=== PATIENT | female | born 1995 | race Caucasian/White ===

== ENCOUNTER → 2022-10-12 | Outpatient (CLI) | payer BC, SELFPAY ==
[2022-10-19 20:02] LABS: HPV Reflexed? NOT INDICATED
== END | disposition home or self-care (01) ==
LOC: LABSPEC 16:58
PROVIDERS: Referring Provider Registered Nurse; Visit Provider Registered Nurse
DX: Z12.4 Encounter for screening for malignant neoplasm of cervix (principal)
CPT/HCPCS: 88175; G0145

== ENCOUNTER → 2022-10-27 | Outpatient (CLI) | payer BC, SELFPAY ==
--- NOTE | 2022-10-27 12:19 | US_ITS ---
STUDY: ULTRASOUND BREAST - RIGHT REASON FOR EXAM: Female, 27 years old. Several year history of right breast. TECHNIQUE: Axial and longitudinal images of the RIGHT breast were performed with a high resolution ultrasound transducer. # OF IMAGES: 32 COMPARISON: None. FINDINGS: RIGHT Breast: The upper outer quadrant of the right breast was examined with ultrasound. There is dense fibroglandular tissue. The palpable lump corresponds to a 6.6 mm x 4.2 mm well-circumscribed hypoechoic nodule at the 12:00 position of the breast at 5 cm from the nipple. This most likely represents a fibroadenoma although a biopsy is recommended for tissue diagnosis. US/Breast Limited Unilateral IMPRESSION: The palpable lump corresponds to a 6.6 mm x 4.2 mm well circumscribed hypoechoic nodule at the 12:00 position of the breast at 5 seconds from nipple. This most likely represents a fibroadenoma although a biopsy is recommended for further evaluation. ASSESSMENT CATEGORY: BIRADS Category 4: Suspicious - Biopsy Should Be Considered. A letter regarding these results will be sent to the patient by the facility within 30 days. Electronically Signed: Ric Mclaughlin MD at 13:01 EDT ,
== END | disposition home or self-care (01) ==
PROVIDERS: Referring Provider Registered Nurse; Visit Provider Registered Nurse
DX: N63.11 Unspecified lump in the right breast, upper outer quadrant (principal)
CPT/HCPCS: 76642

== ENCOUNTER → 2025-02-15 | Outpatient (CLI) | payer BC, SELFPAY ==
--- OUTSIDE RECORDS SUMMARY | 2025-02-15 09:56 | XMS RPT_ITS | CCD ---
Author Organization [facility] CliniSywa Care Team Providers Care Extracting Machine Operator Name Role Phone OREN RUDD DO Primary Care Physician VIRGINIA Rodriguez Attending Provider ERIN ANDREWS MD Attending Unavaila ble HALKO DO, OREN Primary Care Unavailable HALKO DO, OREN Primary Care Unavailable ERIN ANDREWS MD Attending Unavaila ble HALKO DO, OREN Primary Care Unavailable ERIN ANDREWS MD Attending Unavaila ble Halko IV, DO, Lety Primary Care Provider [phone] Care Physician, No Primary Primary Care Provider Unavailable Care Physician, No Primary Referring Provider Un available Yasmeen Rodriguez CNM Attending Provider MD LASHONDA THOMAS Attending Unava ilable HALKO DO, OREN Primary Care Unavailable MD LASHONDA THOMAS Attending Unava ilable HALKO DO, OREN Primary Care Unavailable MD LASHONDA THOMAS Attending Unava ilable HALKO DO, OREN Primary Care Unavailable REFERRING, PHY WO ID Attending Unavailable HALKO , OREN Primary Care Unavailable MD LASHONDA THOMAS Attending Unava ilable HALKO DO, OREN Primary Care Unavailable MD LASHONDA THOMAS Attending Unava ilable HALKO DO, OREN Primary Care Unavailable MD LASHONDA THOMAS Attending Unava ilable HALKO DO, OREN Primary Care Unavailable MD LASHONDA THOMAS Attending Unava ilable HALKO DO, OREN Primary Care Unavailable HALKO IV, LETY Primary Care Unavailable HALKO IV, LETY Primary Care Unavailable LASHONDA THOMAS Attending Unavaila ble HALKO IV, LETY Primary Care Unavailable LASHONDA THOMAS Attending Unavaila ble HALKO IV, LETY Primary Care Unavailable HALKO IV, LETY Referring Unavailable BENDARAM, LASHONDA SHIPMAN Attending Unavaila ble HALKO IV, LETY Primary Care Unavailable BENDARAM, LASHONDA SHIPMAN Referring Unavaila ble HALKO IV, LETY Primary Care Unavailable HALKO IV, LETY Primary Care Unavailable BENDARAM, LASHONDA SHIPMAN Attending Unavaila ble HALKO IV, LETY Primary Care Unavailable BENDARAM, LASHONDA SHIPMAN Attending Unavaila ble HALKO IV, LETY Primary Care Unavailable BENDARAM, LASHONDA SHIPMAN Attending Unavaila ble Brianda DIRECTOR WORKFORCE MANAGEMENT-C, Ying Attending Provider [phone] Care Physician, No Primary Primary Care Unava ilable Yasmeen Rodriguez Attending Unavailable Care Physician, No Primary Referring Unava ilable Ying Lamar NP Attending Unavailable Care Physician, No Primary Referring Unava ilable Care Physician, No Primary Referring Unava ilable Robina Peters Attending Unavailable Fran COLEMAN, Robina Attending Provider [phone] Robina Peters CNM Referring Provider [phone] Allergies Allergy Classification Reported Allergen(s) Allergy Type Date of Onset Reaction(s) Facility (20 sources) Amoxicillin / Clavulanate; Translations: [amoxicillin-cl avulanate] Drug Allergy 4 Diarrhea, GI Upset, Vomiting [facility] (4 sources) Amoxicillin Drug Allergy 3 Abd cramps/diarrhea [facility] (4 sources) Clavulanate Drug Allergy 3 Abd cramps/diarrhea [facility] (1 source) AMOXICILLIN-POT CLAVULANATE; Translations: [AMOXICILLIN-PO T CLAVULANATE] Propensity to adverse reactions to drug (disorder) [address] [facility] Repository (1 source) Amoxicillin Drug Allergy 5 [facility] Repository (1 source) Clavulanate Drug Allergy 5 [facility] Repository Medications Current Medications Medication Drug Class(es) Dates Sig (Normalized) Sig (Original) levothyroxine sodium 0.05 mg oral tablet (20 sources) l-Thyroxine Start: 01-30-2025 Levothyroxine (Synthroid) 50 mcg tablet Active 75 ug PO DAILY January 30, 2025 8:15am Start: 07-06-2024 End: 01-08-2025 take 1 tablet by mouth once daily levothyroxine (LEVOXYL) 75 mcg tablet Indications: Acquired hypothyroidism Take 1 tablet by mouth once daily. 90 tablet 1 01/08/2025 Active Start: 11-26-2022 Synthroid 50 m cg (0.05 mg) oral tablet Dose : 50 mcg = 1 tab(s), Oral, qDay, # 90 tab(s), 3 Refill(s), Pharmacy: [facility], 170.5, cm, 10/01/22 10:01:00 EDT, Height, kg, 10/01/22 10:01:00 EDT, Dosing Weight Start Date: 11/26/22 Status: Ordered Quantity: 90.0 Unit: tab(s) Repeat number: 4 Start: 10-12-2022 End: 01-30-2025 take 1 tablet by mouth once daily Levothyroxine (Synthroid) 50 mcg tablet Discontinued 50 ug PO DAILY October 12, 2022 12:00am January 30, 2025 8:17am Start: 06-15-2022 Synthroid 50 m cg (0.05 mg) oral tablet Dose : 50 mcg = 1 tab(s), Oral, qDay, # 90 tab(s), 3 Refill(s), Pharmacy: [facility], 170.5, cm, 02/02/22 13:56:00 EDT, Height, kg, 02/02/22 13:56:00 EDT, Dosing Weight Start Date: 06/15/22 Status: Ordered Start: 06-12-2021 Synthroid 50 m cg (0.05 mg) oral tablet Dose : 50 mcg = 1 tab(s), Oral, qDay, # 90 tab(s), 3 Refill(s), Pharmacy: [facility], 167.6, cm, 06/12/21 15:18:00 EST, Height, kg, 06/12/21 15:18:00 EST, Dosing Weight Start Date: 06/12/21 Status: Ordered Start: 04-09-2021 Synthroid 50 m cg (0.05 mg) oral tablet Dose : 50 mcg = 1 tab(s), Oral, qDay, # 30 tab(s), 3 Refill(s), Pharmacy: [facility]/pharmacy #[id number], 167.6, cm, 01/28/21 15:20:00 EDT, Height, kg, 01/28/21 15:20:00 EDT, Dosing Weight Start Date: 04/09/21 Status: Ordered MEDICATION, NON-DATABASE (20 sources) take 1 capsule by mo uth twice daily MEDICATION, NON-DATABASE Take 1 capsule by mouth two times a day. Thyro-care *under the supervision of a construction project coordinator -- compound formula* Active take 1 capsule by mouth once juan ly MEDICATION, NON-DATABASE Take 1 capsule by mouth once daily. Adrenal Assist *under the supervision of a construction project coordinator -- compound formula* Active take 1 capsule by mouth twice da александр MEDICATION, NON-DATABASE Take 1 capsule by mouth two times a day. Thyro-care *under the supervision of a construction project coordinator -- compound formula* 0 Active take 1 capsule by mouth once juan ly MEDICATION, NON-DATABASE Take 1 capsule by mouth once daily. Adrenal Assist *under the supervision of a construction project coordinator -- compound formula* 0 Active OMEGA 5-XHK-BIA-FISH OIL ORA L (15 sources) take 1 capsule by mouth once daily OMEGA 9-MYA-ZRG-FISH OIL ORAL Take 1 capsule by mouth once daily. Active OMEGA 3-DHA-EPA- FISH OIL ORAL Take by mouth. Active OTC NUTRITIONAL SUPPLEMENT (15 sources) take 1 tablet by heather th once daily OTC NUTRITIONAL SUPPLEMENT Take 1 tablet by mouth once daily. Vitex Supplement Active OTC NUTRITIONAL SUPPLEMENT Vitex Supplement Active Pnv Cmb 97-Swuj-Hy-Accident-3-Dha 29 mg iron- 1 mg-200 mg combo pack (2 sources) Start: 01-30-2025 Pnv Cmb 66-Ubdm-Em-Accident-3-Dha 29 mg iron- 1 mg-200 mg combo pack Active NMA PO January 30, 2025 12:00am vit 93/iron fum/folic ( FORMULA ORAL) (15 sources) take 1 tablet by mouth once daily vit 93/iron fum/folic ( FORMULA ORAL) Take 1 tablet by mouth once daily. Active vit 93/ iron fum/folic ( FORMULA ORAL) Take by mouth. Active propranolol hydrochloride 10 mg oral tablet (15 sources) beta-Adrenergic Jessica Start: 05-05-2024 take 1 tablet by mouth three times daily propranolol (INDERAL) 10 mg tablet Indications: Abnormal results of thyroid function studies Take 1 tablet by mouth three times a day. 90 tablet 05/05/2024 Active spironolactone 100 mg oral tablet (3 sources) Aldosterone Antagonist Start: 07-31-2021 spironolactone 100 mg oral tablet Dose : 100 mg = 1 tab(s), Oral, qDay, # 30 tab(s), 0 Refill(s) Start Date: 07/31/21 Status: Ordered Completed/Discontinued Medications Medication Drug Class(es) Dates Sig (Normalized) Sig (Original) cosyntropin 0.25 mg injection (CORTROSYN) (3 sources) Start: 12-07-2024 End: 12-15-2024 cosyntropin 0.25 mg injection (CORTROSYN) Start: 12-07-2024 End: 12-15-2024 inject 2-5 mL by intramuscular injection once 0.25 mg, INTRAMUSCULAR, ONCE (UP TO 30 DAYS AMB), 1 dose, On Marisela 12/07/24 at 1230, Please draw 17 hydroxy progesterone levels before and 60 mins after giving cosyntropin Intramuscular administration: Reconstitute 0.25 mg with 1 mL of NS Intravenous administration: Reconstitute 0.25 mg with 1 mL of NS and further dilute in NS to a total volume of 2 to 5 mL Start: 12-07-2024 End: 01-06-2025 cosyntropin 0.25 mg injectio n (CORTROSYN) Problems Problem Classification Problem Date Documented Da te Episodic/Chronic Cardiac dysrhythmias (13 sources) Tachycardia 06-27-2019 Episodic Coronary atherosclerosis and other heart disease (13 sources) Exercise-induced angina 06-27-2019 Chronic Heart valve disorders (13 sources) Pulmonic valve regurgitation 07-07-2019 Chronic Heart valve disorders (13 sources) Systolic murmur 06-27-2019 Episodic Joint disorders and dislocations; trauma-related (13 sources) Patellofemoral stress syndrome 12-22-2019 Chronic Menstrual disorders (16 sources) Secondary amenorrhea; Translations: [Irregular periods] Onset: 12-15-2024 06-12-2021 Chronic Nonmalignant breast conditions (12 sources) Lesion of breast; Translations: [Unspecified lump in unspecified breast] 10-12-2022 Episodic Comment on above: breast ultrasound or dered 0.5cm mobile nodule 5cm from nipple, 11 oclock 0.5cm mobile nodule 5cm from nipple, 11 oclocksurgical consult placed for biospy. Other complications of (1 source) Supervision of high risk , unspecified, unspecified trimester; Translations: [Supervision of high risk , unspecified, unspecified trimester] Onset: 02-07-2025 Episodic Other complications of (3 sources) High risk ; Translations: [Supervision of high risk , unspecified, unspecified trimester] 01-30-2025 Episodic Comment on above: , KATE 09/19/25, Joey Carballo Other complications of (2 sources) Inherited disorder of folate metabolism; Translations: [Endocrine, nutritional and metabolic diseases complicating , unspecified trimester] 01-30-2025 Episodic Other gastrointestinal disorders (13 sources) Irritable bowel syndrome 07-16-2020 Chronic Other and delivery including normal (2 sources) ; Translations: [Encounter for supervision of normal , unspecified, unspecified trimester] 02-15-2025 Episodic Comment on above: discussed genetic & carrier testing-undecided Other screening for suspected conditions (not mental disorders or infectious disease) (2 sources) Thyroid function tests abnormal; Translations: [Abnormal results of thyroid function studies] 05-05-2024 Episodic Other skin disorders (2 sources) Acne; Translations: [Other acne] 10-06-2024 Episodic Other skin disorders (1 source) Other acne; Translations: [Other acne] Onset: 12-15-2024 Episodic Residual codes; unclassified (2 sources) Family history of breast cancer; Translations: [Family history of malignant neoplasm of breast] 01-30-2025 Episodic Comment on above: Paternal Grandmother age of onset unknown Thyroid disorders (20 sources) Hyperthyroidism; Translations: [Hypothyroidism] Onset: 12-15-2024 08-27-2020 Chronic Comment on above: managed by [facility] Results Test Name Value Interpretation Reference Range Facility Office Visit Reporton 2024 Office Visit [facility] [address] [place] [address] OFFICE VISIT Date of Service: 01/30/25 MR#: [id number] Acct: [id number] Patient: ERWIN COLES Rep #: [id number] : 1995 Provider: KIRSTIN cameron Age/Sex: 29/F Location: [facility] Status: Signed Intake Vital Signs 11/14/24 09:41 01/30/25 10:15 Height 5 ft 6 in 5 ft 6 in Weight: 143 lb 6 oz 144 lb BMI 23.1 23.2 BP 107/73 118/68 Blood Pressure Location Lt brachial Position Sitting Intake Visit Reasons: PNOB Vitals Education Chief Complaint: Annual Java Developer Consultant Required: No Is patient in pain?: No Allergies amoxicillin (From Augmentin) Allergy (Mild, Verified 01/30/25 10:16) Abd cramps/diarrhea clavulanic acid (From Augmentin) Allergy (Mild, Verified 01/30/25 10:16) Abd cramps/diarrhea Medications ???Medication ???Instructions ???Recorded ???Confirmed ???Type PNV-iron 29 mg-folic acid 1 pkg PO 01/30/25 01/30/25 History iq-gmzuh-2-dha 200 mg oral combo pack levothyroxine 50 mcg tablet 75 mcg PO DAILY 01/30/25 01/30/25 History (Synthroid) Is last menstrual period known: Yes Last menstrual period: 12/13/24 Post menopausal: No Patient : Yes Nursing Note Pt here for secondary amenorrhea. Vitals WNL. PNOB questions completed. Problem list, allergies, and medications updated. First trimester ACOG education completed. Assessment and Plan Assessment and Plan (1) Supervision of high-risk : Status: Acute Qualifiers: Trimester: first trimester Qualified Code(s): O09.91 - Supervision of high risk , unspecified, first trimester Comment: , KATE 09/19/25, Haris Moisés RTO NOB appt 01/30/25 1036 Date Ying [place] DIRECTOR WORKFORCE MANAGEMENT DIRECTOR WORKFORCE MANAGEMENT-C Cosigner Signature: Date (if applicable) CC: Normal [facility] CNOVon 01-08-2025 CNOV Office Visit (ENWSTR ) -- ERWIN COLES ([id number]) 1995 F Date Time Provider Department 01/08/25 4:20 PM LASHONDA THOMAS ENWSTR During your visit today, we recorded the following information about you: Pulse Respiration Blood pressure Weight 89/minute 18/minute 116/76 64.4 kg Height Last Period 1.676 m 12/12/24 Lashonda Thomas MD 01/28/2025 10:52 PM Signed [facility] Follow up visit note Subjective: Erwin Coles is a 29 year old female here follow up evaluation of thyroid problem. She was initially seen in November 2023 after referral by her Ict Developer, Dr. Erin Andrews for subclinical hypothyroidism. 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 Erin Andrews By late 2020, she was started on synthroid, was on 50 mcg daily at the latest which did not improve her fatigue, and hence she was off of synthroid. She has seen naturopathy specialist, and started using supplements in Apr 2023, she felt better with energy, hair texture etc after starting the supplement. But her labs were indicative of hyperthyroidism and when she was advised to share the name of the supplements, it is realized she was on thyrocare- BID and adrenal supplement once daily. This was advised to be discontinued as likely etiology of abnormal thyroid labs indicating hyperthyroid status due to exogenous thyroid hormone, and she is currently on levothyroxine 75 mcg daily Family history: Grand father had Chatham's disease Interval history: 12/07/24 Hypothyroidism: - Taking levothyroxine 75 mcg daily since July 2024 - no hypo or hyperthyroid symptoms. Feels better overall - re[ports compliance with medications, and tolerating well Reported acne during visit on 10/2024 which she reported were after starting levothyroxine. She believes her acne is due to this medication. On further questioning, also reports irregular cycles, no c/o hirsutism Acne: - Onset of facial acne approximately 2 months ago. Irregular Menstrual Cycles: - Menstrual cycles have lengthened to approximately 40 days, previously around 30 days. - Observes attempts at ovulation followed by successful ovulation later in the cycle, as indicated by basal body temperature tracking. - Taking Vitex for progesterone support since fall of last year. - labs were done for acne and irregular cycles, and are as below under labs Reports its long a cycle but also feels that her body might be getting back to normal after thyroid has been normalized She was seen by OBGYN, and was recommended to monitor for now Acne is slightly better Interval history: 01/08/25: Based on labs, I recommended doing ACTH stimulation test for 17OHP, along with other labs at appropriate time She reports no significant changes since last visit REVIEW OF SYSTEMS: 10 point ROS was reviewed and negative unless indicated in the HPI ALLERGIES: ALLERGIES Allergen Reactions Amoxicillin-Pot Cla* Diarrhea, GI Upset, Vomiting MEDICATIONS: Current Outpatient Medications on File Prior to Visit Medication Sig MEDICATION, NON-DATABASE Take 1 capsule by mouth two times a day. Thyro-care *under the supervision of a construction project coordinator -- compound formula* MEDICATION, NON-DATABASE Take 1 capsule by mouth once daily. Adrenal Assist *under the supervision of a construction project coordinator -- compound formula* No current facility-administered medications on file prior to visit. PAST MEDICAL HISTORY: No past medical history on file. PAST SURGICAL HISTORY: PAST SURGICAL HISTORY Procedure Laterality Date MYRINGOTOMY W TUBE,BILATERAL(2) TONSILLECTOMY AND ADENOIDECTOMY WRIST SURGERY HX Right cartilage repair -- in high school FAMILY HISTORY: FAMILY HISTORY Problem Relation Age of Onset other (aortic valve replacement) Father No Known Problems Brother Breast Cancer Paternal Grandmother Diabetes Paternal Grandmother other (addisons disease) Paternal Grandfather Thyroid No Family History SOCIAL HISTORY: Social History Tobacco Use Smoking status: Never Passive exposure: Never Smokeless tobacco: Never Vaping Use Vaping status: Never Used Substance Use Topics Alcohol use: Yes Comment: occasional Drug use: Never PHYSICAL EXAM: BP 116/76 (BP Site: Right Arm, BP Position: Standing, BP Cuff Size: Regular Adult) Pulse 89 Resp 18 Ht 167.6 cm (5' 6) Wt 64.4 kg (142 lb) LMP 12/12/2024 (Exact Date) SpO2 100% BMI 22.92 kg/m? Unchanged from prior visit General: Alert and oriented x3, no acute distress Eyes: Anicteric sclera. EOMI. No lid lag or exophthalmos Neck supple, no cervical lymphadenopathy Thyroid: normal to slightly enlarged in size, normal texture, no palpable (more content not included)... Normal [facility] CORTISOL, 60 MIN POST COSYNT ROPIN INJECTIONon 12-15-2024 CORTISOL, POST 26.0 ug/dL Normal [facility] Comment on above: Order Comment: Speci men Type: BLOOD SPECIMENOrdering Facility: [facility] Address: [address] [place] [address] Performed By: #### C ORTPST ####[facility] LABCLIA [id number] [place] [address] [place] INTERPRETATION (ACTHST) Normal [facility] Comment on above: Order Comment: Speci men Type: BLOOD SPECIMENOrdering Facility: [facility] Address: [address] [place] [address] Result Comment: Afte r cortrosyn stimulation, a peak cortisol response greater than 12.6 ug/dL may indicate appropriate cortisol secretion. This result should be interpreted within the clinical context and other test results. Stacy et al. Clinical Implications for Biochemical Diagnostic Thresholds of Adrenal Sufficiency Using a Highly Specific Cortisol Immunoassay. 2017 Clin. Biochem. 50:475-480. Performed By: #### C ORTPST ####[facility] LABCLIA [id number] [place] [id number] [place] CORTISOL, BASALon 12-15-2024 Cortisol baseline [Mass/Vol] 12.2 ug/dL Normal 4.8-19.5 [facility] Comment on above: Order Comment: Speci men Type: BLOOD SPECIMENOrdering Facility: [facility] Address: [address] [place] [address] Result Comment: Prov ided reference range is from 6-10 AM sample collection time. Cortisol Reference Range: 6-10 AM = 4.8-19.5 ug/dL, 4-8 PM = 2.5-11.9 ug/dL Performed By: #### C ORTBAS ####[facility] LABCLIA [id number] [place] [address] [place] DHEA-S BLDon 12-15-2024 DHEA-S [Mass/Vol] 129.0 ug/dL Normal 98.8-340.0 [facility] Comment on above: Order Comment: Speci men Type: BLOOD SPECIMENOrdering Facility: [facility] Address: [address] [place] [address] Result Comment: Refe rence ranges are age and gender specific. For additional information, reference range tables can be found in the laboratory test directory. The normal values are based on the following source: Dehydroepiandrosterone sulfate (DHEA S) [package insert V 17.0 Polish]. [facility], [place], [place]: February 2013. Performed By: #### 3 016-3, DHEAS, 2842-3, 3024-7 ####[facility] LABIA [id number] [place] [id number] [place] HYDROXYPROGESTERONE-17on 17-HYDROXYPROGESTERO NE QUANTITATIVE BY HPLC-MS/MS, SERUM OR PLASMA 149.85 ng/dL Normal <=206.00 [facility] Comment on above: Order Comment: Speci men Type: BLOOD SPECIMENOrdering Facility: [facility] Address: [address] [place] [address] Result Comment: INTE RPRETIVE INFORMATION for 17-Hydroxyprogesterone in females: Follicular 15 to 70 ng/dL Luteal 35 to 290 ng/dL REFERENCE INTERVAL: 17-Hydroxyprogesterone Qnt, HPLC-MS/MS Access complete set of age- and/or gender-specific reference intervals for this test in the [email or web address] Laboratory Test Directory (Smart Cube). This test was developed and its performance characteristics determined by [employer]. It has not been cleared or approved by the [place] Food and Drug Administration. This test was performed in a CLIA certified laboratory and is intended for clinical purposes. Performed By: [facility] [address] [place] [address] [place] Saw Operator: Martín Blanco MD, PhD CLIA Number: [id number] Performed By: #### H PROG ####[facility] [id number] [place] [id number] 17-HYDROXYPROGESTERO NE QUANTITATIVE BY HPLC-MS/MS, SERUM OR PLASMA 32.81 ng/dL Normal <=206.00 [facility] Comment on above: Order Comment: Speci men Type: BLOOD SPECIMENOrdering Facility: [facility] Address: [address] [place] [address] Result Comment: INTE RPRETIVE INFORMATION for 17-Hydroxyprogesterone in females: Follicular 15 to 70 ng/dL Luteal 35 to 290 ng/dL REFERENCE INTERVAL: 17-Hydroxyprogesterone Qnt, HPLC-MS/MS Access complete set of age- and/or gender-specific reference intervals for this test in the [email or web address] Laboratory Test Directory (Smart Cube). This test was developed and its performance characteristics determined by [employer]. It has not been cleared or approved by the [place] Food and Drug Administration. This test was performed in a CLIA certified laboratory and is intended for clinical purposes. Performed By: [facility] [address] [place] [address] [place] Saw Operator: Martín Blanco MD, PhD CLIA Number: [id number] Performed By: #### H PROG ####[facility] [id number] [place] [address] Prolactin SerPl-mCncon 12-15 Prolactin [Mass/Vol] 22.6 ng/mL Normal 4.4-33.8 [facility] Comment on above: Order Comment: Speci men Type: BLOOD SPECIMENOrdering Facility: [facility] Address: [address] [place] [address] Result Comment: Prol actin test is performed using the [facility] Electrochemiluminescence Immunoassay method. Results obtained with different methods or kits cannot be used interchangeably. Performed By: #### 3 016-3, DHEAS, 2842-3, 302-7 ####[facility] LABCLIA [id number] [place] [address] [place] T4 Free SerPl-mCncon 025 Free T4 [Mass/Vol] 1.7 ng/dL Normal 0.9-1.7 [facility] Comment on above: Order Comment: Speci men Type: BLOOD SPECIMENOrdering Facility: [facility] Address: [address] [place] [address] Performed By: #### 3 016-3, DHEAS, 2842-3, 3023-7 ####[facility] LABCLIA [id number] [address] [place] [facility] TSH SerPl-aCncon 12-15-2024 TSH Qn 2.380 m[IU]/L Normal 0.270-4.200 [facility] Comment on above: Order Comment: Speci men Type: BLOOD SPECIMENOrdering Facility: [facility] Address: [address] [place] [address] Result Comment: If t he patient is , TSH reference range varies by gestational period: First Trimester (weeks 9-12): 0.180-2.990 mIU/L Second Trimester: 0.110-3.980 mIU/L Third Trimester: 0.480-4.710 mIU/L Abdi Turner et al. A Practical Approach for the Verifications and Determination of Site- and Trimester-Specific Reference Intervals for Thyroid Function tests in . Thyroid, 2019:29:3:412-420. Edouard Nassar, et al. 2017 Guidelines of the [place] [employer] for the Diagnosis and Management of Thyroid Disease during and the . Thyroid, 2017:27:3:315-389. Performed By: #### 3 016-3, DHEAS, 2842-3, 302-7 ####[facility] [id number] [address] [place] [facility] CNOVon 12-07-2024 CNOV Office Visit (ENWSTR ) -- ERWIN COLES ([id number]) 1995 F Date Time Provider Department 12/07/24 11:40 AM LASHONDA THOMAS ENWSTR During your visit today, we recorded the following information about you: Temperature Pulse Blood pressure Weight 98.9 degrees 75/minute 130/70 64.5 kg Last Period 10/19/24 Lashonda Thomas MD 12/07/2024 5:49 PM Signed [facility] Follow up visit note Subjective: Erwin Coles is a 29 year old female here follow up evaluation of thyroid problem. She was initially seen in November 2023 after referral by her Ict Developer, Dr. Erin Andrews for subclinical hypothyroidism. 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 Erin Andrews By late 2020, she was started on synthroid, was on 50 mcg daily at the latest which did not improve her fatigue, and hence she was off of synthroid. She has seen naturopathy specialist, and started using supplements in Apr 2023, she felt better with energy, hair texture etc after starting the supplement. But her labs were indicative of hyperthyroidism and when she was advised to share the name of the supplements, it is realized she was on thyrocare- BID and adrenal supplement once daily. This was advised to be discontinued as likely etiology of abnormal thyroid labs indicating hyperthyroid status due to exogenous thyroid hormone, and she is currently on levothyroxine 75 mcg daily Family history: Grand father had Chatham's disease Interval history: 12/07/24 Hypothyroidism: - Taking levothyroxine 75 mcg daily since July 2024 - no hypo or hyperthyroid symptoms. Feels better overall - re[ports compliance with medications, and tolerating well Reported acne during visit on 10/2024 which she reported were after starting levothyroxine. She believes her acne is due to this medication. On further questioning, also reports irregular cycles, no c/o hirsutism Acne: - Onset of facial acne approximately 2 months ago. Irregular Menstrual Cycles: - Menstrual cycles have lengthened to approximately 40 days, previously around 30 days. - Observes attempts at ovulation followed by successful ovulation later in the cycle, as indicated by basal body temperature tracking. - Taking Vitex for progesterone support since fall of last year. - labs were done for acne and irregular cycles, and are as below under labs Reports its long a cycle but also feels that her body might be getting back to normal after thyroid has been normalized She was sen by OBMARISELAN, and was recommended to monitor for now Acne is slightly better REVIEW OF SYSTEMS: 10 point ROS was reviewed and negative unless indicated in the HPI ALLERGIES: ALLERGIES Allergen Reactions Amoxicillin-Pot Cla* Diarrhea, GI Upset, Vomiting MEDICATIONS: Current Outpatient Medications on File Prior to Visit Medication Sig MEDICATION, NON-DATABASE Take 1 capsule by mouth two times a day. Thyro-care *under the supervision of a construction project coordinator -- compound formula* MEDICATION, NON-DATABASE Take 1 capsule by mouth once daily. Adrenal Assist *under the supervision of a construction project coordinator -- compound formula* No current facility-administered medications on file prior to visit. PAST MEDICAL HISTORY: No past medical history on file. PAST SURGICAL HISTORY: PAST SURGICAL HISTORY Procedure Laterality Date MYRINGOTOMY W TUBE,BILATERAL(2) TONSILLECTOMY AND ADENOIDECTOMY WRIST SURGERY HX Right cartilage repair -- in high school FAMILY HISTORY: FAMILY HISTORY Problem Relation Age of Onset other (aortic valve replacement) Father No Known Problems Brother Breast Cancer Paternal Grandmother Diabetes Paternal Grandmother other (addisons disease) Paternal Grandfather Thyroid No Family History SOCIAL HISTORY: Social History Tobacco Use Smoking status: Never Passive exposure: Never Smokeless tobacco: Never Vaping Use Vaping status: Never Used Substance Use Topics Alcohol use: Yes Comment: occasional Drug use: Never PHYSICAL EXAM: BP 130/70 (BP Site: Right Arm, BP Position: Sitting, BP Cuff Size: Regular Adult) Pulse 75 Temp 37.2 ?C (98.9 ?F) (Temporal Artery) Wt 64.5 kg (142 lb 3.2 oz) LMP 10/19/2024 (Exact Date) SpO2 100% BMI 22.95 kg/m? Unchanged from prior visit General: Alert and oriented x3, no acute distress Eyes: Anicteric sclera. EOMI. No lid lag or exophthalmos Neck supple, no cervical lymphadenopathy Thyroid: normal to slightly enlarged in size, normal texture, no palpable nodules Lungs: Breathing unlabored, clear to auscultation. Heart regular rate and rhythm, S1 and S2 normal Musculoskeletal: Muscular strength intact, No joint swelling, deformity, or (more content not included)... Normal [facility] FT4on 12-05-2024 Free T4 [Mass/Vol] 1.18 ng/dL Normal 0.76-1.46 [facility] Comment on above: Performed By: #### F T4 #### [address] [address] LABORATORYOrdered By: SYSTEM SYSTEM on 12-05-2024 Free T4 [Mass/Vol] 1.18 ng/dL Normal 0.76 - 1. 46 ng/dL AO ADM SS TSH Qn 2.69 m[IU]/L Normal 0.36 - 3.74 mcIU/mL AO ADM SS TSHon 12-05-2024 TSH Qn 2.69 m[IU]/L Normal 0.36-3.74 [facility] Comment on above: Performed By: #### F T4, TSH #### [address] [address] [facility] 12-04-2024 [facility] Telephone (PULMWS) -- ERWIN COLES ([id number]) 1995 F Date Time Provider Department 12/04/24 LASHONDA THOMAS During your visit today, we recorded the following information about you: Mehnaz Coates RN 12/04/2024 9:50 AM Signed Lab orders faxed to [facility] Lab for upcoming appt per Pt request. Fax confirmation received. Mehnaz Coates RN December 04, 2024 9:50 AM Allergies As of Date: 12/04/2024 Noted Allergy Reaction AMOXICILLIN-POT CLAVULANATE 11/30/2023 6 - Diarrhea 8 - GI Upset 11 - Vomiting Date Reviewed: 10/06/2024 Reviewed by: Kierra Cobb MA - Fully Assessed Reason for Visit: Orders [681] Prescriptions as of 12/04/2024 - levothyroxine (LEVOXYL) 75 mcg tablet Take 1 tablet by mouth once daily. - vit 93/iron fum/folic ( FORMULA ORAL) Take 1 tablet by mouth once daily. - OMEGA 9-CZP-GSU-FISH OIL ORAL Take 1 capsule by mouth once daily. - OTC NUTRITIONAL SUPPLEMENT Take 1 tablet by mouth once daily. Vitex Supplement - propranolol (INDERAL) 10 mg tablet Take 1 tablet by mouth three times a day. - MEDICATION, NON-DATABASE Take 1 capsule by mouth two times a day. Thyro-care *under the supervision of a construction project coordinator -- compound formula* - MEDICATION, NON-DATABASE Take 1 capsule by mouth once daily. Adrenal Assist *under the supervision of a construction project coordinator -- compound formula* Problem List As Of Date: 12/04/2024 (None) Encounter Status:Closed by MEHNAZ COATES on 12/04/24 Normal [facility] Wheel And Axle Inspector Office Visit Reporton 11-14-2024 Wheel And Axle Inspector Office Visit Report [facility] [address], [address] [place] [address] OFFICE VISIT Date of Service: 11/14/24 MR#: [id number] Acct: [id number] Name: ERWIN COLES Rep #: [id number] : 1995 Provider: VIR[place] willis Age/Sex: 29/F Location: [facility] Status: Signed Intake Vital Signs 11/14/24 09:41 Height 5 ft 6 in Weight: 143 lb 6 oz BMI 23.1 BP 107/73 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 Complaint: Annual Java Developer Consultant Required: No Is patient in pain?: No Allergies amoxicillin (From Augmentin) Allergy (Mild, Verified 11/14/24 09:41) Abd cramps/diarrhea clavulanic acid (From Augmentin) Allergy (Mild, Verified 11/14/24 09:41) Abd cramps/diarrhea Medications ???Medication ???Instructions ???Recorded ???Confirmed ???Type levothyroxine 50 mcg tablet 50 mcg PO DAILY 10/12/22 11/14/24 History (Synthroid) Is last menstrual period known: Yes Last Menstrual Period: 09/19/22 Post menopausal: No Patient : No : No Control Method: none PFSH Medical History Hypothyroidism Surgical History Status post myringotomy with tube placement of both ears S/P wisdom tooth extraction S/P wrist surgery S/P tonsillectomy and adenoidectomy Family History Grandmother Breast cancer Cancer Skin cancer Hypertension Mother Hypertension Father Heart disease Artificial valve CVA (cerebral vascular accident) Social History adopted: No household members: spouse housing: apartment number of children: 0 current occupational status: employed current occupation: [employer] Smoking Status: Never smoker alcohol intake: current alcohol intake frequency: holidays/special occasions only substance use type: does not use seatbelt use: always do you feel safe at home: Yes additional social history: - [employer] Support Staff Member 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 having irregular menses, thryoid now normal this month. being followed by endocrine through [facility]. verbalizes last tsh 2.5. using bbt and ovulation sticks as ttc. has not been getting lh surges. was going to obtain breast biospy but cancelled due to vacation the following week, has not obtained for birads 4. Last PAP: 2022; normal. History of abnormal PAP: no. Last mammogram: 2022; birads 4. History of abnormal mammogram: yes 2022 birads 4 Colon cancer screening: age 47 Other preventative health care screenings: PCP. Female Reproductive History Last Menstrual Period: 09/19/22 Cycle Length: 21-35 Bleeding Duration: 5 Questions: metorrhagia: No, sexually active: Yes, dyspareunia: No and PCB: No Menopausal Symptoms: No hot flashes, No night sweats, No difficulty concentrating and No change in libido ROS Const Constitutional: Reports as per HPI; Denies fatigue, increased appetite, poor appetite, night sweats, weight gain or weight loss Cardio Card: Denies chest pain Resp Resp: Denies cough or dyspnea GI GI: Reports as per HPI; Denies abdominal pain, bloating, constipation, nausea or vomiting : Reports as per HPI and other; Denies difficulty voiding, hematuria, hot flashes, nipple discharge, pelvic pain, urinary frequency, urinary incontinence, urinary hesitancy, urinary urgency, vaginal discharge, vaginal dryness, vaginal odor or vaginal pruritus Skin Skin/Breast: Denies changing lesions, breast mass, breast pain, breast skin changes or nipple discharge Psych Psych: Denies anxiety, change in libido, depression or difficulty concentrating Exam Const General: cooperative, healthy appearing, comfortable and no acute distress Neck Neck: normal visual inspection, full ROM, no lymphadenopathy and supple Thyroid: thyroid normal Chest Chest palpation inspection: normal inspection of the chest Breast inspection: normal inspection of the breasts Breast palpation: abnormal palpation of the breast Resp Effort Inspection: normal respiratory effort, able to speak in complete sentences and symmetric chest movement Cardio Rhythm: regular rhythm GI Inspection: normal to inspection Palpation: soft and no hepatosplenomegaly External Female Exam: normal external appearance and normal appearance of the urethra Urethra: normal appearance of the urethra Speculum Exam - Vagina: normal appearance of the v (more content not included)... Normal [facility] 17OHPon 2024 17-OH Progesterone LCMS 466 ng/dL Normal [facility] Comment on above: Result Comment: Adul t Female Follicular 15 - 70 Luteal 35 - 290 This test was developed and its performance characteristics determined by [facility] It has not been cleared or approved by the Food and Drug Administration. Performed At: [facility] [id number] Zi Bryant MD Ph:[phone] Performed By: #### F T4, TSH #### [address] 10-16-2024 Order Number [id number] Normal [facility] Comment on above: Order Comment: testo sterone free and weakly bound [id number] to [facility] SST room temp Performed By: #### F T4, TSH #### [address] Test Name testosterone free weakly Normal [facility] Comment on above: Order Comment: testo sterone free and weakly bound [id number] to [facility] SST room temp Performed By: #### F T4, TSH #### [address] 10-14-2024 [facility] Test Result COMMENT Normal [facility] Comment on above: Order Comment: testo sterone free and weakly bound [id number] to [facility] SST room temp Result Comment: Test Ordered: [id number] Testosterone,F/WklyBd+T LC/MS Testosterone, Total, LC/MS 28.0 ng/dL Reference Range: 10.0-55.0 This test was developed and its performance characteristics determined by [facility]. It has not been cleared or approved by the Food and Drug Administration. Testost., % Free+Weakly Bound 11.5 % BN Reference Range: 3.0-18.0 This test was developed and its performance characteristics determined by [facility]. It has not been cleared or approved by the Food and Drug Administration. Testost., F+W Bound 3.2 ng/dL BN Reference Range: 0.0-9.5 Performed At: [facility] [id number] Sunil Barreto PhD Ph:[phone] Performed At: [facility] [id number] Zi Bryant MD Ph:[phone] Performed By: #### F T4, TSH #### [place] [address] [address] [facility] Telephone (ENWSTR) -- ERWIN COLES ([id number]) 1995 F Date Time Provider Department 10/12/24 LASHONDA THOMAS ENWSTR During your visit today, we recorded the following information about you: Lashonda Thomas MD 10/12/2024 1:13 PM Signed Among the labs ordered recently, only two were drawn/resulted. Please make sure all labs were drawn Thank you! Kierra Cobb MA 10/12/2024 1:44 PM Signed Results report pending labs at this time. Kierra Cobb MA Allergies As of Date: 10/12/2024 Noted Allergy Reaction AMOXICILLIN-POT CLAVULANATE 11/30/2023 6 - Diarrhea 8 - GI Upset 11 - Vomiting Date Reviewed: 10/06/2024 Reviewed by: Kierra Cobb MA - Fully Assessed Prescriptions as of 11/13/2024 - levothyroxine (LEVOXYL) 75 mcg tablet Take 1 tablet by mouth once daily. - vit 93/iron fum/folic ( FORMULA ORAL) Take 1 tablet by mouth once daily. - OMEGA 2-KPG-ZLZ-FISH OIL ORAL Take 1 capsule by mouth once daily. - OTC NUTRITIONAL SUPPLEMENT Take 1 tablet by mouth once daily. Vitex Supplement - propranolol (INDERAL) 10 mg tablet Take 1 tablet by mouth three times a day. - MEDICATION, NON-DATABASE Take 1 capsule by mouth two times a day. Thyro-care *under the supervision of a construction project coordinator -- compound formula* - MEDICATION, NON-DATABASE Take 1 capsule by mouth once daily. Adrenal Assist *under the supervision of a construction project coordinator -- compound formula* Problem List As Of Date: 10/12/2024 (None) Encounter Status:Closed by LASHONDA THOMAS on 11/13/24 Normal [facility] DHEASon 10-10-2024 DHEA-SO4 101.38 mcg/dL Normal 25.90-460.2 0 [facility] Comment on above: Result Comment: No te - New Reference Range in effect 20 Performed By: #### F T4, TSH #### [id number] [place], [place] [address] PROLon 10-10-2024 Prolactin 23.6 ng/mL Normal 2.0-30.0 [facility] Comment on above: Performed By: #### F T4, TSH #### [address] [place], [place] [address] CNOVon 10-06-2024 CNOV Office Visit (ENWSTR ) -- ERWIN COLES ([id number]) 1995 F Date Time Provider Department 10/06/24 2:00 PM LASHONDA THOMAS ENWSTR During your visit today, we recorded the following information about you: Temperature Pulse Blood pressure Weight 98.9 degrees 82/minute 116/62 64.7 kg Last Period 09/12/24 Lashonda Thomas MD 10/08/2024 11:43 PM Addendum [facility] Follow up visit note Subjective: Erwin Coles is a 28 year old female here for evaluation of thyroid problem. She was initially seen in November 2023 after referral by her Ict Developer, Dr. Erin Andrews for subclinical hypothyroidism. 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 Erin Andrews By late 2020, she was started on synthroid, was on 50 mcg daily at the latest which did not improve her fatigue, and hence she was off of synthroid. She has seen naturopathy specialist, and started using supplements in Apr 2023, she felt better with energy, hair texture etc after starting the supplement. But her labs were indicative of hyperthyroidism and when she was advised to share the name of the supplements, it is realized she was on thyrocare- BID and adrenal supplement once daily. This was advised to be discontinued as likely etiology of abnormal thyroid labs indicating hyperthyroid status due to exogenous thyroid hormone Family history: Grand father had Chatham's disease Interval history:10/06/24 Reports acne which started after starting levothyroxine. She believes her acne is due to this medication. On further questioning, also reports irregular cycles, no c/o hirsutism Acne: - Onset of facial acne approximately 2 months ago. Irregular Menstrual Cycles: - Menstrual cycles have lengthened to approximately 40 days, previously around 30 days. - Observes attempts at ovulation followed by successful ovulation later in the cycle, as indicated by basal body temperature tracking. - Taking Vitex for progesterone support since fall of last year. Hypothyroidism: - Taking levothyroxine 75 mcg daily since July. REVIEW OF SYSTEMS: 10 point ROS was reviewed and negative unless indicated in the HPI ALLERGIES: ALLERGIES Allergen Reactions Amoxicillin-Pot Cla* Diarrhea, GI Upset, Vomiting MEDICATIONS: Current Outpatient Medications on File Prior to Visit Medication Sig MEDICATION, NON-DATABASE Take 1 capsule by mouth two times a day. Thyro-care *under the supervision of a construction project coordinator -- compound formula* MEDICATION, NON-DATABASE Take 1 capsule by mouth once daily. Adrenal Assist *under the supervision of a construction project coordinator -- compound formula* No current facility-administered medications on file prior to visit. PAST MEDICAL HISTORY: No past medical history on file. PAST SURGICAL HISTORY: PAST SURGICAL HISTORY Procedure Laterality Date MYRINGOTOMY W TUBE,BILATERAL(2) TONSILLECTOMY AND ADENOIDECTOMY WRIST SURGERY HX Right cartilage repair -- in high school FAMILY HISTORY: FAMILY HISTORY Problem Relation Age of Onset other (aortic valve replacement) Father No Known Problems Brother Breast Cancer Paternal Grandmother Diabetes Paternal Grandmother other (addisons disease) Paternal Grandfather Thyroid No Family History SOCIAL HISTORY: Social History Tobacco Use Smoking status: Never Passive exposure: Never Smokeless tobacco: Never Vaping Use Vaping status: Never Used Substance Use Topics Alcohol use: Yes Comment: occasional Drug use: Never PHYSICAL EXAM: BP 116/62 (BP Site: Right Arm, BP Position: Sitting, BP Cuff Size: Regular Adult) Pulse 82 Temp 37.2 ?C (98.9 ?F) (Temporal Artery) Wt 64.7 kg (142 lb 9.6 oz) LMP 09/12/2024 (Exact Date) SpO2 99% BMI 23.02 kg/m? Unchanged from prior visit General: Alert and oriented x3, no acute distress Eyes: Anicteric sclera. EOMI. No lid lag or exophthalmos Neck supple, no cervical lymphadenopathy Thyroid: normal to slightly enlarged in size, normal texture, no palpable nodules Lungs: Breathing unlabored, clear to auscultation. No wheezing, rhonchi, rales Heart regular rate and rhythm, S1 and S2 normal Musculoskeletal: Muscular strength intact, No joint swelling, deformity, or tenderness Neuro: Gait normal. Sensation grossly intact. No focal findings Extremities: without edema, no deformities, no visible tremors of outstretched arms Skin: no rashes/ erythema LABS: No reference ranges available for any of the labs 2022 TSH 8.79 mcIU/mL (H) Free T3: 2.85 pg/ml Free T4: 1.0 ng/dl 06/08/2023 TSH 2.62 Free T4 1.20 ng/dL Free T3 2.94 pg/mL TPO antibody <28 04/24/2023 TSH 2.71 Free T41.13 Free T32.63 09/29/2022 TS (more content not included)... Normal [facility] FT4on 09-29-2024 Free T4 [Mass/Vol] 1.03 ng/dL Normal 0.76-1.46 [facility] Comment on above: Performed By: #### F T4, [id number], [id number], TSH #### [facility] [address] [place], [place] [address] #### T3 #### [address] [address] TSHon 09-29-2024 TSH Qn 3.16 m[IU]/L Normal 0.36-3.74 [facility] Comment on above: Performed By: #### F T4, TSH #### [facility] [address] [place], [place] [address] CNOVon 08-07-2024 CNOV Office Visit (ENWSTR ) -- ERWIN COLES ([id number]) 1995 F Date Time Provider Department 08/07/24 9:40 AM LASHONDA THOMAS ENWSTR During your visit today, we recorded the following information about you: Pulse Respiration Blood pressure Weight 86/minute 15/minute 116/78 65.2 kg Height Last Period 1.676 m 08/05/24 Lashonda Thomas MD 08/08/2024 9:07 AM Addendum [facility] Follow up visit note Subjective: Erwin Coles is a 28 year old female here for evaluation of thyroid problem. She was initially seen in November 2023 after referral by her Ict Developer, Dr. Erin Andrews for subclinical hypothyroidism. 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 Erin Andrews By late 2020, she was started on synthroid, was on 50 mcg daily at the latest which did not improve her fatigue, and hence she was off of synthroid. She has seen naturopathy specialist, and started using supplements in Apr 2023, she felt better with energy, hair texture etc after starting the supplement. But her labs were indicative of hyperthyroidism and when she was advised to share the name of the supplements, it is realized she was on thyrocare- BID and adrenal supplement once daily. This was advised to be discontinued as likely etiology of abnormal thyroid labs indicating hyperthyroid status due to exogenous thyroid hormone Family history: Grand father had Chatham's disease Interval history:08/07/2024 She has stopped all the supplements At the beginning of Jul 2024, she reached out with symptoms and labs indicated abnormal thyroid function She was started on Levothyroxine 75 mcg daily in the first week of Jul 2024. Labs were recommended after 08/27/24, but she had them done on 08/01/2024. She reports having palpitations since mid-Jul REVIEW OF SYSTEMS: 10 point ROS was reviewed and negative unless indicated in the HPI ALLERGIES: ALLERGIES Allergen Reactions Amoxicillin-Pot Cla* Diarrhea, GI Upset, Vomiting MEDICATIONS: Current Outpatient Medications on File Prior to Visit Medication Sig MEDICATION, NON-DATABASE Take 1 capsule by mouth two times a day. Thyro-care *under the supervision of a construction project coordinator -- compound formula* MEDICATION, NON-DATABASE Take 1 capsule by mouth once daily. Adrenal Assist *under the supervision of a construction project coordinator -- compound formula* No current facility-administered medications on file prior to visit. PAST MEDICAL HISTORY: No past medical history on file. PAST SURGICAL HISTORY: PAST SURGICAL HISTORY Procedure Laterality Date MYRINGOTOMY W TUBE,BILATERAL(2) TONSILLECTOMY AND ADENOIDECTOMY WRIST SURGERY HX Right cartilage repair -- in high school FAMILY HISTORY: FAMILY HISTORY Problem Relation Age of Onset other (aortic valve replacement) Father No Known Problems Brother Breast Cancer Paternal Grandmother Diabetes Paternal Grandmother other (addisons disease) Paternal Grandfather Thyroid No Family History SOCIAL HISTORY: Social History Tobacco Use Smoking status: Never Passive exposure: Never Smokeless tobacco: Never Vaping Use Vaping status: Never Used Substance Use Topics Alcohol use: Yes Comment: occasional Drug use: Never PHYSICAL EXAM: BP 116/78 (BP Site: Right Arm, BP Position: Sitting, BP Cuff Size: Regular Adult) Pulse 86 Resp 15 Ht 167.6 cm (5' 6) Wt 65.2 kg (143 lb 12.8 oz) LMP 08/05/2024 (Exact Date) SpO2 99% BMI 23.21 kg/m? Unchanged from prior visit General: Alert and oriented x3, no acute distress Eyes: Anicteric sclera. Extraocular movements are intact. No lid lag or exophthalmos Neck supple, no cervical lymphadenopathy Thyroid: normal to slightly enlarged in size, normal texture, no palpable nodules Lungs: Breathing unlabored, clear to auscultation. No wheezing, rhonchi, rales Heart regular rate and rhythm, no murmer Musculoskeletal: Muscular strength intact, No joint swelling, deformity, or tenderness Neuro: Gait normal. Sensation grossly intact. No focal findings Extremities: without edema, no deformities, no visible tremors of outstretched arms Skin: no rashes/ erythema LABS: No reference ranges available for any of the labs 2022 TSH 8.79 mcIU/mL (H) Free T3: 2.85 pg/ml Free T4: 1.0 ng/dl 06/08/2023 TSH 2.62 Free T4 1.20 ng/dL Free T3 2.94 pg/mL TPO antibody <28 04/24/2023 TSH 2.71 Free T41.13 Free T32.63 09/29/2022 TSH 2.36 Free T41.18 Free T32.41 07/03/2022 TSH 0.71 Free T41.1 Free T3 2.47 Intact PTH 36.2 pg/mL Latest Ref Rng 01/26/2024 TSH 0.270 - 4.200 mIU/L 6.940 (H) Thyroglobulin Ab, Serum <4.0 IU/mL <0.9 Free T4 0.9 - 1.7 ng/dL 1.3 F (more content not included)... Normal [facility] FT4on 08-01-2024 Free T4 [Mass/Vol] 0.87 ng/dL Normal 0.76-1.46 [facility] Comment on above: Performed By: #### F T4, TSH #### [address] [place], [place] [address] LABORATORYOrdered By: SYSTEM SYSTEM on 08-01-2024 Free T4 [Mass/Vol] 0.87 ng/dL Normal 0.76 - 1. 46 ng/dL AO ADM SS TSH Qn 25.26 m[IU]/L High 0.36 - 3.74 mcIU/mL AO ADM SS TSHon 08-01-2024 TSH Qn 25.26 m[IU]/L High 0.36-3.74 [facility] Comment on above: Performed By: #### F T4, TSH #### [address] [place], [place] [address] [place] 07-28-2024 CNPN Telephone (ENWSTR) -- ERWIN COLES ([id number]) 1995 F Date Time Provider Department 07/28/24 MELLYTIA LASHONDAMAGGIE SHIPMAN ENWSTR During your visit today, we recorded the following information about you: Sridevi Martínez 07/28/2024 8:29 AM Signed Patient is asking if her labs can be sent over to [facility]. Please review. Sridevi Martínez July 28, 2024 8:28 AM Mehnaz Coates RN 07/28/2024 8:43 AM Signed Lab orders faxed electronically through [email or web address] to [facility] at fax #: . Mehnaz Coates RN July 28, 2024 8:43 AM Allergies As of Date: 07/28/2024 Noted Allergy Reaction AMOXICILLIN-POT CLAVULANATE 11/30/2023 6 - Diarrhea 8 - GI Upset 11 - Vomiting Date Reviewed: 05/05/2024 Reviewed by: Natasha Luu RN - Fully Assessed Reason for Visit: Orders [681] Prescriptions as of 07/28/2024 - levothyroxine (SYNTHROID) 75 mcg tablet Take 1 tablet by mouth once daily. - vit 93/iron fum/folic ( FORMULA ORAL) Take by mouth. - OMEGA 4-OEH-EVL-FISH OIL ORAL Take by mouth. - OTC NUTRITIONAL SUPPLEMENT Vitex Supplement - propranolol (INDERAL) 10 mg tablet Take 1 tablet by mouth three times a day. - MEDICATION, NON-DATABASE Take 1 capsule by mouth two times a day. Thyro-care *under the supervision of a construction project coordinator -- compound formula* - MEDICATION, NON-DATABASE Take 1 capsule by mouth once daily. Adrenal Assist *under the supervision of a construction project coordinator -- compound formula* Problem List As Of Date: 07/28/2024 (None) Encounter Status:Closed by MEHNAZ COATES on 07/28/24 Normal [facility] FT3on 06-23-2024 Free T3 [Mass/Vol] 1.57 pg/mL Low 2.30-4.00 [facility] Comment on above: Performed By: #### F T4, TSH #### [address] [address] FT4on 06-23-2024 Free T4 [Mass/Vol] 0.46 ng/dL Low 0.76-1.46 [facility] Comment on above: Performed By: #### F T3, TSH, FT4 #### [address] [address] LABORATORYOrdered By: SYSTEM SYSTEM on 06-23-2024 Free T3 [Mass/Vol] 1.57 pg/mL Low 2.30 - 4. 00 pg/mL AO ADM SS Free T4 [Mass/Vol] 0.46 ng/dL Low 0.76 - 1. 46 ng/dL AO ADM SS TSH Qn 79.27 m[IU]/L High 0.36 - 3.74 mcIU/mL AO ADM SS TSHon 06-23-2024 TSH Qn 79.27 m[IU]/L High 0.36-3.74 [facility] Comment on above: Performed By: #### F T3, TSH, FT4 #### [address] [address] [facility]24 [facility] Telephone (LIAMWSTR) -- ERWIN COLES ([id number]) 1995 F Date Time Provider Department 06/15/24 LASHONDA THOMASTR During your visit today, we recorded the following information about you: Jayne Frank MA 06/15/2024 11:16 AM Signed Pt calling to get results of Thyroid US. She viewed on [employer] but wasn't sure if there was any concern or if there was anything to do prior to her next appt in August. Heart rate back to normal. No more weight loss. Gained back the 10lbs that she had lost. [employer] message is fine. Please review and advise. SHIVA Spann Snigdha Reddy, MD 06/20/2024 11:15 AM Signed Reviewd thyroid US, no action needed at this time Kierra Cobb MA 06/20/2024 11:27 AM Signed My chart message sent with below message. Kierra Cobb MA Allergies As of Date: 06/15/2024 Noted Allergy Reaction AMOXICILLIN-POT CLAVULANATE 11/30/2023 6 - Diarrhea 8 - GI Upset 11 - Vomiting Date Reviewed: 05/05/2024 Reviewed by: Natasha Luu, RN - Fully Assessed Reason for Visit: Results [95] Patient Update [1234] Prescriptions as of 06/20/2024 - vit 93/iron fum/folic ( FORMULA ORAL) Take by mouth. - OMEGA 0-WIC-VGU-FISH OIL ORAL Take by mouth. - OTC NUTRITIONAL SUPPLEMENT Vitex Supplement - propranolol (INDERAL) 10 mg tablet Take 1 tablet by mouth three times a day. - MEDICATION, NON-DATABASE Take 1 capsule by mouth two times a day. Thyro-care *under the supervision of a construction project coordinator -- compound formula* - MEDICATION, NON-DATABASE Take 1 capsule by mouth once daily. Adrenal Assist *under the supervision of a construction project coordinator -- compound formula* Problem List As Of Date: 06/15/2024 (None) Encounter Status:Closed by KIERRA COBB on 06/20/24 Normal [facility] US THYROID/PARATHYROIDon US THYROID/PARATHYROID * * *Final Report* * * DATE OF EXAM: May 19 2024 8:31AM WRU [id number] - US THYROID/PARATHYROID / PROCEDURE REASON: Hyperthyroidism * * * * Physician Interpretation * * * * EXAMINATION: THYROID ULTRASOUND CLINICAL HISTORY: 28 years old Female with Hyperthyroidism TECHNIQUE: Sonography and Doppler imaging of the thyroid was performed. Images were obtained and stored in a permanent archive. MQ: UST_1 COMPARISON: None. RESULT: Right Lobe: 4.5 x 1.4 x 1.7 cm; mildly heterogeneous echogenicity, increased vascular flow on color Doppler imaging. Left Lobe: 4.2 x 1.5 x 1.4 cm; mildly heterogeneous echogenicity, increased vascular flow on color Doppler imaging. Isthmus: 0.3 cm The most suspicious thyroid nodule(s) (up to four) as below: Nodules: None IMPRESSION: Mildly heterogeneous thyroid parenchyma with increased vascularity. No suspicious thyroid nodule. Audio Visual Project Manager: PSCCurtis Transcribe Date/Time: May 21 2024 7:51A Dictated by : SHANTEL GALLEGOS DO This examination was interpreted and the report reviewed and electronically signed by: SHANTEL GALLEGOS DO on May 21 2024 7:54AM EST [id number] Normal [facility] 05-15-2024 [facility] Telephone (ENWSTR) -- ERWIN COLES ([id number]) 1995 F Date Time Provider Department 05/15/24 [facility] During your visit today, we recorded the following information about you: Mehnaz Coates RN 05/15/2024 10:54 AM Signed Call received from Pt - name AND verified. Pt had labs drawn at [facility] on 05/05/2024 and 05/09/2024 (see scanned documents). Requesting results - please review and advise for further instruction. Mehnaz Coates RN May 15, 2024 10:54 AM Lashonda Thomas MD 05/15/2024 2:38 PM Addendum Labs show hyperthyroidism but most likely this is thyroiditis. She can do ultrasound thyroid +/- thyroid uptake and scan to confirm. Alternatively, we can wait for about 2 to 3 months to repeat labs She can continue to take propranolol as discussed at the time of visit Thyroid ultrasound orders placed Lashonda Thomas MD 05/15/2024 2:38 PM Signed Addended by: LASHONDA THOMAS on: 05/15/2024 02:38 PM Modules accepted: Orders Mehnaz Coates RN 05/15/2024 4:10 PM Signed Call placed to Pt - verified name AND . Notified Pt of below notation per Dr. Thomas; she voices understanding. Prefers to have the thyroid US at [facility]. Will mail the US order to Pt's home address. Mehnaz Coates RN May 15, 2024 4:10 PM Allergies As of Date: 05/15/2024 Noted Allergy Reaction AMOXICILLIN-POT CLAVULANATE 11/30/2023 6 - Diarrhea 8 - GI Upset 11 - Vomiting Date Reviewed: 05/05/2024 Reviewed by: Natasha Luu RN - Fully Assessed Reason for Visit: Results [95] Primary Visit Diagnosis:Hyperthyroidism [E05.90] Order(s): THYROID/PARATHYROID [[id number]] Order #: [id number] FUTURE Prescriptions as of 05/15/2024 - vit 93/iron fum/folic ( FORMULA ORAL) Take by mouth. - OMEGA 0-TTT-RON-FISH OIL ORAL Take by mouth. - OTC NUTRITIONAL SUPPLEMENT Vitex Supplement - propranolol (INDERAL) 10 mg tablet Take 1 tablet by mouth three times a day. - MEDICATION, NON-DATABASE Take 1 capsule by mouth two times a day. Thyro-care *under the supervision of a construction project coordinator -- compound formula* - MEDICATION, NON-DATABASE Take 1 capsule by mouth once daily. Adrenal Assist *under the supervision of a construction project coordinator -- compound formula* Problem List As Of Date: 05/15/2024 (None) Encounter Status:Closed by MEHNAZ COATES on 05/15/24 [facility] 05-12-2024 TSI <0.10 Normal 0.00-0.55 [facility] Comment on above: Result Comment: Perf ormed At: [facility] [address] [place], [place] [id number] Zi Bryant MD Ph:[phone] Performed By: #### F T4, TSH #### [address] [address] .Thyroglobulin by ASAF [id number] on 05-09-2024 Thyroglob ASAF 9.9 ng/mL Normal 1.5-38.5 [facility] Comment on above: Result Comment: According to the National Academy of Clinical Biochemistry, the reference interval for Thyroglobulin (TG) should be related to euthyroid patients and not for patients who underwent thyroidectomy. TG reference intervals for these patients depend on the residual mass of the thyroid tissue left after surgery. Establishing a post-operative baseline is recommended. The assay limit of quantitation is 0.1 ng/mL Thyroglobulin measured by [employer] [facility] Immunometric Assay Performed At: [facility] [address] [place], [place] [id number] Sunil Barreto PhD Ph:[phone] Performed By: #### F T4, [id number], [id number], TSH #### [address] [address] #### T3 #### [place] [address] THYRORFon 05-09-2024 Thyroglob Ab <1.0 Normal 0.0-0.9 [facility] Comment on above: Result Comment: Thyr oglobulin Antibody measured by [facility] Methodology It should be noted that the presence of thyroglobulin antibodies may not be pathogenic nor diagnostic, especially at very low levels. The assay machine icer has found that four percent of individuals without evidence of thyroid disease or autoimmunity will have positive TgAb levels up to 4 IU/mL. Performed At: [facility] [address] [place], [place] [id number] Sunil Barreto PhD Ph:[phone] Performed By: #### F T4, [id number], [id number], TSH #### [place] [address] #### T3 #### [facility] [address] [place] [address] OMARIOVon 05-05-2024 CNOV Office Visit (ENWSTR ) -- ERWIN COLES ([id number]) 1995 F Date Time Provider Department 05/05/24 11:20 AM LASHONDA THOMAS ENWSTR During your visit today, we recorded the following information about you: Temperature Pulse Respiration Blood pressure 99.1 degrees 91/minute 16/minute 102/72 Weight 57 kg Lashonda Thomas MD 05/07/2024 9:49 PM [facility] Follow up visit note Subjective: Erwin Coles is a 28 year old female here for evaluation of thyroid problem. She was initially seen in November 2023 after referral by her Ict Developer, Dr. Erin Andrews for subclinical hypothyroidism. 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 Erin Andrews By late 2020, she was started on synthroid, was on 50 mcg daily as the latest She has seen naturopathy specialist, and started using supplements in Apr 2023, she feels she felt better with energy, hair texture etc She is on thyrocare- BID and adrenal supplement once daily Family history: Grand father had Chatham's disease Interval history: 05/05/2024 She was taking Thyrocare BID despite advising to stop on previous appts. She stopped taking it in Mar 2024. She is taking an adrenal supplement, Vitex, a and omega 3 supplement Symptoms of easy exertion, heart racing, weight loss of 10-12 lbs in the last month REVIEW OF SYSTEMS: 10 point ROS was reviewed and negative unless indicated in the HPI ALLERGIES: ALLERGIES Allergen Reactions Amoxicillin-Pot Cla* Diarrhea, GI Upset, Vomiting MEDICATIONS: Current Outpatient Medications on File Prior to Visit Medication Sig MEDICATION, NON-DATABASE Take 1 capsule by mouth two times a day. Thyro-care *under the supervision of a construction project coordinator -- compound formula* MEDICATION, NON-DATABASE Take 1 capsule by mouth once daily. Adrenal Assist *under the supervision of a construction project coordinator -- compound formula* No current facility-administered medications on file prior to visit. PAST MEDICAL HISTORY: No past medical history on file. PAST SURGICAL HISTORY: PAST SURGICAL HISTORY Procedure Laterality Date MYRINGOTOMY W TUBE,BILATERAL(2) TONSILLECTOMY AND ADENOIDECTOMY WRIST SURGERY HX Right cartilage repair -- in high school FAMILY HISTORY: FAMILY HISTORY Problem Relation Age of Onset other (aortic valve replacement) Father No Known Problems Brother Breast Cancer Paternal Grandmother Diabetes Paternal Grandmother other (addisons disease) Paternal Grandfather Thyroid No Family History SOCIAL HISTORY: Social History Tobacco Use Smoking status: Never Smokeless tobacco: Never Vaping Use Vaping status: Never Used Substance Use Topics Alcohol use: Yes Comment: occasional Drug use: Never PHYSICAL EXAM: BP 102/72 (BP Site: Right Arm, BP Position: Sitting) Pulse 91 Temp 37.3 ?C (99.1 ?F) (Temporal) Resp 16 Wt 57 kg (125 lb 9.6 oz) LMP 02/23/2024 (Exact Date) SpO2 96% BMI 20.27 kg/m? Last 3 Encounter Wt Readings: Date: Wt: 11/30/2023 63.4 kg (139 lb 12.8 oz) General: Alert and oriented x3, no acute distress Eyes: Anicteric sclera. Extraocular movements are intact. No lid lag or exophthalmos Neck supple, no cervical lymphadenopathy Thyroid: normal to slightly enlarged in size, normal texture, no palpable nodules Lungs: Breathing unlabored, clear to auscultation. No wheezing, rhonchi, rales Heart regular rate and rhythm, no murmer Musculoskeletal: Muscular strength intact, No joint swelling, deformity, or tenderness Neuro: Gait normal. Sensation grossly intact. No focal findings Extremities: without edema, no deformities, no visible tremors of outstretched arms Skin: no rashes/ erythema LABS: No reference ranges available for any of the labs 2022 TSH 8.79 mcIU/mL (H) Free T3: 2.85 pg/ml Free T4: 1.0 ng/dl 06/08/2023 TSH 2.62 Free T4 1.20 ng/dL Free T3 2.94 pg/mL TPO antibody <28 04/24/2023 TSH 2.71 Free T41.13 Free T32.63 09/29/2022 TSH 2.36 Free T41.18 Free T32.41 07/03/2022 TSH 0.71 Free T41.1 Free T3 2.47 Intact PTH 36.2 pg/mL Latest Ref Rng 01/26/2024 TSH 0.270 - 4.200 mIU/L 6.940 (H) Thyroglobulin Ab, Serum <4.0 IU/mL <0.9 Free T4 0.9 - 1.7 ng/dL 1.3 Free T3 2.3 - 4.1 pg/mL 3.0 Legend: (H) High 04/24/24 TSH <0.01 mcIU/ml (0.36-3.74) Free T4 : 3.78 ng/dl (0.76-1.46) ASSESSMENT/PLAN: Hypothyroidism: Erwin Coles is a 28 year old female with no known significant medical history apart thyroid problem She was seen by Endocrinology for hyperthyroidism and was started on methimazole and propranolol for controlling thyroid abnormality in 2020, followed by hypothyro (more content not included)... Normal [facility] FT4on 05-05-2024 Free T4 [Mass/Vol] 3.92 ng/dL High 0.76-1.46 [facility] Comment on above: Performed By: #### F T4, [id number], [id number], TSH #### [facility] [address] [place], [place] [address] #### T3 #### [facility] [address] [place] [address] LABORATORYOrdered By: SYSTEM SYSTEM on 05-05-2024 Free T4 [Mass/Vol] 3.92 ng/dL High 0.76 - 1. 46 ng/dL AO ADM SS T3 [Mass/Vol] 352 ng/dL High 60 - 181 ng/dL AH ADM SS TSH mcIU/mL Low 0.36 - 3.74 mcIU/mL AO ADM SS T3on 05-05-2024 Total T3 352 ng/dL High 60-181 [facility] Comment on above: Performed By: #### F T4, [id number], 926607, TSH #### [address] [address] #### T3 #### [address] [address] TSHon 05-05-2024 TSH Qn m[IU]/L Low 0.36-3.74 [facility] Comment on above: Performed By: #### F T4, 460784, [id number], TSH #### [address] [address] #### T3 #### [address] [address] FT4on 04-24-2024 Free T4 [Mass/Vol] 3.78 ng/dL High 0.76-1.46 [facility] Comment on above: Performed By: #### F T4, TSH #### [address] [address] LABORATORYOrdered By: SYSTEM SYSTEM on 04-24-2024 Free T4 [Mass/Vol] 3.78 ng/dL High 0.76 - 1. 46 ng/dL AO ADM SS TSH mcIU/mL Low 0.36 - 3.74 mcIU/mL AO ADM SS TSHon 04-24-2024 TSH Qn m[IU]/L Low 0.36-3.74 [facility] Comment on above: Performed By: #### F T4, TSH #### [address] [address] [facility]24 CNPN Telephone (ENDWST) -- ERWIN COLES ([id number]) 1995 F Date Time Provider Department 04/12/24 LASHONDA THOMAS ENDEDIE During your visit today, we recorded the following information about you: Lucy Andrews MA 04/12/2024 3:28 PM Signed Patient called and requesting lab work,. She is asking if she can have a full thyroid panel done? States she would like to get and was told to call in when she wanted to have lab work done. Lashonda Thomas MD 04/16/2024 2:13 PM Signed Required labs ordered. She must hold any supplements for atleast 3 days before doing labs Advise making an appointment if labs are abnormal Kierra Cobb MA 04/17/2024 8:05 AM Signed My chart message sent Kierra Cobb MA Allergies As of Date: 04/12/2024 Noted Allergy Reaction AMOXICILLIN-POT CLAVULANATE 11/30/2023 6 - Diarrhea 8 - GI Upset 11 - Vomiting Date Reviewed: 03/07/2024 Reviewed by: Kierra Cobb MA - Fully Assessed Reason for Visit: Orders [681] Primary Visit Diagnosis:Subclinical hypothyroidism [E03.8] Order(s):THYROID STIMULATING HORMONE [SQTSH] Order #: [id number] FUTURE T4 FREE/FREE THYROXINE [SQFT4] Order #: [id number] FUTURE Prescriptions as of 04/17/2024 - MEDICATION, NON-DATABASE Take 1 capsule by mouth two times a day. Thyro-care *under the supervision of a construction project coordinator -- compound formula* - MEDICATION, NON-DATABASE Take 1 capsule by mouth once daily. Adrenal Assist *under the supervision of a construction project coordinator -- compound formula* Problem List As Of Date: 04/12/2024 (None) Encounter Status:Closed by KIERRA COBB on 04/17/24 [facility] CNOVon 03-07-2024 CNOV Office Visit (ENWSTR ) -- ERWIN COLES ([id number]) 1995 F Date Time Provider Department 03/07/24 11:40 AM LASHONDA THOMAS During your visit today, we recorded the following information about you: Temperature Pulse Weight Height 98.8 degrees 61/minute 63.1 kg 1.676 m Last Period 02/23/24 Lashonda Thomas MD 03/07/2024 6:25 PM Signed [facility] Initial Clinic Visit Note CONSULTING PHYSICIAN: Erin Andrews MD (Endocrinology) My final recommendations will be communicated back to the requesting physician by way of shared Medical record or a letter via [employer] mail Subjective: Erwin Coles is a 28 year old female here for evaluation of subclinical hypothyroidism. 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 Erin Andrews By late 2020, she was started on synthroid, was on 50 mcg daily as the latest She has seen naturopathy specialist, and started using supplements in Apr 2023, she feels she felt better with energy, hair texture etc She is on thyrocare- BID and adrenal supplement once daily Family history: Grand father had Chatham's disease Interval history: 03/07/24: Subclinical hypothyroidism: Currently not on synthroid or any active hormonal supplements Most recent labs are continuing to show subclinical hypothyroidism, however patient reports not much fatigue, as compared to in the past. She does not have any other hypothyroid symptoms REVIEW OF SYSTEMS: GENERAL:No weight loss, malaise or fevers HEENT:Negative for frequent or significant headaches, No changes in hearing or vision, no nose bleeds or other nasal problems NECK:Negative for lumps, goiter, pain and significant neck swelling RESPIRATORY: Negative for cough, hemoptysis, wheezing or shortness of breath CARDIOVASCULAR: Negative for chest pain, leg swelling or palpitations GASTROINTESTINAL: No nausea, vomiting, or persistent diarrhea GENITOURINARY: no dysuria, Polyuria, no changes in urinary frequency MUSCULOSKELETAL:no muscle aches, arthralgia NEUROLOGIC: no numbness, tingling, no Paresthesias, no headaches SKIN:Negative for lesions, rash, and itching PSYCHIATRIC: Negative for sleep disturbance, mood disorder and recent psychosocial stressors. HEMATOLOGIC/LYMPHATIC/IMMU NOLOGIC:Negative for prolonged bleeding, bruising easily ENDOCRINE: Negative for cold or heat intolerance or goiter ALLERGIES: ALLERGIES Allergen Reactions Amoxicillin-Pot Cla* Diarrhea, GI Upset, Vomiting MEDICATIONS: Current Outpatient Medications on File Prior to Visit Medication Sig MEDICATION, NON-DATABASE Take 1 capsule by mouth two times a day. Thyro-care *under the supervision of a construction project coordinator -- compound formula* MEDICATION, NON-DATABASE Take 1 capsule by mouth once daily. Adrenal Assist *under the supervision of a construction project coordinator -- compound formula* No current facility-administered medications on file prior to visit. PAST MEDICAL HISTORY: No past medical history on file. PAST SURGICAL HISTORY: PAST SURGICAL HISTORY No date: MYRINGOTOMY W TUBE,BILATERAL(2) No date: TONSILLECTOMY AND ADENOIDECTOMY No date: WRIST SURGERY HX; Right Comment: cartilage repair -- in high school FAMILY HISTORY: FAMILY HISTORY Problem Relation Age of Onset other (aortic valve replacement) Father No Known Problems Brother Breast Cancer Paternal Grandmother Diabetes Paternal Grandmother other (addisons disease) Paternal Grandfather Thyroid No Family History SOCIAL HISTORY: Social History Tobacco Use Smoking status: Never Smokeless tobacco: Never Vaping Use Vaping status: Never Used Substance Use Topics Alcohol use: Yes Comment: occasional Drug use: Never PHYSICAL EXAM: Pulse 61 Temp 37.1 ?C (98.8 ?F) (Temporal Artery) Ht 167.6 cm (5' 6) Wt 63.1 kg (139 lb 3.2 oz) LMP 02/23/2024 (Exact Date) SpO2 99% BMI 22.47 kg/m? Last 3 Encounter Wt Readings: Date: Wt: 11/30/2023 63.4 kg (139 lb 12.8 oz) General: Alert and oriented x3, no acute distress Eyes: Anicteric sclera. Pupils are equally round. Extraocular movements are intact. Neck supple, no cervical lymphadenopathy Thyroid: normal to slightly enlarged in size, normal texture, no palpable nodules Lungs: Breathing unlabored, clear to auscultation. No wheezing, rhonchi, rales Heart regular rate and rhythm, no murmer Musculoskeletal: Muscular strength intact, No joint swelling, deformity, or tenderness Neuro: Gait normal. Sensation grossly intact. No focal findings Abdomen:Normal abdominal sounds, non tender to palpation Extremities: without edema, no deformities Skin: no rashes/ erythema LABS: No reference ranges available for any of the labs 2022 TSH 8.79 mcIU/mL (H (more content not included)... Normal [facility] .Auto Diffon 10-19-2023 Basophil, Absolute 0.0 10 3/mcL Normal 0.0-0.2 [facility] Comment on above: Performed By: #### G FR, CMP, TSH, FT4, CBC, ANEU, ADIFF, FT3 #### [address] [address] Basophils/100 WBC (Bld) 0.7 % Normal 0.0-2.5 [facility] ([place] Comment on above: Performed By: #### G FR, CMP, TSH, FT4, CBC, ANEU, ADIFF, FT3 #### [address] [address] Eosinophil, Absolute 0.1 10 3/mcL Normal 0.0-0.4 [facility] Comment on above: Performed By: #### G FR, CMP, TSH, FT4, CBC, ANEU, ADIFF, FT3 #### [address] [address] Eosinophils/100 WBC (Bld) 1.1 % Normal 0.0-7.0 [facility] Comment on above: Performed By: #### G FR, CMP, TSH, FT4, CBC, ANEU, ADIFF, FT3 #### [address] [address] Lymphocyte, Absolute 1.6 10 3/mcL Normal 0.8-3.9 [facility] Comment on above: Performed By: #### G FR, CMP, TSH, FT4, CBC, ANEU, ADIFF, FT3 #### [address] [address] Lymphocytes/100 WBC (Bld) 34.9 % Normal 10.0-50.0 [facility] Comment on above: Performed By: #### G FR, CMP, TSH, FT4, CBC, ANEU, ADIFF, FT3 #### [address] [address] Monocyte, Absolute 0.5 10 3/mcL Normal 0.2-1.0 [facility] Comment on above: Performed By: #### G FR, CMP, TSH, FT4, CBC, ANEU, ADIFF, FT3 #### [address] [address] Monocytes/100 WBC (Bld) 11.6 % Normal 1.7-13.0 [facility] Comment on above: Performed By: #### G FR, CMP, TSH, FT4, CBC, ANEU, ADIFF, FT3 #### [address] [address] Neutrophils/100 WBC (Bld) 51.7 % Normal 37.0-80.0 [facility] Comment on above: Performed By: #### G FR, CMP, TSH, FT4, CBC, ANEU, ADIFF, FT3 #### [address] [address] .GFRon 10-19-2023 GFR Non- 77 ml/min/1.73sqm Normal [facility] Comment on above: Result Comment: GFR Population mean for , Non- Americans Ages 20-29 = 116 mL/min/1.73 sq.m. Ages 30-39 = 107 mL/min/1.73 sq.m. Ages 40-49 = 99 mL/min/1.73 sq.m. Ages 50-59 = 93 mL/min/1.73 sq.m. Ages 60-69 = 85 mL/min/1.73 sq.m. Ages 70+ = 75 mL/min/1.73 sq.m. Chronic Kidney Disease: Less than 60 mL/min/1.73 square meters End Stage Renal Disease: Less than 15 mL/min/1.73 square meters Performed By: #### G FR, CMP, TSH, FT4, CBC, ANEU, ADIFF, FT3 #### [address] [address] GFR 93 ml/min/1.73sqm Normal [facility] Comment on above: Result Comment: GFR Population mean for , Non- Americans Ages 20-29 = 116 mL/min/1.73 sq.m. Ages 30-39 = 107 mL/min/1.73 sq.m. Ages 40-49 = 99 mL/min/1.73 sq.m. Ages 50-59 = 93 mL/min/1.73 sq.m. Ages 60-69 = 85 mL/min/1.73 sq.m. Ages 70+ = 75 mL/min/1.73 sq.m. Chronic Kidney Disease: Less than 60 mL/min/1.73 square meters End Stage Renal Disease: Less than 15 mL/min/1.73 square meters Performed By: #### G FR, CMP, TSH, FT4, CBC, ANEU, ADIFF, FT3 #### [address] [address] .NEUABSon 10-19-2023 Neutrophil, Absolute 2.4 10 3/mcL Low 2.9-6.2 [facility] Comment on above: Performed By: #### G FR, CMP, TSH, FT4, CBC, ANEU, ADIFF, FT3 #### [address] [address] CBCon 10-19-2023 Erythrocyte distribution width (RBC) [Ratio] 12.0 % Normal 11.5-14.5 [facility] Comment on above: Performed By: #### G FR, CMP, TSH, FT4, CBC, ANEU, ADIFF, FT3 #### [address] [address] Hematocrit (Bld) [Volume fraction] 38.1 % Normal 37.0-47.0 [facility] Comment on above: Performed By: #### G FR, CMP, TSH, FT4, CBC, ANEU, ADIFF, FT3 #### [address] [address] Hgb 13.7 G/dL Normal 12.0-16.0 [facility] Comment on above: Performed By: #### G FR, CMP, TSH, FT4, CBC, ANEU, ADIFF, FT3 #### [address] [address] MCH (RBC) [Entitic mass] 34.0 pg High 27.0-31.2 [facility] Comment on above: Performed By: #### G FR, CMP, TSH, FT4, CBC, ANEU, ADIFF, FT3 #### [address] [address] MCHC 36.0 G/dL Normal 33.0-37.0 [facility] Comment on above: Performed By: #### G FR, CMP, TSH, FT4, CBC, ANEU, ADIFF, FT3 #### [address] [address] MCV (RBC) [Entitic vol] 94.6 fL High 80.0-94.0 [facility] Comment on above: Performed By: #### G FR, CMP, TSH, FT4, CBC, ANEU, ADIFF, FT3 #### [address] [address] Platelet 222 10 3/mcL Normal 130-400 [facility] Comment on above: Performed By: #### G FR, CMP, TSH, FT4, CBC, ANEU, ADIFF, FT3 #### [address] [address] Platelet mean volume (Bld) [Entitic vol] 9.2 fL Normal 7.4-10.4 [facility] Comment on above: Performed By: #### G FR, CMP, TSH, FT4, CBC, ANEU, ADIFF, FT3 #### [address] [address] RBC 4.03 10 6/mcL Low 4.20-5.40 [facility] Comment on above: Performed By: #### G FR, CMP, TSH, FT4, CBC, ANEU, ADIFF, FT3 #### [address] [address] WBC 4.6 10 3/mcL Normal 4.6-10.8 [facility] Comment on above: Performed By: #### G FR, CMP, TSH, FT4, CBC, ANEU, ADIFF, FT3 #### [address] [address] CMPon 10-19-2023 Albumin Level 4.5 G/dL Normal 3.5-5.0 [facility] Comment on above: Performed By: #### G FR, CMP, TSH, FT4, CBC, ANEU, ADIFF, FT3 #### [address] [address] Albumin/Globulin [Mass ratio] 1.6 {ratio} Normal 1.1-2.5 [facility] Comment on above: Performed By: #### G FR, CMP, TSH, FT4, CBC, ANEU, ADIFF, FT3 #### [address] [address] ALP [Catalytic activity/Vol] 69 U/L Normal 40-135 [facility] Comment on above: Performed By: #### G FR, CMP, TSH, FT4, CBC, ANEU, ADIFF, FT3 #### [address] [address] ALT [Catalytic activity/Vol] 31 U/L Normal 14-59 [facility] Comment on above: Performed By: #### G FR, CMP, TSH, FT4, CBC, ANEU, ADIFF, FT3 #### [address] [address] AST [Catalytic activity/Vol] 25 U/L Normal 10-40 [facility] Comment on above: Performed By: #### G FR, CMP, TSH, FT4, CBC, ANEU, ADIFF, FT3 #### [address] [address] Bili Total 0.5 mg/dL Normal 0.2-1.0 [facility] Comment on above: Result Comment: Use of this assay is not recommended for patients undergoing treatment with eltrombopag due to the potential for falsely elevated results. Performed By: #### G FR, CMP, TSH, FT4, CBC, ANEU, ADIFF, FT3 #### [address] [address] BUN/Creatinine Ratio 18 ratio Normal 7-27 [facility] Comment on above: Performed By: #### G FR, CMP, TSH, FT4, CBC, ANEU, ADIFF, FT3 #### [address] [address] Calcium [Mass/Vol] 9.4 mg/dL Normal 8.4-10.2 [facility] ([place]) Comment on above: Performed By: #### G FR, CMP, TSH, FT4, CBC, ANEU, ADIFF, FT3 #### [address] [address] Chloride [Moles/Vol] 103 mmol/L Normal 98-107 [facility] Comment on above: Performed By: #### G FR, CMP, TSH, FT4, CBC, ANEU, ADIFF, FT3 #### [address] [address] CO2 [Moles/Vol] 27 mmol/L Normal 22-29 [facility] ([place] Comment on above: Performed By: #### G FR, CMP, TSH, FT4, CBC, ANEU, ADIFF, FT3 #### [address] [address] Creatinine [Mass/Vol] 0.89 mg/dL Normal 0.55-1.02 [facility] ([place] Comment on above: Performed By: #### G FR, CMP, TSH, FT4, CBC, ANEU, ADIFF, FT3 #### [address] [address] Electrolyte Balance 8.0 mEq/L Normal 4.0-15.0 [facility] ([place]) Comment on above: Performed By: #### G FR, CMP, TSH, FT4, CBC, ANEU, ADIFF, FT3 #### [address] [address] Globulin 2.8 G/dL Normal [facility] ([place] Comment on above: Performed By: #### G FR, CMP, TSH, FT4, CBC, ANEU, ADIFF, FT3 #### [address] [address] Glucose [Mass/Vol] 92 mg/dL Normal 70-105 [facility] ([place]) Comment on above: Performed By: #### G FR, CMP, TSH, FT4, CBC, ANEU, ADIFF, FT3 #### [address] [address] Potassium [Moles/Vol] 4.8 mmol/L Normal 3.5-5.1 [facility]) Comment on above: Performed By: #### G FR, CMP, TSH, FT4, CBC, ANEU, ADIFF, FT3 #### [address] [address] Sodium [Moles/Vol] 138 mmol/L Normal 136-145 [facility] ([place]) Comment on above: Performed By: #### G FR, CMP, TSH, FT4, CBC, ANEU, ADIFF, FT3 #### [address] [address] Total Protein 7.3 G/dL Normal 6.4-8.2 [facility] Comment on above: Performed By: #### G FR, CMP, TSH, FT4, CBC, ANEU, ADIFF, FT3 #### [address] [address] Urea nitrogen [Mass/Vol] 16 mg/dL Normal 7-18 [facility] Comment on above: Performed By: #### G FR, CMP, TSH, FT4, CBC, ANEU, ADIFF, FT3 #### [address] [address] FT3on 10-19-2023 Free T3 [Mass/Vol] 2.85 pg/mL Normal 2.30-4.00 [facility] ([place]) Comment on above: Performed By: #### G FR, CMP, TSH, FT4, CBC, ANEU, ADIFF, FT3 #### [address] [place], [place] [address] FT4on 10-19-2023 Free T4 [Mass/Vol] 1.00 ng/dL Normal 0.76-1.46 [facility] ([place]) Comment on above: Performed By: #### G FR, CMP, TSH, FT4, CBC, ANEU, ADIFF, FT3 #### [address] [address] LABORATORYOrdered By: SYSTEM SYSTEM on 10-19-2023 Albumin BCP dye [Mass/Vol] 4.5 G/dL Normal 3.5 - 5.0 G/dL AO ADM SS Albumin/Globulin [Mass ratio] 1.6 {ratio} Normal 1.1 - 2.5 ratio AO ADM SS ALP [Catalytic activity/Vol] 69 U/L Normal 40 - 135 U/L AO ADM SS ALT With P-5'-P [Catalytic activity/Vol] 31 U/L Normal 14 - 59 U/L AO ADM SS AST With P-5'-P [Catalytic activity/Vol] 25 U/L Normal 10 - 40 U/L AO ADM SS Basophil, Absolute 0.0 103/mcL Normal 0.0 - 0.2 10^3/mcL AO Workflow SS Basophils/100 WBC (Bld) 0.7 % Normal 0.0 - 2.5 % AO Workflow SS Bilirubin [Mass/Vol] 0.5 mg/dL Normal 0.2 - 1 .0 mg/dL AO ADM SS Comment on above: Interpretive Data: U se of this assay is not recommended for patients undergoing treatment with eltrombopag due to the potential for falsely elevated results. Calcium [Mass/Vol] 9.4 mg/dL Normal 8.4 - 10. 2 mg/dL AO ADM SS Chloride [Moles/Vol] 103 mmol/L Normal 98 - 10 7 mmol/L AO ADM SS CO2 [Moles/Vol] 27 mmol/L Normal 22 - 29 mmol/L AO ADM SS Creatinine [Mass/Vol] 0.89 mg/dL Normal 0.55 - 1.02 mg/dL AO ADM SS Electrolyte Balance 8.0 mEq/L Normal 4.0 - 15 .0 mEq/L AO ADM SS Eosinophil, Absolute 0.1 103/mcL Normal 0.0 - 0 .4 10^3/mcL AO Workflow SS Eosinophils/100 WBC (Bld) 1.1 % Normal 0.0 - 7.0 % AO Workflow SS Erythrocyte distribution width (RBC) [Ratio] 12.0 % Normal 11.5 - 14.5 % AO Workflow SS Free T3 [Mass/Vol] 2.85 pg/mL Normal 2.30 - 4. 00 pg/mL AO ADM SS Free T4 [Mass/Vol] 1.00 ng/dL Normal 0.76 - 1. 46 ng/dL AO ADM SS GFR/1.73 sq M.predicted among blacks MDRD (S/P/Bld) [Vol rate/Area] 93 ml/min/1.73sqm Invalid Interpretation Code AO Chemistry S Comment on above: Interpretive Data: GFR Population mean for , Non- Americans Ages 20-29 = 116 mL/min/1.73 sq.m. Ages 30-39 = 107 mL/min/1.73 sq.m. Ages 40-49 = 99 mL/min/1.73 sq.m. Ages 50-59 = 93 mL/min/1.73 sq.m. Ages 60-69 = 85 mL/min/1.73 sq.m. Ages 70+ = 75 mL/min/1.73 sq.m. Chronic Kidney Disease: Less than 60 mL/min/1.73 square meters End Stage Renal Disease: Less than 15 mL/min/1.73 square meters GFR/1.73 sq M.predicted among non-blacks MDRD (S/P/Bld) [Vol rate/Area] 77 ml/min/1.73sqm Invalid Interpretation Code AO Chemistry S Comment on above: Interpretive Data: GFR Population mean for , Non- Americans Ages 20-29 = 116 mL/min/1.73 sq.m. Ages 30-39 = 107 mL/min/1.73 sq.m. Ages 40-49 = 99 mL/min/1.73 sq.m. Ages 50-59 = 93 mL/min/1.73 sq.m. Ages 60-69 = 85 mL/min/1.73 sq.m. Ages 70+ = 75 mL/min/1.73 sq.m. Chronic Kidney Disease: Less than 60 mL/min/1.73 square meters End Stage Renal Disease: Less than 15 mL/min/1.73 square meters Globulin 2.8 G/dL Invalid Interpretation Code AO ADM SS Glucose [Mass/Vol] 92 mg/dL Normal 70 - 105 mg/dL AO ADM SS Hematocrit (Bld) [Volume fraction] 38.1 % Normal 37.0 - 47.0 % AO Workflow SS Hemoglobin (Bld) [Mass/Vol] 13.7 G/dL Normal 12.0 - 16.0 G/dL AO Workflow SS Lymphocyte, Absolute 1.6 103/mcL Normal 0.8 - 3 .9 10^3/mcL AO Workflow SS Lymphocytes/100 WBC (Bld) 34.9 % Normal 10.0 - 50.0 % AO Workflow SS MCH (RBC) [Entitic mass] 34.0 pg High 27.0 - 31.2 pg AO Workflow SS MCHC 36.0 G/dL Normal 33.0 - 37.0 G/dL AO Workflow SS MCV (RBC) [Entitic vol] 94.6 fL High 80.0 - 94.0 fL AO Workflow SS Monocyte, Absolute 0.5 103/mcL Normal 0.2 - 1.0 10^3/mcL AO Workflow SS Monocytes/100 WBC (Bld) 11.6 % Normal 1.7 - 13.0 % AO Workflow SS Neutrophil, Absolute 2.4 103/mcL Low 2.9 - 6 .2 10^3/mcL AO Workflow SS Neutrophils/100 WBC (Bld) 51.7 % Normal 37.0 - 80.0 % AO Workflow SS Platelet mean volume (Bld) [Entitic vol] 9.2 fL Normal 7.4 - 10.4 fL AO Workflow SS Platelets (Bld) [#/Vol] 222 103/mcL Normal 130 - 400 10^3/mcL AO Workflow SS Potassium [Moles/Vol] 4.8 mmol/L Normal 3.5 - 5.1 mmol/L AO ADM SS Protein [Mass/Vol] 7.3 G/dL Normal 6.4 - 8.2 G/dL AO ADM SS RBC (Bld) [#/Vol] 4.03 106/mcL Low 4.20 - 5.4 0 10^6/mcL AO Workflow SS Sodium [Moles/Vol] 138 mmol/L Normal 136 - 145 mmol/L AO ADM SS TSH Qn 8.79 m[IU]/L High 0.36 - 3.74 mcIU/mL AO ADM SS Urea nitrogen [Mass/Vol] 16 mg/dL Normal 7 - 18 mg/dL AO ADM SS Urea nitrogen/Creatinine [Mass ratio] 18 ratio Normal 7 - 27 ratio AO ADM SS WBC (Bld) [#/Vol] 4.6 103/mcL Normal 4.6 - 10.8 10^3/mcL AO Workflow SS TSHon 10-19-2023 TSH Qn 8.79 m[IU]/L High 0.36-3.74 [facility] Comment on above: Performed By: #### G FR, CMP, TSH, FT4, CBC, ANEU, ADIFF, FT3 #### [place] [address] FT3on 06-08-2023 Free T3 [Mass/Vol] 2.94 pg/mL Normal 2.30-4.00 [facility] ([place]) Comment on above: Performed By: #### G FR, CMP, TSH, FT4, CBC, ANEU, ADIFF, FT3 #### [address] [address] FT4on 06-08-2023 Free T4 [Mass/Vol] 1.20 ng/dL Normal 0.76-1.46 [facility] ([place]) Comment on above: Performed By: #### G FR, CMP, TSH, FT4, CBC, ANEU, ADIFF, FT3 #### [address] [address] LABORATORYOrdered By: SYSTEM SYSTEM on 06-08-2023 Free T3 [Mass/Vol] 2.94 pg/mL Normal 2.30 - 4. 00 pg/mL AO ADM SS Free T4 [Mass/Vol] 1.20 ng/dL Normal 0.76 - 1. 46 ng/dL AO ADM SS TPO Ab IA Qn unit/mL Normal 0 - 60 unit/mL AH ADM SS Comment on above: Interpretive Data: * *Note - New Reference Range in effect 20 TSH Qn 2.62 m[IU]/L Normal 0.36 - 3.74 mcIU/mL AO ADM SS TSHon 06-08-2023 TSH Qn 2.62 m[IU]/L Normal 0.36-3.74 [facility] Comment on above: Performed By: #### G FR, CMP, TSH, FT4, CBC, ANEU, ADIFF, FT3 #### [address] [address] aTPOon 06-08-2023 anti-Thyroid Peroxidase <28 Normal 0-60 [facility] Comment on above: Result Comment: No te - New Reference Range in effect 20 Performed By: #### G FR, CMP, TSH, FT4, CBC, ANEU, ADIFF, FT3 #### [address] [address] FT3on 04-24-2023 Free T3 [Mass/Vol] 2.63 pg/mL Normal 2.30-4.00 [facility] ([place]) Comment on above: Performed By: #### G FR, CMP, TSH, FT4, CBC, ANEU, ADIFF, FT3 #### [address] [address] FT4on 04-24-2023 Free T4 [Mass/Vol] 1.13 ng/dL Normal 0.76-1.46 [facility] ([place]) Comment on above: Performed By: #### F T4, TSH, FT3 #### [address] [address] TSHon 04-24-2023 TSH Qn 2.71 m[IU]/L Normal 0.36-3.74 [facility] Comment on above: Performed By: #### F T4, TSH, FT3 #### [address] [address] Cervical or vagninal specime n microscopic examination by cytology stain (reported asOrdered By: Yasmeen Rodriguez on 10-12-2022 Cytology report Cyto stain Doc (Cvx/Vag) Comment . [facility] Comment on above: The Pap smear is a s creening test designed to aid in thedetection of premalignant and malignant conditions of theuterine cervix. It is not a diagnostic procedure andshould not be used as the sole means of detecting cervicalcancer. Both false-positive and false-negative reports dooccur. Laboratory - CytologyOrdered By: Yasmeen Rodriguez on 10-12-2022 [employer] Cyto stain Nom (Cvx/Vag) [ID] Comment . [facility] Comment on above: Yannick Moeller totechnologist Laboratory - Miscellaneous t estsOrdered By: Yasmeen Rodriguez on 10-12-2022 Service comment (Unsp spec) [Interp] Comment . [facility] Comment on above: This liquid based Th inPrep(R) pap test was screened withthe use of an image guided system. Service comment (Unsp spec) [Interp] . . [facility] No Panel InformationOrdered By: Yasmeen Rodriguez on 10-12-2022 Human Papillomavirus Screen Comment . [facility] Comment on above: The HPV DNA reflex c riteria were not met with this specimenresult therefore, no HPV testing was performed.Performed at: [address] [id number] Director: Ann Marie Carrasco MD, Phone: [phone] Pathology report final diagnosis Narrative Comment . [facility] Comment on above: NEGATIVE FOR INTRAEP ITHELIAL LESION OR MALIGNANCY. LABORATORYOrdered By: SYSTEM SYSTEM on 09-29-2022 Albumin BCP dye [Mass/Vol] 4.2 G/dL Invalid Interpretation Code 3.5 - 5.0 G/dL AO ADM SS Albumin/Globulin [Mass ratio] 1.6 {ratio} Invalid Interpretation Code 1.1 - 2.5 ratio AO ADM SS ALP [Catalytic activity/Vol] 93 U/L Invalid Interpretation Code 40 - 135 U/L AO ADM SS ALT With P-5'-P [Catalytic activity/Vol] 36 U/L Invalid Interpretation Code 14 - 59 U/L AO ADM SS AST With P-5'-P [Catalytic activity/Vol] 29 U/L Invalid Interpretation Code 10 - 40 U/L AO ADM SS Bilirubin [Mass/Vol] 0.6 mg/dL Invalid Interpretation Code 0.2 - 1.0 mg/dL AO ADM SS Calcium [Mass/Vol] 9.3 mg/dL Invalid Interpretation Code 8.4 - 10.2 mg/dL AO ADM SS Chloride [Moles/Vol] 103 mmol/L Invalid Interpretation Code 98 - 107 mmol/L AO ADM SS CO2 [Moles/Vol] 31 mmol/L Invalid Interpretation Code 22 - 29 mmol/L AO ADM SS Creatinine [Mass/Vol] 0.86 mg/dL Invalid Interpretation Code 0.55 - 1.02 mg/dL AO ADM SS Electrolyte Balance 4.0 mEq/L Invalid Interpretation Code 4.0 - 15.0 mEq/L AO ADM SS Free T3 [Mass/Vol] 2.41 pg/mL Invalid Interpretation Code 2.30 - 4.00 pg/mL AO ADM SS Free T4 [Mass/Vol] 1.18 ng/dL Invalid Interpretation Code 0.76 - 1.46 ng/dL AO ADM SS GFR 98 ml/min/1.73sqm Invalid Interpretation Code AO Chemistry S GFR Non- 81 ml/min/1.73sqm Invalid Interpretation Code AO Chemistry S Globulin 2.7 G/dL Invalid Interpretation Code AO ADM SS Glucose [Mass/Vol] 90 mg/dL Invalid Interpretation Code 70 - 105 mg/dL AO ADM SS Potassium [Moles/Vol] 4.8 mmol/L Invalid Interpretation Code 3.5 - 5.1 mmol/L AO ADM SS Protein [Mass/Vol] 6.9 G/dL Invalid Interpretation Code 6.4 - 8.2 G/dL AO ADM SS Sodium [Moles/Vol] 138 mmol/L Invalid Interpretation Code 136 - 145 mmol/L AO ADM SS TSH Qn 2.36 m[IU]/L Invalid Interpretation Code 0.36 - 3.74 mcIU/mL AO ADM SS Urea nitrogen [Mass/Vol] 14 mg/dL Invalid Interpretation Code 7 - 18 mg/dL AO ADM SS Urea nitrogen/Creatinine [Mass ratio] 16 ratio Invalid Interpretation Code 7 - 27 ratio AO ADM SS LABORATORYOrdered By: SYSTEM SYSTEM on 07-03-2022 Albumin BCP dye [Mass/Vol] 4.3 G/dL Invalid Interpretation Code 3.5 - 5.0 G/dL AO ADM SS Albumin/Globulin [Mass ratio] 1.5 {ratio} Invalid Interpretation Code 1.1 - 2.5 ratio AO ADM SS ALP [Catalytic activity/Vol] 87 U/L Invalid Interpretation Code 40 - 135 U/L AO ADM SS ALT With P-5'-P [Catalytic activity/Vol] 33 U/L Invalid Interpretation Code 14 - 59 U/L AO ADM SS AST With P-5'-P [Catalytic activity/Vol] 44 U/L Invalid Interpretation Code 10 - 40 U/L AO ADM SS Bilirubin [Mass/Vol] 0.3 mg/dL Invalid Interpretation Code 0.2 - 1.0 mg/dL AO ADM SS Calcium [Mass/Vol] 9.8 mg/dL Invalid Interpretation Code 8.4 - 10.2 mg/dL AO ADM SS Chloride [Moles/Vol] 105 mmol/L Invalid Interpretation Code 98 - 107 mmol/L AO ADM SS CO2 [Moles/Vol] 29 mmol/L Invalid Interpretation Code 22 - 29 mmol/L AO ADM SS Creatinine [Mass/Vol] 0.77 mg/dL Invalid Interpretation Code 0.55 - 1.02 mg/dL AO ADM SS Electrolyte Balance 7.0 mEq/L Invalid Interpretation Code 4.0 - 15.0 mEq/L AO ADM SS Free T3 [Mass/Vol] 2.47 pg/mL Invalid Interpretation Code 2.30 - 4.00 pg/mL AO ADM SS Free T4 [Mass/Vol] 1.10 ng/dL Invalid Interpretation Code 0.76 - 1.46 ng/dL AO ADM SS GFR 112 ml/min/1.73sqm Invalid Interpretation Code AO Chemistry S GFR Non- 92 ml/min/1.73sqm Invalid Interpretation Code AO Chemistry S Globulin 2.9 G/dL Invalid Interpretation Code AO ADM SS Glucose [Mass/Vol] 101 mg/dL Invalid Interpretation Code 70 - 105 mg/dL AO ADM SS Parathyrin.intact [Mass/Vol] 36.2 pg/mL Invalid Interpretation Code 18.5 - 88.0 pg/mL AH ADM SS Potassium [Moles/Vol] 5.1 mmol/L Invalid Interpretation Code 3.5 - 5.1 mmol/L AO ADM SS Protein [Mass/Vol] 7.2 G/dL Invalid Interpretation Code 6.4 - 8.2 G/dL AO ADM SS Sodium [Moles/Vol] 141 mmol/L Invalid Interpretation Code 136 - 145 mmol/L AO ADM SS TSH Qn 0.71 m[IU]/L Invalid Interpretation Code 0.36 - 3.74 mcIU/mL AO ADM SS Urea nitrogen [Mass/Vol] 11 mg/dL Invalid Interpretation Code 7 - 18 mg/dL AO ADM SS Urea nitrogen/Creatinine [Mass ratio] 14 ratio Invalid Interpretation Code 7 - 27 ratio AO ADM SS LABORATORYOrdered By: Rama Parikh on 07-03-2022 Calcium.ionized (Bld) [Moles/Vol] 1.31 mmol/L Invalid Interpretation Code 1.12 - 1.32 mmol/L AO Blood Gas SS LABORATORYOrdered By: Rama Parikh on 11-28-2021 Albumin BCP dye [Mass/Vol] 4.8 G/dL Invalid Interpretation Code 3.5 - 5.0 G/dL AO ADM SS Albumin/Globulin [Mass ratio] 1.4 {ratio} Invalid Interpretation Code 1.1 - 2.5 ratio AO ADM SS ALP [Catalytic activity/Vol] 101 U/L Invalid Interpretation Code 40 - 135 U/L AO ADM SS ALT With P-5'-P [Catalytic activity/Vol] 26 U/L Invalid Interpretation Code 14 - 59 U/L AO ADM SS AST With P-5'-P [Catalytic activity/Vol] 26 U/L Invalid Interpretation Code 10 - 40 U/L AO ADM SS Bilirubin [Mass/Vol] 0.6 mg/dL Invalid Interpretation Code 0.2 - 1.0 mg/dL AO ADM SS Calcium [Mass/Vol] 10.3 mg/dL Invalid Interpretation Code 8.4 - 10.2 mg/dL AO ADM SS Chloride [Moles/Vol] 101 mmol/L Invalid Interpretation Code 98 - 107 mmol/L AO ADM SS CO2 [Moles/Vol] 30 mmol/L Invalid Interpretation Code 22 - 29 mmol/L AO ADM SS Creatinine [Mass/Vol] 0.91 mg/dL Invalid Interpretation Code 0.55 - 1.02 mg/dL AO ADM SS Electrolyte Balance 10.0 mEq/L Invalid Interpretation Code 4.0 - 15.0 mEq/L AO ADM SS Free T3 [Mass/Vol] 2.32 pg/mL Invalid Interpretation Code 2.30 - 4.00 pg/mL AO ADM SS Free T4 [Mass/Vol] 1.10 ng/dL Invalid Interpretation Code 0.76 - 1.46 ng/dL AO ADM SS Globulin 3.4 G/dL Invalid Interpretation Code AO ADM SS Glucose [Mass/Vol] 89 mg/dL Invalid Interpretation Code 70 - 105 mg/dL AO ADM SS Potassium [Moles/Vol] 4.8 mmol/L Invalid Interpretation Code 3.5 - 5.1 mmol/L AO ADM SS Protein [Mass/Vol] 8.2 G/dL Invalid Interpretation Code 6.4 - 8.2 G/dL AO ADM SS Sodium [Moles/Vol] 141 mmol/L Invalid Interpretation Code 136 - 145 mmol/L AO ADM SS TSH Qn 2.25 m[IU]/L Invalid Interpretation Code 0.36 - 3.74 mcIU/mL AO ADM SS Urea nitrogen [Mass/Vol] 14 mg/dL Invalid Interpretation Code 7 - 18 mg/dL AO ADM SS Urea nitrogen/Creatinine [Mass ratio] 15 ratio Invalid Interpretation Code 7 - 27 ratio AO ADM SS LABORATORYOrdered By: SYSTEM SYSTEM on 11-28-2021 GFR 92 ml/min/1.73sqm Invalid Interpretation Code AO Chemistry S GFR Non- 76 ml/min/1.73sqm Invalid Interpretation Code AO Chemistry S LABORATORYOrdered By: Manuela Nick on 07-23-2021 Albumin BCP dye [Mass/Vol] 4.2 G/dL Invalid Interpretation Code 3.5 - 5.0 G/dL AO ADM SS Albumin/Globulin [Mass ratio] 1.4 {ratio} Invalid Interpretation Code 1.1 - 2.5 ratio AO ADM SS ALP [Catalytic activity/Vol] 116 U/L Invalid Interpretation Code 40 - 135 U/L AO ADM SS ALT With P-5'-P [Catalytic activity/Vol] 27 U/L Invalid Interpretation Code 14 - 59 U/L AO ADM SS AST With P-5'-P [Catalytic activity/Vol] 17 U/L Invalid Interpretation Code 10 - 40 U/L AO ADM SS Bilirubin [Mass/Vol] 0.4 mg/dL Invalid Interpretation Code 0.2 - 1.0 mg/dL AO ADM SS Calcium [Mass/Vol] 9.4 mg/dL Invalid Interpretation Code 8.4 - 10.2 mg/dL AO ADM SS Chloride [Moles/Vol] 100 mmol/L Invalid Interpretation Code 98 - 107 mmol/L AO ADM SS CO2 [Moles/Vol] 28 mmol/L Invalid Interpretation Code 22 - 29 mmol/L AO ADM SS Creatinine [Mass/Vol] 0.92 mg/dL Invalid Interpretation Code 0.55 - 1.02 mg/dL AO ADM SS Electrolyte Balance 10.0 mEq/L Invalid Interpretation Code 4.0 - 15.0 mEq/L AO ADM SS Free T3 [Mass/Vol] 2.41 pg/mL Invalid Interpretation Code 2.30 - 4.00 pg/mL AO ADM SS Free T4 [Mass/Vol] 1.26 ng/dL Invalid Interpretation Code 0.76 - 1.46 ng/dL AO ADM SS Globulin 2.9 G/dL Invalid Interpretation Code AO ADM SS Glucose [Mass/Vol] 94 mg/dL Invalid Interpretation Code 70 - 105 mg/dL AO ADM SS Potassium [Moles/Vol] 3.6 mmol/L Invalid Interpretation Code 3.5 - 5.1 mmol/L AO ADM SS Protein [Mass/Vol] 7.1 G/dL Invalid Interpretation Code 6.4 - 8.2 G/dL AO ADM SS Sodium [Moles/Vol] 138 mmol/L Invalid Interpretation Code 136 - 145 mmol/L AO ADM SS TSH Qn 2.39 m[IU]/L Invalid Interpretation Code 0.36 - 3.74 mcIU/mL AO ADM SS Urea nitrogen [Mass/Vol] 12 mg/dL Invalid Interpretation Code 7 - 18 mg/dL AO ADM SS Urea nitrogen/Creatinine [Mass ratio] 13 ratio Invalid Interpretation Code 7 - 27 ratio AO ADM SS LABORATORYOrdered By: SYSTEM SYSTEM on 07-23-2021 GFR 92 ml/min/1.73sqm Invalid Interpretation Code AO Chemistry S GFR Non- 76 ml/min/1.73sqm Invalid Interpretation Code AO Chemistry S LABORATORYOrdered By: Rama Parikh on 06-05-2021 Free T3 [Mass/Vol] 2.86 pg/mL Invalid Interpretation Code 2.30 - 4.00 pg/mL AO ADM SS Free T4 [Mass/Vol] 1.11 ng/dL Invalid Interpretation Code 0.76 - 1.46 ng/dL AO ADM SS TSH Qn 2.37 m[IU]/L Invalid Interpretation Code 0.36 - 3.74 mcIU/mL AO ADM SS Vital Signs Date Time Vital Sign Value Performing Clinician Facility 02-15-2025 08:29-0400 Body height 167.64 cm No Primary Care Physician [facility] 02-15-2025 08:29-0400 Body mass index (BMI) [Ratio] 23.4 kg/m2 No Primary Care Physician [facility] 02-15-2025 08:29-0400 Body weight 65.96 kg No Primary Care Physician [facility] 02-15-2025 08:29-0400 Diastolic blood pressure 72 mm[Hg] No Primary Care Physician [facility] 02-15-2025 08:29-0400 Systolic blood pressure 111 mm[Hg] No Primary Care Physician [facility] 01-30-2025 10:15-0400 Body mass index (BMI) [Ratio] 23.2 kg/m2 No Primary Care Physician [facility] 01-30-2025 10:15-0400 Body weight 65.31 kg No Primary Care Physician [facility] 01-30-2025 10:15-0400 Diastolic blood pressure 68 mm[Hg] No Primary Care Physician [facility] 01-30-2025 10:15-0400 Systolic blood pressure 118 mm[Hg] No Primary Care Physician [facility] 01-08-2025 16:11-0400 Body height 167.6 cm Lashonda Thomas MD Work Phone: [facility] 01-08-2025 16:11-0400 Body mass index (BMI) [Ratio] 22.92 kg/m2 Lashonda Thomas MD Work Phone: [facility] 01-08-2025 16:11-0400 Body weight 64.41 kg Lashonda Thomas MD Work Phone: [facility] 01-08-2025 16:11-0400 Diastolic blood pressure 76 mm[Hg] Lashonda Thomas MD Work Phone: [facility] 01-08-2025 16:11-0400 Heart rate 89 /min Lashonda Thomas MD Work Phone: [facility] 01-08-2025 16:11-0400 Respiratory rate 18 /min Lashonda Thomas MD Work Phone: [facility] 01-08-2025 16:11-0400 SaO2% (BldA) [Mass fraction] 100 % Lashonda Thomas MD Work Phone: [facility] 01-08-2025 16:11-0400 Systolic blood pressure 116 mm[Hg] Lashonda Thomas MD Work Phone: [facility] 12-07-2024 11:46-0400 Body mass index (BMI) [Ratio] 22.95 kg/m2 Lashonda Thomas MD Work Phone: [facility] 12-07-2024 11:46-0400 Body temperature 98.91 [degF] Lashonda Thomas MD Work Phone: [facility] 12-07-2024 11:46-0400 Body weight 64.5 kg Lashonda Thomas MD Work Phone: [facility] 12-07-2024 11:46-0400 Diastolic blood pressure 70 mm[Hg] Lashonda Thomas MD Work Phone: [facility] 12-07-2024 11:46-0400 Heart rate 75 /min Lashonda Thomas MD Work Phone: [facility] 12-07-2024 11:46-0400 SaO2% (BldA) [Mass fraction] 100 % Lashonda Thomas MD Work Phone: [facility] 12-07-2024 11:46-0400 Systolic blood pressure 130 mm[Hg] Lashonda Thomas MD Work Phone: [facility] 11-14-2024 09:41-0400 Body height 167.64 cm No Primary Care Physician [facility] 11-14-2024 09:41-0400 Body mass index (BMI) [Ratio] 23.1 kg/m2 No Primary Care Physician [facility] 11-14-2024 09:41-0400 Body weight 65.03 kg No Primary Care Physician [facility] 11-14-2024 09:41-0400 Diastolic blood pressure 73 mm[Hg] No Primary Care Physician [facility] 11-14-2024 09:41-0400 Systolic blood pressure 107 mm[Hg] No Primary Care Physician [facility] 10-06-2024 13:56-0400 Body mass index (BMI) [Ratio] 23.02 kg/m2 Lashonda Thomas MD Work Phone: [facility] 10-06-2024 13:56-0400 Body temperature 98.91 [degF] Lashonda Thomas MD Work Phone: [facility] 10-06-2024 13:56-0400 Body weight 64.68 kg Lashonda Thomas MD Work Phone: [facility] 10-06-2024 13:56-0400 Diastolic blood pressure 62 mm[Hg] Lashonda Thomas MD Work Phone: [facility] 10-06-2024 13:56-0400 Heart rate 82 /min Lashonda Thomas MD Work Phone: [facility] 10-06-2024 13:56-0400 SaO2% (BldA) [Mass fraction] 99 % Lashonda Thomas MD Work Phone: [facility] 10-06-2024 13:56-0400 Systolic blood pressure 116 mm[Hg] Lashonda Thomas MD Work Phone: [facility] 08-07-2024 09:56-0500 Body height 167.6 cm Lashonda Thomas MD Work Phone: [facility] 08-07-2024 09:56-0500 Body mass index (BMI) [Ratio] 23.21 kg/m2 Lashonda Thomas MD Work Phone: [facility] 08-07-2024 09:56-0500 Body weight 65.23 kg Lashonda Thomas MD Work Phone: [facility] 08-07-2024 09:56-0500 Diastolic blood pressure 78 mm[Hg] Lashonda Thomas MD Work Phone: [facility] 08-07-2024 09:56-0500 Heart rate 86 /min Lashonda Thomas MD Work Phone: [facility] 08-07-2024 09:56-0500 Respiratory rate 15 /min Lashonda Thomas MD Work Phone: [facility] 08-07-2024 09:56-0500 SaO2% (BldA) [Mass fraction] 99 % Lashonda Thomas MD Work Phone: [facility] 08-07-2024 09:56-0500 Systolic blood pressure 116 mm[Hg] Lashonda Thomas MD Work Phone: [facility] 05-05-2024 11:18-0400 Body mass index (BMI) [Ratio] 20.27 kg/m2 Lashonda Thomas MD Work Phone: [facility] 05-05-2024 11:18-0400 Body temperature 99.1 [degF] Lashonda Thomas MD Work Phone: [facility] 05-05-2024 11:18-0400 Body weight 56.97 kg Lashonda Thomas MD Work Phone: [facility] 05-05-2024 11:18-0400 Diastolic blood pressure 72 mm[Hg] Lashonda Thomas MD Work Phone: [facility] 05-05-2024 11:18-0400 Heart rate 91 /min Lashonda Thomas MD Work Phone: [facility] 05-05-2024 11:18-0400 Respiratory rate 16 /min Lashonda Thomas MD Work Phone: [facility] 05-05-2024 11:18-0400 SaO2% (BldA) [Mass fraction] 96 % Lashonda Thomas MD Work Phone: [facility] 05-05-2024 11:18-0400 Systolic blood pressure 102 mm[Hg] Lashonda Thomas MD Work Phone: [facility] 03-07-2024 11:32-0400 Body height 167.6 cm Lashonda Thomas MD Work Phone: [facility] 03-07-2024 11:32-0400 Body mass index (BMI) [Ratio] 22.47 kg/m2 Lashonda Thomas MD Work Phone: [facility] 03-07-2024 11:32-0400 Body temperature 98.8 [degF] Lashonda Thomas MD Work Phone: [facility] 03-07-2024 11:32-0400 Body weight 63.14 kg Lashonda Thomas MD Work Phone: [facility] 03-07-2024 11:32-0400 Heart rate 61 /min Lashonda Thomas MD Work Phone: [facility] 03-07-2024 11:32-0400 SaO2% (BldA) [Mass fraction] 99 % Lashonda Thomas MD Work Phone: [facility] 11-30-2023 08:37-0400 Body height 167.6 cm Lashonda Thomas MD Work Phone: [facility] 11-30-2023 08:37-0400 Body mass index (BMI) [Ratio] 22.56 kg/m2 Lashonda Thomas MD Work Phone: [facility] 11-30-2023 08:37-0400 Body weight 63.41 kg Lashonda Thomas MD Work Phone: [facility] 11-30-2023 08:37-0400 Diastolic blood pressure 80 mm[Hg] Lashonda Thomas MD Work Phone: [facility] 11-30-2023 08:37-0400 Heart rate 90 /min Lashonda Thomas MD Work Phone: [facility] 11-30-2023 08:37-0400 Respiratory rate 16 /min Lashonda Thomas MD Work Phone: [facility] 11-30-2023 08:37-0400 SaO2% (BldA) [Mass fraction] 99 % Lashonda Thomas MD Work Phone: [facility] 11-30-2023 08:37-0400 Systolic blood pressure 118 mm[Hg] Lashonda Thomas MD Work Phone: [facility] Encounters Encounter Date Encounter Type Care Provider Facility Start: 02-15-2025 End: 02-15-2025 ambulatory No Primary Care Physician [place] [place]: 02-15-2025 End: 02-15-2025 Patient encounter procedure Robina Peters CNM -[facility] Work Phone: Start: 01-30-2025 End: 01-30-2025 Patient encounter procedure Ying FULTON -[facility] Work Phone: Start: 01-30-2025 End: 01-30-2025 ambulatory No Primary Care Physician -[facility] Start: 01-12-2025 End: 01-19-2025 ambulatory Lashonda Thomas MD Work Phone: Endocrinology Comment on above: Positive T est Start: 01-08-2025 End: 01-08-2025 Patient encounter procedure Lashonda Thomas MD Work Phone: Endocrinology Comment on above: Acquired hypothyroid ism; Other acne Start: 01-08-2025 End: 01-08-2025 ambulatory LASHONDA THOMAS Facility:[facility] Start: 12-15-2024 End: 12-15-2024 ambulatory Treatment Rm 16 Atul [facility] Work Phone: Hematology/Oncology Comment on above: Irregular periods/me nstrual cycles (Primary Dx) Start: 12-07-2024 End: 12-07-2024 ambulatory OREN RUDD IV Facility:[facility] Start: 12-07-2024 End: 12-07-2024 Patient encounter procedure Lashonda Thomas MD Work Phone: Endocrinology Comment on above: Irregular periods/me nstrual cycles (Primary Dx) Start: 12-05-2024 End: 12-05-2024 ambulatory MD LASHONDA THOMAS Facility:[facility] Start: 12-05-2024 End: 12-05-2024 Patient encounter procedure LASHONDA THOMAS [facility] Start: 12-04-2024 End: 12-04-2024 Telephone encounter Lashonda Thomas MD Work Phone: Endocrinology Comment on above: Orders Start: 12-01-2024 End: 12-02-2024 ambulatory Lashonda Thomas MD Work Phone: Endocrinology Start: 12-01-2024 End: 12-02-2024 Patient encounter procedure Lashonda Thomas MD Work Phone: Endocrinology Comment on above: Bloodwork for upcomi ng appointment? Start: 11-14-2024 End: 11-14-2024 Patient encounter procedure Yasmeen Rodriguez CNM -[facility] Work Phone: Start: 11-14-2024 End: 11-14-2024 Patient encounter status Yasmeen Rodriguez [facility] Start: 11-14-2024 End: 11-14-2024 ambulatory No Primary Care Physician [facility] Work Phone: Start: 10-12-2024 End: 11-13-2024 Telephone encounter Lashonda Thomas MD Work Phone: Endocrinology Start: 10-10-2024 End: 10-10-2024 ambulatory MD LASHONDA THOMAS Facility:[facility] Start: 10-06-2024 End: 10-06-2024 ambulatory OREN RUDD IV Facility:[facility] Start: 10-06-2024 End: 10-06-2024 Patient encounter procedure Lashonda Thomas MD Work Phone: Endocrinology Comment on above: Other acne (Primary Dx); Acquired hypothyroidism; Irregular periods/menstrual cycles Start: 09-29-2024 End: 09-29-2024 ambulatory MD LASHONDA THOMAS Facility:[facility] Start: 08-07-2024 End: 08-07-2024 ambulatory OREN RUDD IV Facility:[facility] Start: 08-07-2024 End: 08-07-2024 Patient encounter procedure Lashonda Thomas MD Work Phone: Endocrinology Comment on above: Acquired hypothyroid ism (Primary Dx) Start: 08-01-2024 End: 08-01-2024 ambulatory PHY WO ID REFERRING Facility:[facility] Start: 08-01-2024 End: 08-01-2024 Patient encounter procedure PHY WO ID REFERRING [facility] Start: 07-28-2024 End: 07-28-2024 Telephone encounter Lashonda Thomas MD Work Phone: Endocrinology Comment on above: Orders Start: 06-23-2024 End: 06-23-2024 ambulatory MD LASHONDA THOMAS Facility:[facility] Start: 06-23-2024 End: 06-23-2024 Patient encounter procedure LASHONDA THOMAS [facility] Start: 06-20-2024 End: 06-20-2024 ambulatory Lashonda Thomas MD Work Phone: Endocrinology Comment on above: Thyroid results Start: 06-20-2024 End: 06-20-2024 E-mail encounter from caregiver Lashonda Thomas MD Work Phone: Endocrinology Start: 06-15-2024 End: 06-20-2024 Telephone encounter Lashonda Thomas MD Work Phone: Endocrinology Comment on above: Results; Patient Upd ate Start: 05-19-2024 End: 05-19-2024 ambulatory LASHONDA THOMAS Facility:[facility] Start: 05-19-2024 End: 05-19-2024 Subsequent hospital visit by physician [facility] Work Phone: Radiology Comment on above: Hyperthyroidism [E05 .90] Start: 05-15-2024 End: 05-15-2024 Telephone encounter Lashonda Thomas MD Work Phone: Endocrinology Comment on above: Results Start: 05-09-2024 End: 05-09-2024 ambulatory MD LASHONDA THOMAS Facility:[facility] Start: 05-09-2024 End: 05-09-2024 Patient encounter procedure LASHONDA THOMAS [facility] Start: 05-05-2024 End: 05-05-2024 ambulatory MD LASHONDA THOMAS Facility:[facility] Start: 05-05-2024 End: 05-05-2024 Patient encounter procedure LASHONDA THOMAS [facility] Start: 05-05-2024 End: 05-05-2024 ambulatory LASHONDA THOMAS Facility:[facility] Start: 05-05-2024 End: 05-05-2024 Patient encounter procedure Lashonda Thomas MD Work Phone: Endocrinology Comment on above: Abnormal results of thyroid function studies (Primary Dx) Start: 04-24-2024 End: 04-24-2024 ambulatory MD LASHONDA THOMAS Facility:[facility] Start: 04-24-2024 End: 04-24-2024 Patient encounter procedure LASHONDA THOMAS [facility] Start: 04-17-2024 End: 04-17-2024 Patient Msg Lashonda Thomas MD Work Phone: Endocrinology Comment on above: Lab orders placed Start: 04-12-2024 End: 04-17-2024 Telephone encounter Lashonda Thomas MD Work Phone: Endocrinology Comment on above: Orders Start: 03-07-2024 End: 03-07-2024 ambulatory LASHONDA THOMAS Facility:[facility] Start: 03-07-2024 End: 03-07-2024 Patient encounter procedure Lashonda Thomas MD Work Phone: Endocrinology Comment on above: Subclinical hypothyr oidism (Primary Dx) Start: 11-30-2023 End: 11-30-2023 Patient encounter procedure Lashonda Thomas MD Work Phone: Endocrinology Comment on above: Subclinical hypothyr oidism (Primary Dx) Start: 10-19-2023 End: 10-20-2023 ambulatory ERIN ANDREWS MD Facility:[facility] Start: 10-19-2023 End: 10-19-2023 Patient encounter procedure ERIN ANDREWS MD [facility] Start: 06-08-2023 End: 06-09-2023 ambulatory OREN RUDD DO Facility:[facility] Start: 06-08-2023 End: 06-08-2023 Patient encounter procedure ERIN ANDREWS MD [facility] Start: 04-24-2023 End: 04-25-2023 ambulatory OREN RUDD DO Facility:[facility] Start: 10-27-2022 End: 10-27-2022 ambulatory CNM Yasmeen Rodriguez Work Phone: [facility] Work Phone: Start: 10-27-2022 End: 10-27-2022 Patient encounter procedure CNAmador Rodriguez Work Phone: [facility] Ultrasound Start: 10-12-2022 End: 10-12-2022 Patient encounter procedure CNAmador Rodriguez Work Phone: [facility]-Laboratory, Specimen Start: 10-12-2022 End: 10-12-2022 Patient encounter procedure VIRGINIA Rodriguez Work Phone: [facility] Start: 09-29-2022 End: 09-29-2022 Patient encounter procedure ERIN ANDREWS MD [facility] Start: 07-03-2022 End: 07-03-2022 Patient encounter procedure ERIN ANDREWS MD [facility] Start: 11-28-2021 End: 11-28-2021 Patient encounter procedure ERIN ANDREWS MD [facility] Start: 07-23-2021 End: 07-23-2021 Patient encounter procedure ERIN ANDREWS MD [facility] Start: 06-05-2021 End: 06-05-2021 Patient encounter procedure ERIN ANDREWS MD [facility] Procedures Date Procedure Procedure Detail Performing Clinician Start: 10-27-2022 Ultrasonography of breast VIRGINIA Rodriguez Work Phone: Complex reconstructi on of wrist and hand ERIN ANDREWS MD Tonsillectomy and adenoidectomy ERIN ANDREWS MD Plan of Treatment Date Care Activity Detail Author Start: 07-12-2025 End: 10-11-2025 Thyrotropin [Units/volume] in Serum or Plasma THYROID STIMULATING HORMONE Lab Routine Acquired hypothyroidism Expected: 07/12/2025, Expires: 10/11/2025 [facility] Work Phone: Comment on above: Expected: 07/12/2025, Expires: Start: 07-12-2025 End: 10-11-2025 Thyroxine (T4) free [Mass/volume] in Serum or Plasma T4 FREE/FREE THYROXINE Lab Routine Acquired hypothyroidism Expected: 07/12/2025, Expires: 10/11/2025 [facility] Comment on above: Expected: 07/12/2025, Expires: Start: 07-12-2025 End: 07-12-2025 Patient encounter procedure 07/12/2025 8:40 AM EST Office Visit Endocrinology [address] [place] [address] Lashonda Thomas MD [address] [place] [address] 6 MO OV Endocrinology Comment on above: 6 MO OV Start: 03-05-2025 Influenza vaccination [facility] Start: 02-15-2025 CBC W Auto Differential panel - Blood [facility] Start: 02-15-2025 Hepatitis C antibody measurement [facility] Start: 02-15-2025 Procedure [facility] Start: 02-15-2025 Rubella IgG measurement [facility] Start: 02-15-2025 Serologic test for syphilis [facility] Start: 02-15-2025 T4 free measurement [facility] Start: 02-15-2025 Thyroid stimulating hormone measurement [facility] Start: 02-15-2025 [facility] Start: 01-08-2025 End: 01-08-2025 Patient encounter procedure 01/08/2025 4:20 PM EDT Office Visit Endocrinology [address] [place] [address] Lashonda Thomas MD [address] [place] [address] One month follow up - THYROID Endocrinology Comment on above: One month follow up - THYROID Start: 12-15-2024 End: 12-15-2024 ambulatory Ariel Anguiano [facility] Laboratory Comment on above: ACTH 2ND Start: 12-07-2024 End: 03-08-2025 ACTH STIMULATION,2 TIME POINTS ACTH STIMULATION,2 TIME POINTS Lab Routine Irregular periods/menstrual cycles Expected: 12/07/2024, Expires: 03/08/2025 [facility] Work Phone: Comment on above: Expected: 12/07/2024, Expires: Start: 12-07-2024 End: 12-07-2024 Patient encounter procedure 12/07/2024 11:40 AM EDT Office Visit Endocrinology [address] [place] [id number] Lashonda Thomas MD [address] [place] [place] [id number] 2 MTH F/U THYROID Endocrinology Comment on above: 2 MTH F/U THYROID Start: 12-02-2024 End: 03-03-2025 Thyrotropin [Units/volume] in Serum or Plasma THYROID STIMULATING HORMONE Lab Routine Acquired hypothyroidism Subclinical hypothyroidism Hyperthyroidism Expected: 12/02/2024, Expires: 03/03/2025 [facility] Comment on above: Expected: 12/02/2024, Expires: Start: 12-02-2024 End: 03-03-2025 Thyroxine (T4) free [Mass/volume] in Serum or Plasma T4 FREE/FREE THYROXINE Lab Routine Acquired hypothyroidism Subclinical hypothyroidism Hyperthyroidism Expected: 12/02/2024, Expires: 03/03/2025 [facility] Work Phone: Comment on above: Expected: 12/02/2024, Expires: Start: 10-06-2024 End: 01-05-2025 17-Hydroxyprogesterone [Mass/volume] in Serum or Plasma HYDROXYPROGESTERONE-17 Lab Routine Other acne Expected: 10/06/2024, Expires: 01/05/2025 [facility] Comment on above: Expected: 10/06/2024, Expires: Start: 10-06-2024 End: 01-05-2025 DHEA-S BLD DHEA-S BLD Lab Routine Other acne Expected: 10/06/2024, Expires: 01/05/2025 [facility] Work Phone: Comment on above: Expected: 10/06/2024, Expires: Start: 10-06-2024 End: 10-06-2024 Patient encounter procedure 10/06/2024 2:00 PM EDT Office Visit Endocrinology [address] [place] [address] Lashonda Thomas MD [address] [place] [address] 2 MTH F/U Endocrinology Comment on above: 2 MTH F/U Start: 10-06-2024 End: 01-05-2025 Prolactin [Mass/volume] in Serum or Plasma PROLACTIN Lab Routine Other acne Expected: 10/06/2024, Expires: 01/05/2025 [facility] Comment on above: Expected: 10/06/2024, Expires: Start: 10-06-2024 End: 01-05-2025 TESTOSTERONE, BIOAVAILABLE AND TOTAL BY MS (ADULT FEMALES, CHILDREN, OR INDIVIDUALS ON TESTOSTERONE-SUPPRESSING THERAPY) TESTOSTERONE, BIOAVAILABLE AND TOTAL BY MS (ADULT FEMALES, CHILDREN, OR INDIVIDUALS ON TESTOSTERONE-SUPPRESSIN G THERAPY) Lab Routine Other acne Expected: 10/06/2024, Expires: 01/05/2025 [facility] Comment on above: Expected: 10/06/2024, Expires: Start: 08-07-2024 End: 11-06-2024 Thyrotropin [Units/volume] in Serum or Plasma THYROID STIMULATING HORMONE Lab Routine Acquired hypothyroidism Expected: 08/07/2024, Expires: 11/06/2024 [facility] Work Phone: Comment on above: Expected: 08/07/2024, Expires: Start: 08-07-2024 End: 11-06-2024 Thyroxine (T4) free [Mass/volume] in Serum or Plasma T4 FREE/FREE THYROXINE Lab Routine Acquired hypothyroidism Expected: 08/07/2024, Expires: 11/06/2024 [facility] Comment on above: Expected: 08/07/2024, Expires: Start: 08-07-2024 End: 08-07-2024 Patient encounter procedure 08/07/2024 9:40 AM EST Office Visit Endocrinology [address] [place] [address] Lashonda Thomas MD [address] [place] [address] 3 month f/u Endocrinology Comment on above: 3 month f/u Start: 05-05-2024 End: 08-04-2024 THYROID STIMULATING IMMUNOGLOBULIN BLOOD THYROID STIMULATING IMMUNOGLOBULIN BLOOD Lab Routine Abnormal results of thyroid function studies Expected: 05/05/2024, Expires: 08/04/2024 [facility] Comment on above: Expected: 05/05/2024, Expires: Start: 05-05-2024 End: 08-04-2024 Thyrotropin [Units/volume] in Serum or Plasma THYROID STIMULATING HORMONE Lab Routine Abnormal results of thyroid function studies Expected: 05/05/2024, Expires: 08/04/2024 [facility] Work Phone: Comment on above: Expected: 05/05/2024, Expires: Start: 05-05-2024 End: 08-04-2024 Thyroxine (T4) free [Mass/volume] in Serum or Plasma T4 FREE/FREE THYROXINE Lab Routine Abnormal results of thyroid function studies Expected: 05/05/2024, Expires: 08/04/2024 [facility] Comment on above: Expected: 05/05/2024, Expires: Start: 05-05-2024 End: 08-04-2024 Triiodothyronine (T3) [Mass/volume] in Serum or Plasma T3 Lab Routine Abnormal results of thyroid function studies Expected: 05/05/2024, Expires: 08/04/2024 [facility] Comment on above: Expected: 05/05/2024, Expires: Start: 04-16-2024 End: 07-16-2024 Thyrotropin [Units/volume] in Serum or Plasma THYROID STIMULATING HORMONE Lab Routine Subclinical hypothyroidism Expected: 04/16/2024, Expires: 07/16/2024 [facility] Work Phone: Comment on above: Expected: 04/16/2024, Expires: Start: 04-16-2024 End: 07-16-2024 Thyroxine (T4) free [Mass/volume] in Serum or Plasma T4 FREE/FREE THYROXINE Lab Routine Subclinical hypothyroidism Expected: 04/16/2024, Expires: 07/16/2024 [facility] Comment on above: Expected: 04/16/2024, Expires: Start: 03-07-2024 End: 03-07-2024 Patient encounter procedure 03/07/2024 11:40 AM EDT Office Visit Endocrinology [address] [place] [id number] Lashonda Thomas MD [address] [place] [id number] 14 WK F/U Endocrinology Comment on above: 14 WK F/U Start: 03-05-2024 Covid-19 Vaccine ( season) Covid-19 Vaccine ( season) [facility] Start: 03-05-2024 Covid-19 Vaccine ( season) Covid-19 Vaccine () [facility] Start: 03-05-2024 Influenza vaccination [facility] Start: 02-23-2024 End: 05-24-2024 THYROGLOBULIN ANTIBODY THYROGLOBULIN ANTIBODY Lab Routine Subclinical hypothyroidism Expected: 02/23/2024, Expires: 05/24/2024 [facility] Comment on above: Expected: 02/23/2024, Expires: Start: 02-23-2024 End: 05-24-2024 Thyrotropin [Units/volume] in Serum or Plasma THYROID STIMULATING HORMONE Lab Routine Subclinical hypothyroidism Expected: 02/23/2024, Expires: 05/24/2024 [facility] Work Phone: Comment on above: Expected: 02/23/2024, Expires: Start: 02-23-2024 End: 05-24-2024 Thyroxine (T4) free [Mass/volume] in Serum or Plasma T4 FREE/FREE THYROXINE Lab Routine Subclinical hypothyroidism Expected: 02/23/2024, Expires: 05/24/2024 [facility] Comment on above: Expected: 02/23/2024, Expires: 4 Start: 02-23-2024 End: 05-24-2024 Triiodothyronine (T3) Free [Mass/volume] in Serum or Plasma T3, FREE Lab Routine Subclinical hypothyroidism Expected: 02/23/2024, Expires: 05/24/2024 [facility] Comment on above: Expected: 02/23/2024, Expires: 4 Start: 07-05-2023 Behavioral Health Screening Behavioral Health Screening [facility] Start: 03-05-2023 Covid-19 Vaccine () Covid-19 Vaccine () [facility] Start: 02-18-2020 Urine microalbumin profile DTaP,Tdap,Td Vaccine (7 - Tdap) [facility] Start: 2018 Screening for malignant neoplasm of cervix [facility] Start: 10-19-2015 Annual PCP Team Chronic Disease Visit Annual PCP Team Chronic Disease Visit [facility] Start: 10-19-2015 Anxiety Screening Anxiety Screening [facility] Start: 10-19-2015 Depression Screening Depression Screening [facility] Start: 10-19-2015 Hepatitis C screening Hepatitis C Screening [facility] Start: 10-19-2015 HIV screening HIV Screening [facility] Start: 2012 HPV Vaccine (1 - 3-dose series) HPV Vaccine (1 - 3-dose series) [facility] Start: 10-19-2011 Peds To Adult Transition Annual Assessment Peds To Adult Transition Annual Assessment [facility] Start: 2009 Peds To Adult Transition Initial Discussion Peds To Adult Transition Initial Discussion [facility] End: 12-07-2025 17-Hydroxyprogesterone [Mass/volume] in Serum or Plasma HYDROXYPROGESTERONE-17 Lab Routine Irregular periods/menstrual cycles 2 Occurrences starting 12/07/2024 until 12/07/2025 [facility] Comment on above: 2 Occurrences starting 12/07/2024 until 12/07/2025 Chlamydia deoxyribonucleic acid detection [facility] Erythrocyte mean corpuscular volume determination [facility] Hematocrit [Volume Fraction] of Blood [facility] Hemoglobin [Mass/vol ume] in Blood [facility] Hepatitis B virus lindsey rface Ag [Presence] in Serum [facility] Leukocytes [#/volume ] in Blood [facility] Mean corpuscular hemoglobin concentration determination [facility] Mean corpuscular hemoglobin determination [facility] Neutrophil count [facility] Neutrophil percent differential count [facility] Platelets [#/volume] in Blood [facility] Red blood cell count [facility] Red cell distributio n width determination [facility] US Breast limited [facility] End: 06-14-2025 US Thyroid gland US THYROID/PARATHYROID Radiology Routine Hyperthyroidism 1 Occurrences starting 05/15/2024 until 06/14/2025 [facility] Work Phone: Comment on above: 1 Occurrences starting 05/15/2024 until 06/14/2025 US Thyroid gland US THYROID/PARA THYROID Radiology Routine Hyperthyroidism 05/19/2024 8:31 AM EST [facility] Work Phone: Immunizations Immunization Date Immunization Notes Care Provider [facility] 04-30-2020 influenza virus vaccine, unspecified formulation Lashonda Thomas MD Work Phone: [facility] 11-27-2015 meningococcal polysaccharide (groups A, C, Y and W-135) diphtheria toxoid conjugate vaccine (MCV4P) ERIN ANDREWS MD [facility] 10-10-2014 hepatitis A vaccine, pediatric dosage, unspecified formulation ERIN ANDREWS MD [facility] 10-10-2014 typhoid vaccine, reena e, oral ERIN ANDREWS MD [facility] 10-10-2014 varicella virus vaccine TAL ANDREWS MD [facility] 02-17-2010 tetanus and diphther ia toxoids, adsorbed, preservative free, for adult use (5 Lf of tetanus toxoid and 2 Lf of diphtheria toxoid) ERIN ANDREWS MD [facility] 11-16-2002 diphtheria, tetanus toxoids and acellular pertussis vaccine ERIN ANDREWS MD [facility] 11-16-2002 measles/mumps/rubell a virus vaccine ERIN ANDREWS MD [facility] 04-11-1999 haemophilus influenz ae type b vaccine, PRP-T conjugate ERIN ANDREWS MD [facility] 04-07-1999 diphtheria, tetanus toxoids and acellular pertussis vaccine ERIN ANDREWS MD [facility] 01-09-1999 measles/mumps/rubell a virus vaccine ERIN ADNREWS MD [facility] 01-09-1999 varicella virus vaccine TAL ANDREWS MD [facility] 10-10-1998 hepatitis B vaccine, unspecified formulation ERIN ANDREWS MD [facility] 10-10-1998 poliovirus vaccine, inactivated ERIN ANDREWS MD [facility] 05-02-1998 haemophilus influenz ae type b vaccine, PRP-T conjugate ERIN ANDREWS MD [facility] 05-02-1998 hepatitis B vaccine, unspecified formulation ERIN ANDREWS MD [facility] 05-02-1998 poliovirus vaccine, inactivated ERIN ANDREWS MD [facility] 05-01-1998 diphtheria, tetanus toxoids and acellular pertussis vaccine ERIN ANDREWS MD [facility] 03-01-1998 diphtheria, tetanus toxoids and acellular pertussis vaccine ERIN ANDREWS MD [facility] 03-01-1998 haemophilus influenz ae type b vaccine, PRP-T conjugate ERIN ANDREWS MD [facility] 03-01-1998 poliovirus vaccine, inactivated ERIN ANDREWS MD [facility] 1997 diphtheria, tetanus toxoids and acellular pertussis vaccine ERIN ANDREWS MD [facility] 1997 haemophilus influenz ae type b vaccine, PRP-T conjugate ERIN ANDREWS MD [facility] 1997 poliovirus vaccine, inactivated ERIN ANDREWS MD [facility] 1997 hepatitis B vaccine, unspecified formulation ERIN ANDREWS MD [facility] Payers Date Payer Category Payer Private Health Insurance 20f [id number] 2024 Self-pay 2023 [employer] Blue [facility] [id number] 2023 Unknown [id number] 2023 Unknown [id number] 1997 Unknown [id number] [id number]. 2. 1997 Unknown [id number] [id number]. 2 1997 Unknown [id number] 2.16.840.1.096706.3.579. 2. 1997 Unknown [id number] 2.16.840.1.794416.3.579. 2 1997 Unknown [id number] 2.16.840.1.588313.3.579. 2 1997 Unknown [id number] [id number]. 2.627 1997 Unknown [id number] 2.16.840.1.102402.3.579. 2. 1997 Unknown [id number] 2.16840.1.260986.3.579. 2.627 1997 Unknown [id number] [id number]. 2.627 1997 Unknown [id number] [id number]. 2627 1997 Unknown [id number] [id number]. 2.627 Unknown [id number] Unknown [id number] Unknown [facility] [id number] Unknown [id number] [id number]. 2.462 Unknown [id number] [id number]. 2.462 Unknown [id number] [id number]. 2.462 Social History Date Type Detail Facility Start: 01-06-2019 End: 01-30-2025 Never smoked tobacco (finding) [facility] Start: 1995 Sex Assigned At Female A [facility] Start: 10-12-2022 [facility] ever smoked [facility] Start: 11-30-2023 End: 08-07-2024 Tobacco use and exposure Smokeless tobacco non-user [facility] Start: 11-30-2023 End: 01-08-2025 Alcohol intake Current drinker of alcohol (finding) [facility] Start: 11-30-2023 End: 05-05-2024 History of Social function [facility] Start: 11-30-2023 End: 05-05-2024 Tobacco use panel [facility] National Score (1-100), lower number is lower risk 35 [facility] Start: 11-30-2023 [facility] Start: 1995 Sex Assigned At Not on file C [facility] Sexual Orientation [facility] Start: 07-06-2019 Sex Female (finding) [facility] NEGATED: Highlighted rowStart: LIZETTE History of tobacco use Passive smoker [facility] Clinical Notes 10-12-2022 to 02-15-2025 Telephone Encounter - Kierra Cobb MA - 01/19/2025 3:17 PM EDTTelephone Encounter - Kierra Cobb MA - 01/19/2025 3:17 PM EDTPatient InstructionsPatient Instructions Note Date & Type Note Facility 02-15-2025 Progress note [facility] 01-19-2025 Telephone encounter Note Phoned patient LVM. Patient was asked to confirm at OBGYN office. As per provider, the decision to change the medication dosage is based on this information. Kierra Cobb MA [facility] 01-19-2025 Miscellaneous Notes Phoned patient LVM. Patient was asked to confirm at OBGYN office. As per provider, the decision to change the medication dosage is based on this information. Kierra Cobb MA documented in this encounter [facility] 01-08-2025 Lashonda Salguero MD - 01/08/2025 4:32 PM EDT Please continue same dose of levothyroxine Repeat labs in 6 months documented in this encounter [facility] 01-08-2025 Note HNO ID: [id number] Author: LASHONDA THOMAS MD Service: ? Author Type: Physician Type: Progress Notes Filed: 01/28/2025 22:52 Note Text: [facility] Follow up visit note Subjective: Erwin Coles is a 29 year old female here follow up evaluation of thyroid problem. She was initially seen in November 2023 after referral by her Ict Developer, Dr. Erin Andrews for subclinical hypothyroidism. 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 Erin Andrews By late 2020, she was started on synthroid, was on 50 mcg daily at the latest which did not improve her fatigue, and hence she was off of synthroid. She has seen naturopathy specialist, and started using supplements in Apr 2023, she felt better with energy, hair texture etc after starting the supplement. But her labs were indicative of hyperthyroidism and when she was advised to share the name of the supplements, it is realized she was on thyrocare- BID and adrenal supplement once daily. This was advised to be discontinued as likely etiology of abnormal thyroid labs indicating hyperthyroid status due to exogenous thyroid hormone, and she is currently on levothyroxine 75 mcg daily Family history: Grand father had Chatham's disease Interval history: 12/07/24 Hypothyroidism: - Taking levothyroxine 75 mcg daily since July 2024 - no hypo or hyperthyroid symptoms. Feels better overall - re[ports compliance with medications, and tolerating well Reported acne during visit on 10/2024 which she reported were after starting levothyroxine. She believes her acne is due to this medication. On further questioning, also reports irregular cycles, no c/o hirsutism Acne: - Onset of facial acne approximately 2 months ago. Irregular Menstrual Cycles: - Menstrual cycles have lengthened to approximately 40 days, previously around 30 days. - Observes attempts at ovulation followed by successful ovulation later in the cycle, as indicated by basal body temperature tracking. - Taking Vitex for progesterone support since fall of last year. - labs were done for acne and irregular cycles, and are as below under labs Reports its long a cycle but also feels that her body might be getting back to normal after thyroid has been normalized She was seen by OBGYN, and was recommended to monitor for now Acne is slightly better Interval history: 01/08/25: Based on labs, I recommended doing ACTH stimulation test for 17OHP, along with other labs at appropriate time She reports no significant changes since last visit REVIEW OF SYSTEMS: 10 point ROS was reviewed and negative unless indicated in the HPI ALLERGIES: ALLERGIES Allergen Reactions Amoxicillin-Pot Cla* Diarrhea, GI Upset, Vomiting MEDICATIONS: Current Outpatient Medications on File Prior to Visit Medication Sig MEDICATION, NON-DATABASE Take 1 capsule by mouth two times a day. Thyro-care *under the supervision of a construction project coordinator -- compound formula* MEDICATION, NON-DATABASE Take 1 capsule by mouth once daily. Adrenal Assist *under the supervision of a construction project coordinator -- compound formula* No current facility-administered medications on file prior to visit. PAST MEDICAL HISTORY: No past medical history on file. PAST SURGICAL HISTORY: PAST SURGICAL HISTORY Procedure Laterality Date MYRINGOTOMY W TUBE,BILATERAL(2) TONSILLECTOMY AND ADENOIDECTOMY WRIST SURGERY HX Right cartilage repair -- in high school FAMILY HISTORY: FAMILY HISTORY Problem Relation Age of Onset other (aortic valve replacement) Father No Known Problems Brother Breast Cancer Paternal Grandmother Diabetes Paternal Grandmother other (addisons disease) Paternal Grandfather Thyroid No Family History SOCIAL HISTORY: Social History Tobacco Use Smoking status: Never Passive exposure: Never Smokeless tobacco: Never Vaping Use Vaping status: Never Used Substance Use Topics Alcohol use: Yes Comment: occasional Drug use: Never PHYSICAL EXAM: BP 116/76 (BP Site: Right Arm, BP Position: Standing, BP Cuff Size: Regular Adult) Pulse 89 Resp 18 Ht 167.6 cm (5' 6) Wt 64.4 kg (142 lb) LMP 12/12/2024 (Exact Date) SpO2 100% BMI 22.92 kg/m? Unchanged from prior visit General: Alert and oriented x3, no acute distress Eyes: Anicteric sclera. EOMI. No lid lag or exophthalmos Neck supple, no cervical lymphadenopathy Thyroid: normal to slightly enlarged in size, normal texture, no palpable nodules Lungs: Breathing unlabored, clear to auscultation. Heart regular rate and rhythm, S1 and S2 normal Musculoskeletal: Muscular strength intact, No joint swelling, deformity, or tenderness Neuro: Gait normal. Extremities: without edema, no deformities, no visible tremors of outstretched arms Skin: no (more content not included)... [facility] 01-08-2025 History of Present illness Narrative [facility] Follow up visit note Subjective: Erwin Coles is a 29 year old female here follow up evaluation of thyroid problem. She was initially seen in November 2023 after referral by her Ict Developer, Dr. Erin Andrews for subclinical hypothyroidism. 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 Erin Andrews By late 2020, she was started on synthroid, was on 50 mcg daily at the latest which did not improve her fatigue, and hence she was off of synthroid. She has seen naturopathy specialist, and started using supplements in Apr 2023, she felt better with energy, hair texture etc after starting the supplement. But her labs were indicative of hyperthyroidism and when she was advised to share the name of the supplements, it is realized she was on thyrocare- BID and adrenal supplement once daily. This was advised to be discontinued as likely etiology of abnormal thyroid labs indicating hyperthyroid status due to exogenous thyroid hormone, and she is currently on levothyroxine 75 mcg daily Family history: Grand father had Marcello's disease Interval history: 12/07/24 Hypothyroidism: - Taking levothyroxine 75 mcg daily since July 2024 - no hypo or hyperthyroid symptoms. Feels better overall - re[ports compliance with medications, and tolerating well Reported acne during visit on 10/2024 which she reported were after starting levothyroxine. She believes her acne is due to this medication. On further questioning, also reports irregular cycles, no c/o hirsutism Acne: - Onset of facial acne approximately 2 months ago. Irregular Menstrual Cycles: - Menstrual cycles have lengthened to approximately 40 days, previously around 30 days. - Observes attempts at ovulation followed by successful ovulation later in the cycle, as indicated by basal body temperature tracking. - Taking Vitex for progesterone support since fall of last year. - labs were done for acne and irregular cycles, and are as below under labs Reports its long a cycle but also feels that her body might be getting back to normal after thyroid has been normalized She was seen by OBGYN, and was recommended to monitor for now Acne is slightly better Interval history: 01/08/25: Based on labs, I recommended doing ACTH stimulation test for 17OHP, along with other labs at appropriate time She reports no significant changes since last visit REVIEW OF SYSTEMS: 10 point ROS was reviewed and negative unless indicated in the HPI ALLERGIES: ALLERGIES Allergen Reactions Amoxicillin-Pot Cla* Diarrhea, GI Upset, Vomiting MEDICATIONS: Current Outpatient Medications on File Prior to Visit Medication Sig MEDICATION, NON-DATABASE Take 1 capsule by mouth two times a day. Thyro-care *under the supervision of a construction project coordinator -- compound formula* MEDICATION, NON-DATABASE Take 1 capsule by mouth once daily. Adrenal Assist *under the supervision of a construction project coordinator -- compound formula* No current facility-administered medications on file prior to visit. PAST MEDICAL HISTORY: No past medical history on file. PAST SURGICAL HISTORY: PAST SURGICAL HISTORY Procedure Laterality Date MYRINGOTOMY W TUBE,BILATERAL(2) TONSILLECTOMY & ADENOIDECTOMY <AGE 14 WRIST SURGERY HX Right cartilage repair -- in high school FAMILY HISTORY: FAMILY HISTORY Problem Relation Age of Onset other (aortic valve replacement) Father No Known Problems Brother Breast Cancer Paternal Grandmother Diabetes Paternal Grandmother other (addisons disease) Paternal Grandfather Thyroid No Family History SOCIAL HISTORY: Social History Tobacco Use Smoking status: Never Passive exposure: Never Smokeless tobacco: Never Vaping Use Vaping status: Never Used Substance Use Topics Alcohol use: Yes Comment: occasional Drug use: Never PHYSICAL EXAM: BP 116/76 (BP Site: Right Arm, BP Position: Standing, BP Cuff Size: Regular Adult) Pulse 89 Resp 18 Ht 167.6 cm (5' 6) Wt 64.4 kg (142 lb) LMP 12/12/2024 (Exact Date) SpO2 100% BMI 22.92 kg/m Unchanged from prior visit General: Alert and oriented x3, no acute distress Eyes: Anicteric sclera. EOMI. No lid lag or exophthalmos Neck supple, no cervical lymphadenopathy Thyroid: normal to slightly enlarged in size, normal texture, no palpable nodules Lungs: Breathing unlabored, clear to auscultation. Heart regular rate and rhythm, S1 and S2 normal Musculoskeletal: Muscular strength intact, No joint swelling, deformity, or tenderness Neuro: Gait normal. Extremities: without edema, no deformities, no visible tremors of outstretched arms Skin: no rashes/ erythema LABS: No reference ranges available for the labs till 202110/18/2022 TSH 8.79 mcIU/mL (H) Free T3: 2.85 pg/ml Free T4: 1.0 ng/dl 06/08/2023 TSH 2.62 Free T4 1.20 ng/dL Free T3 2.94 pg/mL TPO antibody <28 04/24/2023 TSH 2.71 Free T41.13 Free T32.63 09/29/2022 TSH 2.36 Free T41.18 Free T32.41 07/03/2022 TSH 0.71 Free T41.1 Free T3 2.47 Intact PTH 36.2 pg/mL Latest Ref Rng 01/26/2024 TSH 0.270 - 4.200 mIU/L 6.940 (H) Thyroglobulin Ab, Serum <4.0 IU/mL <0.9 Free T4 0.9 - 1.7 ng/dL 1.3 Free T3 2.3 - 4.1 pg/mL 3.0 Legend: (H) High 04/24/24 TSH <0.01 mcIU/ml (0.36-3.74) Free T4 : 3.78 ng/dl (0.76-1.46) 08/01/2024: TSH 25. 26 (0.36-3.74 mcIU/ml) Free T4 - 0.87 (0.76-1.46 ng/dl) 09/29/2024 TSH 3.16 (0.36-3.74 mcIU/ml) Free T4- 1.03 (0.76-1.46 ng/dl) 10/10/2024 7:45 AM Prolactin 23.6 ng/mL (2.0-30.0) DHEA-sulphate 101.38 mcg/dL (25.9-416.2) 17 hydroxyprogesterone LC MS 466 ng/dL (adult female-follicular 15-70, gluteal 35-290) Total testosterone, LC MS 28.0 ng/dL (10.0-55.0) % free + weakly bound testosterone 11.5% (0.3 0.0-18.0) Free testosterone + weakly bound testosterone 3.2 ng/dL (0.0-9.5) 12/05/2024 7:56 AM TSH 2.69 IU/mL (0.36-3.24) Free T4 1.18 ng/dL (0.76-1.46) Latest Ref Rng 12/15/2024 Cortisol Post ug/dL 26.0 Interpretation (ACTHST) -- DHEA-S 98.8 - 340.0 ug/dL 129.0 Prolactin 4.4 - 33.8 ng/mL 22.6 Hydroxyprogesterone <=206.00 ng/dL 149.85 Hydroxyprogesterone 32.81 Free T4 0.9 - 1.7 ng/dL 1.7 TSH 0.270 - 4.200 mIU/L 2.380 Cortisol Basal 4.8 - 19.5 ug/dL 12.2 Imaging: Thyroid ultrasound 05/19/2024: RESULT: Right Lobe: 4.5 x 1.4 x 1.7 cm; mildly heterogeneous echogenicity, increased vascular flow on color Doppler imaging. Left Lobe: 4.2 x 1.5 x 1.4 cm; mildly heterogeneous echogenicity, increased vascular flow on color Doppler imaging. Isthmus: 0.3 cm The most suspicious thyroid nodule(s) (up to four) as below: Nodules: None ASSESSMENT/PLAN: Hypothyroidism: Erwin Coles is a 29 year old female with no known significant medical history apart from thyroid abnormality She was seen by Endocrinology for hyperthyroidism and was started on methimazole and propranolol for controlling thyroid abnormality in 2020, followed by hypothyroidism in few months time following. She was started on synthroid 50 mcg daily with no changes in fatigue. Due to her symptoms of weight loss, limited TFTs are done and show hyperthyroidism and was noticed to be taking thyroid supplement till Mar 2024. She was also on adrenal supplement, and Vitex Off of thyroid supplement, her TSH was as high as 75, so I started her on 75 mcg of LT4 again in 07/2024, labs improving with in 3 weeks of checking after starting medication. TG abs negative She complained of palpitations, within 1 week of starting LT4. Hence changed levothyroxine formulation to levoxyl. Repeat thyroid labs in 12/2024 were normal, advised to continue same dose of medication Appropriate method of taking medication discussed again. Can repeat thyroid labs in 6 months for monitoring on the current dose Advised doing labs after holding biotin supplements for 3 to 5 days Acne, irregular cycles Initial labs indicated elevated 17OHP. Further evaluation with ACTH stim test ruled out CAH Hence it is most likely PCOS, although she does not appear to have insulin resistance per BMI Treatment discussed in detail She does not want to use control or metformin at this time Would like to continue lifestyle modifications She understands and agrees with the plan Follow up: 6 months Medical Decision Making: Problems: Low: Stable chronic illness Moderate: New problem with uncertain prognosis Data: Unique test result(s) reviewed: 3+ Unique test(s) ordered: 2 Medical Decision Making Level: 4 - Moderate Lashonda Thomas MD Endocrinology Associate Staff [facility] Endocrinology and Metabolism [place] [phone] documented in this encounter [facility] 12-07-2024 Instructions Lashonda Thomas MD - 12/07/2024 12:05 PM EDT Please continue same dose of levothyroxine We shall do a stimulation test for irregular cycles as discussed- please fast before the test and best done with the initial lab drawn before 8.30 am Hold biotin supplements for about 3 days documented in this encounter [facility] 12-07-2024 Note HNO ID: [id number] Author: LASHONDA THOMAS MD Service: ? Author Type: Physician Type: Progress Notes Filed: 12/07/2024 17:49 Note Text: [facility] Follow up visit note Subjective: Erwin Coles is a 29 year old female here follow up evaluation of thyroid problem. She was initially seen in November 2023 after referral by her Ict Developer, Dr. Erin Andrews for subclinical hypothyroidism. 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 Erin Andrews By late 2020, she was started on synthroid, was on 50 mcg daily at the latest which did not improve her fatigue, and hence she was off of synthroid. She has seen naturopathy specialist, and started using supplements in Apr 2023, she felt better with energy, hair texture etc after starting the supplement. But her labs were indicative of hyperthyroidism and when she was advised to share the name of the supplements, it is realized she was on thyrocare- BID and adrenal supplement once daily. This was advised to be discontinued as likely etiology of abnormal thyroid labs indicating hyperthyroid status due to exogenous thyroid hormone, and she is currently on levothyroxine 75 mcg daily Family history: Grand father had Chatham's disease Interval history: 12/07/24 Hypothyroidism: - Taking levothyroxine 75 mcg daily since July 2024 - no hypo or hyperthyroid symptoms. Feels better overall - re[ports compliance with medications, and tolerating well Reported acne during visit on 10/2024 which she reported were after starting levothyroxine. She believes her acne is due to this medication. On further questioning, also reports irregular cycles, no c/o hirsutism Acne: - Onset of facial acne approximately 2 months ago. Irregular Menstrual Cycles: - Menstrual cycles have lengthened to approximately 40 days, previously around 30 days. - Observes attempts at ovulation followed by successful ovulation later in the cycle, as indicated by basal body temperature tracking. - Taking Vitex for progesterone support since fall of last year. - labs were done for acne and irregular cycles, and are as below under labs Reports its long a cycle but also feels that her body might be getting back to normal after thyroid has been normalized She was sen by OBGYN, and was recommended to monitor for now Acne is slightly better REVIEW OF SYSTEMS: 10 point ROS was reviewed and negative unless indicated in the HPI ALLERGIES: ALLERGIES Allergen Reactions Amoxicillin-Pot Cla* Diarrhea, GI Upset, Vomiting MEDICATIONS: Current Outpatient Medications on File Prior to Visit Medication Sig MEDICATION, NON-DATABASE Take 1 capsule by mouth two times a day. Thyro-care *under the supervision of a construction project coordinator -- compound formula* MEDICATION, NON-DATABASE Take 1 capsule by mouth once daily. Adrenal Assist *under the supervision of a construction project coordinator -- compound formula* No current facility-administered medications on file prior to visit. PAST MEDICAL HISTORY: No past medical history on file. PAST SURGICAL HISTORY: PAST SURGICAL HISTORY Procedure Laterality Date MYRINGOTOMY W TUBE,BILATERAL(2) TONSILLECTOMY AND ADENOIDECTOMY WRIST SURGERY HX Right cartilage repair -- in high school FAMILY HISTORY: FAMILY HISTORY Problem Relation Age of Onset other (aortic valve replacement) Father No Known Problems Brother Breast Cancer Paternal Grandmother Diabetes Paternal Grandmother other (addisons disease) Paternal Grandfather Thyroid No Family History SOCIAL HISTORY: Social History Tobacco Use Smoking status: Never Passive exposure: Never Smokeless tobacco: Never Vaping Use Vaping status: Never Used Substance Use Topics Alcohol use: Yes Comment: occasional Drug use: Never PHYSICAL EXAM: BP 130/70 (BP Site: Right Arm, BP Position: Sitting, BP Cuff Size: Regular Adult) Pulse 75 Temp 37.2 ?C (98.9 ?F) (Temporal Artery) Wt 64.5 kg (142 lb 3.2 oz) LMP 10/19/2024 (Exact Date) SpO2 100% BMI 22.95 kg/m? Unchanged from prior visit General: Alert and oriented x3, no acute distress Eyes: Anicteric sclera. EOMI. No lid lag or exophthalmos Neck supple, no cervical lymphadenopathy Thyroid: normal to slightly enlarged in size, normal texture, no palpable nodules Lungs: Breathing unlabored, clear to auscultation. Heart regular rate and rhythm, S1 and S2 normal Musculoskeletal: Muscular strength intact, No joint swelling, deformity, or tenderness Neuro: Gait normal. Extremities: without edema, no deformities, no visible tremors of outstretched arms Skin: no rashes/ erythema LABS: No reference ranges available for the labs till 202110/18/2022 TSH 8.79 mcIU/mL (H) Free T3: 2.85 pg/ml Free T4: 1.0 ng/dl 06/08/2023 TSH 2.62 (more content not included)... [facility] 12-07-2024 History of Present illness Narrative [facility] Follow up visit note Subjective: Erwin Coles is a 29 year old female here follow up evaluation of thyroid problem. She was initially seen in November 2023 after referral by her Ict Developer, Dr. Erin Andrews for subclinical hypothyroidism. 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 Erin Andrews By late 2020, she was started on synthroid, was on 50 mcg daily at the latest which did not improve her fatigue, and hence she was off of synthroid. She has seen naturopathy specialist, and started using supplements in Apr 2023, she felt better with energy, hair texture etc after starting the supplement. But her labs were indicative of hyperthyroidism and when she was advised to share the name of the supplements, it is realized she was on thyrocare- BID and adrenal supplement once daily. This was advised to be discontinued as likely etiology of abnormal thyroid labs indicating hyperthyroid status due to exogenous thyroid hormone, and she is currently on levothyroxine 75 mcg daily Family history: Grand father had Chatham's disease Interval history: 12/07/24 Hypothyroidism: - Taking levothyroxine 75 mcg daily since July 2024 - no hypo or hyperthyroid symptoms. Feels better overall - re[ports compliance with medications, and tolerating well Reported acne during visit on 10/2024 which she reported were after starting levothyroxine. She believes her acne is due to this medication. On further questioning, also reports irregular cycles, no c/o hirsutism Acne: - Onset of facial acne approximately 2 months ago. Irregular Menstrual Cycles: - Menstrual cycles have lengthened to approximately 40 days, previously around 30 days. - Observes attempts at ovulation followed by successful ovulation later in the cycle, as indicated by basal body temperature tracking. - Taking Vitex for progesterone support since fall of last year. - labs were done for acne and irregular cycles, and are as below under labs Reports its long a cycle but also feels that her body might be getting back to normal after thyroid has been normalized She was sen by OBGYN, and was recommended to monitor for now Acne is slightly better REVIEW OF SYSTEMS: 10 point ROS was reviewed and negative unless indicated in the HPI ALLERGIES: ALLERGIES Allergen Reactions Amoxicillin-Pot Cla* Diarrhea, GI Upset, Vomiting MEDICATIONS: Current Outpatient Medications on File Prior to Visit Medication Sig MEDICATION, NON-DATABASE Take 1 capsule by mouth two times a day. Thyro-care *under the supervision of a construction project coordinator -- compound formula* MEDICATION, NON-DATABASE Take 1 capsule by mouth once daily. Adrenal Assist *under the supervision of a construction project coordinator -- compound formula* No current facility-administered medications on file prior to visit. PAST MEDICAL HISTORY: No past medical history on file. PAST SURGICAL HISTORY: PAST SURGICAL HISTORY Procedure Laterality Date MYRINGOTOMY W TUBE,BILATERAL(2) TONSILLECTOMY & ADENOIDECTOMY <AGE 14 WRIST SURGERY HX Right cartilage repair -- in high school FAMILY HISTORY: FAMILY HISTORY Problem Relation Age of Onset other (aortic valve replacement) Father No Known Problems Brother Breast Cancer Paternal Grandmother Diabetes Paternal Grandmother other (addisons disease) Paternal Grandfather Thyroid No Family History SOCIAL HISTORY: Social History Tobacco Use Smoking status: Never Passive exposure: Never Smokeless tobacco: Never Vaping Use Vaping status: Never Used Substance Use Topics Alcohol use: Yes Comment: occasional Drug use: Never PHYSICAL EXAM: BP 130/70 (BP Site: Right Arm, BP Position: Sitting, BP Cuff Size: Regular Adult) Pulse 75 Temp 37.2 C (98.9 F) (Temporal Artery) Wt 64.5 kg (142 lb 3.2 oz) LMP 10/19/2024 (Exact Date) SpO2 100% BMI 22.95 kg/m Unchanged from prior visit General: Alert and oriented x3, no acute distress Eyes: Anicteric sclera. EOMI. No lid lag or exophthalmos Neck supple, no cervical lymphadenopathy Thyroid: normal to slightly enlarged in size, normal texture, no palpable nodules Lungs: Breathing unlabored, clear to auscultation. Heart regular rate and rhythm, S1 and S2 normal Musculoskeletal: Muscular strength intact, No joint swelling, deformity, or tenderness Neuro: Gait normal. Extremities: without edema, no deformities, no visible tremors of outstretched arms Skin: no rashes/ erythema LABS: No reference ranges available for the labs till 202110/18/2022 TSH 8.79 mcIU/mL (H) Free T3: 2.85 pg/ml Free T4: 1.0 ng/dl 06/08/2023 TSH 2.62 Free T4 1.20 ng/dL Free T3 2.94 pg/mL TPO antibody <28 04/24/2023 TSH 2.71 Free T41.13 Free T32.63 09/29/2022 TSH 2.36 Free T41.18 Free T32.41 07/03/2022 TSH 0.71 Free T41.1 Free T3 2.47 Intact PTH 36.2 pg/mL Latest Ref Rng 01/26/2024 TSH 0.270 - 4.200 mIU/L 6.940 (H) Thyroglobulin Ab, Serum <4.0 IU/mL <0.9 Free T4 0.9 - 1.7 ng/dL 1.3 Free T3 2.3 - 4.1 pg/mL 3.0 Legend: (H) High 04/24/24 TSH <0.01 mcIU/ml (0.36-3.74) Free T4 : 3.78 ng/dl (0.76-1.46) 08/01/2024: TSH 25. 26 (0.36-3.74 mcIU/ml) Free T4 - 0.87 (0.76-1.46 ng/dl) 09/29/2024 TSH 3.16 (0.36-3.74 mcIU/ml) Free T4- 1.03 (0.76-1.46 ng/dl) 10/10/2024 7:45 AM Prolactin 23.6 ng/mL (2.0-30.0) DHEA-sulphate 101.38 mcg/dL (25.9-416.2) 17 hydroxyprogesterone LC MS 466 ng/dL (adult female-follicular 15-70, gluteal 35-290) Total testosterone, LC MS 28.0 ng/dL (10.0-55.0) % free + weakly bound testosterone 11.5% (0.3 0.0-18.0) Free testosterone + weakly bound testosterone 3.2 ng/dL (0.0-9.5) 12/05/2024 7:56 AM TSH 2.69 IU/mL (0.36-3.24) Free T4 1.18 ng/dL (0.76-1.46) Imaging: Thyroid ultrasound 05/19/2024: RESULT: Right Lobe: 4.5 x 1.4 x 1.7 cm; mildly heterogeneous echogenicity, increased vascular flow on color Doppler imaging. Left Lobe: 4.2 x 1.5 x 1.4 cm; mildly heterogeneous echogenicity, increased vascular flow on color Doppler imaging. Isthmus: 0.3 cm The most suspicious thyroid nodule(s) (up to four) as below: Nodules: None ASSESSMENT/PLAN: Hypothyroidism: Erwin Coles is a 29 year old female with no known significant medical history apart from thyroid abnormality She was seen by Endocrinology for hyperthyroidism and was started on methimazole and propranolol for controlling thyroid abnormality in 2020, followed by hypothyroidism in few months time following. She was started on synthroid 50 mcg daily with no changes in fatigue. Due to her symptoms of weight loss, limited TFTs are done and show hyperthyroidism and was noticed to be taking thyroid supplement till Mar 2024. She was also on adrenal supplement, and Vitex Off of thyroid supplement, her TSH was as high as 75, so I started her on 75 mcg of LT4 again in 07/2024, labs improving with in 3 weeks of checking after starting medication. TG abs negative She complained of palpitations, within 1 week of starting LT4. Hence changed levothyroxine formulation to levoxyl. Repeat thyroid labs in 12/2024 were normal, advised to continue same dose of medication Appropriate method of taking medication discussed again. Can repeat thyroid labs in 6 months for monitoring on the current dose Advised doing labs after holding biotin supplements for 3 to 5 days Acne, irregular cycles Labs indicate elevated 17OHP. Ddx include PCOS, and CAH. - reviewed pathophysiology, management plan for both briefly, especially if planning - reviewed confirmatory test for 17OHP leevls with ACTH stim test - reviewed the instructions for the test, written instructions given- orders placed wih clear instructions in the comments - advised scheduling the test at [facility] She understands and agrees with the plan Follow up: 1 month Medical Decision Making: Problems: Low: Stable chronic illness Moderate: 1+ chronic illnesses with change Data: Unique test result(s) reviewed: 3+ Unique test(s) ordered: 2 Independent interpretation of test from other physician/QHCP Risk: Moderate: Moderate risk from testing/treatment Medical Decision Making Level: 4 - Moderate Lashonda Thomas MD Endocrinology Associate Staff [facility] Endocrinology and Metabolism [place] [phone] documented in this encounter [facility] 12-04-2024 Telephone encounter Note Lab orders faxed to [facility] Lab for upcoming appt per Pt request. Fax confirmation received. Mehnaz Coates RN December 04, 2024 9:50 AM [facility] 12-04-2024 Miscellaneous Notes Lab orders faxed to [facility] Lab for upcoming appt per Pt request. Fax confirmation received. Mehnaz Coates RN December 04, 2024 9:50 AM documented in this encounter [facility] 12-01-2024 Telephone encounter Note TSH and T4 pended for visit 12/07/2024. Patient requests orders be faxed to [facility] (fax # on Endo sticky note) From [facility] 10/06: started her on 75 mcg of LT4, labs improving with in 3 weeks advised to continue same dose for 4 weeks before repeating labs complained of palpitations within 1 week of starting LT4. changed levothyroxine formulation to levoxyl. Thank you! Vee Contreras RN [facility] 12-01-2024 Miscellaneous Notes TSH and T4 pended for visit 12/07/2024. Patient requests orders be faxed to [facility] lab (fax # on Endo sticky note) From [facility] 10/06: started her on 75 mcg of LT4, labs improving with in 3 weeks advised to continue same dose for 4 weeks before repeating labs complained of palpitations within 1 week of starting LT4. changed levothyroxine formulation to levoxyl. Thank you! Vee Contreras, RN documented in this encounter [facility] 11-14-2024 Evaluation note Diagnosis Onset Date Resolution Subcutaneous nodule of breast acute November 14, 2024 9:36am Encounter for routine gynecological examination noneactive November 14, 2024 9:36am [facility] Work Phone: 1(229) 616-420205-13-2025 Evaluation note* Diagnosis Onset Date Resolution Status Admit Date Subcutaneous nodule of breast acute November 14, 2024 9:36am Encounter for routine gynecological examination noneactive November 142024 9:36am Supervision of high-risk acute January 30, 2025 8:05am Breast mass, right acute February 15, 2025 8:23am FH: breast cancer acute February 15, 2025 8:23am 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 Kierra Cobb MA [facility]04-10-2025 Miscellaneous Notes* Telephone Encounter - Kierra Cobb MA - 10/12/2024 1:43 PM EDT Results report pending labs at this time. Kierra Cobb MA * Telephone Encounter - Lashonda Thomas MD - 10/12/2024 1:11 PM EDT Images from the original note were not included. Among the labs ordered recently, only two were drawn/resulted. Please make sure all labs were drawn Thank you! [facility] Tele[facility] encounter Note * Telephone Encounter - Lashonda Thomas MD - 10/12/2024 1:11 PM EDT Images from the original note were not included. Among the labs ordered recently, only two were drawn/resulted. Please make sure all labs were drawn Thank you! [facility]04-04-2025 Instructions* Patient Instructions* Lashonda Thomas MD - 10/06/2024 2:14 PM EDT Labs on fasting at 8 am, hold any supplements for 3 days before labs are drawn Continue same dose of levothyroxine - refills given [facility] NoteHNO ID: [id number] Author: LASHONDA THOMAS MD Service: ? Author Type: Physician Type: Progress Notes Filed: 10/08/2024 23:43 Note Text: [facility] Follow up visit note Subjective: Erwin Coles is a 28 year old female here for evaluation of thyroid problem. She was initially seen in November 2023 after referral by her Ict Developer, Dr. Erin Andrews for subclinical hypothyroidism. 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 Erin Andrews By late 2020, she was started on synthroid, was on 50 mcg daily at the latest which did not improve her fatigue, and hence she was off of synthroid. She has seen naturopathy specialist, and started using supplements in Apr 2023, she felt better with energy, hair texture etc after starting the supplement. But her labs were indicative of hyperthyroidism and when she was advised to share the name of the supplements, it is realized she was on thyrocare- BID and adrenal supplement once daily. This was advised to be discontinued as likely etiology of abnormal thyroid labs indicating hyperthyroid status due to exogenous thyroid hormone Family history: Grand father had Chatham's disease Interval history:10/06/24 Reports acne which started after starting levothyroxine. She believes her acne is due to this medication. On further questioning, also reports irregular cycles, no c/o hirsutism Acne: - Onset of facial acne approximately 2 months ago. Irregular Menstrual Cycles: - Menstrual cycles have lengthened to approximately 40 days, previously around 30 days. - Observes attempts at ovulation followed by successful ovulation later in the cycle, as indicated by basal body temperature tracking. - Taking Vitex for progesterone support since fall of last year. Hypothyroidism: - Taking levothyroxine 75 mcg daily since July. REVIEW OF SYSTEMS: 10 point ROS was reviewed and negative unless indicated in the HPI ALLERGIES: ALLERGIES Allergen Reactions Amoxicillin-Pot Cla* Diarrhea, GI Upset, Vomiting MEDICATIONS: Current Outpatient Medications on File Prior to Visit Medication Sig MEDICATION, NON-DATABASE Take 1 capsule by mouth two times a day. Thyro-care *under the supervision of a construction project coordinator -- compound formula* MEDICATION, NON-DATABASE Take 1 capsule by mouth once daily. Adrenal Assist *under the supervision of a construction project coordinator -- compound formula* No current facility-administered medications on file prior to visit. PAST MEDICAL HISTORY: No past medical history on file. PAST SURGICAL HISTORY: PAST SURGICAL HISTORY Procedure Laterality Date MYRINGOTOMY W TUBE,BILATERAL(2) TONSILLECTOMY AND ADENOIDECTOMY WRIST SURGERY HX Right cartilage repair -- in high school FAMILY HISTORY: FAMILY HISTORY Problem Relation Age of Onset other (aortic valve replacement) Father No Known Problems Brother Breast Cancer Paternal Grandmother Diabetes Paternal Grandmother other (addisons disease) Paternal Grandfather Thyroid No Family History SOCIAL HISTORY: Social History Tobacco Use Smoking status: Never Passive exposure: Never Smokeless tobacco: Never Vaping Use Vaping status: Never Used Substance Use Topics Alcohol use: Yes Comment: occasional Drug use: Never PHYSICAL EXAM: BP 116/62 (BP Site: Right Arm, BP Position: Sitting, BP Cuff Size: Regular Adult) Pulse 82 Temp 37.2 ?C (98.9 ?F) (Temporal Artery) Wt 64.7 kg (142 lb 9.6 oz) LMP 09/12/2024 (Exact Date) SpO2 99% BMI 23.02 kg/m? Unchanged from prior visit General: Alert and oriented x3, no acute distress Eyes: Anicteric sclera. EOMI. No lid lag or exophthalmos Neck supple, no cervical lymphadenopathy Thyroid: normal to slightly enlarged in size, normal texture, no palpable nodules Lungs: Breathing unlabored, clear to auscultation. No wheezing, rhonchi, rales Heart regular rate and rhythm, S1 and S2 normal Musculoskeletal: Muscular strength intact, No joint swelling, deformity, or tenderness Neuro: Gait normal. Sensation grossly intact. No focal findings Extremities: without edema, no deformities, no visible tremors of outstretched arms Skin: no rashes/ erythema LABS: No reference ranges available for any of the labs 2022 TSH 8.79 mcIU/mL (H) Free T3: 2.85 pg/ml Free T4: 1.0 ng/dl 06/08/2023 TSH 2.62 Free T4 1.20 ng/dL Free T3 2.94 pg/mL TPO antibody <28 04/24/2023 TSH 2.71 Free T41.13 Free T32.63 09/29/2022 TSH 2.36 Free T41.18 Free T32.41 07/03/2022 TSH 0.71 Free T41.1 Free T3 2.47 Intact PTH 36.2 pg/mL Latest Ref Rng 01/26/2024 TSH 0.270 - 4.200 mIU/L 6.940 (H) Thyroglobulin Ab, Serum <4.0 IU/mL <0.9 Free T4 0.9 - 1.7 ng/dL 1.3 Free T3 2.3 - 4.1 pg/mL 3.0 Legend: (H) High 04/24/24 TSH < (more content not included)...[facility]04-04-2025 History of Present illness Narrative* Lashonda Thomas MD - 10/06/2024 2:09 PM EDT [facility] Follow up visit note Subjective: Erwin Coles is a 28 year old female here for evaluation of thyroid problem. She was initially seen in November 2023 after referral by her Ict Developer, Dr. Erin Andrews for subclinical hypothyroidism. 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 Erin Andrews By late 2020, she was started on synthroid, was on 50 mcg daily at the latest which did not improveher fatigue, and hence she was off of synthroid. She has seen naturopathy specialist, and started using supplements in Apr 2023, she felt better with energy, hair texture etc after starting the supplement. But her labs were indicative of hyperthyroidism and when she was advised to share the name of the supplements, it is realized she was on thyrocare- BID and adrenal supplement once daily. This was advised to be discontinued as likely etiology of abnormal thyroid labs indicating hyperthyroid status due to exogenous thyroid hormone Family history: Grand father had Chatham's disease Interval history:10/06/24 Reports acne which started after starting levothyroxine. She believes her acne is due to this medication. On further questioning, also reports irregular cycles, no c/o hirsutism Acne: - Onset of facial acne approximately 2 months ago. Irregular Menstrual Cycles: - Menstrual cycles have lengthened to approximately 40 days, previously around 30 days. - Observes attempts at ovulation followed by successful ovulation later in the cycle, as indicated by basal body temperature tracking. - Taking Vitex for progesterone support since fall of last year. Hypothyroidism: - Taking levothyroxine 75 mcg daily since July. REVIEW OF SYSTEMS: 10 point ROS was reviewed and negative unless indicated in the HPI ALLERGIES: ALLERGIES Allergen Reactions Amoxicillin-Pot Cla* Diarrhea, GI Upset, Vomiting MEDICATIONS: Current Outpatient Medications on File Prior to Visit Medication Sig MEDICATION, NON-DATABASE Take 1 capsule by mouth two times a day. Thyro-care *under the supervision of a construction project coordinator -- compound formula* MEDICATION, NON-DATABASE Take 1 capsule by mouth once daily. Adrenal Assist *under the supervision of a construction project coordinator -- compound formula* No current facility-administered medications on file prior to visit. PAST MEDICAL HISTORY: No past medical history on file. PAST SURGICAL HISTORY: PAST SURGICAL HISTORY Procedure Laterality Date MYRINGOTOMY W TUBE,BILATERAL(2) TONSILLECTOMY & ADENOIDECTOMY <AGE 14 WRIST SURGERY HX Right cartilage repair -- in high school FAMILY HISTORY: FAMILY HISTORY Problem Relation Age of Onset other (aortic valve replacement) Father No Known Problems Brother Breast Cancer Paternal Grandmother Diabetes Paternal Grandmother other (addisons disease) Paternal Grandfather Thyroid No Family History SOCIAL HISTORY: Social History Tobacco Use Smoking status: Never Passive exposure: Never Smokeless tobacco: Never Vaping Use Vaping status: Never Used Substance Use Topics Alcohol use: Yes Comment: occasional Drug use: Never PHYSICAL EXAM: BP 116/62 (BP Site: Right Arm, BP Position: Sitting, BP Cuff Size: Regular Adult) Pulse 82 Temp37.2 C (98.9 F) (Temporal Artery) Wt 64.7 kg (142 lb 9.6 oz) LMP 09/12/2024 (Exact Date) [id number]% BMI 23.02 kg/m Unchanged from prior visit General: Alert and oriented x3, no acute distress Eyes: Anicteric sclera. EOMI. No lid lag or exophthalmos Neck supple, no cervical lymphadenopathy Thyroid: normal to slightly enlarged in size, normal texture, no palpable nodules Lungs: Breathing unlabored, clear to auscultation. No wheezing, rhonchi, rales Heart regular rate and rhythm, S1 and S2 normal Musculoskeletal: Muscular strength intact, No joint swelling, deformity, or tenderness Neuro: Gait normal. Sensation grossly intact. No focal findings Extremities: without edema, no deformities, no visible tremors of outstretched arms Skin: no rashes/ erythema LABS: No reference ranges available for any of the labs 2022 TSH 8.79 mcIU/mL (H) Free T3: 2.85 pg/ml Free T4: 1.0 ng/dl 06/08/2023 TSH 2.62 Free T4 1.20 ng/dL Free T3 2.94 pg/mL TPO antibody <28 04/24/2023 TSH 2.71 Free T41.13 Free T32.63 09/29/2022 TSH 2.36 Free T41.18 Free T32.41 07/03/2022 TSH 0.71 Free T41.1 Free T3 2.47 Intact PTH 36.2 pg/mL Latest Ref Rng 01/26/2024 TSH 0.270 - 4.200 mIU/L 6.940 (H) Thyroglobulin Ab, Serum <4.0 IU/mL <0.9 Free T4 0.9 - 1.7 ng/dL 1.3 Free T3 2.3 - 4.1 pg/mL 3.0 Legend: (H) High 04/24/24 TSH <0.01 mcIU/ml (0.36-3.74) Free T4 : 3.78 ng/dl (0.76-1.46) 08/01/2024: TSH 25. 26 (0.36-3.74 mcIU/ml) Free T4 - 0.87 (0.76-1.46 ng/dl) 09/29/2024 TSH 3.16 (0.36-3.74 mcIU/ml) Free T4- 1.03 (0.76-1.46 ng/dl) Imaging: Thyroid ultrasound 05/19/2024: RESULT: Right Lobe: 4.5 x 1.4 x 1.7 cm; mildly heterogeneous echogenicity, increased vascular flow on color Doppler imaging. Left Lobe: 4.2 x 1.5 x 1.4 cm; mildly heterogeneous echogenicity, increased vascular flow on color Doppler imaging. Isthmus: 0.3 cm The most suspicious thyroid nodule(s) (up to four) as below: Nodules: None ASSESSMENT/PLAN: Hypothyroidism: Erwin Coles is a 28 year old female with no known significant medical history apart from thyroid abnormality She was seen by Endocrinology for hyperthyroidism and was started on methimazole and propranolol for controlling thyroid abnormality in 2020, followed by hypothyroidism in few months time following. She was started on synthroid 50 mcg daily with no changes in fatigue. Due to her symptoms of weight loss, limited TFTs are done and show hyperthyroidism and was noticed to be taking thyroid supplement till Mar 2024. She was also on adrenal supplement, and Vitex Currently off of thyroid supplement. TSH was as high as 75, so I started her on 75 mcg of LT4, labsimproving with in 3 weeks of checking after starting medication. She is advised to continue the same dose for another 4 weeks before repeating labs again Appropriate method of taking medication discussed TG abs negative Advised doing labs after holding biotin supplements for 3 to 5 days She complained of palpitations, within 1 week of starting LT4. Hence changed levothyroxine formulation to levoxyl. Now she is complaining of acne, thinks this is related to the medication Acne, irregular cycles On further questioning, irregular cycles reported Advised continuing same dose of levoxyl for now. Refills given as requested. Acne is less likely a side effect of the medication, even considering allergies to the reagent Will check androgens for acne and irregular cycles. PCOS reviewed Advised labs on fasting at 8 am, off of any supplements for 3 to 5 days She understands and agrees with the plan Follow up: 2 months Medical Decision Making: Problems: Low: Stable chronic illness Moderate: New problem with uncertain prognosis Data: Unique test result(s) reviewed: 2 Unique test(s) ordered: 3+ Risk: Moderate: Moderate risk from testing/treatment and Drug management Medical Decision Making Level: 4 - Moderate Lashonda Thomsa MD Endocrinology Associate Staff [facility] Endocrinology and Metabolism [place] [phone] documented in this encounterGrant Hospital02-03-2025 Instructions* Patient Instructions* Lashonda Thomas MD - 08/07/2024 10:19 AM EST Please continue same dose of levothyroxine- formulation chanhged to levoxyl Labs in 1 month documented in this encounterGrant Hospital02-03-2025 NoteHNO ID: [id number] Author: LASHONDA THOMAS MD Service: ? Author Type: Physician Type: Progress Notes Filed: 08/08/2024 09:07 Note Text: [facility] Follow up visit note Subjective: Erwin Coles is a 28 year old female here for evaluation of thyroid problem. She was initially seen in November 2023 after referral by her Ict Developer, Dr. Erin Andrews for subclinical hypothyroidism. 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 Erin Andrews By late 2020, she was started on synthroid, was on 50 mcg daily at the latest which did not improve her fatigue, and hence she was off of synthroid. She has seen naturopathy specialist, and started using supplements in Apr 2023, she felt better with energy, hair texture etc after starting the supplement. But her labs were indicative of hyperthyroidism and when she was advised to share the name of the supplements, it is realized she was on thyrocare- BID and adrenal supplement once daily. This was advised to be discontinued as likely etiology of abnormal thyroid labs indicating hyperthyroid status due to exogenous thyroid hormone Family history: Grand father had Chatham's disease Interval history:08/07/2024 She has stopped all the supplements At the beginning of Jul 2024, she reached out with symptoms and labs indicated abnormal thyroid function She was started on Levothyroxine 75 mcg daily in the first week of Jul 2024. Labs were recommended after 08/27/24, but she had them done on 08/01/2024. She reports having palpitations since mid-Jul REVIEW OF SYSTEMS: 10 point ROS was reviewed and negative unless indicated in the HPI ALLERGIES: ALLERGIES Allergen Reactions Amoxicillin-Pot Cla* Diarrhea, GI Upset, Vomiting MEDICATIONS: Current Outpatient Medications on File Prior to Visit Medication Sig MEDICATION, NON-DATABASE Take 1 capsule by mouth two times a day. Thyro-care *under the supervision of a construction project coordinator -- compound formula* MEDICATION, NON-DATABASE Take 1 capsule by mouth once daily. Adrenal Assist *under the supervision of a construction project coordinator -- compound formula* No current facility-administered medications on file prior to visit. PAST MEDICAL HISTORY: No past medical history on file. PAST SURGICAL HISTORY: PAST SURGICAL HISTORY Procedure Laterality Date MYRINGOTOMY W TUBE,BILATERAL(2) TONSILLECTOMY AND ADENOIDECTOMY WRIST SURGERY HX Right cartilage repair -- in high school FAMILY HISTORY: FAMILY HISTORY Problem Relation Age of Onset other (aortic valve replacement) Father No Known Problems Brother Breast Cancer Paternal Grandmother Diabetes Paternal Grandmother other (addisons disease) Paternal Grandfather Thyroid No Family History SOCIAL HISTORY: Social History Tobacco Use Smoking status: Never Passive exposure: Never Smokeless tobacco: Never Vaping Use Vaping status: Never Used Substance Use Topics Alcohol use: Yes Comment: occasional Drug use: Never PHYSICAL EXAM: BP 116/78 (BP Site: Right Arm, BP Position: Sitting, BP Cuff Size: Regular Adult) Pulse 86 Resp 15 Ht 167.6 cm (5' 6) Wt 65.2 kg (143 lb 12.8 oz) LMP 08/05/2024 (Exact Date) SpO2 99% BMI 23.21 kg/m? Unchanged from prior visit General: Alert and oriented x3, no acute distress Eyes: Anicteric sclera. Extraocular movements are intact. No lid lag or exophthalmos Neck supple, no cervical lymphadenopathy Thyroid: normal to slightly enlarged in size, normal texture, no palpable nodules Lungs: Breathing unlabored, clear to auscultation. No wheezing, rhonchi, rales Heart regular rate and rhythm, no murmer Musculoskeletal: Muscular strength intact, No joint swelling, deformity, or tenderness Neuro: Gait normal. Sensation grossly intact. No focal findings Extremities: without edema, no deformities, no visible tremors of outstretched arms Skin: no rashes/ erythema LABS: No reference ranges available for any of the labs 2022 TSH 8.79 mcIU/mL (H) Free T3: 2.85 pg/ml Free T4: 1.0 ng/dl 06/08/2023 TSH 2.62 Free T4 1.20 ng/dL Free T3 2.94 pg/mL TPO antibody <28 04/24/2023 TSH 2.71 Free T41.13 Free T32.63 09/29/2022 TSH 2.36 Free T41.18 Free T32.41 07/03/2022 TSH 0.71 Free T41.1 Free T3 2.47 Intact PTH 36.2 pg/mL Latest Ref Rng 01/26/2024 TSH 0.270 - 4.200 mIU/L 6.940 (H) Thyroglobulin Ab, Serum <4.0 IU/mL <0.9 Free T4 0.9 - 1.7 ng/dL 1.3 Free T3 2.3 - 4.1 pg/mL 3.0 Legend: (H) High 04/24/24 TSH <0.01 mcIU/ml (0.36-3.74) Free T4 : 3.78 ng/dl (0.76-1.46) 08/01/2024: TSH 25. 26 (0.36-3.74 mcIU/ml) Free T4 - 0.87 (0.76-1.46 ng/dl) Imaging: Thyroid ultrasound 05/19/2024: RESULT: Right Lobe: 4.5 x 1.4 x 1.7 cm; mildly heterogeneous echogenici (more content not included)...[facility]02-03-2025 History of Present illness Narrative* Lashonda Thomas MD - 08/07/2024 10:14 AM EST [facility] Follow up visit note Subjective: Erwin Coles is a 28 year old female here for evaluation of thyroid problem. She was initially seen in November 2023 after referral by her Ict Developer, Dr. Erin Andrews for subclinical hypothyroidism. 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 Erin Andrews By late 2020, she was started on synthroid, was on 50 mcg daily at the latest which did not improveher fatigue, and hence she was off of synthroid. She has seen naturopathy specialist, and started using supplements in Apr 2023, she felt better with energy, hair texture etc after starting the supplement. But her labs were indicative of hyperthyroidism and when she was advised to share the name of the supplements, it is realized she was on thyrocare- BID and adrenal supplement once daily. This was advised to be discontinued as likely etiology of abnormal thyroid labs indicating hyperthyroid status due to exogenous thyroid hormone Family history: Grand father had Chatham's disease Interval history:08/07/2024 She has stopped all the supplements At the beginning of Jul 2024, she reached out with symptoms and labs indicated abnormal thyroid function She was started on Levothyroxine 75 mcg daily in the first week of Jul 2024. Labs were recommended after 08/27/24, but she had them done on 08/01/2024. She reports having palpitations since mid-Jul REVIEW OF SYSTEMS: 10 point ROS was reviewed and negative unless indicated in the HPI ALLERGIES: ALLERGIES Allergen Reactions Amoxicillin-Pot Cla* Diarrhea, GI Upset, Vomiting MEDICATIONS: Current Outpatient Medications on File Prior to Visit Medication Sig MEDICATION, NON-DATABASE Take 1 capsule by mouth two times a day. Thyro-care *under the supervision of a construction project coordinator -- compound formula* MEDICATION, NON-DATABASE Take 1 capsule by mouth once daily. Adrenal Assist *under the supervision of a construction project coordinator -- compound formula* No current facility-administered medications on file prior to visit. PAST MEDICAL HISTORY: No past medical history on file. PAST SURGICAL HISTORY: PAST SURGICAL HISTORY Procedure Laterality Date MYRINGOTOMY W TUBE,BILATERAL(2) TONSILLECTOMY & ADENOIDECTOMY <AGE 14 WRIST SURGERY HX Right cartilage repair -- in high school FAMILY HISTORY: FAMILY HISTORY Problem Relation Age of Onset other (aortic valve replacement) Father No Known Problems Brother Breast Cancer Paternal Grandmother Diabetes Paternal Grandmother other (addisons disease) Paternal Grandfather Thyroid No Family History SOCIAL HISTORY: Social History Tobacco Use Smoking status: Never Passive exposure: Never Smokeless tobacco: Never Vaping Use Vaping status: Never Used Substance Use Topics Alcohol use: Yes Comment: occasional Drug use: Never PHYSICAL EXAM: BP 116/78 (BP Site: Right Arm, BP Position: Sitting, BP Cuff Size: Regular Adult) Pulse 86 Resp15 Ht 167.6 cm (5' 6) Wt 65.2 kg (143 lb 12.8 oz) LMP 08/05/2024 (Exact Date) SpO2 99% BMI 23.21 kg/m Unchanged from prior visit General: Alert and oriented x3, no acute distress Eyes: Anicteric sclera. Extraocular movements are intact. No lid lag or exophthalmos Neck supple, no cervical lymphadenopathy Thyroid: normal to slightly enlarged in size, normal texture, no palpable nodules Lungs: Breathing unlabored, clear to auscultation. No wheezing, rhonchi, rales Heart regular rate and rhythm, no murmer Musculoskeletal: Muscular strength intact, No joint swelling, deformity, or tenderness Neuro: Gait normal. Sensation grossly intact. No focal findings Extremities: without edema, no deformities, no visible tremors of outstretched arms Skin: no rashes/ erythema LABS: No reference ranges available for any of the labs 2022 TSH 8.79 mcIU/mL (H) Free T3: 2.85 pg/ml Free T4: 1.0 ng/dl 06/08/2023 TSH 2.62 Free T4 1.20 ng/dL Free T3 2.94 pg/mL TPO antibody <28 04/24/2023 TSH 2.71 Free T41.13 Free T32.63 09/29/2022 TSH 2.36 Free T41.18 Free T32.41 07/03/2022 TSH 0.71 Free T41.1 Free T3 2.47 Intact PTH 36.2 pg/mL Latest Ref Rng 01/26/2024 TSH 0.270 - 4.200 mIU/L 6.940 (H) Thyroglobulin Ab, Serum <4.0 IU/mL <0.9 Free T4 0.9 - 1.7 ng/dL 1.3 Free T3 2.3 - 4.1 pg/mL 3.0 Legend: (H) High 04/24/24 TSH <0.01 mcIU/ml (0.36-3.74) Free T4 : 3.78 ng/dl (0.76-1.46) 08/01/2024: TSH 25. 26 (0.36-3.74 mcIU/ml) Free T4 - 0.87 (0.76-1.46 ng/dl) ASSESSMENT/PLAN: Hypothyroidism: Erwin Coles is a 28 year old female with no known significant medical history apart from thyroid problem She was seen by Endocrinology for hyperthyroidism and was started on methimazole and propranolol for controlling thyroid abnormality in 2020, followed by hypothyroidism in few months time following. She was started on synthroid 50 mcg daily with no changes in fatigue. Due to her symptoms of weight loss, limited TFTs are done and show hyperthyroidism and was noticed to be taking thyroid supplement till Mar 2024. She was also on adrenal supplement, and Vitex Currently off of thyroid supplement. TSH was as high as 75, so I started her on 75 mcg of LTY4, labs improving with in 3 weeks of checking after starting medication. She is advised to continue the same dose for another 4 weeks before repeating labs again Appropriate method of taking medication discussed TG abs negative Advised doing labs after holding biotin supplements for 3 to 5 days She complains of palpitations, within 1 week of starting LT4. Hence changed levothyroxine formulation to levoxyl. If this continues, I discussed trying synthroid brand name or can be deemed unrelatedto thyroid if no improvement even on synthroid Script for levoxyl given Labs in 1 month - TSH, free T4, printed orders given as she prefers to be done locally at OSH She understands and agrees with the plan Follow up: 2 months Medical Decision Making: Problems: High: Chronic illness with severe change Data: Unique test result(s) reviewed: 3+ Unique test(s) ordered: 2 Risk: Moderate: Drug management Medical Decision Making Level: 4 - Moderate Lashonda Thomas MD Endocrinology Associate Staff [facility] Endocrinology and Metabolism [place] [phone] documented in this encounterGrant Hospital01-24-2025 Telephone encounter Note * Telephone Encounter - Mehnaz Coates RN - 07/28/2024 8:43 AM EST Lab orders faxed electronically through [email or web address] to [facility] at fax #: . Mehnaz Coates RN July 28, 2024 8:43 AM [facility] Miscellaneous Notes* Telephone Encounter - Mehnaz Coates RN - 07/28/2024 8:43 AM EST Lab orders faxed electronically through [email or web address] to [facility] at fax #: . Mehnaz Coates RN July 28, 2024 8:43 AM * Telephone Encounter - TanyaCarolina peoplesyenne Christopher - 07/28/2024 8:28 AM EST Patient is asking if her labs can be sent over to [facility]. Please review. Sridevi Martínez July 28, 2024 8:28 AM documented in this encounterGrant Hospital01-24-2025 Telephone encounter Note * Telephone Encounter - Tanya, Sridevi White - 07/28/2024 8:28 AM EST Patient is asking if her labs can be sent over to [facility]. Please review. Sridevi Martínez July 28, 2024 8:28 AM [facility]12-[facility] Telephone encounter Note* Telephone Encounter - Kierra Cobb MA - 06/20/2024 11:27 AM EST My chart message sent with below message. Kierra Cobb MA [facility]12-17-2024 Miscellaneous Notes* Telephone Encounter - Kierra Cobb MA - 06/20/2024 11:27 AM EST My chart message sent with below message. Kierra Cobb MA * Telephone Encounter - Lashonda Thomas MD - 06/20/2024 11:15 AM EST Reviewd thyroid US, no action needed at this time * Telephone Encounter - Jayne Frank MA - 06/15/2024 11:12 AM EST Pt calling to get results of Thyroid US. She viewed on mychart but wasn't sure if there was any concern or if there was anything to do prior to her next appt in August. Heart rate back to normal. No more weight loss. Gained back the 10lbs that she had lost. Mychart message is fine. Please review and advise. Jayne Frank MA documented in this encounterGrant Hospital12-17-2024 Telephone encounter Note * Telephone Encounter - Lashonda Thomas MD - 06/20/2024 11:15 AM EST Reviewd thyroid US, no action needed at this time [facility]12[facility] Telephone encounter Note* Telephone Encounter - Jayne Frank MA - 06/15/2024 11:12 AM EST Pt calling to get results of Thyroid US. She viewed on mychart but wasn't sure if there was any concern or if there was anything to do prior to her next appt in August. Heart rate back to normal. No more weight loss. Gained back the 10lbs that she had lost. Mychart message is fine. Please review and advise. Jayne Frank MA [facility]11-[facility] History of Present illness Narrative* Damaris Sanchez RDMS - 05/19/2024 8:30 AM EST Radiology Service Progress Note PATIENT NAME: Erwin Coles DATE OF SERVICE: May 19, 2024 TIME: 10:54 AM PATIENT IDENTITY VERIFICATION COMPLETED USING TWO (2) IDENTIFIERS: Name and Date of confirmedby patient verbally. FALL SCREENING: Has the patient had 2 falls in the last year or 1 fall with injury or currently using an Ambulatory Assistive Device (Walker, Cane, Wheelchair, Crutches, etc.)? No PATIENT GENDER DATA: Female. status: : No status: NO. PATIENT RELEVANT IMPLANT DATA REVIEWED: Not Applicable PATIENT PRESENTS WITH AN IMPLANTABLE OR ATTACHED GAS TURBINE MECHANIC: No RADIOLOGY DEPARTMENT: Ultrasound PERIPHERAL IV DATA: Not applicable SIGNED BY: Damaris Sanchez RDMS RVT May 19, 2024 10:54 AM documented in this encounterGrant Hospital11-15-2024 NoteHNO ID: [id number] Author: DAMARIS SANCHEZ RDMS Service: ? Author Type: Home Health Care Social Worker Type: Progress Notes Filed: 05/19/2024 10:54 Note Text: Radiology Service Progress Note PATIENT NAME: Erwin Coles DATE OF SERVICE: May 19, 2024 TIME: 10:54 AM PATIENT IDENTITY VERIFICATION COMPLETED USING TWO (2) IDENTIFIERS: Name and Date of confirmed by patient verbally. FALL SCREENING: Has the patient had 2 falls in the last year or 1 fall with injury or currently using an Ambulatory Assistive Device (Walker, Cane, Wheelchair, Crutches, etc.)? No PATIENT GENDER DATA: Female. status: : No status: NO. PATIENT RELEVANT IMPLANT DATA REVIEWED: Not Applicable PATIENT PRESENTS WITH AN IMPLANTABLE OR ATTACHED GAS TURBINE MECHANIC: No RADIOLOGY DEPARTMENT: Ultrasound PERIPHERAL IV DATA: Not applicable SIGNED BY: Damaris Sanchez RDMS RVT May 19, 2024 10:54 [facility]11-11-2024 Telephone encounter Note* Telephone Encounter - Mehnaz Coates RN - 05/15/2024 4:08 PM EST Call placed to Pt - verified name & . Notified Pt of below notation per Dr. Thomas; she voices understanding. Prefers to have the thyroid US at [facility]. Will mail the US order to Pt's home address. Mehnaz Coates RN May 15, 2024 4:10 PM [facility]11-11-[facility] Miscellaneous Notes* Telephone Encounter - Mehnaz Coates RN - 05/15/2024 4:08 PM EST Call placed to Pt - verified name & . Notified Pt of below notation per Dr. Thomas; she voices understanding. Prefers to have the thyroid US at [facility]. Will mail the US order to Pt's home address. Mehnaz Coates RN May 15, 2024 4:10 PM * Addendum Note - Lashonda Thomas MD - 05/15/2024 2:38 PM ESTAddended by: LASHONDA THOMAS on: 05/15/2024 02:38 PM Modules accepted: Orders * Telephone Encounter - Lashonda Thomas MD - 05/15/2024 2:34 PM EST Labs show hyperthyroidism but most likely this is thyroiditis. She can do ultrasound thyroid +/- thyroid uptake and scan to confirm. Alternatively, we can wait for about 2 to 3 months to repeat labs She can continue to take propranolol as discussed at the time of visit Thyroid ultrasound orders placed * Telephone Encounter - Mehnaz Coates RN - 05/15/2024 10:53 AM EST Call received from Pt - name & verified. Pt had labs drawn at [facility] on 05/05/2024 and 05/09/2024 (see scanned documents). Requesting results - please review and advise for further instruction. Mehnaz Coates RN May 15, 2024 10:54 AM documented in this encounterGrant Hospital11-11-2024 Note* Addendum Note - Lashonda Thomas MD - 05/15/2024 2:38 PM ESTAddended by: LASHONDA THOMAS on: 05/15/2024 02:38 PM Modules accepted: Orders [facility]11-11-[facility] Telephone encounter Note* Telephone Encounter - Lashonda Thomas MD - 05/15/2024 2:34 PM EST Labs show hyperthyroidism but most likely this is thyroiditis. She can do ultrasound thyroid +/- thyroid uptake and scan to confirm. Alternatively, we can wait for about 2 to 3 months to repeat labs She can continue to take propranolol as discussed at the time of visit Thyroid ultrasound orders placed [facility] Telephone encounter Note* Telephone Encounter - Mehnaz Coates RN - 05/15/2024 10:53 AM EST Call received from Pt - name & verified. Pt had labs drawn at [facility] on 05/05/2024 and 05/09/2024 (see scanned documents). Requesting results - please review and advise for further instruction. Mehnaz Coates RN May 15, 2024 10:54 AM [facility]11-[facility] Evaluation + Plan note Diagnostic Tests Pending * Thyroid Stim Immunoglobulin 05/09/24 [facility] 11-01-2024 Evaluation + Plan note Diagnostic Tests Pending * TgAb+Thyroglobulin,ASAF or LCMS 05/05/24 [facility] 11-01-2024 Instructions* Patient Instructions* Lashonda Thomas MD - 05/05/2024 11:40 AM EDT Please do labs today if possible might consider imaging studies based on lab results Propranolol 10 mg three times daily sent to pharmacy for symptom control documented in this encounterGrant Hospital11-01-2024 NoteHNO ID: [id number] Author: LASHONDA THOMAS MD Service: ? Author Type: Physician Type: Progress Notes Filed: 05/07/2024 21:49 Note Text: [facility] Follow up visit note Subjective: Erwin Coles is a 28 year old female here for evaluation of thyroid problem. She was initially seen in November 2023 after referral by her Ict Developer, Dr. Erin Andrews for subclinical hypothyroidism. 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 Erin Andrews By late 2020, she was started on synthroid, was on 50 mcg daily as the latest She has seen naturopathy specialist, and started using supplements in Apr 2023, she feels she felt better with energy, hair texture etc She is on thyrocare- BID and adrenal supplement once daily Family history: Grand father had Marcello's disease Interval history: 05/05/2024 She was taking Thyrocare BID despite advising to stop on previous appts. She stopped taking it in Mar 2024. She is taking an adrenal supplement, Vitex, a and omega 3 supplement Symptoms of easy exertion, heart racing, weight loss of 10-12 lbs in the last month REVIEW OF SYSTEMS: 10 point ROS was reviewed and negative unless indicated in the HPI ALLERGIES: ALLERGIES Allergen Reactions Amoxicillin-Pot Cla* Diarrhea, GI Upset, Vomiting MEDICATIONS: Current Outpatient Medications on File Prior to Visit Medication Sig MEDICATION, NON-DATABASE Take 1 capsule by mouth two times a day. Thyro-care *under the supervision of a construction project coordinator -- compound formula* MEDICATION, NON-DATABASE Take 1 capsule by mouth once daily. Adrenal Assist *under the supervision of a construction project coordinator -- compound formula* No current facility-administered medications on file prior to visit. PAST MEDICAL HISTORY: No past medical history on file. PAST SURGICAL HISTORY: PAST SURGICAL HISTORY Procedure Laterality Date MYRINGOTOMY W TUBE,BILATERAL(2) TONSILLECTOMY AND ADENOIDECTOMY WRIST SURGERY HX Right cartilage repair -- in high school FAMILY HISTORY: FAMILY HISTORY Problem Relation Age of Onset other (aortic valve replacement) Father No Known Problems Brother Breast Cancer Paternal Grandmother Diabetes Paternal Grandmother other (addisons disease) Paternal Grandfather Thyroid No Family History SOCIAL HISTORY: Social History Tobacco Use Smoking status: Never Smokeless tobacco: Never Vaping Use Vaping status: Never Used Substance Use Topics Alcohol use: Yes Comment: occasional Drug use: Never PHYSICAL EXAM: BP 102/72 (BP Site: Right Arm, BP Position: Sitting) Pulse 91 Temp 37.3 ?C (99.1 ?F) (Temporal) Resp 16 Wt 57 kg (125 lb 9.6 oz) LMP 02/23/2024 (Exact Date) SpO2 96% BMI 20.27 kg/m? Last 3 Encounter Wt Readings: Date: Wt: 11/30/2023 63.4 kg (139 lb 12.8 oz) General: Alert and oriented x3, no acute distress Eyes: Anicteric sclera. Extraocular movements are intact. No lid lag or exophthalmos Neck supple, no cervical lymphadenopathy Thyroid: normal to slightly enlarged in size, normal texture, no palpable nodules Lungs: Breathing unlabored, clear to auscultation. No wheezing, rhonchi, rales Heart regular rate and rhythm, no murmer Musculoskeletal: Muscular strength intact, No joint swelling, deformity, or tenderness Neuro: Gait normal. Sensation grossly intact. No focal findings Extremities: without edema, no deformities, no visible tremors of outstretched arms Skin: no rashes/ erythema LABS: No reference ranges available for any of the labs 2022 TSH 8.79 mcIU/mL (H) Free T3: 2.85 pg/ml Free T4: 1.0 ng/dl 06/08/2023 TSH 2.62 Free T4 1.20 ng/dL Free T3 2.94 pg/mL TPO antibody <28 04/24/2023 TSH 2.71 Free T41.13 Free T32.63 09/29/2022 TSH 2.36 Free T41.18 Free T32.41 07/03/2022 TSH 0.71 Free T41.1 Free T3 2.47 Intact PTH 36.2 pg/mL Latest Ref Rng 01/26/2024 TSH 0.270 - 4.200 mIU/L 6.940 (H) Thyroglobulin Ab, Serum <4.0 IU/mL <0.9 Free T4 0.9 - 1.7 ng/dL 1.3 Free T3 2.3 - 4.1 pg/mL 3.0 Legend: (H) High 04/24/24 TSH <0.01 mcIU/ml (0.36-3.74) Free T4 : 3.78 ng/dl (0.76-1.46) ASSESSMENT/PLAN: Hypothyroidism: Erwin Coles is a 28 year old female with no known significant medical history apart thyroid problem She was seen by Endocrinology for hyperthyroidism and was started on methimazole and propranolol for controlling thyroid abnormality in 2020, followed by hypothyroidism in few months time. She was started on synthroid 50 mcg daily with no changes in fatigue. Currently she has been off of synthroid since Jul 2023, labs in 01/2024 showing subclinical hypothyroidism, and no treatment was started due to lack of hypothyroid symptoms. Due to her symptoms of weight loss, l (more content not included)...[facility]11-01-2024 History of Present illness Narrative* Lashonda Thomas MD - 05/05/2024 11:23 AM EDT [facility] Follow up visit note Subjective: Erwin Coles is a 28 year old female here for evaluation of thyroid problem. She was initially seen in November 2023 after referral by her Ict Developer, Dr. Erin Andrews for subclinical hypothyroidism. 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 Erin Andrews By late 2020, she was started on synthroid, was on 50 mcg daily as the latest She has seen naturopathy specialist, and started using supplements in Apr 2023, she feels she felt better with energy, hair texture etc She is on thyrocare- BID and adrenal supplement once daily Family history: Grand father had Chatham's disease Interval history: 05/05/2024 She was taking Thyrocare BID despite advising to stop on previous appts. She stopped taking it in Mar 2024. She is taking an adrenal supplement, Vitex, a and omega 3 supplement Symptoms of easy exertion, heart racing, weight loss of 10-12 lbs in the last month REVIEW OF SYSTEMS: 10 point ROS was reviewed and negative unless indicated in the HPI ALLERGIES: ALLERGIES Allergen Reactions Amoxicillin-Pot Cla* Diarrhea, GI Upset, Vomiting MEDICATIONS: Current Outpatient Medications on File Prior to Visit Medication Sig MEDICATION, NON-DATABASE Take 1 capsule by mouth two times a day. Thyro-care *under the supervision of a construction project coordinator -- compound formula* MEDICATION, NON-DATABASE Take 1 capsule by mouth once daily. Adrenal Assist *under the supervision of a construction project coordinator -- compound formula* No current facility-administered medications on file prior to visit. PAST MEDICAL HISTORY: No past medical history on file. PAST SURGICAL HISTORY: PAST SURGICAL HISTORY Procedure Laterality Date MYRINGOTOMY W TUBE,BILATERAL(2) TONSILLECTOMY & ADENOIDECTOMY <AGE 14 WRIST SURGERY HX Right cartilage repair -- in high school FAMILY HISTORY: FAMILY HISTORY Problem Relation Age of Onset other (aortic valve replacement) Father No Known Problems Brother Breast Cancer Paternal Grandmother Diabetes Paternal Grandmother other (addisons disease) Paternal Grandfather Thyroid No Family History SOCIAL HISTORY: Social History Tobacco Use Smoking status: Never Smokeless tobacco: Never Vaping Use Vaping status: Never Used Substance Use Topics Alcohol use: Yes Comment: occasional Drug use: Never PHYSICAL EXAM: BP 102/72 (BP Site: Right Arm, BP Position: Sitting) Pulse 91 Temp 37.3 C (99.1 F) (Temporal) Resp 16 Wt 57 kg (125 lb 9.6 oz) LMP 02/23/2024 (Exact Date) SpO2 96% BMI 20.27 kg/m Last 3 Encounter Wt Readings: Date: Wt: 11/30/2023 63.4 kg (139 lb 12.8 oz) General: Alert and oriented x3, no acute distress Eyes: Anicteric sclera. Extraocular movements are intact. No lid lag or exophthalmos Neck supple, no cervical lymphadenopathy Thyroid: normal to slightly enlarged in size, normal texture, no palpable nodules Lungs: Breathing unlabored, clear to auscultation. No wheezing, rhonchi, rales Heart regular rate and rhythm, no murmer Musculoskeletal: Muscular strength intact, No joint swelling, deformity, or tenderness Neuro: Gait normal. Sensation grossly intact. No focal findings Extremities: without edema, no deformities, no visible tremors of outstretched arms Skin: no rashes/ erythema LABS: No reference ranges available for any of the labs 2022 TSH 8.79 mcIU/mL (H) Free T3: 2.85 pg/ml Free T4: 1.0 ng/dl 06/08/2023 TSH 2.62 Free T4 1.20 ng/dL Free T3 2.94 pg/mL TPO antibody <28 04/24/2023 TSH 2.71 Free T41.13 Free T32.63 09/29/2022 TSH 2.36 Free T41.18 Free T32.41 07/03/2022 TSH 0.71 Free T41.1 Free T3 2.47 Intact PTH 36.2 pg/mL Latest Ref Rng 01/26/2024 TSH 0.270 - 4.200 mIU/L 6.940 (H) Thyroglobulin Ab, Serum <4.0 IU/mL <0.9 Free T4 0.9 - 1.7 ng/dL 1.3 Free T3 2.3 - 4.1 pg/mL 3.0 Legend: (H) High 04/24/24 TSH <0.01 mcIU/ml (0.36-3.74) Free T4 : 3.78 ng/dl (0.76-1.46) ASSESSMENT/PLAN: Hypothyroidism: Erwin Coles is a 28 year old female with no known significant medical history apart thyroid problem She was seen by Endocrinology for hyperthyroidism and was started on methimazole and propranolol for controlling thyroid abnormality in 2020, followed by hypothyroidism in few months time. She was started on synthroid 50 mcg daily with no changes in fatigue. Currently she has been off of synthroid since Jul 2023, labs in 01/2024 showing subclinical hypothyroidism, and no treatment was started due to lack of hypothyroid symptoms. Due to her symptoms of weight loss, limited TFTs are done and show hyperthyroidism. She was taking thyroid supplement till Mar 2024. Currently still on adrenal supplement, and Vitex I reviewed doing TFTs along with antibody testing- this could be thyroiditis vs Graves disease Reviewed might consider imaging studies based on labs before treatment can be decided on Advised doing labs after holding supplements for 3 to 5 days Propranolol 10 mg TID recommended for symptomatic control Follow up: 3 months Medical Decision Making: Problems: Moderate: New problem with uncertain prognosis and 1+ chronic illnesses with change Data: Unique test result(s) reviewed: 3+ Unique test(s) ordered: 3+ Risk: Moderate: Moderate risk from testing/treatment Medical Decision Making Level: 4 - Moderate Lashonda Thomas MD Endocrinology Associate Staff [facility] Endocrinology and Metabolism [place] [phone] documented [facility] encounter[facility]10-[facility] Telephone encounter Note * Telephone Encounter - Lynn Dominguez - 04/17/2024 10:44 AM EDT Patient calling to request full thyroid panel and antibody lab orders. She is wanting a baseline asshe is attempt to conceive. Once additional orders placed, patient is requesting to have all lab orders faxed to: [facility] Please notify patient once orders have been sent so she can follow up with the facility. [facility]10-14-[facility] Miscellaneous Notes* Telephone Encounter - Lynn Dominguez - 04/17/2024 10:44 AM EDT Patient calling to request full thyroid panel and antibody lab orders. She is wanting a baseline asshe is attempt to conceive. Once additional orders placed, patient is requesting to have all lab orders faxed to: [facility] Please notify patient once orders have been sent so she can follow up with the facility. documented in this encounter[facility]10-14-2024 Telephone encounter Note * Telephone Encounter - Kierra Cobb MA - 04/17/2024 8:04 AM EDT My chart message sent Kierra Cobb MA [facility]10-14-2024 Miscellaneous Notes* Telephone Encounter - Kierra Cobb MA - 04/17/2024 8:04 AM EDT My chart message sent Kierra Cobb MA * Telephone Encounter - Lashonda Thomas MD - 04/16/2024 2:12 PM EDT Required labs ordered. She must hold any supplements for atleast 3 days before doing labs Advise making an appointment if labs are abnormal * Telephone Encounter - Lucy Andrews MA - 04/12/2024 3:22 PM EDT Patient called and requesting lab work,. She is asking if she can have a full thyroid panel done? States she would like to get and was told to call in when she wanted to have lab work done. documented in this encounter[facility]10-13-2024 Telephone encounter Note * Telephone Encounter - Lashonda Thomas MD - 04/16/2024 2:12 PM EDT Required labs ordered. She must hold any supplements for atleast 3 days before doing labs Advise making an appointment if labs are abnormal [facility]10-09-2024 Telephone encounter Note* Telephone Encounter - Lucy Andrews MA - 04/12/2024 3:22 PM EDT Patient called and requesting lab work,. She is asking if she can have a full thyroid panel done? States she would like to get and was told to call in when she wanted to have lab work done. [facility]09-03-20[facility] Instructions* Patient Instructions* Lashonda Thomas MD - 03/07/2024 11:50 AM EDT You can repeat labs once a year or sooner if any new symptoms occur Also labs to be checked if planning or if conceived Follow up: As needed documented in this encounterGrant Hospital09-03-2024 NoteHNO ID: [id number] Author: LASHONDA THOMAS MD Service: ? Author Type: Physician Type: Progress Notes Filed: 03/07/2024 18:25 Note Text: [facility] Initial Clinic Visit Note CONSULTING PHYSICIAN: Erin Andrews MD (Endocrinology) My final recommendations will be communicated back to the requesting physician by way of shared Medical record or a letter via [place] mail Subjective: Erwin Coles is a 28 year old female here for evaluation of subclinical hypothyroidism. 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 Erin Andrews By late 2020, she was started on synthroid, was on 50 mcg daily as the latest She has seen naturopathy specialist, and started using supplements in Apr 2023, she feels she felt better with energy, hair texture etc She is on thyrocare- BID and adrenal supplement once daily Family history: Grand father had Chatham's disease Interval history: 03/07/24: Subclinical hypothyroidism: Currently not on synthroid or any active hormonal supplements Most recent labs are continuing to show subclinical hypothyroidism, however patient reports not much fatigue, as compared to in the past. She does not have any other hypothyroid symptoms REVIEW OF SYSTEMS: GENERAL:No weight loss, malaise or fevers HEENT:Negative for frequent or significant headaches, No changes in hearing or vision, no nose bleeds or other nasal problems NECK:Negative for lumps, goiter, pain and significant neck swelling RESPIRATORY: Negative for cough, hemoptysis, wheezing or shortness of breath CARDIOVASCULAR: Negative for chest pain, leg swelling or palpitations GASTROINTESTINAL: No nausea, vomiting, or persistent diarrhea GENITOURINARY: no dysuria, Polyuria, no changes in urinary frequency MUSCULOSKELETAL:no muscle aches, arthralgia NEUROLOGIC: no numbness, tingling, no Paresthesias, no headaches SKIN:Negative for lesions, rash, and itching PSYCHIATRIC: Negative for sleep disturbance, mood disorder and recent psychosocial stressors. HEMATOLOGIC/LYMPHATIC/IMMUNOLOGIC:Negative for prolonged bleeding, bruising easily ENDOCRINE: Negative for cold or heat intolerance or goiter ALLERGIES: ALLERGIES Allergen Reactions Amoxicillin-Pot Cla* Diarrhea, GI Upset, Vomiting MEDICATIONS: Current Outpatient Medications on File Prior to Visit Medication Sig MEDICATION, NON-DATABASE Take 1 capsule by mouth two times a day. Thyro-care *under the supervision of a construction project coordinator -- compound formula* MEDICATION, NON-DATABASE Take 1 capsule by mouth once daily. Adrenal Assist *under the supervision of a construction project coordinator -- compound formula* No current facility-administered medications on file prior to visit. PAST MEDICAL HISTORY: No past medical history on file. PAST SURGICAL HISTORY: PAST SURGICAL HISTORY No date: MYRINGOTOMY W TUBE,BILATERAL(2) No date: TONSILLECTOMY AND ADENOIDECTOMY No date: WRIST SURGERY HX; Right Comment: cartilage repair -- in high school FAMILY HISTORY: FAMILY HISTORY Problem Relation Age of Onset other (aortic valve replacement) Father No Known Problems Brother Breast Cancer Paternal Grandmother Diabetes Paternal Grandmother other (addisons disease) Paternal Grandfather Thyroid No Family History SOCIAL HISTORY: Social History Tobacco Use Smoking status: Never Smokeless tobacco: Never Vaping Use Vaping status: Never Used Substance Use Topics Alcohol use: Yes Comment: occasional Drug use: Never PHYSICAL EXAM: Pulse 61 Temp 37.1 ?C (98.8 ?F) (Temporal Artery) Ht 167.6 cm (5' 6) Wt 63.1 kg (139 lb 3.2 oz) LMP 02/23/2024 (Exact Date) SpO2 99% BMI 22.47 kg/m? Last 3 Encounter Wt Readings: Date: Wt: 11/30/2023 63.4 kg (139 lb 12.8 oz) General: Alert and oriented x3, no acute distress Eyes: Anicteric sclera. Pupils are equally round. Extraocular movements are intact. Neck supple, no cervical lymphadenopathy Thyroid: normal to slightly enlarged in size, normal texture, no palpable nodules Lungs: Breathing unlabored, clear to auscultation. No wheezing, rhonchi, rales Heart regular rate and rhythm, no murmer Musculoskeletal: Muscular strength intact, No joint swelling, deformity, or tenderness Neuro: Gait normal. Sensation grossly intact. No focal findings Abdomen:Normal abdominal sounds, non tender to palpation Extremities: without edema, no deformities Skin: no rashes/ erythema LABS: No reference ranges available for any of the labs 2022 TSH 8.79 mcIU/mL (H) Free T3: 2.85 pg/ml Free T4: 1.0 ng/dl 06/08/2023 TSH 2.62 Free T4 1.20 ng/dL Free T3 2.94 pg/mL TPO antibody <28 04/24/2023 TSH 2.71 Free T41.13 Free T32.63 09/29/2022 TSH 2.36 Free T41.18 Free T32.41 07/03/2022 TSH 0.71 Free T41.1 Free T3 2.47 Intact PTH 36.2 pg/m (more content not included)...[facility] 03-07-2024 History of Present illness Narrative* Lashonda Thomas MD - 03/07/2024 11:42 AM EDT [facility] Initial Clinic Visit Note CONSULTING PHYSICIAN: Erin Andrews MD (Endocrinology) My final recommendations will be communicated back to the requesting physician by way of shared Medical record or a letter via [place] mail Subjective: Erwin Coles is a 28 year old female here for evaluation of subclinical hypothyroidism. 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 Erin Andrews By late 2020, she was started on synthroid, was on 50 mcg daily as the latest She has seen naturopathy specialist, and started using supplements in Apr 2023, she feels she felt better with energy, hair texture etc She is on thyrocare- BID and adrenal supplement once daily Family history: Grand father had Chatham's disease Interval history: 03/07/24: Subclinical hypothyroidism: Currently not on synthroid or any active hormonal supplements Most recent labs are continuing to show subclinical hypothyroidism, however patient reports not much fatigue, as compared to in the past. She does not have any other hypothyroid symptoms REVIEW OF SYSTEMS: GENERAL:No weight loss, malaise or fevers HEENT:Negative for frequent or significant headaches, No changes in hearing or vision, no nose bleeds or other nasal problems NECK:Negative for lumps, goiter, pain and significant neck swelling RESPIRATORY: Negative for cough, hemoptysis, wheezing or shortness of breath CARDIOVASCULAR: Negative for chest pain, leg swelling or palpitations GASTROINTESTINAL: No nausea, vomiting, or persistent diarrhea GENITOURINARY: no dysuria, Polyuria, no changes in urinary frequency MUSCULOSKELETAL:no muscle aches, arthralgia NEUROLOGIC: no numbness, tingling, no Paresthesias, no headaches SKIN:Negative for lesions, rash, and itching PSYCHIATRIC: Negative for sleep disturbance, mood disorder and recent psychosocial stressors. HEMATOLOGIC/LYMPHATIC/IMMUNOLOGIC:Negative for prolonged bleeding, bruising easily ENDOCRINE: Negative for cold or heat intolerance or goiter ALLERGIES: ALLERGIES Allergen Reactions Amoxicillin-Pot Cla* Diarrhea, GI Upset, Vomiting MEDICATIONS: Current Outpatient Medications on File Prior to Visit Medication Sig MEDICATION, NON-DATABASE Take 1 capsule by mouth two times a day. Thyro-care *under the supervision of a construction project coordinator -- compound formula* MEDICATION, NON-DATABASE Take 1 capsule by mouth once daily. Adrenal Assist *under the supervision of a construction project coordinator -- compound formula* No current facility-administered medications on file prior to visit. PAST MEDICAL HISTORY: No past medical history on file. PAST SURGICAL HISTORY: PAST SURGICAL HISTORY No date: MYRINGOTOMY W TUBE,BILATERAL(2) No date: TONSILLECTOMY & ADENOIDECTOMY <AGE 14 No date: WRIST SURGERY HX; Right Comment: cartilage repair -- in high school FAMILY HISTORY: FAMILY HISTORY Problem Relation Age of Onset other (aortic valve replacement) Father No Known Problems Brother Breast Cancer Paternal Grandmother Diabetes Paternal Grandmother other (addisons disease) Paternal Grandfather Thyroid No Family History SOCIAL HISTORY: Social History Tobacco Use Smoking status: Never Smokeless tobacco: Never Vaping Use Vaping status: Never Used Substance Use Topics Alcohol use: Yes Comment: occasional Drug use: Never PHYSICAL EXAM: Pulse 61 Temp 37.1 C (98.8 F) (Temporal Artery) Ht 167.6 cm (5' 6) Wt 63.1 kg (139 lb 3.2 oz) LMP 02/23/2024 (Exact Date) SpO2 99% BMI 22.47 kg/m Last 3 Encounter Wt Readings: Date: Wt: 11/30/2023 63.4 kg (139 lb 12.8 oz) General: Alert and oriented x3, no acute distress Eyes: Anicteric sclera. Pupils are equally round. Extraocular movements are intact. Neck supple, no cervical lymphadenopathy Thyroid: normal to slightly enlarged in size, normal texture, no palpable nodules Lungs: Breathing unlabored, clear to auscultation. No wheezing, rhonchi, rales Heart regular rate and rhythm, no murmer Musculoskeletal: Muscular strength intact, No joint swelling, deformity, or tenderness Neuro: Gait normal. Sensation grossly intact. No focal findings Abdomen:Normal abdominal sounds, non tender to palpation Extremities: without edema, no deformities Skin: no rashes/ erythema LABS: No reference ranges available for any of the labs 2022 TSH 8.79 mcIU/mL (H) Free T3: 2.85 pg/ml Free T4: 1.0 ng/dl 06/08/2023 TSH 2.62 Free T4 1.20 ng/dL Free T3 2.94 pg/mL TPO antibody <28 04/24/2023 TSH 2.71 Free T41.13 Free T32.63 09/29/2022 TSH 2.36 Free T41.18 Free T32.41 07/03/2022 TSH 0.71 Free T41.1 Free T3 2.47 Intact PTH 36.2 pg/mL Latest Ref Rng 01/26/2024 TSH 0.270 - 4.200 mIU/L 6.940 (H) Thyroglobulin Ab, Serum <4.0 IU/mL <0.9 Free T4 0.9 - 1.7 ng/dL 1.3 Free T3 2.3 - 4.1 pg/mL 3.0 Legend: (H) High ASSESSMENT/PLAN: Hypothyroidism: Erwin Coles is a 28 year old female with no known significant medical history apart from subclinical hypothyroidism She was seen by Endocrinology for hyperthyroidism and was started on methimazole and propranolol for controlling thyroid abnormality in 2020, followed by hypothyroidism in few months time. She was started on synthroid 50 mcg daily with no changes in fatigue. Currently she has been off of synthroid since Jul 2023, with most recent labs showing subclinical hypothyroidism. At the same time she is on supplements from [employer], which on review do not seem to have any active hormonal ingredient I discussed that the labs do not indicate absolute need for thyroid hormone supplementation now, when the only symptom she reports is mild fatigue which is improved now from before. Repeat labs 3 months later are also better, and she agrees she does not want to start treatment. We discussed she can do annual thyroid labs or sooner if any new symptoms concerning for a thyroid issue. She also reports she might plan for next year and would like to know if any directions for thyroid care to follow. Reviewed she can check thyroid labs before planning for conception if possible to correct any abnormalities for better chances of conception Once conception happens thyroid labs are usually altered and based on the TSH results we can consider supplementation as required, for better outcomes She understands and agrees with the plan Follow up: PRN Medical Decision Making: Problems: Moderate: 1+ chronic illnesses with change Data: Unique test result(s) reviewed: 3+ Medical Decision Making Level: 4 - Moderate Lashonda Thomas MD Endocrinology Associate Staff [facility] End[facility]inology [facility] Met[facility] [place] [phone] documented in this encounterGrant Hospital05-28-2024 Instructions* Patient Instructions* Lashonda Thomas MD - 11/30/2023 9:04 AM EDT We shall monitor off of levothyroxine at this time Please do labs in 3 months from now documented in this encounterGrant Hospital05-28-2024 History of Present illness Narrative* Lashonda Thomas MD - 11/30/2023 8:48 AM EDT [facility] Initial Clinic Visit Note CONSULTING PHYSICIAN: Erin Andrews MD (Endocrinology) My final recommendations will be communicated back to the requesting physician by way of shared Medical record or a letter via [place] mail Subjective: Erwin Coles is a 28 year old female here for evaluation of hypothyroidism. 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 Erin Andrews By late 2020, she was started on synthroid, was on 50 mcg daily as the latest She has seen naturopathy specialist, and started using supplements in Apr 2023, she feels she felt better with energy, hair texture etc She is on thyrocare- BID and adrenal supplement once daily General symptoms: Fatigue: slightly tired, still feels better than only synthroid Weight change: no Appetite change: no Menstrual irregularities: regular Change in bowel habits: no Temperature intolerance: no Family history: Grand father had Chatham's disease REVIEW OF SYSTEMS: GENERAL:No weight loss, malaise or fevers HEENT:Negative for frequent or significant headaches, No changes in hearing or vision, no nose bleeds or other nasal problems NECK:Negative for lumps, goiter, pain and significant neck swelling RESPIRATORY: Negative for cough, hemoptysis, wheezing or shortness of breath CARDIOVASCULAR: Negative for chest pain, leg swelling or palpitations GASTROINTESTINAL: No nausea, vomiting, or persistent diarrhea GENITOURINARY: no dysuria, Polyuria, no changes in urinary frequency MUSCULOSKELETAL:no muscle aches, arthralgia NEUROLOGIC: no numbness, tingling, no Paresthesias, no headaches SKIN:Negative for lesions, rash, and itching PSYCHIATRIC: Negative for sleep disturbance, mood disorder and recent psychosocial stressors. HEMATOLOGIC/LYMPHATIC/IMMUNOLOGIC:Negative for prolonged bleeding, bruising easily ENDOCRINE: Negative for cold or heat intolerance or goiter ALLERGIES: ALLERGIES Allergen Reactions Amoxicillin-Pot Cla* Diarrhea, GI Upset, Vomiting MEDICATIONS: Current Outpatient Medications on File Prior to Visit Medication Sig MEDICATION, NON-DATABASE Take 1 capsule by mouth two times a day. Thyro-care *under the supervision of a construction project coordinator -- compound formula* MEDICATION, NON-DATABASE Take 1 capsule by mouth once daily. Adrenal Assist *under the supervision of a construction project coordinator -- compound formula* No current facility-administered medications on file prior to visit. PAST MEDICAL HISTORY: No past medical history on file. PAST SURGICAL HISTORY: PAST SURGICAL HISTORY Procedure Laterality Date MYRINGOTOMY W TUBE,BILATERAL(2) TONSILLECTOMY & ADENOIDECTOMY <AGE 14 WRIST SURGERY HX Right cartilage repair -- in high school FAMILY HISTORY: FAMILY HISTORY Problem Relation Age of Onset other (aortic valve replacement) Father No Known Problems Brother Breast Cancer Paternal Grandmother Diabetes Paternal Grandmother other (addisons disease) Paternal Grandfather Thyroid No Family History SOCIAL HISTORY: Social History Tobacco Use Smoking status: Never Smokeless tobacco: Never Vaping Use Vaping Use: Never used Substance Use Topics Alcohol use: Yes Comment: occasional Drug use: Never PHYSICAL EXAM: BP 118/80 (BP Site: Right Arm, BP Position: Sitting, BP Cuff Size: Regular Adult) Pulse 90 Resp16 Ht 167.6 cm (5' 6) Wt 63.4 kg (139 lb 12.8 oz) LMP 10/27/2023 (Exact Date) SpO2 99% BMI 22.56 kg/m Last 3 Encounter Wt Readings: Date: Wt: 11/30/2023 63.4 kg (139 lb 12.8 oz) General: Alert and oriented x3, no acute distress Eyes: Anicteric sclera. Pupils are equally round. Extraocular movements are intact. Neck supple, no cervical lymphadenopathy Thyroid: normal to slightly enlarged in size, normal texture, no palpable nodules Lungs: Breathing unlabored, clear to auscultation. No wheezing, rhonchi, rales Heart regular rate and rhythm, no murmer Musculoskeletal: Muscular strength intact, No joint swelling, deformity, or tenderness Neuro: Gait normal. Sensation grossly intact. No focal findings Abdomen:Normal abdominal sounds, non tender to palpation Extremities: without edema, no deformities Skin: no rashes/ erythema LABS: No reference ranges available for any of the labs 2022 TSH 8.79 mcIU/mL (H) Free T3: 2.85 pg/ml Free T4: 1.0 ng/dl 06/08/2023 TSH 2.62 Free T4 1.20 ng/dL Free T3 2.94 pg/mL TPO antibody <28 04/24/2023 TSH 2.71 Free T41.13 Free T32.63 09/29/2022 TSH 2.36 Free T41.18 Free T32.41 07/03/2022 TSH 0.71 Free T41.1 Free T32.47 Intact PTH 36.2 pg/mL ASSESSMENT/PLAN: Hypothyroidism: Erwin Coles is a 28 year old female with no known significant medical history apart from hypothyroidism who is presenting for evaluation of the same. She was seen by Endocrinology for hyperthyroidism and was started on methimazole and propranolol for controlling thyroid abnormality in 2020, followed by hypothyroidism in few months time. She was started on synthroid 50 mcg daily with no changes in fatigue. Currently she has been off of synthroid since Jul 2023, with most recent labs showing subclinical hypothyroidism. At the same time she is on supplements from [employer], which on review do not seem do not seem to have any active hormonal ingredient I discussed that the labs do no indicate need for thyroid hormone supplementation now, when the only symptom she reports is mild fatigue. We discussed about monitoring with labs in 3 months from now.If overt hypothyroidism or if subclinical but with worse labs or symptoms, reviewed we shall discuss about medication at that time She understands and agrees with the plan Follow up in 3 months with labs Medical Decision Making: Problems: Moderate: New problem with uncertain prognosis and 1+ chronic illnesses with change Data: Unique source(s) for external note(s) reviewed: 1 Unique test result(s) reviewed: 3+ Unique test(s) ordered: 3+ Independent interpretation of test from other physician/QHCP Risk: Moderate: Moderate risk from testing/treatment Medical Decision Making Level: 4 - Moderate Lashonda Thomas MD Endocrinology Associate Staff [facility] Endocrinology and Metabolism Adrian [phone] [facility] + Plan note Future Scheduled Tests Laboratory* Thyroid Stimulating Hormone 10/02/23 * Free T4 10/02/23 * Free T3 10/02/23 * Complete Metabolic Panel 10/02/23 [facility] 04-10-2023 NotePap Smear Specimen AdequacyApril 2022 5:11pmComment.Satisfactory for evaluation. Endocervical and/or squamous metaplasticcells (endocervical component)are present.[facility] INTERFACED A#[id number] Valley Health SystemComment on above:Satisfactory for evaluation. Endocervical and/or squamous metaplasticcells (endocervical component)are present.Evaluation + Plan note Future Appointments Appointment Date:06/12/2021 03:30:00 PM Scheduled Provider:ERIN ANDREWS MD Location:[facility] [facility] Appointment Type:[facility] Evaluation + Plan note Future Appointments Appointment Date:12/11/2021 03:30:00 PM Scheduled Provider:ERIN ANDREWS MD Location:[place] Appointment Type:[facility] Evaluation + Plan note Future Appointments Appointment Date:12/02/2021 11:45:00 AM Scheduled Provider:ERIN ANDREWS MD Location:[place] Appointment Type:[facility] Evaluation + Plan note Future Appointments Appointment Date:09/24/2022 11:30:00 AM Scheduled Provider:ERIN ANDREWS MD Location:[place] [facility] Appointment Type:[facility] Evaluation + Plan note Future Appointments Appointment Date:10/01/2022 10:00:00 AM Scheduled Provider:ERIN ANDREWS MD Location:[place] Appointment Type:[facility] Evaluation + Plan note Future Appointments Appointment Date:11/02/2023 08:30:00 AM Scheduled Provider:ERIN ANDREWS MD Location[facility] Appointment Type:[facility] Future Scheduled Tests Laboratory* Thyroid Stimulating Hormone 10/29/23 * Thyroid Stimulating Hormone 10/02/23 * Free T4 10/29/23 * Free T4 10/02/23 * Complete Blood Count 10/29/23 * Free T3 10/29/23 * Free T3 10/02/23 * Complete Metabolic Panel 10/29/23 * Complete Metabolic Panel 10/02/23 [facility] Evaluation + Plan note Future Appointments Appointment Date:11/02/2023 08:30:00 AM Scheduled Provider:ERIN ANDREWS MD Location[facility] Appointment Type:[facility] Future Scheduled Tests Laboratory* Thyroid Stimulating Hormone 10/02/23 * Free T4 10/02/23 * Free T3 10/02/23 * Complete Metabolic Panel 10/02/23 [facility] [employer] note* Diagnosis Onset Date Resolution Status Subcutaneous nodule of breast acute Encounter for routine gynecological examination noneactive [facility] Work Phone: Evalusdtsc note* Diagnosis Subclinical hypothyroidism- Primary Other specified acquired hypothyroidism [facility]* Diagnosis Subclinical hypothyroidism- Primary Other specified acquired hypothyroidism [facility] Diagnosis Subclinical hypothyroidism- Primary Other specified acquired hypothyroidism [facility]* Diagnosis Abnormal results of thyroid function studies- Primary Nonspecific abnormal results of thyroid function study documented in this [facility] note* Diagnosis Hyperthyroidism- Primary Thyrotoxicosis without mention of goiter or other cause, without mention of thyrotoxic crisis or storm [facility]* Diagnosis Hyperthyroidism Thyrotoxicosis without mention of goiter or other cause, without mention of thyrotoxic crisis or storm [facility]* Diagnosis Acquired hypothyroidism- Primary Unspecified hypothyroidism [facility]* Diagnosis Other acne- Primary Acquired hypothyroidism Unspecified hypothyroidism Irregular periods/menstrual cycles Irregular menstrual cycle [facility]* Diagnosis Onset Date Resolution Status Admit Date Encounter for routine gynecological examination noneactive November 142024 9:36am [facility] Work Phone: Evaluation note* Diagnosis Acquired hypothyroidism- Primary Unspecified hypothyroidism Subclinical hypothyroidism Other specified acquired hypothyroidism Hyperthyroidism Thyrotoxicosis without mention of goiter or other cause, without mention of thyrotoxic crisis or storm documented in this [facility] note* Diagnosis Irregular periods/menstrual cycles- Primary Irregular menstrual cycle documented in [facility] note* Diagnosis Irregular periods/menstrual cycles- Primary Irregular menstrual cycle documented in [facility] note* Diagnosis Acquired hypothyroidism Unspecified hypothyroidism Other acne [facility] Narrative No data available for this section [facility] Hospital Discharge instructions No data available for this section [facility] Progress note No data available for this section [facility] Prolymim note Author Robina Peters [facility] Services Note Date/Time February 15, 2025 8: 59am [facility] [address], [address] [place] [address] OFFICE VISIT Date of Service: 02/15/25 MR#: [id number] Acct: [id number] Name: ERWIN COLES Rep #: [id number] : 1995 Provider: VIRGINIA Peters Age/Sex: 29/F Location: [facility] Status: Signed Intake Vital Signs 11/14/24 09:41 01/30/25 10:15 02/15/25 08:29 Height 5 ft 6 in 5 ft 6 in 5 ft 6 in Weight: 145 lb 7 oz BMI 23.4 BP 111/72 Intake Visit Reasons: *EST* NOB LMP 12/13, KATE 09/19 *ppu Chief Complaint: 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: No Is patient in pain?: No Allergies amoxicillin (From Augmentin) Allergy (Mild, Verified 02/15/25 08:27) Abd cramps/diarrhea clavulanic acid (From Augmentin) Allergy (Mild, Verified 02/15/25 08:27) Abd cramps/diarrhea Medications ?Medication ?Instructions ?Recorded ?Confirmed ?Type PNV-iron 29 mg-folic acid 1 pkg PO 01/30/25 02/15/25 H istory [id number] 200 mg oral combo pack levothyroxine 50 mcg tablet 75 mcg PO DAILY 01/30/25 0 02/15/25 History (Synthroid) Last Menstrual Period: 12/13/24 : Yes PFSH PFSH Medical History (Updated 02/15/25 @ 08:58 by Robina Peters CNM) Hypothyroidism Surgical History Status post myringotomy with tube placement of both ears S/P wisdom tooth extraction S/P wrist surgery S/P tonsillectomy and adenoidectomy Family History Grandmother Breast cancer Paternal Cancer Paternal Skin cancer Hypertension Mother Hypertension Father Heart disease Artificial valve CVA (cerebral vascular accident) Grandfather Chatham disease Paternal Social History adopted: No household members: spouse housing: apartment number of children: 0 current occupational status: employed current occupation: [employer] current occupational exposures/hazards: No pets and animals: Yes pets and animals: dog(s) history of recent travel: Yes (November) out of state: Yes out of country: No sexually active: Yes Smoking Status: Never smoker alcohol intake: current alcohol intake frequency: holidays/special occasions only details: Not while substance use type: does not use diet: gluten free well-balanced diet: daily or most days caffeine: No eating out: rarely or never during the past year weight has: remained stable what type of physical activity do you participate in: walking and weight training frequency: 3-4 times per week duration: 45-60 minutes/day channing/anabaptism: Sikh seatbelt use: always do you feel safe at home: Yes additional social history: - [employer]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 OB Visit KAET Calculator Estimated Delivery Date Method Current WG Current Estimate 09/19/25 LMP (Certain) 9w 1d Other Estimates 09/21/25 Ultrasound #1 8w 6d Comments: HIV: Urine Culture: Sequential Screen: NIPT Screen: Estimated Due Date: 09/19/25 Expected Delivery Route/Plan Labor Preferences- CB/BF classes: [] labor support person: [] labor intervention preferences: [] pain management options preferred: [] cut cord/dad catch: [] : [] PP control planned: [] discussed possible routes of delivery and associated risks: [] special requests: [] Specific Issue/Plans Covid status: [] Flu vaccine: [] Tdap vaccine: [] Rhogam: [] LARC form signed: [] Problem list reviewed and updated with the most current plan of care details and appropriate orders placed. Relevant counseling for the gestational age provided. Continue routine care and follow up unless otherwise noted in visit notes/problem list details Initial Weight: 145 lb Date -?-?-?-?-?-?-?-?-?-?-?-?- EGA Weight BP Urine Prot -?-?-?-?-?-?-?-?-?-?-?-?- Glucose FHR FuHt Pres Dilation -?-?-?-?-?-?-?-?-?-?-?-?- Effaced St Visit Note 02/15/25 -?-?-?-?-?-?-?-?-?-?-?-?- 9w 1d 145 lb 7 oz (+7 oz) 111/72 -?-?-?-?-?-?-?-?-?-?-?-?- 185 -?-?-?-?-?-?-?-?-?-?-?-?- KW- CRL 2.19 and cons with dates. Declines NIPT. [facility] managing thyroid meds. Menstrual History Last Menstrual Period: 12/13/24 Reported LMP: definite Normal amount/duration: Yes Frequency in days: was 35-50 last cycle 30 days On hormonal BC at conception: No hCG+: 01/12/25 Antepartum Record Genetic Screening: Congenital Heart Defect: Patient (Father valve replacement at 16yo), Neural Tube Defect: Other, Hemoglobinopathy Or Carrier: Patient (MTHFR), Cystic Fibrosis: Other, Chromosome Abnormality: Other, Denny-Sachs: Other, Hemophilia: Other, Intellectual Disability/Autism: Other, Recurrent Loss/Stillbirth: Other, Other Structural Defect: Other, Other Genetic Disease: Other and Maternal Metabolic Disorder: Other Infection History: Live with someone with TB or Exposed to TB: No, Patient or Partner has history of Genital Herpes: No, Rash or Viral illness since last mentrual period: No, Prior GBS-Infected child: No, History of STD: No, HIV Infection: No, History of Hepatitis: No, Recent travel outside of [place]: No, Concern for hepatitis exposure: No, Varicella immune: Yes (immune-vaccinated) and Covid Vaccinated: Yes (Pfizer, No Boosters) Medical History Medical History: Positive: Auto-immune disorder (Hashimotos), Thyroid dysfunction (hypothyroid), Drug/latex allergies/reactions (Augmentin), Breast (breast lump right- since high school), Operations/hospitalizations (See PFSH- Nothing new to add) and Relevant family history (FH Breast cancer Paternal Grandmother) and Negative: Diabetes, Hypertension, Heart disease, Kidney disease/UTI, Neurologic/epilepsy, Psychiatric, Depression/ depression, Hepatitis/liver disease, Varicosities/phlebitis, Trauma/domestic violence, History of blood transfusions, D (Rh) Sensitized (0+), Pulmonary (e.g.,TB,Asthma), Seasonal allergies, Script Artist surgery, Anesthetic complications, History of abnormal pap, Uterine anomaly/prashanth, Infertility, Anti-retroviral treatment and Other ACOG First Trimester First Trimester: Desire for , Alcohol, Tobacco Cessation, Illicit/Recreational Drug/Substance Use, Intimate Partner Violence, Barriers to care, Unstable Housing, Communication Barriers, Environmental/Work Hazards, Anticipated Course of Care, Nurtrition and weight gain, Toxoplasmosis Precations, Use of Any medications, Sexual activity, Dental Care, Sauna/Hot tub use, Seat Belt use, Childbirth classes/Hospital facilities, , Travel, Indications for Ultrasound and Screening for Aneuploidy; Discussed Exercise Second Trimester Second Trimester: Signs and Symptoms of Labor, Selecting a care provider, Reproductive Life Planning & Contreception, Care Planning, Depression/Anxiety and Intimate Partner Violence; Discussed Tobacco Cessation Third Trimester Third Trimester: Pain Management Plans, Labor support person(s), Immediate Larc, Signs and Symptoms of Preeclampsia, Infant Feeding Yes , Education and Family Medical Leave or Disability Forms ROS Const Reports system reviewed and no additional complaints, except as documented, Denies fatigue, Denies headache(s) and Denies lethargy ENT Denies headache(s) Card Reports system reviewed and no additional complaints, except as documented Resp Reports system reviewed and no additional complaints, except as documented GI Reports system reviewed and no additional complaints, except as documented, Denies abdominal pain, Denies constipation, Denies cramping, Denies diarrhea and Denies dyspepsia Reports system reviewed and no additional complaints, except as documented, Denies abnormal vaginal bleeding, Denies difficulty voiding, Denies dyspareunia and Denies dysuria Musc Reports system reviewed and no additional complaints, except as documented Skin/Breast Reports system reviewed and no additional complaints, except as documented Neuro Yes system reviewed and no additional complaints, except as documented and No headache(s) Psych Reports system reviewed and no additional complaints, except as documented, Denies anhedonia and Denies anxiety Endo Reports system reviewed and no additional complaints, except as documented and Denies fatigue Exam Const General: cooperative, healthy appearing and comfortable Neck Neck: normal visual inspection and full ROM Chest Chest palpation & inspection: normal inspection of the chest Breast inspection: normal inspection of the breasts and normal inspection of the axillae Breast palpation: normal palpation of the breasts and normal palpation of the axillae Resp Effort & Inspection: normal respiratory effort and able to speak in complete sentences GI Inspection: normal to inspection Palpation: soft External Female Exam: normal external appearance and normal appearance of the urethra Urethra: normal appearance of the urethra Skin General: no rashes or lesions noted Neuro General: patient alert, patient awake and patient oriented x3 Extrem General: normal to inspection and full ROM Psych Appearance: grossly normal and well kempt Mental Status: mental status grossly normal Mood: congruent mood Affect: normal affect Speech and Movement: speech and movement normal Thought Process: normal Thought Content: normal Coding Level of Care Code OB Routine Diagnoses Supervision of high risk in first trimester O09.91 Trimester: first trimester 9 weeks gestation of Z3A.09 Weeks of gestation: 9 weeks FH: breast cancer 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 deficiency complicating O99.280; E72.12 Breast mass, right N63.10 Subcutaneous nodule of breast N63.0 Hypothyroidism E03.9 Assessment and Plan Assessment and Plan (1) Supervision of high-risk : Status: Acute Qualifiers: Trimester: first trimester Qualified Code(s): O09.91 - Supervision of high risk , unspecified, first trimester Comment: , KATE 09/19/25, Haris (2) : Status: Acute Qualifiers: Weeks of gestation: 9 weeks Qualified Code(s): Z3A.09 - 9 weeks gestation of Comment: discussed genetic & carrier testing-undecided (3) FH: breast cancer: Status: Acute Comment: Paternal Grandmother age of onset unknown (4) David's disease: Status: Acute (5) MTHFR deficiency complicating : Status: Acute (6) Breast mass, right: Status: Acute (7) Subcutaneous nodule of breast: Status: Acute Comment: 0.5cm mobile nodule 5cm from nipple, 11 oclock surgical consult placed for biospy. (8) Hypothyroidism: Status: Acute Comment: managed by [facility] Orders: Orders CBC W/Diff, Automated 01/30/25 O09.90 - Supervision of high risk , unspecified, unspecified trimester Type & Screen 01/30/25 O09.90 - Supervision of high risk , unspecified, unspecified trimester Rubella IgG 01/30/25 O09.90 - Supervision of high risk , unspecified, unspecified trimester Hepatitis C Antibody 01/30/25 O09.90 - Supervision of high risk , unspecified, unspecified trimester Hepatitis B Surface Antigen 01/30/25 O09.90 - Supervision of high risk , unspecified, unspecified trimester Culture, Urine 01/30/25 O09.90 - Supervision of high risk , unspecified, unspecified trimester Syphilis Antibodies 01/30/25 O09.90 - Supervision of high risk , unspecified, unspecified trimester Chlamydia/GC ULISES aptima 01/30/25 O09.90 - Supervision of high risk , unspecified, unspecified trimester HIV 01/30/25 O09.90 - Supervision of high risk , unspecified, unspecified trimester Thyroid Stim Hormone (TSH) 01/30/25 O09.90 - Supervision of high risk , unspecified, unspecified trimester Free T4 01/30/25 O09.90 - Supervision of high risk , unspecified, unspecified trimester [facility]. 01/30/25 E03.9 - Hypothyroidism, unspecified, E06.3 - Autoimmune thyroiditis, O09.90 - Supervision of high risk , unspecified, unspecified trimester Comments Comments: Patient oriented to practice and discussed care expectations and screenings. ACOG book offered to patient. Discussed routine and specially indicated labs if needed- patient consents to testing. See problem list details for plan information. Optional screening including maternal carrier screenings, neural tube defect screening, genetic screening options including quad screen, nuchal translucency, sequential screening, and NIPT screening offered to patient and patient chose: declines 02/15/25 0859 <Electronically signed by Robina doshi CNM> Date _ Robina Peters CNM Cosigner Signature: Date (if applicable) CC: ~ [facility] Work Phone: Reason for referral (narrative)* Diagnostic Procedure Only (Routine) - New Request Specialty Diagnoses / Procedures Referred By Pam weaver Referred To Contact US IMAGING Diagnoses Hyperthyroidism Procedures US THYROID/PARATHYROID US SOFT TISSUE HEAD & NECK REAL TIME IMGE Lashonda Salas MD [address] [place] [address] [place] [id number] Referral ID Status Reason Start Date Expiration Date Visits Requested Visits Authorized [id number] New Request Auto-Generat ed Referral 4 06/14/2025 1 1 [facility] for referral (narrative)No reason for referral [facility]: Chief Complaint and Reason for Visit Chief Complaint 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) RT BREAST LUMP Reason for Visit Subcutaneous nodule of breast Encounter for routine gynecological examination Chief Complaint Admit Date 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) November 14, 2024 9:36a m Reason for Visit Admit Date Encounter for routine gynecological exam ination November 14, 2024 9:36am Chief Complaint Admit Date 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) November 14, 2024 9:36a m PNOB Vitals & Education January 30, 2025 8:05am Reason for Visit Admit Date Subcutaneous nodule of breast November 14, 2024 9:36am Encounter for routine gynecological exam ination November 14, 2024 9:36am Chief Complaint Admit Date 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) November 14, 2024 9:36a m PNOB Vitals & Education January 30, 2025 8:05am *EST* NOB LMP 12/13, KATE 09/19 *ppu February 15, 2025 8:23am Reason for Visit Admit Date Subcutaneous nodule of breast November 14, 2024 9:36am Encounter for routine gynecological exam ination November 14, 2024 9:36am Supervision of high-risk January 30, 2025 8:05am Breast mass, right February 15, 2025 8: 23am FH: breast cancer February 15, 2025 8: 23am David's disease February 15, 2025 8: 23am Hypothyroidism February 15, 2025 8: 23am 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, 2025 8:23am February 15, 2025 8: 23am Subcutaneous nodule of breast February 8:23am Supervision of high-risk Augus t 2024 8:23am Family History Relationship Condition Age at Onset Recorded Date/T caden grandmother Malignant neoplasm of breast Unknown Malignant neoplasm Unknown Hypertension Unknown mother Hypertension Unknown father Cardiac disease Unknown Cerebrovascular accident (CVA) Unknown Relationship Condition Age at Onset Recorded Date/T caden grandmother Malignant neoplasm of breast Unknown Malignant neoplasm Unknown Hypertension Unknown mother Hypertension Unknown father Cardiac disease Unknown Cerebrovascular accident (CVA) Unknown grandfather Chatham's disease Unknown Summary Purpose Advance Directives No Advanced Directives Records FoundNo Advanced Directives Records FoundNo Advanced Directives Records FoundNo Advanced Directives Records Found Additional Source Comments Care Team (unrecognized sect ion and content) Team Status: Active Member Role Status Dates No Primary Care Physician Primary Care Provider Active Team Status: Inactive Member Role Status Dates Yasmeen Rodriguez CNM Attending Provider Active Team Status: Inactive Member Role Status Dates Yasmeen Rodriguez CNM Attending Provider, Referring Pr ovider Active No Primary Care Physician Primary Care Provider Active Team Status: Inactive Member Role Status Dates Yasmeen Rodriguez CNM Attending Provider, Referring Pr ovider Active Extracting Machine Operator Relationship Specialty Start Date End Date Oren Rudd IV, DO [address] [place] [address] PCP - General Family Medicine 11/30/23 Extracting Machine Operator Relationship Specialty Start Date End Date Oren Rudd IV, DO [address] [place] [address] PCP - General Family Medicine 11/30/23 Extracting Machine Operator Relationship Specialty Start Date End Date Oren Rudd IV, DO [address] [place] [address] PCP - General Family Medicine 11/30/23 Extracting Machine Operator Relationship Specialty Start Date End Date Oren Rudd IV, DO [address] [place] [address] PCP - General Family Medicine 11/30/23 Extracting Machine Operator Relationship Specialty Start Date End Date Oren Rudd IV, DO [address] [place] [address] PCP - General Family Medicine 11/30/23 Extracting Machine Operator Relationship Specialty Start Date End Date Oren Rudd IV, DO [address] [place] [address] PCP - General Family Medicine 11/30/23 Extracting Machine Operator Relationship Specialty Start Date End Date Oren Rudd IV, DO [address] [place], [place] [address] PCP - General Family Medicine 11/30/23 Extracting Machine Operator Relationship Specialty Start Date End Date Oren Rudd IV, DO [address] [place] [address] PCP - General Family Medicine 11/30/23 Extracting Machine Operator Relationship Specialty Start Date End Date Oren Rudd IV, DO [address] [place] [address] PCP - General Family Medicine 11/30/23 Extracting Machine Operator Relationship Specialty Start Date End Date Oren Rudd IV, DO [address] [place] [address] PCP - General Family Medicine 11/30/23 Extracting Machine Operator Relationship Specialty Start Date End Date Oren Rudd IV, DO [address] [place] [address] PCP - General Family Medicine 11/30/23 Team Status: Inactive Member Role Status Dates No Primary Care Physician Primary Care Provider Active Start: November 14, 2024 End: November 14, 2024 No Primary Care Physician Referring Provider Active Start: November 14, 2024 End: November 14, 2024 Yasmeen Rodriguez CNM Attending Provider Active Start: November 14, 2024 End: November 14, 2024 Extracting Machine Operator Relationship Specialty Start Date End Date Oren Rudd IV, DO [address] [place] [address] PCP - General Family Medicine 11/30/23 Extracting Machine Operator Relationship Specialty Start Date End Date Oren Rudd IV, DO [address] [place] [address] PCP - General Family Medicine 11/30/23 Extracting Machine Operator Relationship Specialty Start Date End Date Oren Rudd IV, DO [address] [place] [id number] PCP - General Family Medicine 11/30/23 Team Status: Inactive Member Role/Relationship Status Dates No Primary Care Physician Primary Care Provider Active Start: November 14, 2024 End: November 14, 2024 No Primary Care Physician Referring Provider Active Start: November 14, 2024 End: November 14, 2024 Yasmeen Rodriguez CNM Attending Provider Active Start: November 14, 2024 End: November 14, 2024 Team Status: Inactive Member Role/Relationship Status Dates No Primary Care Physician Referring Provider Active Start: January 30, 2025 End: January 30, 2025 Ying Lamar NP, DIRECTOR WORKFORCE MANAGEMENT-C Attending Provider Active Start: January 30, 2025 End: January 30, 2025 Team Status: Inactive Member Role/Relationship Status Dates No Primary Care Physician Referring Provider Active Start: February 15, 2025 End: February 15, 2025 Robina Peters CNM Attending Provider Active S tart: February 15, 2025 End: February 15, 2025 Team Status: Active Member Role/Relationship Status Dates Robina Peters CNM Attending Provider Active S tart: February 15, 2025 Robina Peters CNM Referring Provider Active S tart: February 15, 2025 Care Team (unrecognized sect ion and content) Care Team Personnel Name: OREN RUDD DO Position: P4 Physician - Primary Care Member Role: Primary Care Physician Address: Address: [address] [place] [id number] Care Team Related Persons Name: NONE, Name: HARIS COLES Address: Home [address], [place] [id number] [place] Address: Temporary [address] [place], [place] [id number] Name: FRANCISCO WEIR Address: Home [address] [place] [id number] [place] Address: Temporary [address] [place], [place] [id number] Name: FRANCISCO WEIR Address: Home [address] [place], [place] [id number] [place] Name: MARGE WEIR Goals (unrecognized section and content) Goals may be documented in a n alternate section INFORMATION SOURCE (unrecogn ized section and content) DATE CREATED AUTHOR 10/20/2023 [facility] ([place]) DATE CREATED AUTHOR AUTHOR'S ORGANIZ ATION 12/07/2024 [facility] DATE CREATED AUTHOR AUTHOR'S ORGANIZ ATION 01/28/2025 [facility] DATE CREATED AUTHOR AUTHOR'S ORGANIZ ATION 02/09/2025 [facility] Source Comments (unrecognize d section and content) In the event this informatio n is protected by the Federal Confidentiality of Alcohol and Drug Abuse Patient Records regulations: The Federal rules restrict any use of the information to criminally investigate or prosecute any alcohol or drug abuse patient.[facility] Hospital[facility] the event this information is protected by the Federal Confidentiality of Alcohol and Drug Abuse Patient Records regulations: The Federal rules restrict any use of the information to criminally investigate or prosecute any alcohol or drug abuse patient.[facility] Hospital[facility] the event this information is protected by the Federal Confidentiality of Alcohol and Drug Abuse Patient Records regulations: The Federal rules restrict any use of the information to criminally investigate or prosecute any alcohol or drug abuse patient.[facility] Hospital[facility] the event this information is protected by the Federal Confidentiality of Alcohol and Drug Abuse Patient Records regulations: The Federal rules restrict any use of the information to criminally investigate or prosecute any alcohol or drug abuse patient.[facility] HospitalIn the event this information is protected by the Federal Confidentiality of Alcohol and Drug Abuse Patient Records regulations: The Federal rules restrict any use of the information to criminally investigate or prosecute any alcohol or drug abuse patient.[facility] Hospital[facility] the event this information is protected by the Federal Confidentiality of Alcohol and Drug Abuse Patient Records regulations: The Federal rules restrict any use of the information to criminally investigate or prosecute any alcohol or drug abuse patient.[facility] HospitalIn the event this information is protected by the Federal Confidentiality of Alcohol and Drug Abuse Patient Records regulations: The Federal rules restrict any use of the information to criminally investigate or prosecute any alcohol or drug abuse patient.[facility] HospitalIn the event this information is protected by the Federal Confidentiality of Alcohol and Drug Abuse Patient Records regulations: The Federal rules restrict any use of the information to criminally investigate or prosecute any alcohol or drug abuse patient.[facility] HospitalIn the event this information is protected by the Federal Confidentiality of Alcohol and Drug Abuse Patient Records regulations: The Federal rules restrict any use of the information to criminally investigate or prosecute any alcohol or drug abuse patient.[facility] HospitalIn the event this information is protected by the Federal Confidentiality of Alcohol and Drug Abuse Patient Records regulations: The Federal rules restrict any use of the information to criminally investigate or prosecute any alcohol or drug abuse patient.[facility] HospitalIn the event this information is protected by the Federal Confidentiality of Alcohol and Drug Abuse Patient Records regulations: The Federal rules restrict any use of the information to criminally investigate or prosecute any alcohol or drug abuse patient.[facility] HospitalIn the event this information is protected by the Federal Confidentiality of Alcohol and Drug Abuse Patient Records regulations: The Federal rules restrict any use of the information to criminally investigate or prosecute any alcohol or drug abuse patient.[facility] HospitalIn the event this information is protected by the Federal Confidentiality of Alcohol and Drug Abuse Patient Records regulations: The Federal rules restrict any use of the information to criminally investigate or prosecute any alcohol or drug abuse patient.[facility] HospitalIn the event this information is protected by the Federal Confidentiality of Alcohol and Drug Abuse Patient Records regulations: The Federal rules restrict any use of the information to criminally investigate or prosecute any alcohol or drug abuse patient.[facility] HospitalIn the event this information is protected by the Federal Confidentiality of Alcohol and Drug Abuse Patient Records regulations: The Federal rules restrict any use of the information to criminally investigate or prosecute any alcohol or drug abuse patient.[facility] HospitalIn the event this information is protected by the Federal Confidentiality of Alcohol and Drug Abuse Patient Records regulations: The Federal rules restrict any use of the information to criminally investigate or prosecute any alcohol or drug abuse patient.[facility] HospitalIn the event this information is protected by the Federal Confidentiality of Alcohol and Drug Abuse Patient Records regulations: The Federal rules restrict any use of the information to criminally investigate or prosecute any alcohol or drug abuse patient.[facility] HospitalIn the event this information is protected by the Federal Confidentiality of Alcohol and Drug Abuse Patient Records regulations: The Federal rules restrict any use of the information to criminally investigate or prosecute any alcohol or drug abuse patient.[facility] HospitalIn the event this information is protected by the Federal Confidentiality of Alcohol and Drug Abuse Patient Records regulations: The Federal rules restrict any use of the information to criminally investigate or prosecute any alcohol or drug abuse patient.[facility] Reason for Visit (unrecogniz ed section and content) Reason Comments Hypothyroidism Reason Comments Thyroid Problem Labs 01/26/24 Reason Comments Orders Reason Comments Follow Up Reason Comments Results Reason Comments Radiology US Specialty Diagnoses / Procedures Referred By Contac t Referred To Contact US IMAGING Diagnoses Hyperthyroidism Procedures US THYROID/PARATHYROID US SOFT TISSUE HEAD & NECK REAL TIME IMGE Lashonda Salas MD [address] [place] [address] [place] [address] Referral ID Status Reason Start Date Expiration Date V isits Requested Visits Authorized [id number] Closed Auto-Generate d Referral 05/15/2024 06/14/2025 1 1 Reason Comments Results Patient Update Reason Comments Thyroid Problem Reason Comments Thyroid Problem Labs increased acne since starting medication Reason Comments Thyroid Problem Labs Reason Comments Non-Chemotherapy Treatment Reason Comments Established Patient Follow-Up Follow-up irregular periods/acne/hormones; ACTH stim test results FOR RECORDS PERTAINING TO PATIENTS WHO ARE OR HAVE BEEN ENROLLED IN A CHEMICAL DEPENDENCY/SUBSTANCEABUSE PROGRAM, SOME INFORMATION MAY BE OMITTED. This clinical summary was aggregated from multiple sources. Caution should be exercised in using it in the provision of clinical care. This summary normalizes information from multiple sources, and as a consequence, information in this document may materially change the coding, format and clinical context of patient data. In addition, data may be omitted in some cases. CLINICAL DECISIONS SHOULD BE BASED ON THE PRIMARY CLINICAL RECORDS. [employer] provides no warranty or guarantee of the accuracy or completeness of information in this document.
[2025-02-15 12:20] LABS: Hematocrit 38.9 % (37-47); Hemoglobin 13.5 g/dL (12.0-15.0); Immature Granulocytes Count 0.020 X10^3/uL (0.0-0.0); Mean Corp Hgb Conc 34.7 g/dL (32-36); Mean Corpuscular Volume 94.9 fL (81-99); Mean Platelet Vol. 11.4 fl (6.2-12.0); NRBC Flagged by Analyzer 0 % (0-5); Platelet Count 247 K/mm3 (150-450); RBC Distribution Width CV 11.6 % (11.6-14.6); RBC Distribution Width SD 39.9 fl (35.1-43.9); Red Blood Count 4.10 M/mm3 (4.2-5.4); White Blood Count 5.7 K/mm3 (4.4-11.0)
[2025-02-15 13:28] LABS: HIV Nonreactive (Nonreactive); Hepatitis B Surface Antigen Nonreactive (Nonreactive); Hepatitis C Antibody Nonreactive (Nonreactive); Syphilis Antibodies Nonreactive (Nonreactive)
[2025-02-17 11:08] LABS: Chlamydia By Nucleic Acid AMP Negative (Negative); Gonococcus By Nucleic Acid AMP Negative (Negative)
== END | disposition home or self-care (01) ==
PROVIDERS: Referring Provider Advanced Practice Midwife; Visit Provider Advanced Practice Midwife
DX: O09.90 Supervision of high risk pregnancy, unspecified, unspecified trimester (principal); Z3A.00 Weeks of gestation of pregnancy not specified; O99.280 Endocrine, nutritional and metabolic diseases complicating pregnancy, unspecified trimester; E03.9 Hypothyroidism, unspecified; E06.3 Autoimmune thyroiditis
CPT/HCPCS: 36415; 84439; 84443; 85025; 86703; 86762; 86780; 86803; 86850; 86900; 86901; 87086; 87088; 87340; 87491; 87591

== ENCOUNTER → 2025-04-23 | Outpatient (CLI) | payer BC, SELFPAY | END | disposition home or self-care (01) | LOC: LAB 15:00 | PROVIDERS: Referring Provider Obstetrics & Gynecology; Visit Provider Obstetrics & Gynecology | DX: Z34.02 Encounter for supervision of normal first pregnancy, second trimester (principal) | CPT/HCPCS: 36415 ==

== ENCOUNTER → 2025-05-10 | Outpatient (CLI) | payer BC, SELFPAY ==
[2025-05-10 17:17] LABS: Free T3 2.3 pg/mL (2.18-3.98)
== END | disposition home or self-care (01) ==
PROVIDERS: Visit Provider Advanced Practice Midwife
DX: E06.3 Autoimmune thyroiditis (principal)
CPT/HCPCS: 36415; 84443; 84481

== ENCOUNTER → 2025-06-08 | Outpatient (CLI) | payer BC, SELFPAY ==
--- NOTE | 2025-06-08 15:02 | ECHOD_ITS ---
Reason For Study Reason For Study: Congenital Heart Disease Procedure This was a 2D Doppler, Color Flow transthoracic echocardiogram. The patient is in sinus rhythm. Myocardial strain analysis was performed in this exam to aid in the assessment of cardiac function. Exam performed in department. Left Ventricle Normal LV size. The global longitudinal strain = -23.8 % (normal). The left ventricular ejection fraction is 65 %. No regional wall motion abnormalities noted. Right Ventricle Normal RV size. Normal systolic function. Atria Normal left atrium. Normal right atrium. Mitral Valve Equivocal mitral valve prolapse. Mild (1+) mitral valve insufficiency. Tricuspid Valve Normal tricuspid valve. Mild (1+) tricuspid valve insufficiency. Pulmonary artery systolic pressure is 20 mmHg. Aortic Valve Trisinus/trileaflet aortic valve. Pulmonic Valve Normal pulmonic valve. Great Vessels Normal aortic root. The pulmonary artery is normal size. Inferior vena cava collapse with respiration. Pericardium/Pleural No pericardial effusion. MMode/2D Measurements & Calculations LVIDd: 4.6 cm IVSd: 0.82 cm Ao root diam: 2.5 cm LVIDs: 3.1 cm LVPWd: 0.64 cm RVDd: 3.8 cm FS: 33.3 % LAV(MOD-bp): 46.1 ml LVAd ap4: 33.0 cm2 SV(MOD-sp4): 72.7 ml LAV(MOD-bp) Indexed: 25.6 ml/m2 LVLd ap4: 8.2 cm SI(MOD-sp4): 40.3 ml/m2 LAV(MOD-sp2): 51.1 ml EDV(MOD-sp4): 108.9 ml LAV(MOD-sp4): 38.0 ml EDV(sp4-el): 113.5 ml LVAs ap4: 16.2 cm2 LVLs ap4: 6.1 cm ESV(MOD-sp4): 36.3 ml ESV(sp4-el): 36.2 ml EF(MOD-sp4): 66.7 % EF(sp4-el): 68.1 % SV(sp4-el): 77.2 ml LA A4 area: 15.1 cm2 LA dimension(2D): 3.7 cm RA A4 area: 13.9 cm2 Time Measurements MV dec time: 0.21 sec Doppler Measurements & Calculations MV E max misael: 106.6 cm/sec Lat Peak E' Misael: 27.2 cm/sec Med Peak E' Misael: 17.7 cm/sec MV A max misael: 71.5 cm/sec E/E' lat: 3.9 E/E' med: 6.0 MV E/A: 1.5 MV V2 max: 139.8 cm/sec MV P1/2t max misael: 140.7 cm/sec Ao V2 max: 147.4 cm/sec MV max P.8 mmHg MV P1/2t: 85.0 msec Ao max P.7 mmHg MV V2 mean: 70.5 cm/sec Ao V2 mean: 101.6 cm/sec MV mean P.4 mmHg MV dec slope: 484.9 cm/sec2 Ao mean P.7 mmHg MV V2 VTI: 39.8 cm MVA(P1/2t): 2.6 cm2 Ao V2 VTI: 31.0 cm AV (velocity ratio): 0.83 LV V1 max: 123.9 cm/sec MR max misael: 421.2 cm/sec PA V2 max: 121.9 cm/sec LV V1 max P.1 mmHg MR max P.0 mmHg LV V1 mean P.3 mmHg LV V1 mean: 84.0 cm/sec LV V1 VTI: 25.9 cm TR max misael: 202.0 cm/sec TR max P.3 mmHg ECHO/Echo Complete Interpretation Summary Normal LV size. The global longitudinal strain = -23.8 % (normal). The left ventricular ejection fraction is 65 %. Trisinus/trileaflet aortic valve. Equivocal mitral valve prolapse. Ordering Physician: Marva Anderson Referring Physician: Marva Anderson Performed By: Pascual Mullen RCS
== END | disposition home or self-care (01) ==
LOC: CVS 15:02
PROVIDERS: Referring Provider Obstetrics & Gynecology; Visit Provider Obstetrics & Gynecology
DX: O09.91 Supervision of high risk pregnancy, unspecified, first trimester (principal); Z3A.00 Weeks of gestation of pregnancy not specified; Z82.79 Family history of other congenital malformations, deformations and chromosomal abnormalities
CPT/HCPCS: 93306

== ENCOUNTER → 2025-06-29 | Outpatient (CLI) | payer BC, SELFPAY ==
--- OUTSIDE RECORDS SUMMARY | 2025-06-29 10:08 | XMS RPT_ITS | CCD ---
Author Organization [facility] Care Team Providers Care Social Services Coordinator Name Role Phone TOBIN NAIR OREN Primary Care Physician [phone] [place] Rodriguez Attending Provider [phone] ERIN ANDREWS MD Attending Unavaila ble HALKO DO, OREN Primary Care Unavailable HALKO DO, OREN Primary Care Unavailable ERIN ANDREWS MD Attending Unavaila ble HALKO DO, OREN Primary Care Unavailable ERIN ANDREWS MD Attending Unavaila ble Halko IV, DO, Lety Primary Care Provider [phone] Care Physician, No Primary Primary Care Provider Unavailable Care Physician, No Primary Referring Provider Un available Yasmeen Rodriguez CNM Attending Provider HALKO IV, LETY Primary Care Unavailable HALKO [...] BENDARAM, LASHONDA SHIPMAN Attending Unavaila ble Brianda Ying FULTON Attending Provider Robina Peters CNM Attending Provider [phone] Robina Peters CNM Referring Provider [phone] Care Physician, No Primary Referring Provider Un available Justin HOWELL, Dr. Durham Attending Provider Ying Berry Attending Physician [phone] Fran COLEMAN, Robina Attending Physician [phone] Justin HOWELL, Dr. Durham Attending Physician Dr. Kierra Dooley DO Attending Physician MARVA SHAH Referring Unavailabl e NO PRIMARY CAREMD Primary Care Unavailable VILLA DE SANTIAGO Attending Unavailable MARVA SHAH Referring Unavailabl e BRIANA MENA Attending Unavailable NO PRIMARY CARE, Primary Care Unavailable MARVA SHAH Referring Unavailabl e BRIANA MENA Attending Unavailable NO PRIMARY CARE, Primary Care Unavailable Marva Shah Attending Unavailable Kierra Dooley Attending Unavailabl e Robina Peters Attending Unavailable oRbina Peters Referring Unavailable Care Physician, No Primary Referring Unava ilable Robina Peters Attending Unavailable Care Physician, No Primary Primary Care Unava ilable Care Physician, No Primary Referring Unava ilable Care Physician, No Primary Primary Care Unava ilable Marva Shah Attending Unavailable Care Physician, No Primary Primary Care Unava ilable Kierra Dooley Attending Unavailabl Kierra Gonzalez Referring Unavailabl e Robina Peters Attending Unavailable Care Physician, No Primary Primary Care Unava ilable Care Physician, No Primary Primary Care Unava ilable Care Physician, No Primary Referring Unava ilable Yasmeen Rodriguez Attending Unavailable Care Physician, No Primary Referring Unava ilable Ying Lamar NP Attending Unavailable Robina Peters Attending Unavailable Care Physician, No Primary Referring Unava ilable MD LASHONDA THOMAS Attending Unava ilable OREN RUDD DO Primary Care Unavailable MD LASHONDA THOMAS Attending Unava ilable OREN RUDD DO Primary Care Unavailable OREN RUDD DO Primary Care Unavailable MD LASHONDA THOMAS Attending Unava ilable OREN RUDD DO Primary Care Unavailable REFERRING, PHY WO ID Attending Unavailable MD LASHONDA THOMAS Attending OREN Solorio DO Primary Care Unavailable MD LASHONDA THOMAS Attending OREN Solorio DO Primary Care Unavailable Care Physician, No Primary Referring Provider Un available Ying Berry Attending Physician [phone] Robina Peters CNM Attending Physician [phone] Robina Peters CNM Referring Provider [phone] Justin HOWELL, Dr. Durham Attending Physician Dr. Kierra Dooley DO Attending Physician Care Physician, No Primary Primary Care Physicia n Unavailable Dr. Kierra Dooley DO Referring Provider Allergies Allergy Classification Reported Allergen(s) Allergy Type Date of Onset Reaction(s) Facility (20 sources) Amoxicillin / Clavulanate; Translations: [amoxicillin-cl avulanate] Drug Allergy 4 Diarrhea, GI Upset, Vomiting [facility] (8 sources) Amoxicillin Drug Allergy 3 Abd cramps/diarrhea [facility] (8 sources) Clavulanate Drug Allergy 3 Abd cramps/diarrhea [facility] (2 sources) AMOXICILLIN-POT CLAVULANATE; Translations: [AMOXICILLIN-PO T CLAVULANATE] Propensity to adverse reactions to drug (disorder) 4 [facility] (1 source) Amoxicillin Drug Allergy 5 [facility] (1 source) Clavulanate Drug Allergy 5 [facility] Medications Current Medications Medication Drug Class(es) Dates Sig (Normalized) Sig (Original) levothyroxine sodium 0.05 mg oral tablet (20 sources) l-Thyroxine Start: 01-30-2025 Start: 07-06-2024 End: 01-08-2025 take 1 tablet by mouth once daily levothyroxine (LEVOXYL) 75 mcg tablet Indications: Acquired hypothyroidism Take 1 tablet by mouth once daily. 90 tablet 1 01/08/2025 Active Start: 11-26-2022 Synthroid 50 m cg (0.05 mg) oral tablet Dose : 50 mcg = 1 tab(s), Oral, qDay, # 90 tab(s), 3 Refill(s), Pharmacy: [facility], 170.5, cm, 10/01/22 10:01:00 EDT, Height, kg, 10/01/22 10:01:00 EDT, Dosing Weight Start Date: 11/26/22 Status: Ordered Medication Dispense Status: Completed Quantity: 90.0 Unit: tab(s) Total Allowed Fills: 4 Fills Dispensed: 0 Start: 10-12-2022 End: 01-30-2025 take 1 tablet by mouth once daily Levothyroxine (Synthroid) 50 mcg tablet Discontinued 50 ug PO DAILY October 11, 2022 11:00pm January 30, 2025 7:17am Start: 06-15-2022 Synthroid 50 m cg (0.05 mg) oral tablet Dose : 50 mcg = 1 tab(s), Oral, qDay, # 90 tab(s), 3 Refill(s), Pharmacy: [facility], 170.5, cm, 02/02/22 13:56:00 EDT, Height, kg, 02/02/22 13:56:00 EDT, Dosing Weight Start Date: 06/15/22 Status: Ordered Start: 06-12-2021 Synthroid 50 m cg (0.05 mg) oral tablet Dose : 50 mcg = 1 tab(s), Oral, qDay, # 90 tab(s), 3 Refill(s), Pharmacy: [facility], 167.6, cm, 06/12/21 15:18:00 EST, Height, kg, 06/12/21 15:18:00 EST, Dosing Weight Start Date: 06/12/21 Status: Ordered Start: 04-09-2021 Synthroid 50 m cg (0.05 mg) oral tablet Dose : 50 mcg = 1 tab(s), Oral, qDay, # 30 tab(s), 3 Refill(s), Pharmacy: [facility]/pharmacy #[id number], 167.6, cm, 01/28/21 15:20:00 EDT, Height, kg, 01/28/21 15:20:00 EDT, Dosing Weight Start Date: 04/09/21 Status: Ordered MEDICATION, NON-DATABASE (20 sources) take 1 capsule by mo uth twice daily MEDICATION, NON-DATABASE Take 1 capsule by mouth two times a day. Thyro-care *under the supervision of a general supervisor -- compound formula* Active take 1 capsule by mouth once juan ly MEDICATION, NON-DATABASE Take 1 capsule by mouth once daily. Adrenal Assist *under the supervision of a general supervisor -- compound formula* Active take 1 capsule by mouth twice da александр MEDICATION, NON-DATABASE Take 1 capsule by mouth two times a day. Thyro-care *under the supervision of a general supervisor -- compound formula* 0 Active take 1 capsule by mouth once juan ly MEDICATION, NON-DATABASE Take 1 capsule by mouth once daily. Adrenal Assist *under the supervision of a general supervisor -- compound formula* 0 Active OMEGA 9-RDK-NBT-FISH OIL ORA L (15 sources) take 1 capsule by mouth once daily OMEGA 7-YDZ-IXA-FISH OIL ORAL Take 1 capsule by mouth once daily. Active OMEGA 3-DHA-EPA- FISH OIL ORAL Take by mouth. Active OTC NUTRITIONAL SUPPLEMENT (15 sources) take 1 tablet by heather th once daily OTC NUTRITIONAL SUPPLEMENT Take 1 tablet by mouth once daily. Vitex Supplement Active OTC NUTRITIONAL SUPPLEMENT Vitex Supplement Active Pnv Cmb 09-Ximv-Fw-[place]-3-D vargas 29 mg iron- 1 mg-200 mg combo pack (3 sources) Start: 01-30-2025 Pnv Cmb 52-Iro q-Ap-Iynag-3-Dha 29 mg iron- 1 mg-200 mg combo pack Active NMA PO January 30, 2025 12:00am Pnv No.78-Yadu-Yg-[place]-3-Dh a 29 mg iron- 1 mg-200 mg combo pack (3 sources) Start: 01-30-2025 Start: 01-30-2025 Pnv No.52-Iron -Oh-Khhyf-5-Dha 29 mg iron- 1 mg-200 mg combo pack Active NMA PO January 30, 2025 12:00am Complies with drug therapy Start: 01-30-2025 Pnv No.52-Iron -Qn-Fkcmx-7-Dha 29 mg iron- 1 mg-200 mg combo pack Active NMA PO January 30, 2025 12:00am vit 93/iron fum/folic ( FORMULA ORAL) (15 sources) take 1 tablet by heather th once daily vit 93/iron fum/folic ( FORMULA [...] (CORTROSYN) Problems Problem Classification Problem Date Documented Date Episodic/Chronic Cardiac and circulatory congenital anomalies (4 sources) Congenital absence and hypoplasia of umbilical artery; 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] Onset: 025 05-14-2025 Chronic Comment on above: growth US q 4 weeks, delivery between 39-40 weeks Cardiac dysrhythmias (14 sources) Tachycardia 06-27-2019 Episodic Coronary atherosclerosis and other heart disease (14 sources) Exercise-induced angina 06-27-2019 Chronic Heart valve disorders (14 sources) Pulmonic valve regurgitation 07-07-2019 Chr onic Heart valve disorders (14 sources) Systolic murmur 06-27-2019 Episodic Joint disorders and dislocations; trauma-related (14 sources) Patellofemoral stress syndrome 12-22-2019 Chronic Menstrual disorders (17 sources) Secondary amenorrhea; Translations: [Irregular periods] Onset: 025 06-12-2021 Chronic Nonmalignant breast conditions (20 sources) Lesion of breast; Translations: [Unspecified lump in unspecified breast] Onset: 025 10-12-2022 Episodic Comment on above: breast ultrasound or dered 0.5cm mobile nodule 5cm from nipple, 11 oclock 0.5cm mobile nodule 5cm from nipple, 11 oclocksurgical consult placed for biospy. Other complications of (20 sources) High risk ; Translations: [Supervision of high risk , unspecified, unspecified trimester] 01-30-2025 Episodic Comment on above: , KATE 09/19/25, H usband Haris PRR, , KATE , Haris Other complications of (10 sources) Inherited disorder of folate metabolism; Translations: [Endocrine, nutritional and metabolic diseases complicating , unspecified trimester] 01-30-2025 Episodic Other complications of (1 source) Supervision of high risk , unspecified, first trimester; Translations: [Supervision of high risk , unspecified, first trimester] Onset: Episodic Other complications of (1 source) Supervision of high risk , unspecified, unspecified trimester; Translations: [Supervision of high risk , unspecified, unspecified trimester] Onset: Episodic Other complications of (1 source) Endocrine, nutritional and metabolic diseases complicating , unspecified trimester; Translations: [Endocrine, nutritional and metabolic diseases complicating , unspecified trimester] Onset: 025 Episodic Other gastrointestinal disorders (14 sources) Irritable bowel syndrome 07-16-2020 Chronic Other nutritional; endocrine; and metabolic disorders (1 source) Methylenetetrahydrofolate reductase deficiency; 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 NIPT low risk, male & declined carrier. Other screening for suspected conditions (not mental disorders or infectious disease) (2 sources) Thyroid function tests abnormal; Translations: [Abnormal results of thyroid function studies] 05-05-2024 Episodic Other skin disorders (2 sources) Acne; Translations: [Other acne] 10-06-2024 Episodic Other skin disorders (1 source) Other acne; Translations: [Other acne] Onset: Episodic Residual codes; unclassified (17 sources) Family history of breast cancer; Translations: [Family history of malignant neoplasm of breast] 01-30-2025 Episodic Comment on above: Paternal Grandmother age of onset unknown Residual codes; unclassified (1 source) Family history of malignant neoplasm of breast; Translations: [Family history of malignant neoplasm of breast] Onset: Episodic Residual codes; unclassified (1 source) 21 weeks gestation of ; Translations: [21 weeks gestation of ] Onset: Episodic Residual codes; unclassified (1 source) 17 weeks gestation of ; Translations: [17 weeks gestation of ] Onset: Episodic Residual codes; unclassified (1 source) 13 weeks gestation of ; Translations: [13 weeks gestation of ] Onset: Episodic Residual codes; unclassified (1 source) 9 weeks gestation of ; Translations: [9 weeks gestation of ] Onset: Episodic Residual codes; unclassified (1 source) FH: Congenital heart disease; Translations: [Family history of other congenital malformations, deformations and chromosomal abnormalities] 05-14-2025 Episodic Comment on above: maternal father has bicuspid valve- MFM recommends maternal echo Thyroid disorders (20 sources) Hyperthyroidism; Translations: [Hypothyroidism] Onset: 025 08-27-2020 Chronic Comment on above: [facility], we will [place] ck tsh and free t4 qtrimester. negative trab. Results Test Name Value Interpretation Reference Range Facility FT4on 05-14-2025 Free T4 [Mass/Vol] 1.20 ng/dL Normal 0.76-1.46 [facility] Comment on above: Performed By: #### T SH, FT4 #### [address] [address] LABORATORYOrdered By: SYSTEM SYSTEM on 05-14-2025 Free T4 [Mass/Vol] 1.20 ng/dL Normal 0.76 - 1. 46 ng/dL AO ADM SS TSH Qn 1.38 m[IU]/L Normal 0.36 - 3.74 mcIU/mL AO ADM SS TSHon 05-14-2025 TSH Qn 1.38 m[IU]/L Normal 0.36-3.74 [facility] Comment on above: Performed By: #### T SH, FT4 #### [address] [address] Free T3on 05-10-2025 Free T3 [Mass/Vol] 2.3 pg/mL Normal 2.18-3.98 [facility] Comment on above: Performed By: #### L [id number], [id number] ####[facility] [id number] [place], [place], [id number] Free [id number] By: Robina portillo on 05-10-2025 Free T3 [Mass/Vol] 2.3 pg/mL 2.18-3.98 [facility] Laboratory - Chemistry and C hemistry - challengeOrdered By: Robina Peters on 05-10-2025 Glucose Ql (U) Negative [facility] Laboratory - UrinalysisOrder ed By: Robina Peters on 05-10-2025 Protein Ql (U) Negative [facility] Progress Man Office Visit Reporton 05-10-2025 Progress Man Office Visit Report [facility] [place] [id number] OFFICE VISIT Date of Service: 05/10/25 MR#: [id number] Acct: [id number] Name: ERWIN COLES Rep #: [id number] 2 : 1995 Provider: [place] Montoya ams Age/Sex: 29/F [place] [facility]: Signed Intake Vital Signs 03/16/25 13:52 04/25/25 15:07 05/10/25 15:43 05/10/25 15:46 Height 5 ft 6 in 5 ft 6 in 5 ft 6 in 5 ft 6 in Weight: 154 lb 7 oz BMI 24.9 BP 126/78 H Intake Visit Reasons: 21 WK OB Sap Bw Consultant Required: No Is patient in pain?: No Allergies amoxicillin (From Augmentin) Allergy (Mild, Verified 05/10/25 15:43) Abd cramps/diarrhea clavulanic acid (From Augmentin) Allergy (Mild, Verified 05/10/25 15:43) Abd cramps/diarrhea Medications ???Medication ???Instructions ???Recorded ???Confirmed ???Type PNV-iron 29 mg-folic acid 1 pkg PO 01/30/25 05/10/25 History nb-ozjmv-5-dha 200 mg oral combo pack levothyroxine 50 mcg tablet 75 mcg PO DAILY 01/30/25 05/10/25 History (Synthroid) Last Menstrual Period: 12/13/24 Zika: Zika virus screening: Negative : No PFSH PFSH Medical History Hypothyroidism Surgical History Status post myringotomy with tube placement of both ears S/P wisdom tooth extraction S/P wrist surgery S/P tonsillectomy and adenoidectomy Family History Grandmother Breast cancer Paternal Cancer Paternal Skin cancer Hypertension Mother Hypertension Father Heart disease Artificial valve CVA (cerebral vascular accident) Grandfather Marcello disease Paternal Social History adopted: No household [...] 3-4 times per week duration: 45-60 minutes/day channing/restorationism: Orthodoxy seatbelt use: always do you feel safe at home: Yes additional social history: - Haris-Counselor Aide Wally History 1 Elective abortions Hx Para 0 Spontaneous abortions Hx # Term Pregnancies Ectopic pregnancies Hx # Pregnancies Multiple births # of living children HPI 21 WK OB Details: ERWIN COLES is a 29 year old who presents for routine OB visit. OB Visit KATE Calculator Estimated Delivery Date Method Current WG Current Estimate 09/19/25 LMP (Certain) 21w 1d Other Estimates 09/21/25 Ultrasound #1 20w 6d Expected Delivery Route/Plan Labor Preferences- CB/BF classes: [...] list details Initial Weight: 145 lb Date -???-???-???-???-???-???- ???-???-???-???-???-???- EGA Weight BP Urine Prot -???-???-???-???-???-???- ???-???-???-???-???-???- Glucose FHR FuHt Pres Dilation -???-???-???-???-???-???- ???-???-???-???-???-???- Effaced St Visit Note 02/15/25 -???-???-???-???-???-???- ???-???-???-???-???-???- 9w 1d 145 lb 7 oz (+7 oz) / -???-???-???-???-???-???- ???-???-???-???-???-???- 185 -???-???-???-???-???-???- ???-???-???-???-???-???- KW- CRL 2.19 and cons with dates. Declines NIPT. [facility] managing thyroid meds. 03/16/25 -???-???-???-???-???-???- ???-???-???-???-???-???- 13w 2d 146 lb 4 oz (+1 lb 4 oz) 121/72 -???-???-???-???-???-???- ???-???-???-???-???-???- 160 -???-???-???-???-???-???- ???-???-???-???-???-???- SM- no vb cr maping 10 (more content not included)... Normal [facility] TSH DL <= 0.005 mIU/L QnOrde red By: Robina Peters on 05-10-2025 TSH Qn 1.070 uIU/mL 0.300-4.200 [facility] Thyroid Stim Hormone (TSH)on 05-10-2025 TSH 1.070 uIU/mL Normal 0.300-4.200 [facility] Comment on above: Performed By: #### L [id number], [id number] ####[facility] [id number] [place], [address] Progress Noteon 05-09-2025 Baggage Inspector Authentication Interface Message Text [facility] MATERNAL- MEDICINE CONSULT Referring/Requesting Provider: Marva Shah MD PCP: [facility], MD Yin INDICATION FOR CONSULT: SUEdgardo HISTORY OF PRESENT ILLNESS: Patient is a 29 y.o. History of Present Illness Erwin Coles is a 29 year old female who presents with her partner for a maternal- medicine consultation regarding a single umbilical artery and cardiac evaluation. single umbilical artery and cardiac evaluation - Currently 21 weeks - We reviewed the risk for potential growth restriction due to single umbilical artery - cardiac evaluation requested - Recent non-invasive testing indicates low risk for chromosomal abnormalities including microdeletion for 22q - Fetus is male Maternal thyroid function - Thyroid function is well-managed - TSH level less than 2.5 Maternal cardiovascular history - History of mitral valve prolapse diagnosed in high school - No recent follow-up for mitral valve prolapse - Blood pressure is 131/69 mmHg Family cardiovascular history - Father has bicuspid aortic valve and had a stroke at age 38 - Both parents have hypertension OB History Para Term AB Living 1 0 SAB IAB Ectopic Multiple Live Births # Outcome Date GA Lbr Wallace/2nd Weight Sex Type Anes PTL Lv 1 Current Past Medical History: Diagnosis Date Autoimmune disease Hypothyroidism pt is taking 75 mcg synthroid daily Mitral valve prolapse Thyroid disease see hypothyroid Past Surgical History: Procedure Laterality Date MYRINGOTOMY Bilateral TONSILLECTOMY AND ADENOIDECTOMY WISDOM TOOTH EXTRACTION WRIST SURGERY PERTINENT FAMILY HISTORY: Family History Problem Relation Age of Onset Hearing Loss Mother progressive hearing loss in the one ear. wears hearing aid. got hearing aid in her early 50's High Blood Pressure Mother Heart Disease Father Heart valve needed replaced twice in his lifetime. it is a mechanical valve Stroke Father 38 bleed in his brain High Blood Pressure Father Cancer Paternal Grandmother Breast cancer Diabetes Mellitus II Paternal Grandmother Other brain, spinal cord or nerve problems Paternal Grandfather Cross's disease MEDS: Outpatient Medications Marked as Taking for the 05/09/25 encounter (Office Visit) with Briana Mena DO Medication Sig Dispense Refill levothyroxine (SYNTHROID) 75 MCG tablet Take 1 Tablet (75 mcg) by mouth daily Takes 75 mcg daily Wednesday through Wednesday and then 150 MCG on the Weekends Vit-Fe Fumarate-FA ( VITAMIN PO) Take 1 Tablet by mouth daily Ferrous Sulfate (IRON PO) Take 1 Tablet by mouth daily [place] 3 340 MG CPDR Take 1 Capsule (340 mg) by mouth daily ALLERGY: Allergies[1] REVIEW OF SYSTEMS: ROS PHYSICAL EXAM: VITAL SIGNS: BP 131/69 Pulse 81 Resp 20 Ht 167.6 cm Wt 70.7 kg (155 lb 14.4 oz) LMP 12/13/2024 SpO2 100% BMI 25.16 kg/m Physical Exam AAOX3, NAD Resp effort normal gravid IMAGIN. Single living intrauterine 21w 0d. 2. Small VSD suspected. 3. Single umbilical artery. 4. The remainder of the anatomy not adequately visualized on prior ultrasound appears normal. 3. Amniotic fluid appeared normal. 4. Placenta is posterior, right without evidence of previa. LABS: NIPT: Low risk for trisomy 21, 18, 13, monosomy X, triploidy, and 22q11.2 deletion syndrome IMPRESSION AND RECOMMENDATIONS: Erwin is a 29 y.o. at 21w0d with Assessment and Plan High risk due to single umbilical artery and maternal hypothyroidism - Scheduled growth surveillance every four weeks in [place] office until delivery. - If estimated weight or abdominal circumference is less than 10th percentile, increase surveillance to twice a week and perform umbilical artery Doppler assessments. - Recommended delivery between 39-40 weeks. Maternal hypothyroidism in Hypothyroidism well-managed. - Continue Synthroid. - Last TSH levels within target range for . Repeat labs scheduled for this week. - Continue regular thyroid function tests with OB every 4-6 weeks. - Maintain TSH levels less than 2.5 for . Family history of congenital heart disease (bicuspid aortic valve for Erwin's father, s/p valve replacement, possible MVP for Erwin). - ultrasound showed possible small septal defect. - Ordered echocardiogram with pediatric cardiology. - Recommend OB to order maternal echocardiogram to assess for bicuspid aortic valve and MVP with local environmental associate in [place] for Erwin. Chart review and preparation: 15 minutes. Face to face: 12 minutes. Documentation and care coordination: 16 minutes. Total time spent on patient care today: 43 minutes. [1] Allergies Allergen Reactions Augmentin [Amoxicillin-Pot Clavulanate] Diarrhea gastrointestinal Normal [facility] Laboratory - Chemistry and C hemistry - challengeOrdered By: Marva Shah on 04-25-2025 Glucose Ql (U) Negative [facility] Laboratory - UrinalysisOrder ed By: Marva Shah on 04-25-2025 Protein Ql (U) Negative [facility] Progress Man Office Visit Reporton 04-25-2025 Progress Man Office Visit Report [facility] [address], [address] [place] [address] OFFICE VISIT Date of Service: 04/25/25 MR#: [id number] Acct: [id number] Name: ERWIN COLES Rep #: [id number] 0 : 1995 Provider: Dr. Marva mcdonald MD Age/Sex: 29/F [place] [facility] [place]: Signed Intake Vital Signs 04/12/25 09:18 04/25/25 15:07 Height 5 ft 6 in 5 ft 6 in Weight: 150 lb 9 oz BMI 24.3 BP 135/76 H Intake Visit Reasons: OB, Heartbeat check Sap Bw Consultant Required: No Is patient in pain?: No Allergies amoxicillin (From Augmentin) Allergy (Mild, Verified 04/25/25 15:09) Abd cramps/diarrhea clavulanic acid (From Augmentin) Allergy (Mild, Verified 04/25/25 15:09) Abd cramps/diarrhea Medications ???Medication ???Instructions ???Recorded ???Confirmed ???Type PNV-iron 29 mg-folic acid 1 pkg PO 01/30/25 04/25/25 History fn-sgsvp-8-dha 200 mg oral combo pack levothyroxine 50 mcg tablet 75 mcg PO DAILY 01/30/25 04/25/25 History (Synthroid) Last Menstrual Period: 12/13/24 Zika: Zika virus screening: Negative : No Have you fallen in the past year?: No PFSH PFSH Medical History Hypothyroidism Surgical History Status post myringotomy with tube placement of both ears S/P wisdom tooth extraction S/P wrist surgery S/P tonsillectomy and adenoidectomy Family History Grandmother Breast cancer Paternal Cancer Paternal Skin cancer Hypertension Mother Hypertension Father Heart disease Artificial valve CVA (cerebral vascular accident) Grandfather Cross disease Paternal Social History adopted: No household [...] 3-4 times per week duration: 45-60 minutes/day channing/restorationism: Orthodoxy seatbelt use: always do you feel safe at home: Yes additional social history: - Haris-Counselor Aide Morerik History 1 Elective abortions Hx Para 0 Spontaneous abortions Hx # Term Pregnancies Ectopic pregnancies Hx # Pregnancies Multiple births # of living children HPI OB, Heartbeat check Details: ERWIN COLES is a 29 year old who presents for routine OB visit. OB Visit KATE Calculator Estimated Delivery Date Method Current WG Current Estimate 09/19/25 LMP (Certain) 19w 0d Other Estimates 09/21/25 Ultrasound #1 18w 5d Expected Delivery Route/Plan Labor Preferences- CB/BF classes: [...] list details Initial Weight: 145 lb Date -???-???-???-???-???-???- ???-???-???-???-???-???- EGA Weight BP Urine Prot -???-???-???-???-???-???- ???-???-???-???-???-???- Glucose FHR FuHt Pres Dilation -???-???-???-???-???-???- ???-???-???-???-???-???- Effaced St Visit Note 02/15/25 -???-???-???-???-???-???- ???-???-???-???-???-???- 9w 1d 145 lb 7 oz (+7 oz) 111/72 -???-???-???-???-???-???- ???-???-???-???-???-???- 185 -???-???-???-???-???-???- ???-???-???-???-???-???- KW- CRL 2.19 and cons with dates. Declines NIPT. [facility] managing thyroid meds. 03/16/25 -???-???-???-???-???-???- ???-???-???-???-???-???- 13w 2d 146 lb 4 oz (+1 lb 4 oz) 121/72 -???-???-???-???-???-???- ???-???-???-???-???-???- 160 -???-???-???-???-???-???- ???-???-???-???-???-???- SM- no vb cr maping 10 (more content not included)... Normal [facility] NATERAon 04-23-2025 NATARACELY SEE SCANNED REPORT Normal [facility] Comment on above: Performed By: #### L 900.0098 #### [facility] [address] [place], [address] Laboratory - Chemistry and C hemistry - challengeOrdered By: Kierra Javed on 04-12-2025 Glucose Ql (U) Negative [facility] Laboratory - UrinalysisOrder ed By: Kierra Javed on 04-12-2025 Protein Ql (U) Negative [facility] Progress Man Office Visit Reporton 04-12-2025 Progress Man Office Visit Report [facility] [address], [address] [place] [address] OFFICE VISIT Date of Service: 04/12/25 MR#: [id number] Acct: [id number] Name: ERWIN COLES Rep #: [id number] : 1995 Provider: Dr. Kierra Caputo DO Age/Sex: 29/F Location: [facility] Status: Signed Intake Vital Signs 02/15/25 08:29 03/16/25 13:52 04/12/25 09:17 04/12/25 09:18 Height 5 ft 6 in 5 ft 6 in 5 ft 6 in 5 ft 6 in Weight: 151 lb BMI 24.3 BP 116/71 Intake Visit Reasons: 17 wk ob Sap Bw Consultant Required: No Is patient in pain?: No Allergies amoxicillin (From Augmentin) Allergy (Mild, Verified 04/12/25 09:17) Abd cramps/diarrhea clavulanic acid (From Augmentin) Allergy (Mild, Verified 04/12/25 09:17) Abd cramps/diarrhea Medications ???Medication ???Instructions ???Recorded ???Confirmed ???Type PNV-iron 29 mg-folic acid 1 pkg PO 01/30/25 04/12/25 History ay-sujag-9-dha 200 mg oral combo pack levothyroxine 50 mcg tablet 75 mcg PO DAILY 01/30/25 04/12/25 History (Synthroid) Last Menstrual Period: 12/13/24 Zika: Zika virus screening: Negative : No PFSH PFSH Medical History Hypothyroidism Surgical History Status post myringotomy with tube placement of both ears S/P wisdom tooth extraction S/P wrist surgery S/P tonsillectomy and adenoidectomy Family History Grandmother Breast cancer Paternal Cancer Paternal Skin cancer Hypertension Mother Hypertension Father Heart disease Artificial valve CVA (cerebral vascular accident) Grandfather Cross disease Paternal Social History adopted: No household members: spouse housing: apartment number of children: 0 current occupational status: employed current occupation: [employer] current occupational exposures/hazards: No pets and animals: [...] 3-4 times per week duration: 45-60 minutes/day channing/restorationism: Orthodoxy seatbelt use: always do you feel safe at home: Yes additional social history: - Haris-Counselor Aide Wally History 1 Elective abortions Hx Para 0 Spontaneous abortions Hx # Term Pregnancies Ectopic pregnancies Hx # Pregnancies Multiple births # of living children HPI 17 wk ob Details: ERWIN COLES is a 29 year old who presents for routine OB visit. OB Visit KATE Calculator Estimated Delivery Date Method Current WG Current Estimate 09/19/25 LMP (Certain) 17w 1d Other Estimates 09/21/25 Ultrasound #1 16w 6d Expected Delivery Route/Plan Labor Preferences- CB/BF classes: [...] list details Initial Weight: 145 lb Date -???-???-???-???-???-???- ???-???-???-???-???-???- EGA Weight BP Urine Prot -???-???-???-???-???-???- ???-???-???-???-???-???- Glucose FHR FuHt Pres Dilation -???-???-???-???-???-???- ???-???-???-???-???-???- Effaced St Visit Note 02/15/25 -???-???-???-???-???-???- ???-???-???-???-???-???- 9w 1d 145 lb 7 oz (+7 oz) 111/72 -???-???-???-???-???-???- ???-???-???-???-???-???- 185 -???-???-???-???-???-???- ???-???-???-???-???-???- KW- CRL 2.19 and cons with dates. Declines NIPT. [facility] managing thyroid meds. 03/16/25 -???-???-???-???-???-???- ???-???-???-???-???-???- 13w 2d 146 lb 4 oz (+1 lb 4 oz) 121/72 -???-???-???-???-???-???- ???-???-???-???-???-???- 160 -???-???-???-???-???-???- ???-???-???-???-???-???- SM- no vb cr maping (more content not included)... Normal [facility] Progress Man Office Visit Reporton 03-16-2025 Progress Man Office Visit Report [facility] [address], [address] [place] [address] OFFICE VISIT Date of Service: 03/16/25 MR#: [id number] Acct: [id number] Name: ERWIN COLES Rep #: [id number] 7 : 1995 Provider: Dr. Marva mcdonald MD Age/Sex: 29/F [place] [facility]: Signed Intake Vital Signs 11/14/24 09:41 02/15/25 08:29 03/16/25 13:52 Height 5 ft 6 in 5 ft 6 in 5 ft 6 in Weight: 146 lb 4 oz BMI 23.6 BP 121/72 H Intake Visit Reasons: 13 wk ob Sap Bw Consultant Required: No Is patient in pain?: No Allergies amoxicillin (From Augmentin) Allergy (Mild, Verified 03/16/25 13:50) Abd cramps/diarrhea clavulanic acid (From Augmentin) Allergy (Mild, Verified 03/16/25 13:50) Abd cramps/diarrhea Last Menstrual Period: 12/13/24 Zika: Zika virus screening: Negative : No PFSH PFSH Medical History (Updated 03/16/25 @ 14:[address] Marva Shah MD) Hypothyroidism Surgical History Status post myringotomy with tube placement of both ears S/P wisdom tooth extraction S/P wrist surgery S/P tonsillectomy and adenoidectomy Family History Grandmother Breast cancer Paternal Cancer Paternal Skin cancer Hypertension Mother Hypertension Father Heart disease Artificial valve CVA (cerebral vascular accident) Grandfather Marcello disease Paternal Social History adopted: No household [...] 3-4 times per week duration: 45-60 minutes/day channing/restorationism: Orthodoxy seatbelt use: always do you feel safe at home: Yes additional social history: - Haris-Counselor Aide Wally History 1 Elective abortions Hx Para 0 Spontaneous abortions Hx # Term Pregnancies Ectopic pregnancies Hx # Pregnancies Multiple births # of living children HPI 13 wk ob Details: ERWIN COLES is a 29 year old who presents for routine OB visit. OB Visit KATE Calculator Estimated Delivery Date Method Current WG Current Estimate 09/19/25 LMP (Certain) 13w 2d Other Estimates 09/21/25 Ultrasound #1 13w 0d Expected Delivery Route/Plan Labor Preferences- CB/BF classes: [...] list details Initial Weight: 145 lb Date -???-???-???-???-???-???- ???-???-???-???-???-???- EGA Weight BP Urine Prot -???-???-???-???-???-???- ???-???-???-???-???-???- Glucose FHR FuHt Pres Dilation -???-???-???-???-???-???- ???-???-???-???-???-???- Effaced St Visit Note 02/15/25 -???-???-???-???-???-???- ???-???-???-???-???-???- 9w 1d 145 lb 7 oz (+7 oz) 111/72 -???-???-???-???-???-???- ???-???-???-???-???-???- 185 -???-???-???-???-???-???- ???-???-???-???-???-???- KW- CRL 2.19 and cons with dates. Declines NIPT. [facility] managing thyroid meds. 03/16/25 -???-???-???-???-???-???- ???-???-???-???-???-???- 13w 2d 146 lb 4 oz (+1 lb 4 oz) 121/72 -???-???-???-???-???-???- ???-???-???-???-???-???- 160 -???-???-???-???-???-???- ???-???-???-???-???-???- SM- no vb cr maping ACOG First Trimester First Trimester: Desire for , Alcohol, Tobacco Cessation, Illicit/Recreational Drug/Substance Use, Intimate Partner Violence, Barriers to care, Unstable Housing, Communication Barriers, Environmental/Work Hazards, Anticipated Course of Care, Toxoplasmosis (more content not included)... Normal [facility] L3410.9992on 02-24-2025 [facility] [place] COM[place] Normal . [facility] Comment on above: Order Comment: [id number] 8TSH R AB SERUM FZ Result Comment: Test Ordered: [id number] TSH Receptor Antibody (TBII) TSH Receptor Antibody (TBII) <0.3 U/L Reference Range: . Reference Range: Antibody Titer: <1.0 U/L = Negative 1.1 - 1.5 U/L = Equivocal >1.5 U/L = Positive Performed at: [facility] [address] [place] [id number] Loft Rigger: Manny Monae MD, Phone: [phone] Performed at: - [facility] [address] [id number] Loft Rigger: Estevan Barber PhD, Phone: [phone] Performed By: #### L 100.0100, L501.9520, L3890.6006, L3890.6102, BTS, L3890.6301, L509.4006, L506.0400, L3410.9992, L509.8002 ####[facility] [address] [place], [address] Chlamydia/GC ULISES aptimaon CHLAMY,NUC ACID Negative Normal Negative [facility] Comment on above: Performed By: #### M 100.2200, L7000.1800 #### [facility] [address] [place], [address] GC BY NUC ACID Negative Normal Negative [facility] Comment on above: Result Comment: Perf ormed at: =G - [facility] [address] [id number] Loft Rigger: Ann Marie Carrasco MD, Phone: [phone] Performed By: #### M 100.2200, L7000.1800 #### [facility] [address] [place], [address] Urine Cultureon 02-17-2025 [facility] Below infection leve l. Mixed Gram Positive Organisms Rockwell Count <1000 MIXC Mixed contaminants. Submit a new specimen if indicated. Normal [facility] Comment on above: Performed By: #### M 100.2200, L7000.1800 #### [facility] [address] [place], [address] Urine cultureOrdered By: Tomas Peters on 02-16-2025 Bacteria identified Cx Nom (U) Positive Abnormal [facility] Absolute lymphocyte countOrd ered By: Robina Peters on 02-15-2025 Lymphocytes Auto (Unsp spec) [#/Vol] 1.18 10*3/uL 0.83-4.51 [facility] Absolute neutrophil countOrd ered By: Robina Peters on 02-15-2025 Neutrophils (Bld) [#/Vol] 4.0 10*3/uL 2.0-7.7 [facility] Automated blood erythrocyte countOrdered By: Robina Peters on 02-15-2025 RBC (Bld) [#/Vol] 4.10 10*6/uL Low 4.2-5.4 [facility] Comment on above: Performed By: #### L 100.0100, L501.9520, L3890.6006, L3890.6102, BTS, L3890.6301, L509.4006, L506.0400, L3410.9992, L509.8002 #### [facility] [address] [place], [address] Automated blood hematocrit ( percentage)Ordered By: Robina Peters on 02-15-2025 Hematocrit (Bld) [Volume fraction] 38.9 % Normal 37-47 [facility] Comment on above: Performed By: #### L 100.0100, L501.9520, L3890.6006, L3890.6102, BTS, L3890.6301, L509.4006, L506.0400, L3410.9992, L509.8002 #### [facility] [address] [place], [place], [id number] Automated lymphocyte count a s percentage of total leukocytesOrdered By: Robina Peters on 02-15-2025 Lymphocytes/100 WBC Auto (Unsp spec) 20.7 % 19-41 [facility] Basophil percentageOrdered B y: Robina ePters on 02-15-2025 Basophils/100 WBC (Bld) 0.4 % Normal 0-1 [facility] Comment on above: Performed By: #### L 100.0100, L501.9520, L3890.6006, L3890.6102, BTS, L3890.6301, L509.4006, L506.0400, L3410.9992, L509.8002 #### [facility] [address] [place], [address] CBC W/Diff, Automatedon 08- Absolute Lymph 1.18 X10 3/uL Normal 0.83-4.51 [facility] Comment on above: Performed By: #### L 100.0100, L501.9520, L3890.6006, L3890.6102, BTS, L3890.6301, L509.4006, L506.0400, L3410.9992, L509.8002 #### [facility] [address] [place], [address] Absolute Neut 4.0 X10 3/uL Normal 2.0-7.7 [facility] Comment on above: Performed By: #### L 100.0100, L501.9520, L3890.6006, L3890.6102, BTS, L3890.6301, L509.4006, L506.0400, L3410.9992, L509.8002 #### [facility] [address] [place], [place], [phone] (675) IG% 0.400 Normal 0.0-0.9 [facility] Comment on above: Result Comment: IG% - Immature Granulocytes (promyelocytes, myelocytes and metamyelocytes) > 1% indicates that a LEFT SHIFT is Present. Performed By: #### L 100.0100, L501.9520, L3890.6006, L3890.6102, BTS, L3890.6301, L509.4006, L506.0400, L3410.9992, L509.8002 #### [facility] [address] [place], [address] Lymphocytes/100 WBC (Bld) 20.7 % Normal 19-41 [facility] Comment on above: Performed By: #### L 100.0100, L501.9520, L3890.6006, L3890.6102, BTS, L3890.6301, L509.4006, L506.0400, L3410.9992, L509.8002 #### [facility] [address] [place], [address] Nucleated RBC (Bld) [#/Vol] 0 10*3/uL Normal 0-5 [facility] Comment on above: Performed By: #### L 100.0100, L501.9520, L3890.6006, L3890.6102, BTS, L3890.6301, L509.4006, L506.0400, L3410.9992, L509.8002 #### [facility] [address] [place], [address] RDW SD 39.9 fl Normal 35.1-43.9 [facility] Comment on above: Performed By: #### L 100.0100, L501.9520, L3890.6006, L3890.6102, BTS, L3890.6301, L509.4006, L506.0400, L3410.9992, L509.8002 #### [facility] [address] [place], [address] Chlamydia trachomatis rRNA d etection by probe and target amplification methodOrdered By: Robina Peters on 02-15-2025 C. trachomatis rRNA ULISES+probe Ql (Unsp spec) Negative Negative [facility] Eosinophil percentageOrdered By: Robina Peters on 02-15-2025 Eosinophils/100 WBC (Bld) 0.4 % Normal 0-5 [facility] Comment on above: Performed By: #### L 100.0100, L501.9520, L3890.6006, L3890.6102, BTS, L3890.6301, L509.4006, L506.0400, L3410.9992, L509.8002 #### [facility] [address] [place], [address] Erythrocyte distribution wid th ratioOrdered By: Robina Peters on 02-15-2025 Erythrocyte distribution width (RBC) [Ratio] 11.6 % Normal 11.6-14.6 [facility] Comment on above: Performed By: #### L 100.0100, L501.9520, L3890.6006, L3890.6102, BTS, L3890.6301, L509.4006, L506.0400, L3410.9992, L509.8002 #### [facility] [address] [place], [address] Erythrocyte distribution wid th standard deviationOrdered By: Robina Peters on 02-15-2025 Erythrocyte distribution width (RBC) [Ratio] 39.9 fl 35.1-43.9 [facility] HIVon 02-15-2025 HIV Non-Reactive Normal Nonreactive [facility] Comment on above: Result Comment: Non- Reactive Reactive Repeatedly reactive samples must be confirmed according to CDC recommended confirmatory algorithms. The subresults for either HIVAG or AHIV can be used as an aid in the selection of the confirmation algorithm for reactive samples. Send out specimens with Reactive results to [facility] for confirmation. Order the HIV antibody detection and differentiation: #[id number] Performed By: #### L 100.0100, L501.9520, L3890.6006, L3890.6102, BTS, L3890.6301, L509.4006, L506.0400, L3410.9992, L509.8002 ####[facility] [address] [place], [address] Hemoglobin measurementOrdere d By: Robina Peters on 02-15-2025 Hemoglobin (Bld) [Mass/Vol] 13.5 g/dL Normal 12.0-15.0 [facility] Comment on above: Performed By: #### L 100.0100, L501.9520, L3890.6006, L3890.6102, BTS, L3890.6301, L509.4006, L506.0400, L3410.9992, L509.8002 #### [facility] [address] [place], [address] Hepatitis C Antibodyon 02-15 Hepatitis C Ab Non-Reactive Normal Nonreactive [facility] Comment on above: Result Comment: Reac tive: Presumptive evidence of antibodies to HCV. Follow CDC recommendations for supplemental testing. Non-Reactive: Antibodies to HCV were not detected; does not exclude the possibility of exposure to HCV Reactive Results are presumptive evidence of antibodies to HCV. Follow CDC recommendations for supplemental testing. Order confirmation testing: HCV Quant by PCR testing - HCVPCR #[id number] Non Reactive: < 0.8 Equivocal: >/= 0.8 to < 1.0 Reactive: >/= 1.0 The [facility] requires that a reactive/equivocal HCV antibody result be sent out for confirmation. HCV Quant by PCR testing. Performed By: #### L 100.0100, L501.9520, L3890.6006, L3890.6102, BTS, L3890.6301, L509.4006, L506.0400, L3410.9992, L509.8002 ####[facility] [address] [place], [place], [id number] Immature granulocytes/100 WB C Auto (Bld)Ordered By: Robina Peters on 02-15-2025 Immature granulocytes/100 WBC (Bld) 0.400 % 0.0-0.9 [facility] Comment on above: IG% - Immature Granu locytes (promyelocytes, myelocytes and metamyelocytes) > 1% indicates that a LEFT SHIFT is Present. L3890.6102on 02-15-2025 HEP B Surf Ag Non-Reactive Normal Nonreactive [facility] Comment on above: Result Comment: Reac tive: Presumptive evidence of HBV. Repeatedly reactive samples must be confirmed using a neutralization test ([employer] HBsAg Confirmatory Test) Non-Reactive: HBsAg not detected; does not exclude the possibility of exposure to HBV Performed By: #### L 100.0100, L501.9520, L3890.6006, L3890.6102, BTS, L3890.6301, L509.4006, L506.0400, L3410.9992, L509.8002 ####[facility] [address] [place], [address] L509.4006on 02-15-2025 Rubella IgG REAC Normal Nonreactive [facility] Comment on above: Result Comment: Anti body Result: Interpretation Non-Reactive: Non-Immune Reactive: Immune The following results were obtained with the [employer] Rubella IgG assay. Results from assays of other manufacturers cannot be used interchangeably. Performed By: #### L 100.0100, L501.9520, L3890.6006, L3890.6102, BTS, L3890.6301, L509.4006, L506.0400, L3410.9992, L509.8002 ####[facility] [address] [place], [place], [id number] Laboratory - Microbiology an d Antimicrobial susceptibilityOrdered By: Robina Peters on 02-15-2025 HBV surface Ag Ql (S) Non-Reactive Nonreactive [facility] Comment on above: Reactive: Presumptiv e evidence of HBV. Repeatedly reactive samples must be confirmed using a neutralization test ([employer] HBsAg Confirmatory Test)Non-Reactive: HBsAg not detected; does not exclude the possibility of exposure to HBV MCV (mean corpuscular volume ) determinationOrdered By: Robina Peters on 02-15-2025 MCV (RBC) [Entitic vol] 94.9 fL Normal 81-99 [facility] Comment on above: Performed By: #### L 100.0100, L501.9520, L3890.6006, L3890.6102, BTS, L3890.6301, L509.4006, L506.0400, L3410.9992, L509.8002 #### [facility] [address] [facility] [place], [place], [id number] Mean corpuscular hemoglobin (MCH) determinationOrdered By: Robina Peters on 02-15-2025 MCH (RBC) [Entitic mass] 32.9 pg High 27.0-32.0 [facility] Comment on above: Performed By: #### L 100.0100, L501.9520, L3890.6006, L3890.6102, BTS, L3890.6301, L509.4006, L506.0400, L3410.9992, L509.8002 #### [facility] [address] [place], [address] Mean corpuscular hemoglobin concentration (MCHC) determinationOrdered By: Robina Peters on 02-15-2025 MCHC (RBC) [Mass/Vol] 34.7 g/dL Normal 32-36 [facility] [place] [facility] Comment on above: Performed By: #### L 100.0100, L501.9520, L3890.6006, L3890.6102, BTS, L3890.6301, L509.4006, L506.0400, L3410.9992, L509.8002 #### [facility] [address] [place], [address] Mean platelet volume determi nationOrdered By: Robina Peters on 02-15-2025 Platelet mean volume (Bld) [Entitic vol] 11.4 fL Normal 6.2-12.0 [facility] Comment on above: Performed By: #### L 100.0100, L501.9520, L3890.6006, L3890.6102, BTS, L3890.6301, L509.4006, L506.0400, L3410.9992, L509.8002 #### [facility] [address] [place], [place], [id number] Monocyte percentageOrdered B y: Robina Peters on 02-15-2025 Monocytes/100 WBC (Bld) 8.4 % Normal 0-10 [facility] Comment on above: Performed By: #### L 100.0100, L501.9520, L3890.6006, L3890.6102, BTS, L3890.6301, L509.4006, L506.0400, L3410.9992, L509.8002 #### [facility] [address] [place], [address] Neisseria gonorrhoeae nuclei c acid detection by amplified probe techniqueOrdered By: Robina Peters on 02-15-2025 N. gonorrhoeae DNA ULISES+probe Ql (Unsp spec) Negative Negative [facility] Comment on above: Performed at: =G - [address] [id number] Director: Ann Marie Carrasco MD, Phone: [phone] Neutrophil percentageOrdered By: Robina Peters on 02-15-2025 Neutrophils/100 WBC (Bld) 69.7 % Normal 47-70 [facility] Comment on above: Performed By: #### L 100.0100, L501.9520, L3890.6006, L3890.6102, BTS, L3890.6301, L509.4006, L506.0400, L3410.9992, L509.8002 #### [facility] [address] [place], [place], [address] No Panel InformationOrdered By: Robina Peters on 02-15-2025 HIV (1&2) Antibody Non-Reactive Nonreactive [facility] [place] [facility] Comment on above: Non-ReactiveReactive Repeatedly reactive samples must be confirmed according to CDC recommended confirmatory algorithms. The subresults for either HIVAG or AHIV can be used as an aid in the selection of the confirmation algorithm for reactive samples.Send out specimens with Reactive results to [facility] for confirmation.Order the HIV antibody detection and differentiation: #[id number] Nucleated red blood cell per centageOrdered By: Robina Peters on 02-15-2025 Nucleated RBC/100 WBC (Bld) [Ratio] 0 % 0-5 [facility] Progress Man Office Visit Reporton 02-15-2025 Progress Man Office Visit Report [facility] [address], [address] [place] [address] OFFICE VISIT Date of Service: 02/15/25 MR#: [id number] Acct: [id number] Name: MAMEERWIN ASHFORDN Rep #: [id number] 1 : 1995 Provider: VIRGINIA Montoya ams Age/Sex: 29/F Location: [facility] Status: Signed Intake Vital Signs 11/14/24 09:41 01/30/25 10:15 02/15/25 08:29 Height 5 ft 6 in 5 ft 6 in 5 ft 6 in Weight: 145 lb 7 oz BMI 23.4 BP 111/72 Intake Visit Reasons: *EST* NOB LMP 12/13, KATE 09/19 *ppu Chief Complaint: New OB Sap Bw Consultant Required: No Is patient in pain?: No Allergies amoxicillin (From Augmentin) Allergy (Mild, Verified 02/15/25 08:27) Abd cramps/diarrhea clavulanic acid (From Augmentin) Allergy (Mild, Verified 02/15/25 08:27) Abd cramps/diarrhea Medications ???Medication ???Instructions ???Recorded ???Confirmed ???Type PNV-iron 29 mg-folic acid 1 pkg PO 01/30/25 02/15/25 History dm-srpag-2-dha 200 mg oral combo pack levothyroxine 50 mcg tablet 75 mcg PO DAILY 01/30/25 02/15/25 History (Synthroid) Last Menstrual Period: 12/13/24 [...] Artificial valve CVA (cerebral vascular accident) Grandfather Marcello disease Paternal Social History adopted: No household members: spouse housing: apartment number of children: 0 current occupational status: employed current occupation: [employer] current occupational exposures/hazards: No pets and animals: [...] 3-4 times per week duration: 45-60 minutes/day channing/restorationism: Orthodoxy seatbelt use: always do you feel safe at home: Yes additional social history: - Haris-Counselor Aide Wally History 1 Elective abortions Hx Para 0 Spontaneous abortions Hx # Term Pregnancies Ectopic pregnancies Hx # Pregnancies Multiple births # of living children HPI *EST* NOB LMP 12/13, KATE 09/19 *ppu Details: ERWIN COLES is a 29 year old who presents for New OB visit. OB Visit KATE Calculator Estimated Delivery Date Method Current WG [...] list details Initial Weight: 145 lb Date -???-???-???-???-???-???- ???-???-???-???-???-???- EGA Weight BP Urine Prot -???-???-???-???-???-???- ???-???-???-???-???-???- Glucose FHR FuHt Pres Dilation -???-???-???-???-???-???- ???-???-???-???-???-???- Effaced St Visit Note 02/15/25 -???-???-???-???-???-???- ???-???-???-???-???-???- 9w 1d 145 lb 7 oz (+7 oz) 111/72 -???-???-???-???-???-???- ???-???-???-???-???-???- 185 -???-???-???-???-???-???- ???-???-???-???-???-???- KW- CRL 2.19 and cons with dates. Declines NIPT. [facility] managing thyroid meds. Menstrual History Last Menstrual Period: 12/13/24 Reported LMP: definite Normal amount/duration: Yes Frequency in days: was 35-50 last cycle 30 d (more content not included)... Normal [facility] Platelet countOrdered By: Manny Peters on 02-15-2025 Platelets (Bld) [#/Vol] 247 10*3/uL Normal 150-450 [facility] Comment on above: Performed By: #### L 100.0100, L501.9520, L3890.6006, L3890.6102, BTS, L3890.6301, L509.4006, L506.0400, L3410.9992, L509.8002 #### [facility] [address] [place], [place], [id number] Syphilis Antibodieson 2024 Syphilis Abs Non-Reactive Normal Nonreactive [facility] Comment on above: Performed By: #### L 100.0100, L501.9520, L3890.6006, L3890.6102, BTS, L3890.6301, L509.4006, L506.0400, L3410.9992, L509.8002 ####[facility] [address] [place], [place], [id number] T4 Free Directon 02-15-2025 T4 FREE DIRECT 1.70 ng/dL High 0.76-1.46 [facility] Comment on above: Performed By: #### L 100.0100, L501.9520, L3890.6006, L3890.6102, BTS, L3890.6301, L509.4006, L506.0400, L3410.9992, L509.8002 #### [facility] [address] [place], [place], [id number] T4 freeOrdered By: Robina portillo on 02-15-2025 Free T4 [Mass/Vol] 1.70 ng/dL High 0.76-1.46 [facility] TSH DL <= 0.005 mIU/L QnOrde red By: Robina Peters on 02-15-2025 TSH Qn 0.478 uIU/mL 0.300-4.200 [facility] Thyroid Stim Hormone (TSH)on 02-15-2025 TSH 0.478 uIU/mL Normal 0.300-4.200 [facility] Comment on above: Performed By: #### L 100.0100, L501.9520, L3890.6006, L3890.6102, BTS, L3890.6301, L509.4006, L506.0400, L3410.9992, L509.8002 #### [facility] [address] [place], [place], [id number] Type AND Screenon 02-15-2025 Ab SCREEN GEL Negative Normal [facility] Comment on above: Order Comment: PN Performed By: #### L 100.0100, L501.9520, L3890.6006, L3890.6102, BTS, L3890.6301, L509.4006, L506.0400, L3410.9992, L509.8002 #### [facility] [address] [place], [address] Urine cultureOrdered By: Tomas Peters on 02-15-2025 Bacteria identified Cx Nom (U) Positive Abnormal [facility] White blood cell (WBC) count Ordered By: Robina Peters on 02-15-2025 WBC (Bld) [#/Vol] 5.7 10*3/uL Normal 4.4-11.0 [facility] Comment on above: Performed By: #### L 100.0100, L501.9520, L3890.6006, L3890.6102, BTS, L3890.6301, L509.4006, L506.0400, L3410.9992, L509.8002 #### [facility] [address] [place], [address] Office Visit Reporton 2024 Office Visit Report [facility] [address] [place] [address] OFFICE VISIT Date of Service: 01/30/25 MR#: [id number] Acct: [id number] Patient: ERWIN COLES Rep #: [id number] : 1995 Provider: KIRSTIN cameron Age/Sex: 29/F [place] [facility] [place]: Signed Intake Vital Signs 11/14/24 09:41 01/30/25 10:15 Height 5 ft 6 in 5 ft 6 in Weight: 143 lb 6 oz 144 lb BMI 23.1 23.2 BP 107/73 118/68 Blood Pressure Location Lt brachial Position Sitting Intake Visit Reasons: PNOB Vitals Education Chief Complaint: Annual Sap Bw Consultant Required: No Is patient in pain?: No Allergies amoxicillin (From Augmentin) Allergy (Mild, Verified 01/30/25 10:16) Abd cramps/diarrhea clavulanic acid (From Augmentin) Allergy (Mild, Verified 01/30/25 10:16) Abd cramps/diarrhea Medications ???Medication ???Instructions ???Recorded ???Confirmed ???Type PNV-iron 29 mg-folic acid 1 pkg PO 01/30/25 01/30/25 History zb-jfoyy-6-dha 200 mg oral combo pack levothyroxine 50 [...] first trimester Comment: , KATE 09/19/25, Haris Curiel RTO NOB appt 01/30/25 1036 Date Ying Lamar NP SMASH FIXER-C Cosigner Signature: Date (if applicable) CC: Normal [facility] CNOVon 01-08-2025 CNOV Office Visit (ENWSTR ) ----- ERWIN COLES ([id number]) 1995 F Date Time Provider Department 01/08/25 [...] in November 2023 after referral by her Cash Register Servicer, Dr. Erin Andrews for subclinical hypothyroidism. LV 10/06/24 History in brief, She was having symptoms of hyperthyroidism in early 2020 and was found to have abnormal labs showing the same was started on MMI, propranolol by her agent contract clerk, Dr. Erin Andrews By late 2020, she [...] mcg daily Family history: Grand father had Cross's disease Interval history: 12/07/24 Hypothyroidism: - Taking [...] day. Thyro-care *under the supervision of a general supervisor -- compound formula* MEDICATION, NON-DATABASE Take 1 capsule by mouth once daily. Adrenal Assist *under the supervision of a general supervisor -- compound formula* No current facility-administered medications [...] no palpable (more content not included)... Normal [facility] CORTISOL, 60 MIN POST COSYNT ROPIN INJECTIONon 12-15-2024 CORTISOL, POST 26.0 ug/dL Normal [facility] Comment on above: Order Comment: Speci men Type: BLOOD SPECIMENOrdering Facility: [facility] Address: [address] [place] [address] Performed By: #### C ORTPST ####[facility] LABCLIA [id number] [place] [address] [place] INTERPRETATION (ACTHST) Normal [facility] Comment on above: Order Comment: Speci men Type: BLOOD SPECIMENOrdering Facility: [facility] Address: [address] [place] [address] Result Comment: Afte r cortrosyn stimulation, a peak cortisol response greater than 12.6 ug/dL may indicate appropriate cortisol secretion. This result should be interpreted within the clinical context and other test results. Stacy et al. Clinical Implications for Biochemical Diagnostic Thresholds of Adrenal Sufficiency Using a Highly Specific Cortisol Immunoassay. 2017 Clin. Biochem. 50:475-480. Performed By: #### C ORTPST ####[facility] LABCLIA [id number] [place] [address] [place] CORTISOL, BASALon 12-15-2024 Cortisol baseline [Mass/Vol] 12.2 ug/dL Normal 4.8-19.5 [facility] Comment on above: Order Comment: Speci men Type: BLOOD SPECIMENOrdering Facility: [facility] Address: [address] [place] [address] Result Comment: Prov ided reference range is from 6-10 AM sample collection time. Cortisol Reference Range: 6-10 AM = 4.8-19.5 ug/dL, 4-8 PM = 2.5-11.9 ug/dL Performed By: #### C ORTBAS ####[facility] LABCLIA [id number] [address] [place] DHEA-S BLDon 12-15-2024 DHEA-S [Mass/Vol] 129.0 ug/dL Normal 98.8-340.0 [facility] Comment on above: Order Comment: Speci men Type: BLOOD SPECIMENOrdering Facility: [facility] Address: [address] [place] [address] Result Comment: Refe rence ranges are age and gender specific. For additional information, reference range tables can be found in the laboratory test directory. The normal values are based on the following source: Dehydroepiandrosterone sulfate (DHEA S) [package insert V 17.0 Japanese]. [facility], [place], [place]: February 2013. Performed By: #### 3 016-3, DHEAS, 2842-3, 3024-7 ####[facility] LABCLIA [id number] [place] [address] [place] HYDROXYPROGESTERONE-17on 17-HYDROXYPROGESTERONE QUANTITATIVE BY HPLC-MS/MS, SERUM OR PLASMA 149.85 ng/dL Normal <=206.00 [facility] Comment on above: Order Comment: Speci men Type: BLOOD SPECIMENOrdering Facility: [facility] Address: [address] [place] [address] Result Comment: INTE RPRETIVE INFORMATION for 17-Hydroxyprogesterone in females: Follicular 15 to 70 ng/dL Luteal 35 to 290 ng/dL REFERENCE INTERVAL: 17-Hydroxyprogesterone Qnt, HPLC-MS/MS Access complete set of age- and/or gender-specific reference intervals for this test in the [employer] Test Directory (Scientific Intake). This test was developed and its performance characteristics determined by [facility]. It has not been cleared or approved by the US Food and Drug Administration. This test was performed in a CLIA certified laboratory and is intended for clinical purposes. Performed By: [facility] [address] [place] [address] Electrical Technology Instructor: Martín Blanco MD, PhD CLIA Number: [id number] Performed By: #### H PROG ####[facility] [id number] [place] [id number] 17-HYDROXYPROGESTERONE QUANTITATIVE BY HPLC-MS/MS, SERUM OR PLASMA 32.81 ng/dL Normal <=206.00 [facility] Comment on above: Order Comment: Speci men Type: BLOOD SPECIMENOrdering Facility: [facility] Address: [address] [place] [address] Result Comment: INTE RPRETIVE INFORMATION for 17-Hydroxyprogesterone in females: Follicular 15 to 70 ng/dL Luteal 35 to 290 ng/dL REFERENCE INTERVAL: 17-Hydroxyprogesterone Qnt, HPLC-MS/MS Access complete set of age- and/or gender-specific reference intervals for this test in the [facility] Test Directory (Scientific Intake). This test was developed and its performance characteristics determined by [facility]. It has not been cleared or approved by the US Food and Drug Administration. This test was performed in a CLIA certified laboratory and is intended for clinical purposes. Performed By: [facility] [address] [place] [address] Electrical Technology Instructor: Martín Blanco MD, PhD CLIA Number: [id number] Performed By: #### H PROG ####[facility] [id number] [place] [address] Prolactin SerPl-mCncon 12-15 Prolactin [Mass/Vol] 22.6 ng/mL Normal 4.4-33.8 [facility] Comment on above: Order Comment: Speci men Type: BLOOD SPECIMENOrdering Facility: [facility] Address: [address] [place] [address] Result Comment: Prol actin test is performed using the [facility] Electrochemiluminescence Immunoassay method. Results obtained with different methods or kits cannot be used interchangeably. Performed By: #### 3 016-3, DHEAS, 2842-3, 3024-7 ####[facility] LABIA [id number] [place] [address] [place] T4 Free SerPl-mCncon 025 Free T4 [Mass/Vol] 1.7 ng/dL Normal 0.9-1.7 [facility] Comment on above: Order Comment: Speci men Type: BLOOD SPECIMENOrdering Facility: [facility] Address: [address] [place] [address] Performed By: #### 3 016-3, DHEAS, 2842-3, 3024-7 ####[facility] LABIA [id number] [place] [address] [place] TSH SerPl-aCncon 12-15-2024 TSH Qn 2.380 m[IU]/L Normal 0.270-4.200 [facility] Comment on above: Order Comment: Speci men Type: BLOOD SPECIMENOrdering Facility: [facility] Address: [address] [id number] Result Comment: If t he patient is , TSH reference range varies by gestational period: First Trimester (weeks 9-12): 0.180-2.990 mIU/L Second Trimester: 0.110-3.980 mIU/L Third Trimester: 0.480-4.710 mIU/L Abdi Turner et al. A Practical Approach for the Verifications and Determination of Site- and Trimester-Specific Reference Intervals for Thyroid Function tests in . Thyroid, 2019:29:3:412-420. Edouard Nassar, et al. 2017 Guidelines of the [place] Thyroid Association for the Diagnosis and Management of Thyroid Disease during and the . Thyroid, 2017:27:3:315-389. Performed By: #### 3 016-3, DHEAS, 2842-3, 3024-7 ####[facility] LABCLIA [id number] [facility] [address] [place] [facility] CNOVon 12-07-2024 CNOV Office Visit (ENWSTR ) ----- ERWIN COLES ([id number]) 1995 F Date Time Provider Department 12/07/24 11:40 AM LASHONDA THOMAS ENWSTR During your visit today, we recorded the following information about you: Temperature Pulse Blood pressure Weight 98.9 degrees 75/minute 130/70 64.5 kg Last Period 10/19/24 Lashodna Thomas MD 12/07/2024 5:49 PM Signed [facility] Follow up visit note Subjective: Erwin Coles is a 29 year old female here follow up evaluation of thyroid problem. 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 Erin Andrews for subclinical hypothyroidism. LV 10/06/24 History in brief, She was having symptoms of hyperthyroidism in early 2020 and was found to have abnormal labs showing the same was started on MMI, propranolol by her agent contract clerk, Dr. Erin Andrews By late 2020, she [...] day. Thyro-care *under the supervision of a general supervisor -- compound formula* MEDICATION, NON-DATABASE Take 1 capsule by mouth once daily. Adrenal Assist *under the supervision of a general supervisor -- compound formula* No current facility-administered medications [...] deformity, or (more content not included)... Normal [facility] FT4on 12-05-2024 Free T4 [Mass/Vol] 1.18 ng/dL Normal 0.76-1.46 [facility] Comment on above: Performed By: #### T , FT4 #### [facility] [address] [address] LABORATORYOrdered By: SYSTEM SYSTEM on 12-05-2024 Free T4 [Mass/Vol] 1.18 ng/dL Normal 0.76 - 1. 46 ng/dL AO ADM SS TSH Qn 2.69 m[IU]/L Normal 0.36 - 3.74 mcIU/mL AO ADM SS TSHon 12-05-2024 TSH Qn 2.69 m[IU]/L Normal 0.36-3.74 [facility] Comment on above: Performed By: #### T #### [place] [address] [place], [place] [address] CNPFabi 12-04-2024 CNPN Telephone (PULMWS) ----- ERWIN COLES ([id number]) 1995 F Date Time Provider Department 12/04/24 LASHONDA THOMAS PULMFREDRICK During your visit today, we recorded the following information about you: Mehnaz Mendez RN 12/04/2024 9:50 AM Signed Lab orders faxed to [facility] for upcoming appt per Pt request. Fax confirmation received. Mehnaz Mendez RN December 04, 2024 9:50 AM Allergies [...] tablet by mouth once daily. - OMEGA 9-KFH-RYT-FISH OIL ORAL Take 1 capsule by mouth once daily. - OTC NUTRITIONAL SUPPLEMENT Take 1 tablet by mouth once daily. Vitex Supplement - propranolol (INDERAL) 10 mg tablet Take 1 tablet by mouth three times a day. - MEDICATION, NON-DATABASE Take 1 capsule by mouth two times a day. Thyro-care *under the supervision of a general supervisor -- compound formula* - MEDICATION, NON-DATABASE Take 1 capsule by mouth once daily. Adrenal Assist *under the supervision of a general supervisor -- compound formula* Problem List As Of Date: 12/04/2024 (None) Encounter Status:Closed by MEHNAZ MENDEZ on 12/04/24 Normal [facility] Progress Man Office Visit Reporton 11-14-2024 Progress Man Office Visit Report [facility] [address], [address] [place] [address] OFFICE VISIT Date of Service: 11/14/24 MR#: [id number] Acct: [id number] Name: ERWIN COLES Rep #: [id number] : 1995 Provider: VIRGINIA willis Age/Sex: 29/F [place] [facility] [place]: Signed Intake Vital Signs 11/14/24 09:41 Height 5 ft 6 in Weight: 143 lb 6 oz BMI 23.1 BP 107/73 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) Chief Complaint: Annual Sap Bw Consultant Required: No Is patient in pain?: [...] current occupational status: employed current occupation: [employer] Smoking Status: Never smoker alcohol intake: current alcohol intake frequency: holidays/special occasions only substance use type: does not use seatbelt use: always do you feel safe at home: Yes 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 having irregular menses, thryoid now normal this month. being followed by endocrine through [facility]. verbalizes last tsh 2.5. using bbt and [...] the v (more content not included)... Normal [facility] 17OHPon 2024 17-OH Progesterone LCMS 466 ng/dL Normal [facility] Comment on above: Result Comment: Adul t Female Follicular 15 - 70 Luteal 35 - 290 This test was developed and its performance characteristics determined by [facility]. It has not been cleared or approved by the Food and Drug Administration. Performed At: [address] [id number] Zi Bryant MD Ph:[phone] Performed By: #### P ROL, DHEAS #### [place] [address] #### [id number] #### [address] 10-16-2024 Order Number [id number] Normal [facility] Comment on above: Order Comment: testo sterone free and weakly bound [id number] [facility] Performed By: #### 9 [address] #### [address] [address] Test Name testosterone free weakly Normal [facility] Comment on above: Order Comment: testo sterone free and weakly bound [id number] sent to [facility] room temp Performed By: #### 9 [address]39 #### [address] [address] [facility] 10-14-2024 [facility] Result COMMENT Normal [facility] Comment on above: Order Comment: testo sterone free and weakly bound [id number] sent to [facility] SST room temp Result Comment: Test Ordered: [id number] Testosterone,F/WklyBd+T LC/MS Testosterone, Total, LC/MS 28.0 ng/dL BN Reference Range: 10.0-55.0 This test was developed and its performance characteristics determined by [facility]. It has not been cleared or approved by the Food and Drug Administration. Testost., % Free+Weakly Bound 11.5 % BN Reference Range: 3.0-18.0 This test was developed and its performance characteristics determined by [facility]. It has not been cleared or approved by the Food and Drug Administration. Testost., F+W Bound 3.2 ng/dL BN Reference Range: 0.0-9.5 Performed At: Lab[address] [id number] Sunil Barreto PhD Ph:[phone] Performed At: [facility] [id number] Zi Bryant MD Ph:[phone] Performed By: #### 9 [address] #### [facility] [id number] [place] [address] [facility] ERWIN COL[facility] ([id number]) 1995 F Date Time Provider Department 10/12/24 LASHONDA THOMAS [facility] During your visit today, we recorded the [...] tablet by mouth once daily. - OMEGA 1-QYV-KLI-FISH OIL ORAL Take 1 capsule by mouth once daily. - OTC NUTRITIONAL SUPPLEMENT Take 1 tablet by mouth once daily. Vitex Supplement - propranolol (INDERAL) 10 mg tablet Take 1 tablet by mouth three times a day. - MEDICATION, NON-DATABASE Take 1 capsule by mouth two times a day. Thyro-care *under the supervision of a general supervisor -- compound formula* - MEDICATION, NON-DATABASE Take 1 capsule by mouth once daily. Adrenal Assist *under the supervision of a general supervisor -- compound formula* Problem List As Of Date: 10/12/2024 (None) Encounter Status:Closed by LASHONDA THOMAS on 11/13/24 Normal [facility] DHEASon 10-10-2024 DHEA-SO4 101.38 mcg/dL Normal 25.90-460.20 [facility] Comment on above: Result Comment: No te - New Reference Range in effect 20 Performed By: #### P ROL, DHEAS #### [address] [address] #### [id number] #### [address] [address] PROLon 10-10-2024 Prolactin 23.6 ng/mL Normal 2.0-30.0 [facility] Comment on above: Performed By: #### P ROL, DHEAS #### [address] [address] #### [id number] #### [address] [address] CNOVon 10-06-2024 CNOV Office Visit (ENWSTR ) ----- ERWIN COLES ([id number]) 1995 F Date Time Provider Department 10/06/24 2:00 PM LASHONDA THOMAS During your visit today, we recorded the following information about you: Temperature Pulse Blood pressure Weight 98.9 degrees 82/minute 116/62 64.7 kg Last Period 09/12/24 Lashonda Thomas MD 10/08/2024 11:43 PM Addend [facility] Follow up visit note Subjective: Erwin Coles is a 28 year old female here for evaluation of thyroid problem. 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 Erin Andrews for subclinical hypothyroidism. LV 08/07/24 History in brief, She was having symptoms of hyperthyroidism in early 2020 and was found to have abnormal labs showing the same was started on MMI, propranolol by her agent contract clerk, Dr. Erin Andrews By late 2020, she [...] thyroid hormone Family history: Grand father had Cross's disease Interval history:10/06/24 Reports acne which started [...] day. Thyro-care *under the supervision of a general supervisor -- compound formula* MEDICATION, NON-DATABASE Take 1 capsule by mouth once daily. Adrenal Assist *under the supervision of a general supervisor -- compound formula* No current facility-administered medications [...] 09/29/2022 TS (more content not included)... Normal [facility] FT4on 09-29-2024 Free T4 [Mass/Vol] 1.03 ng/dL Normal 0.76-1.46 [facility] Comment on above: Performed By: #### T SH, FT4 #### [address] [address] TSHon 09-29-2024 TSH Qn 3.16 m[IU]/L Normal 0.36-3.74 [facility] Comment on above: Performed By: #### T SH, FT4 #### [address] [address] CNOVon 08-07-2024 CNOV Office Visit (ENWSTR ) ----- ERWIN COLES ([id number]) 1995 F Date Time Provider Department 08/07/24 9:40 AM LASHONDA THOMAS ENWSTR During your visit today, we recorded the following information about you: Pulse Respiration Blood pressure Weight 86/minute 15/minute 116/78 65.2 kg Height Last Period 1.676 m 08/05/24 Lashonda Thomas MD 08/08/2024 9:07 AM Addend [facility] Follow up visit note Subjective: Erwin Coles is a 28 year old female here for evaluation of thyroid problem. 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 Erin Andrews for subclinical hypothyroidism. Follow up visit was in 03/2024 History in brief, She was having symptoms of hyperthyroidism in early 2020 and was found to have abnormal labs showing the same was started on MMI, propranolol by her agent contract clerk, Dr. Erin Andrews By late 2020, she [...] thyroid hormone Family history: Grand father had Cross's disease Interval history:08/07/2024 She has stopped all [...] day. Thyro-care *under the supervision of a general supervisor -- compound formula* MEDICATION, NON-DATABASE Take 1 capsule by mouth once daily. Adrenal Assist *under the supervision of a general supervisor -- compound formula* No current facility-administered medications [...] 1.3 F (more content not included)... [facility]24 Free T4 [Mass/Vol] 0.87 ng/dL Normal 0.76-1.46 [facility] Comment on above: Performed By: #### F T4, TSH #### [address] [place], [place] [address] LABORATORYOrdered By: SYSTEM SYSTEM on 08-01-2024 Free T4 [Mass/Vol] 0.87 ng/dL Normal 0.76 - 1. 46 ng/dL AO ADM SS TSH Qn 25.26 m[IU]/L High 0.36 - 3.74 mcIU/mL AO ADM SS TSHon 08-01-2024 TSH Qn 25.26 m[IU]/L High 0.36-3.74 [facility] Comment on above: Performed By: #### F T4, TSH #### [address] [place], [place] [address] [facility] ERWIN COLES ([id number]) 1995 F Date Time Provider Department 07/28/24 LASHONDA THOMAS ENWSTR During your visit today, we recorded the following information about you: Sridevi Martínez 07/28/2024 8:29 AM Signed Patient is asking if her labs can be sent over to [facility]. Please review. Sridevi Martínez July 28, 2024 8:28 AM Mehnaz Mendez RN 07/28/2024 8:43 AM Signed Lab orders faxed electronically through [employer] to [facility] at fax #: . Mehnaz Mendez RN July 28, 2024 8:43 AM Allergies [...] FORMULA ORAL) Take by mouth. - OMEGA 7-GOJ-FUP-FISH OIL ORAL Take by mouth. - OTC NUTRITIONAL SUPPLEMENT Vitex Supplement - propranolol (INDERAL) 10 mg tablet Take 1 tablet by mouth three times a day. - MEDICATION, NON-DATABASE Take 1 capsule by mouth two times a day. Thyro-care *under the supervision of a general supervisor -- compound formula* - MEDICATION, NON-DATABASE Take 1 capsule by mouth once daily. Adrenal Assist *under the supervision of a general supervisor -- compound formula* Problem List As Of Date: 07/28/2024 (None) Encounter Status:Closed by MEHNAZ MENDEZ on 07/28/24 [facility] FT3on 06-23-2024 Free T3 [Mass/Vol] 1.57 pg/mL Low 2.30-4.00 [facility] Comment on above: Performed By: #### T KIERA, FT4 #### [place] [address] [address] FT4on 06-23-2024 Free T4 [Mass/Vol] 0.46 ng/dL Low 0.76-1.46 [facility] Comment on above: Performed By: #### T KIERA, FT4 #### [place] [address] [address] LABORATORYOrdered By: SYSTEM SYSTEM on 06-23-2024 Free T3 [Mass/Vol] 1.57 pg/mL Low 2.30 - 4. 00 pg/mL AO ADM SS Free T4 [Mass/Vol] 0.46 ng/dL Low 0.76 - 1. 46 ng/dL AO ADM SS TSH Qn 79.27 m[IU]/L High 0.36 - 3.74 mcIU/mL AO ADM SS TSHon 06-23-2024 TSH Qn 79.27 m[IU]/L High 0.36-3.74 [facility] Comment on above: Performed By: #### T SH, FT4, FT3 #### [facility] [address] [place], [place] [address] CNPNon 06-15-2024 CNPN Telephone (ENWSTR) ----- ERWIN COLES ([id number]) 1995 F Date Time Provider Department 06/15/24 [facility] During your visit today, we recorded the following information about you: Jayne Frank MA 06/15/2024 11:16 AM Signed Pt calling to get results of Thyroid US. She viewed on [employer] but wasn't sure if there was any concern or if there was anything to do prior to her next appt in August. Heart rate back to normal. No more weight loss. Gained back the 10lbs that she had lost. Buscapé message is fine. Please review and advise. [...] FORMULA ORAL) Take by mouth. - OMEGA 7-ERB-EUR-FISH OIL ORAL Take by mouth. - OTC NUTRITIONAL SUPPLEMENT Vitex Supplement - propranolol (INDERAL) 10 mg tablet Take 1 tablet by mouth three times a day. - MEDICATION, NON-DATABASE Take 1 capsule by mouth two times a day. Thyro-care *under the supervision of a general supervisor -- compound formula* - MEDICATION, NON-DATABASE Take 1 capsule by mouth once daily. Adrenal Assist *under the supervision of a general supervisor -- compound formula* Problem List As Of Date: 06/15/2024 (None) Encounter Status:Closed by KIERRA COBB on 06/20/24 Normal [facility] US THYROID/PARATHYROIDon US THYROID/PARATHYROID * * *Final Report * * * DATE OF EXAM: May 19 2024 8:31AM [facility] 1048 - US THYROID/PARATHYROID / PROCEDURE REASON: [...] with increased vascularity. No suspicious thyroid nodule. Commercial Decorator: PSCB Transcribe Date/Time: May 21 2024 7:51A Dictated by : SHANTEL GALLEGOS DO This examination was interpreted and the report reviewed and electronically signed by: SHANTEL GALLEGOS DO on May 21 2024 7:54AM EST [id number] Normal [facility] Tele[facility] (ENWSTR) ----- ERWIN COLES ([id number]) 1995 F Date Time Provider Department 05/15/24 LASHONDA THOMAS During your visit today, we recorded the following information about you: Mehnaz Mendez RN 05/15/2024 10:54 AM Signed Call received from Pt - name AND verified. Pt had labs drawn at [facility] on 05/05/2024 and 05/09/2024 (see scanned documents). Requesting results - please review and advise for further instruction. Mehnaz Mendez RN May 15, 2024 10:54 AM Lashonda [...] THOMAS on: 05/15/2024 02:38 PM Modules accepted: Mehnaz Kumar RN 05/15/2024 4:10 PM Signed Call placed to Pt - verified name AND . Notified Pt of below notation per Dr. Thomas; she voices understanding. Prefers to have the thyroid US at [facility]. Will mail the US order to Pt's home address. Mhenaz Mendez RN May 15, 2024 4:10 PM Allergies As of Date: 05/15/2024 Noted Allergy Reaction AMOXICILLIN-POT CLAVULANATE 11/30/2023 6 - Diarrhea 8 - GI Upset 11 - Vomiting Date Reviewed: 05/05/2024 Reviewed by: Natasha Luu, DEVIN - Fully Assessed Reason for Visit: Results [95] Primary Visit Diagnosis:Hyperthyroidism [E05.90] Order(s):US THYROID/PARATHYROID [[id number]] Order #: [id number] FUTURE Prescriptions as of 05/15/2024 - vit 93/iron fum/folic ( FORMULA ORAL) Take by mouth. - OMEGA 8-STH-ENU-FISH OIL ORAL Take by mouth. - OTC NUTRITIONAL SUPPLEMENT Vitex Supplement - propranolol (INDERAL) 10 mg tablet Take 1 tablet by mouth three times a day. - MEDICATION, NON-DATABASE Take 1 capsule by mouth two times a day. Thyro-care *under the supervision of a general supervisor -- compound formula* - MEDICATION, NON-DATABASE Take 1 capsule by mouth once daily. Adrenal Assist *under the supervision of a general supervisor -- compound formula* Problem List As Of Date: 05/15/2024 (None) Encounter Status:Closed by MEHNAZ MENDEZ on 05/15/24 [facility] CNOVmadelin 05-05-2024 CNOV Office Visit (ENWSTR ) ----- ERWIN COLES ([id number]) 1995 F Date Time Provider Department 05/05/24 11:20 AM LASHONDA THOMAS ENWSTR During your visit today, we recorded the following information about you: Temperature Pulse Respiration Blood pressure 99.1 degrees 91/minute 16/minute 102/72 Weight 57 kg Lashonda Thomas MD 05/07/2024 9:49 PM Addendum [facility] Follow up visit note Subjective: Erwin Coles is a 28 year old female here for evaluation of thyroid problem. 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 Erin Andrews for subclinical hypothyroidism. Follow up visit was in 03/2024 History in brief, She was having symptoms of hyperthyroidism in early 2020 and was found to have abnormal labs showing the same was started on MMI, propranolol by her agent contract clerk, Dr. Erin Andrews By late 2020, she [...] day. Thyro-care *under the supervision of a general supervisor -- compound formula* MEDICATION, NON-DATABASE Take 1 capsule by mouth once daily. Adrenal Assist *under the supervision of a general supervisor -- compound formula* No current facility-administered medications [...] by hypothyro (more content not included)... Normal [facility] LABORATORYOrdered By: SYSTEM SYSTEM on 05-05-2024 Free T4 [Mass/Vol] 3.92 ng/dL High 0.76 - 1. 46 ng/dL AO ADM SS T3 [Mass/Vol] 352 ng/dL High 60 - 181 ng/dL AH ADM SS TSH mcIU/mL Low 0.36 - 3.74 mcIU/mL AO ADM SS LABORATORYOrdered By: SYSTEM SYSTEM on 04-24-2024 Free T4 [Mass/Vol] 3.78 ng/dL High 0.76 - 1. 46 ng/dL AO ADM SS TSH mcIU/mL Low 0.36 - 3.74 mcIU/mL AO ADM SS CNPNon 04-12-2024 CNPN Telephone (ENDWST) ----- ERWIN COLES ([id number]) 1995 F Date Time Provider Department 04/12/24 LASHONDA THOMAS During your visit today, we [...] [E03.8] Order(s):THYROID STIMULATING HORMONE [SQTSH] Order #: [id number] FUTURE T4 FREE/FREE THYROXINE [SQFT4] Order #: [id number] FUTURE Prescriptions as of 04/17/2024 - MEDICATION, NON-DATABASE Take 1 capsule by mouth two times a day. Thyro-care *under the supervision of a general supervisor -- compound formula* - MEDICATION, NON-DATABASE Take 1 capsule by mouth once daily. Adrenal Assist *under the supervision of a general supervisor -- compound formula* Problem List As Of Date: 04/12/2024 (None) Encounter Status:Closed by KIERRA COBB on 04/17/24 [facility] CNOVon 03-07-2024 CNOV Office Visit (ENWSTR ) ----- ERWIN COLES ([id number]) 1995 F Date Time Provider Department 03/07/24 11:40 AM LASHONDA THOMAS ENWSTR During your [...] was started on MMI, propranolol by her agent contract clerk, Dr. Erin Andrews By late 2020, she was started on synthroid, was on 50 mcg daily as the latest She has seen naturopathy specialist, and started using supplements in Apr 2023, she feels she felt better with energy, hair texture etc She is on thyrocare- BID and adrenal supplement once daily Family history: Grand father had Cross's disease Interval history: 03/07/24: Subclinical hypothyroidism: Currently [...] disturbance, mood disorder and recent psychosocial stressors. HEMATOLOGIC/LYMPHATIC/IMM UNOLOGIC:Negative for prolonged bleeding, bruising easily ENDOCRINE: Negative for cold or heat intolerance or goiter ALLERGIES: ALLERGIES Allergen Reactions Amoxicillin-Pot Cla* Diarrhea, GI Upset, Vomiting MEDICATIONS: Current Outpatient Medications on File Prior to Visit Medication Sig MEDICATION, NON-DATABASE Take 1 capsule by mouth two times a day. Thyro-care *under the supervision of a general supervisor -- compound formula* MEDICATION, NON-DATABASE Take 1 capsule by mouth once daily. Adrenal Assist *under the supervision of a general supervisor -- compound formula* No current facility-administered medications [...] mcIU/mL (H (more content not included)... Normal [facility] .Auto Diffon 10-19-2023 Basophil, Absolute 0.0 10 3/mcL Normal 0.0-0.2 [facility] ([place]) Comment on above: Performed By: #### G FR, CMP, TSH, FT4, CBC, ANEU, ADIFF, FT3 #### [address] [place], [place] [address] Basophils/100 WBC (Bld) 0.7 % Normal 0.0-2.5 [facility] ([place]) Comment on above: Performed By: #### G FR, CMP, TSH, FT4, CBC, ANEU, ADIFF, FT3 #### [place] [address] [address] Eosinophil, Absolute 0.1 10 3/mcL Normal 0.0-0.4 [facility] ([place]) Comment on above: Performed By: #### G FR, CMP, TSH, FT4, CBC, ANEU, ADIFF, FT3 #### [address] [address] Eosinophils/100 WBC (Bld) 1.1 % Normal 0.0-7.0 [facility] ([place]) Comment on above: Performed By: #### G FR, CMP, TSH, FT4, CBC, ANEU, ADIFF, FT3 #### [address] [address] Lymphocyte, Absolute 1.6 10 3/mcL Normal 0.8-3.9 [facility] ([place]) Comment on above: Performed By: #### G FR, CMP, TSH, FT4, CBC, ANEU, ADIFF, FT3 #### [address] [address] Lymphocytes/100 WBC (Bld) 34.9 % Normal 10.0-50.0 [facility] ([place]) Comment on above: Performed By: #### G FR, CMP, TSH, FT4, CBC, ANEU, ADIFF, FT3 #### [address] [address] Monocyte, Absolute 0.5 10 3/mcL Normal 0.2-1.0 [facility] ([place]) Comment on above: Performed By: #### G FR, CMP, TSH, FT4, CBC, ANEU, ADIFF, FT3 #### [address] [address] Monocytes/100 WBC (Bld) 11.6 % Normal 1.7-13.0 [facility] ([place]) Comment on above: Performed By: #### G FR, CMP, TSH, FT4, CBC, ANEU, ADIFF, FT3 #### [address] [address] Neutrophils/100 WBC (Bld) 51.7 % Normal 37.0-80.0 [facility] ([place]) Comment on above: Performed By: #### G FR, CMP, TSH, FT4, CBC, ANEU, ADIFF, FT3 #### [address] [address] .GFRon 10-19-2023 GFR Non- 77 ml/min/1.73sqm Normal [facility] ([place]) Comment on above: Result Comment: GFR Population [...] TSH, FT4, CBC, ANEU, ADIFF, FT3 #### [address] [address] GFR 93 ml/min/1.73sqm Normal [facility] ([place]) Comment on above: Result Comment: GFR Population [...] TSH, FT4, CBC, ANEU, ADIFF, FT3 #### [place] [address] .NEUABSon 10-19-2023 Neutrophil, Absolute 2.4 10 3/mcL Low 2.9-6.2 [facility] ([place]) Comment on above: Performed By: #### G FR, CMP, TSH, FT4, CBC, ANEU, ADIFF, FT3 #### [place] [address] CBCon 10-19-2023 Erythrocyte distribution width (RBC) [Ratio] 12.0 % Normal 11.5-14.5 [facility] ([place]) Comment on above: Performed By: #### G FR, CMP, TSH, FT4, CBC, ANEU, ADIFF, FT3 #### [place] [address] Hematocrit (Bld) [Volume fraction] 38.1 % Normal 37.0-47.0 [facility] ([place]) Comment on above: Performed By: #### G FR, CMP, TSH, FT4, CBC, ANEU, ADIFF, FT3 #### [place] [address] Hgb 13.7 G/dL Normal 12.0-16.0 [facility] ([place]) Comment on above: Performed By: #### G FR, CMP, TSH, FT4, CBC, ANEU, ADIFF, FT3 #### [place] [address] MCH (RBC) [Entitic mass] 34.0 pg High 27.0-31.2 [facility] ([place]) Comment on above: Performed By: #### G FR, CMP, TSH, FT4, CBC, ANEU, ADIFF, FT3 #### [place] [address] MCHC 36.0 G/dL Normal 33.0-37.0 [facility] ([place]) Comment on above: Performed By: #### G FR, CMP, TSH, FT4, CBC, ANEU, ADIFF, FT3 #### [place] [address] MCV (RBC) [Entitic vol] 94.6 fL High 80.0-94.0 [facility] ([place]) Comment on above: Performed By: #### G FR, CMP, TSH, FT4, CBC, ANEU, ADIFF, FT3 #### [address] [address] Platelet 222 10 3/mcL Normal 130-400 [facility] ([place]) Comment on above: Performed By: #### G FR, CMP, TSH, FT4, CBC, ANEU, ADIFF, FT3 #### [address] [address] Platelet mean volume (Bld) [Entitic vol] 9.2 fL Normal 7.4-10.4 [facility] ([place]) Comment on above: Performed By: #### G FR, CMP, TSH, FT4, CBC, ANEU, ADIFF, FT3 #### [address] [address] RBC 4.03 10 6/mcL Low 4.20-5.40 [facility] ([place]) Comment on above: Performed By: #### G FR, CMP, TSH, FT4, CBC, ANEU, ADIFF, FT3 #### [address] [address] WBC 4.6 10 3/mcL Normal 4.6-10.8 [facility] ([place]) Comment on above: Performed By: #### G FR, CMP, TSH, FT4, CBC, ANEU, ADIFF, FT3 #### [address] [address] CMPon 10-19-2023 Albumin Level 4.5 G/dL Normal 3.5-5.0 [facility] ([place]) Comment on above: Performed By: #### G FR, CMP, TSH, FT4, CBC, ANEU, ADIFF, FT3 #### [address] [address] Albumin/Globulin [Mass ratio] 1.6 {ratio} Normal 1.1-2.5 [facility] ([place]) Comment on above: Performed By: #### G FR, CMP, TSH, FT4, CBC, ANEU, ADIFF, FT3 #### [address] [address] ALP [Catalytic activity/Vol] 69 U/L Normal 40-135 [facility] ([place]) Comment on above: Performed By: #### G FR, CMP, TSH, FT4, CBC, ANEU, ADIFF, FT3 #### [place] [id number] ALT [Catalytic activity/Vol] 31 U/L Normal 14-59 [facility] ([place]) Comment on above: Performed By: #### G FR, CMP, TSH, FT4, CBC, ANEU, ADIFF, FT3 #### [place] [address] AST [Catalytic activity/Vol] 25 U/L Normal 10-40 [facility] ([place]) Comment on above: Performed By: #### G FR, CMP, TSH, FT4, CBC, ANEU, ADIFF, FT3 #### [address] [address] Bili Total 0.5 mg/dL Normal 0.2-1.0 [facility] ([place]) Comment on above: Result Comment: Use of this assay is not recommended for patients undergoing treatment with eltrombopag due to the potential for falsely elevated results. Performed By: #### G FR, CMP, TSH, FT4, CBC, ANEU, ADIFF, FT3 #### [place] [id number] BUN/Creatinine Ratio 18 ratio Normal 7-27 [facility] ([place]) Comment on above: Performed By: #### G FR, CMP, TSH, FT4, CBC, ANEU, ADIFF, FT3 #### [place] [id number] Calcium [Mass/Vol] 9.4 mg/dL Normal 8.4-10.2 [facility] ([place]) Comment on above: Performed By: #### G FR, CMP, TSH, FT4, CBC, ANEU, ADIFF, FT3 #### [address] [address] Chloride [Moles/Vol] 103 mmol/L Normal 98-107 [facility] ([place]) Comment on above: Performed By: #### G FR, CMP, TSH, FT4, CBC, ANEU, ADIFF, FT3 #### [address] [address] CO2 [Moles/Vol] 27 mmol/L Normal 22-29 [facility] ([place]) Comment on above: Performed By: #### G FR, CMP, TSH, FT4, CBC, ANEU, ADIFF, FT3 #### [address] [address] Creatinine [Mass/Vol] 0.89 mg/dL Normal 0.55-1.02 [facility] ([place]) Comment on above: Performed By: #### G FR, CMP, TSH, FT4, CBC, ANEU, ADIFF, FT3 #### [address] [address] Electrolyte Balance 8.0 mEq/L Normal 4.0-15.0 [facility] ([place]) Comment on above: Performed By: #### G FR, CMP, TSH, FT4, CBC, ANEU, ADIFF, FT3 #### [address] [address] Globulin 2.8 G/dL Normal [facility] ([place]) Comment on above: Performed By: #### G FR, CMP, TSH, FT4, CBC, ANEU, ADIFF, FT3 #### [address] [address] Glucose [Mass/Vol] 92 mg/dL Normal 70-105 [facility] ([place]) Comment on above: Performed By: #### G FR, CMP, TSH, FT4, CBC, ANEU, ADIFF, FT3 #### [address] [address] Potassium [Moles/Vol] 4.8 mmol/L Normal 3.5-5.1 [facility] ([place]) Comment on above: Performed By: #### G FR, CMP, TSH, FT4, CBC, ANEU, ADIFF, FT3 #### [address] [address] Sodium [Moles/Vol] 138 mmol/L Normal 136-145 [facility] ([place]) Comment on above: Performed By: #### G FR, CMP, TSH, FT4, CBC, ANEU, ADIFF, FT3 #### [address] [address] Total Protein 7.3 G/dL Normal 6.4-8.2 [facility] ([place]) Comment on above: Performed By: #### G FR, CMP, TSH, FT4, CBC, ANEU, ADIFF, FT3 #### [address] [address] Urea nitrogen [Mass/Vol] 16 mg/dL Normal 7-18 [facility] ([place]) Comment on above: Performed By: #### G FR, CMP, TSH, FT4, CBC, ANEU, ADIFF, FT3 #### [address] [address] FT3on 10-19-2023 Free T3 [Mass/Vol] 2.85 pg/mL Normal 2.30-4.00 [facility] ([place]) Comment on above: Performed By: #### G FR, CMP, TSH, FT4, CBC, ANEU, ADIFF, FT3 #### [address] [address] FT4on 10-19-2023 Free T4 [Mass/Vol] 1.00 ng/dL Normal 0.76-1.46 [facility] ([place]) Comment on above: Performed By: #### G FR, CMP, TSH, FT4, CBC, ANEU, ADIFF, FT3 #### [address] [address] LABORATORYOrdered By: SYSTEM SYSTEM on 10-19-2023 Albumin [...] 10-19-2023 TSH Qn 8.79 m[IU]/L High 0.36-3.74 [facility] ([place]) Comment on above: Performed By: #### G FR, CMP, TSH, FT4, CBC, ANEU, ADIFF, FT3 #### [address] [address] FT3on 06-08-2023 Free T3 [Mass/Vol] 2.94 pg/mL Normal 2.30-4.00 [facility] ([place]) Comment on above: Performed By: #### G FR, CMP, TSH, FT4, CBC, ANEU, ADIFF, FT3 #### [place] [address] [address] FT4on 06-08-2023 Free T4 [Mass/Vol] 1.20 ng/dL Normal 0.76-1.46 [facility] ([place]) Comment on above: Performed By: #### G FR, CMP, TSH, FT4, CBC, ANEU, ADIFF, FT3 #### [address] [address] LABORATORYOrdered By: SYSTEM SYSTEM on 06-08-2023 Free [...] 06-08-2023 TSH Qn 2.62 m[IU]/L Normal 0.36-3.74 [facility] ([place]) Comment on above: Performed By: #### G FR, CMP, TSH, FT4, CBC, ANEU, ADIFF, FT3 #### [address] [address] aTPOon 06-08-2023 anti-Thyroid Peroxidase <28 Normal 0-60 [facility] ([place]) Comment on above: Result Comment: No te - New Reference Range in effect 20 Performed By: #### G FR, CMP, TSH, FT4, CBC, ANEU, ADIFF, FT3 #### [place] [address] [address] FT3on 04-24-2023 Free T3 [Mass/Vol] 2.63 pg/mL Normal 2.30-4.00 [facility] ([place]) Comment on above: Performed By: #### G FR, CMP, TSH, FT4, CBC, ANEU, ADIFF, FT3 #### [address] [address] FT4on 04-24-2023 Free T4 [Mass/Vol] 1.13 ng/dL Normal 0.76-1.46 [facility] ([place]) Comment on above: Performed By: #### F T4, TSH, FT3 #### [address] [place], [place] [address] TSHon 04-24-2023 TSH Qn 2.71 m[IU]/L Normal 0.36-3.74 [facility] ([place]) Comment on above: Performed By: #### F T4, TSH, FT3 #### [address] [address] Cervical or vagninal specime n microscopic examination by cytology stain (reported asOrdered By: Yasmeen Rodriguez on 10-12-2022 Cytology report Cyto stain Doc (Cvx/Vag) Comment . [facility] Comment on above: The Pap smear is a s creening test designed to aid in thedetection of premalignant and malignant conditions of theuterine cervix. It is not a diagnostic procedure andshould not be used as the sole means of detecting cervicalcancer. Both false-positive and false-negative reports dooccur. Laboratory - CytologyOrdered By: Yasmeen Rodriguez on 10-12-2022 Experimental Display Builder Cyto stain Nom (Cvx/Vag) [ID] Comment . [facility] Comment on above: Yannick Moeller totechnologist Laboratory - Miscellaneous t estsOrdered By: Yasmeen Rodriguez on 10-12-2022 Service comment (Unsp spec) [Interp] Comment . [facility] Comment on above: This liquid based Th inPrep(R) pap test was screened withthe use of an image guided system. Service comment (Unsp spec) [Interp] . . [facility] No Panel InformationOrdered By: Yasmeen Rodriguez on 10-12-2022 Human Papillomavirus Screen Comment . [facility] Comment on above: The HPV DNA reflex c riteria were not met with this specimenresult therefore, no HPV testing was performed.Performed at: [address] [id number] Director: Ann Marie Carrasco MD, Phone: [phone] Pathology report final diagnosis Narrative Comment . [facility] Comment on above: NEGATIVE FOR INTRAEP ITHELIAL [...] 27 ratio AO ADM SS LABORATORYOrdered By: [employer] SYSTEM on 11-28-2021 GFR 92 ml/min/1.73sqm Invalid [...] Time Vital Sign Value Performing Clinician Facility 05-10-2025 15:46-0500 Body height 167.64 cm No Primary Care Physician [facility] 05-10-2025 15:43-0500 Body mass index (BMI) [Ratio] 24.9 kg/m2 No Primary Care Physician [facility] 05-10-2025 15:43-0500 Body weight 70.05 kg No Primary Care Physician [facility] 05-10-2025 15:43-0500 Diastolic blood pressure 78 mm[Hg] No Primary Care Physician [facility] 05-10-2025 15:43-0500 Systolic blood pressure 126 mm[Hg] No Primary Care Physician [facility] 04-25-2025 15:07-0400 Body mass index (BMI) [Ratio] 24.3 kg/m2 No Primary Care Physician [facility] 04-25-2025 15:07-0400 Body weight 68.29 kg No Primary Care Physician [facility] 04-25-2025 15:07-0400 Diastolic blood pressure 76 mm[Hg] No Primary Care Physician [facility] 04-25-2025 15:07-0400 Systolic blood pressure 135 mm[Hg] No Primary Care Physician [facility] 04-12-2025 09:18-0400 Body height 167.64 cm No Primary Care Physician [facility] 04-12-2025 09:17-0400 Body mass index (BMI) [Ratio] 24.3 kg/m2 No Primary Care Physician [facility] 04-12-2025 09:17-0400 Body weight 68.49 kg No Primary Care Physician [facility] 04-12-2025 09:17-0400 Diastolic blood pressure 71 mm[Hg] No Primary Care Physician [facility] 04-12-2025 09:17-0400 Systolic blood pressure 116 mm[Hg] No Primary Care Physician [facility] 03-16-2025 13:52-0400 Body height 167.64 cm No Primary Care Physician [facility] 03-16-2025 13:52-0400 Body mass index (BMI) [Ratio] 23.6 kg/m2 No Primary Care Physician [facility] 03-16-2025 13:52-0400 Body weight 66.33 kg No Primary Care Physician [facility] 03-16-2025 13:52-0400 Diastolic blood pressure 72 mm[Hg] No Primary Care Physician [facility] 03-16-2025 13:52-0400 Systolic blood pressure 121 mm[Hg] No Primary Care Physician [facility] 02-15-2025 08:29-0400 Body height 167.64 cm No Primary Care Physician [facility] 02-15-2025 08:29-0400 Body mass index (BMI) [Ratio] 23.4 kg/m2 No Primary Care Physician [facility] 02-15-2025 08:29-0400 Body weight 65.96 kg No Primary Care Physician [facility] 02-15-2025 08:29-0400 Diastolic blood pressure 72 mm[Hg] No Primary Care Physician [facility] 02-15-2025 08:29-0400 Systolic blood pressure 111 mm[Hg] No Primary Care Physician [facility] 01-30-2025 10:15-0400 Body mass index (BMI) [Ratio] 23.2 kg/m2 No Primary Care Physician [facility] 01-30-2025 10:15-0400 Body weight 65.31 kg No Primary Care Physician [facility] 01-30-2025 10:15-0400 Diastolic blood pressure 68 mm[Hg] No Primary Care Physician [facility] 01-30-2025 10:15-0400 Systolic blood pressure 118 mm[Hg] No Primary Care Physician [facility] 01-08-2025 16:11-0400 Body height 167.6 cm Lashonda Thomas MD Work Phone: [facility] 01-08-2025 16:11-0400 Body mass index (BMI) [Ratio] 22.92 kg/m2 Lashonda Thomas MD Work Phone: [facility] 01-08-2025 16:11-0400 Body weight 64.41 kg Lashonda Thomas MD Work Phone: [facility] 01-08-2025 16:11-0400 Diastolic blood pressure 76 mm[Hg] Lashonda Thomas MD Work Phone: [facility] 01-08-2025 16:11-0400 Heart rate 89 /min Lashonda Thomas MD Work Phone: [facility] 01-08-2025 16:11-0400 Respiratory rate 18 /min Lashonda Thomas MD Work Phone: [facility] 01-08-2025 16:11-0400 SaO2% (BldA) [Mass fraction] 100 % Lashonda Thomas MD Work Phone: [facility] 01-08-2025 16:11-0400 Systolic blood pressure 116 mm[Hg] Lashonda Thomas MD Work Phone: [facility] 12-07-2024 11:46-0400 Body mass index (BMI) [Ratio] 22.95 kg/m2 Lashonda Thomas MD Work Phone: [facility] 12-07-2024 11:46-0400 Body temperature 98.91 [degF] Lashonda Thomas MD Work Phone: [facility] 12-07-2024 11:46-0400 Body weight 64.5 kg Lashonda Thomas MD Work Phone: [facility] 12-07-2024 11:46-0400 Diastolic blood pressure 70 mm[Hg] Lashonda Thomas MD Work Phone: [facility] 12-07-2024 11:46-0400 Heart rate 75 /min Lashonda Thomas MD Work Phone: [facility] 12-07-2024 11:46-0400 SaO2% (BldA) [Mass fraction] 100 % Lashonda Thomas MD Work Phone: [facility] 12-07-2024 11:46-0400 Systolic blood pressure 130 mm[Hg] Lashonda Thomas MD Work Phone: [facility] 11-14-2024 09:41-0400 Body height 167.64 cm No Primary Care Physician [facility] 11-14-2024 09:41-0400 Body mass index (BMI) [Ratio] 23.1 kg/m2 No Primary Care Physician [facility] 11-14-2024 09:41-0400 Body weight 65.03 kg No Primary Care Physician [facility] 11-14-2024 09:41-0400 Diastolic blood pressure 73 mm[Hg] No Primary Care Physician [facility] 11-14-2024 09:41-0400 Systolic blood pressure 107 mm[Hg] No Primary Care Physician [facility] 10-06-2024 13:56-0400 Body mass index (BMI) [Ratio] 23.02 kg/m2 Lashonda Thomas MD Work Phone: [facility] 10-06-2024 13:56-0400 Body temperature 98.91 [degF] Lashonda Thomas MD Work Phone: [facility] 10-06-2024 13:56-0400 Body weight 64.68 kg Lashonda Thomas MD Work Phone: [facility] 10-06-2024 13:56-0400 Diastolic blood pressure 62 mm[Hg] Lashonda Thomas MD Work Phone: [facility] 10-06-2024 13:56-0400 Heart rate 82 /min Lashonda Thomas MD Work Phone: [facility] 10-06-2024 13:56-0400 SaO2% (BldA) [Mass fraction] 99 % Lashonda Thomas MD Work Phone: [facility] 10-06-2024 13:56-0400 Systolic blood pressure 116 mm[Hg] Lashonda Thomas MD Work Phone: [facility] 08-07-2024 09:56-0500 Body height 167.6 cm Lashonda Thomas MD Work Phone: [facility] 08-07-2024 09:56-0500 Body mass index (BMI) [Ratio] 23.21 kg/m2 Lashonda Thomas MD Work Phone: [facility] 08-07-2024 09:56-0500 Body weight 65.23 kg Lashonda Thomas MD Work Phone: [facility] 08-07-2024 09:56-0500 Diastolic blood pressure 78 mm[Hg] Lashonda Thomas MD Work Phone: [facility] 08-07-2024 09:56-0500 Heart rate 86 /min Lashonda Thomas MD Work Phone: [facility] 08-07-2024 09:56-0500 Respiratory rate 15 /min Lashonda Thomas MD Work Phone: [facility] 08-07-2024 09:56-0500 SaO2% (BldA) [Mass fraction] 99 % Lashonda Thomas MD Work Phone: [facility] 08-07-2024 09:56-0500 Systolic blood pressure 116 mm[Hg] Lashonda Thomas MD Work Phone: [facility] 05-05-2024 11:18-0400 Body mass index (BMI) [Ratio] 20.27 kg/m2 Lashonda Thomas MD Work Phone: [facility] 05-05-2024 11:18-0400 Body temperature 99.1 [degF] Lashonda Thomas MD Work Phone: [facility] 05-05-2024 11:18-0400 Body weight 56.97 kg Lashonda Thomas MD Work Phone: [facility] 05-05-2024 11:18-0400 Diastolic blood pressure 72 mm[Hg] Lashonda Thomas MD Work Phone: [facility] 05-05-2024 11:18-0400 Heart rate 91 /min Lashonda Thomas MD Work Phone: [facility] 05-05-2024 11:18-0400 Respiratory rate 16 /min Lashonda Thomas MD Work Phone: [facility] 05-05-2024 11:18-0400 SaO2% (BldA) [Mass fraction] 96 % Lashonda Thomas MD Work Phone: [facility] 05-05-2024 11:18-0400 Systolic blood pressure 102 mm[Hg] Lashonda Thomas MD Work Phone: [facility] 03-07-2024 11:32-0400 Body height 167.6 cm Lashonda Thomas MD Work Phone: [facility] 03-07-2024 11:32-0400 Body mass index (BMI) [Ratio] 22.47 kg/m2 Lashonda Thomas MD Work Phone: [facility] 03-07-2024 11:32-0400 Body temperature 98.8 [degF] Lashonda Thomas MD Work Phone: [facility] 03-07-2024 11:32-0400 Body weight 63.14 kg Lashonda Thomas MD Work Phone: [facility] 03-07-2024 11:32-0400 Heart rate 61 /min Lashonda Thomas MD Work Phone: [facility] 03-07-2024 11:32-0400 SaO2% (BldA) [Mass fraction] 99 % Lashonda Thomas MD Work Phone: [facility] 11-30-2023 08:37-0400 Body height 167.6 cm Lashonda Thomas MD Work Phone: [facility] 11-30-2023 08:37-0400 Body mass index (BMI) [Ratio] 22.56 kg/m2 Lashonda Thomas MD Work Phone: [facility] 11-30-2023 08:37-0400 Body weight 63.41 kg Lashonda Thomas MD Work Phone: [facility] 11-30-2023 08:37-0400 Diastolic blood pressure 80 mm[Hg] Lashonda Thomas MD Work Phone: [facility] 11-30-2023 08:37-0400 Heart rate 90 /min Lashonda Thomas MD Work Phone: [facility] 11-30-2023 08:37-0400 Respiratory rate 16 /min Lashonda Thomas MD Work Phone: [facility] 11-30-2023 08:37-0400 SaO2% (BldA) [Mass fraction] 99 % Lashonda Thomas MD Work Phone: [facility] 11-30-2023 08:37-0400 Systolic blood pressure 118 mm[Hg] Lashonda Thomas MD Work Phone: [facility] Encounters Encounter Date Encounter Type Care Provider Facility Start: 05-14-2025 End: 05-14-2025 ambulatory MD LASHONDA THOMAS Facility:[facility] Start: 05-14-2025 End: 05-14-2025 Patient encounter procedure LASHONDA THOMAS [facility] Start: 05-10-2025 End: 05-10-2025 ambulatory Robina Peters Facility:[facility] Start: 05-09-2025 End: 05-09-2025 ambulatory [facility] Start: 05-09-2025 End: 05-09-2025 ambulatory [facility] Start: 04-25-2025 End: 04-25-[address] Marva Shah MD -[facility] Work Phone: Start: 04-25-2025 End: 04-25-2025 ambulatory No Primary Care Physician Facility:[facility] Start: 04-23-2025 End: 04-23-[address] Kierra Dooley DO -Laboratory Work Phone: Start: 04-23-2025 End: 04-23-2025 [place]ulatory [place] [facility] Start: 04-23-2025 End: 04-23-2025 ambulatory No Primary Care Physician Facility:[facility] Start: 04-12-2025 End: 04-12-[address] Kierra Dooley DO -[facility] Work Phone: Start: 04-12-2025 End: 04-12-2025 ambulatory No Primary Care Physician -[facility] Start: 03-16-2025 End: 03-16-[address] Marva Shah MD -[facility] Work Phone: Start: 03-16-2025 End: 03-16-2025 ambulatory No Primary Care Physician -[facility] Start: 02-15-2025 End: 02-15-2025 Patient encounter procedure Robina Peters CNM -[facility] Work Phone: Start: 02-15-2025 End: 02-15-2025 ambulatory No Primary Care Physician -[facility] Start: 02-15-2025 End: 02-15-2025 ambulatory Robina Peters Facility:[facility] Start: 01-30-2025 End: 01-30-2025 Patient encounter procedure Ying FULTON -[facility] Work Phone: Start: 01-30-2025 End: 01-30-2025 ambulatory No Primary Care Physician -[facility] Start: 01-12-2025 End: 01-19-2025 ambulatory Lashonda Thomas MD Work Phone: Endocrinology Comment on above: Positive T est Start: 01-08-2025 End: 01-08-2025 Patient encounter procedure Lashonda Thomas MD Work Phone: Endocrinology Comment on above: Acquired hypothyroid ism; Other acne Start: 01-08-2025 End: 01-08-2025 ambulatory LASHONDA THOMAS Facility:[facility] Start: 12-15-2024 End: 12-15-2024 ambulatory Treatment Rm 16 Atul [facility] Work Phone: Hematology/Oncology Comment on above: Irregular periods/me nstrual cycles (Primary Dx) Start: 12-07-2024 End: 12-07-2024 ambulatory OREN RUDD IV Facility:[facility] Start: 12-07-2024 End: 12-07-2024 Patient encounter procedure Lashonda Thomas MD Work Phone: Endocrinology Comment on above: Irregular periods/me nstrual cycles (Primary Dx) Start: 12-05-2024 End: 12-05-2024 ambulatory MD LASHONDA THOMAS Facility:[facility] Start: 12-05-2024 End: 12-05-2024 Patient encounter procedure LASHONDA THOMAS [facility] Start: 12-04-2024 End: 12-04-2024 Telephone encounter Lashonda Thomas MD Work Phone: Endocrinology Comment on above: Orders Start: 12-01-2024 End: 12-02-2024 ambulatory Lashonda Thomas MD Work Phone: Endocrinology Start: 12-01-2024 End: 12-02-2024 Patient encounter procedure Lashonda Thomas MD Work Phone: Endocrinology Comment on above: Bloodwork for upcomi ng appointment? Start: 11-14-2024 End: 11-14-2024 Patient encounter procedure Yasmeen Rodriguez OMARIM -[facility] Work Phone: Start: 11-14-2024 End: 11-14-2024 [facility] Start: 11-14-2024 End: 11-14-2024 ambulatory No Primary Care Physician [facility] Work Phone: Start: 10-12-2024 End: 11-13-2024 Telephone encounter Lashonda Thomas MD Work Phone: Endocrinology Start: 10-10-2024 End: 10-10-2024 ambulatory MD LASHONDA THOMAS Facility:[facility] Start: 10-06-2024 End: 10-06-2024 ambulatory OREN RUDD IV Facility:[facility] Start: 10-06-2024 End: 10-06-2024 Patient encounter procedure Lashonda Thomas MD Work Phone: Endocrinology Comment on above: Other acne (Primary Dx); Acquired hypothyroidism; Irregular periods/menstrual cycles Start: 09-29-2024 End: 09-29-2024 ambulatory MD LASHONDA THOMAS Facility:[facility] Start: 08-07-2024 End: 08-07-2024 ambulatory OREN RUDD IV Facility:[facility] Start: 08-07-2024 End: 08-07-2024 Patient encounter procedure Lashonda Thomas MD Work Phone: Endocrinology Comment on above: Acquired hypothyroid ism (Primary Dx) Start: 08-01-2024 End: 08-01-2024 ambulatory OREN RUDD DO Facility:[facility] Start: 08-01-2024 End: 08-01-2024 Patient encounter procedure PHY WO ID REFERRING [facility] Start: 07-28-2024 End: 07-28-2024 Telephone encounter Lashonda Tohmas MD Work Phone: Endocrinology Comment on above: Orders Start: 06-23-2024 End: 06-23-2024 ambulatory OREN RUDD DO Facility:[facility] Start: 06-23-2024 End: 06-23-2024 Patient encounter procedure LASHONDA THOMAS [facility] Start: 06-20-2024 End: 06-20-2024 ambulatory Lashonda Thomas MD Work Phone: Endocrinology Comment on above: Thyroid results Start: 06-20-2024 End: 06-20-2024 E-mail encounter from caregiver Lashonda Thomas MD Work Phone: Endocrinology Start: 06-15-2024 End: 06-20-2024 Telephone encounter Lashonda Thomas MD Work Phone: Endocrinology Comment on above: Results; Patient Upd ate Start: 05-19-2024 End: 05-19-2024 ambulatory LASHONDA THOMAS Facility:[facility] Start: 05-19-2024 End: 05-19-2024 Subsequent hospital visit by physician [facility] Work Phone: Radiology Comment on above: Hyperthyroidism [E05 .90] Start: 05-15-2024 End: 05-15-2024 Telephone encounter Lashonda Thomas MD Work Phone: Endocrinology Comment on above: Results Start: 05-09-2024 End: 05-09-2024 Patient encounter procedure LASHONDA THOMAS [facility] Start: 05-05-2024 End: 05-05-2024 Patient encounter procedure LASHONDA THOMAS [facility] Start: 05-05-2024 End: 05-05-2024 ambulatory LASHONDA THOMAS Facility:[facility] Start: 05-05-2024 End: 05-05-2024 Patient encounter procedure Lashonda Thomas MD Work Phone: Endocrinology Comment on above: Abnormal results of thyroid function studies (Primary Dx) Start: 04-24-2024 End: 04-24-2024 Patient encounter procedure LASHONDA THOMAS [facility] Start: 04-17-2024 End: 04-17-2024 Patient Msg Lashonda Thomas MD Work Phone: Endocrinology Comment on above: Lab orders placed Start: 04-12-2024 End: 04-17-2024 Telephone encounter Lashonda Thomas MD Work Phone: Endocrinology Comment on above: Orders Start: 03-07-2024 End: 03-07-2024 ambulatory LASHONDA THOMAS Facility:[facility] Start: 03-07-2024 End: 03-07-2024 Patient encounter procedure Lashonda Thomas MD Work Phone: Endocrinology Comment on above: Subclinical hypothyr oidism (Primary Dx) Start: 11-30-2023 End: 11-30-2023 Patient encounter procedure Lashonda Thomas MD Work Phone: Endocrinology Comment on above: Subclinical hypothyr oidism (Primary Dx) Start: 10-19-2023 End: 10-20-2023 ambulatory ERIN ANDREWS MD Facility:[facility] Start: 10-19-2023 End: 10-19-2023 Patient encounter procedure ERIN ANDREWS MD [facility] Start: 06-08-2023 End: 06-09-2023 ambulatory OREN RUDD DO Facility:[facility] Start: 06-08-2023 End: 06-08-2023 Patient encounter procedure ERIN ANDREWS MD [facility] Start: 04-24-2023 End: 04-25-2023 ambulatory OREN RUDD DO Facility:[facility] Start: 10-27-2022 End: 10-27-2022 ambulatory VIRGINIA Rodriguez Work Phone: [facility] Work Phone: Start: 10-27-2022 End: 10-27-2022 Patient encounter procedure VIRGINIA Rodriguez Work Phone: [facility] Start: 10-12-2022 End: 10-12-2022 Patient encounter procedure VIRGINIA Rodriguez Work Phone: [facility]Laboratory, Specimen Start: 10-12-2022 End: 10-12-2022 Patient encounter procedure VIRGINIA Rodriguez Work Phone: [facility] Start: 09-29-2022 End: 09-29-2022 Patient encounter procedure ERIN ANDREWS MD [facility] Start: 07-03-2022 End: 07-03-2022 Patient encounter procedure ERIN ANDREWS MD [facility] Start: 11-28-2021 End: 11-28-2021 Patient encounter procedure ERIN ANDREWS MD [facility] Start: 07-23-2021 End: 07-23-2021 Patient encounter procedure ERIN ANDREWS MD [facility] Start: 06-05-2021 End: 06-05-2021 Patient encounter procedure ERIN ANDREWS MD [facility] Procedures Date Procedure Procedure Detail Performing Clinician Start: 04-23-2025 Procedure No Primary Care Physician Start: 02-15-2025 Urine culture No Primar y Care Physician Start: 02-15-2025 Hepatitis C antibody measurement No Primary Care Physician Comment on above: Reactive: Presumptiv e evidence of antibodies to HCV. Follow CDC recommendations for supplemental testing.Non-Reactive: Antibodies to HCV were not detected; does not exclude the possibility of exposure to HCVReactive Results are presumptive evidence of antibodies to HCV. Follow CDC recommendations for supplemental testing.Order confirmation testing: HCV Quant by PCR testing - HCVPCR #[id number] Non Reactive: < 0.8 Equivocal: >/= 0.8 to < 1.0 Reactive: >/= 1.0The [facility] requires that a reactive/equivocal HCV antibody result be sent out for confirmation. HCV Quant by PCR testing. Start: 02-15-2025 Procedure No Primary Care Physician Comment on above: Test Ordered: [id number] TSH Receptor Antibody (TBII)TSH Receptor Antibody (TBII) <0.3 U/L ES Reference Range: .Reference Range:Antibody Titer:<1.0 U/L = Negative1.1 - 1.5 U/L = Equivocal>1.5 U/L = PositivePerformed at: [employer] [employer] [facility] [employer] [address] [id number] Director: Manny Monae MD, Phone: [phone] at: [facility] [id number] Director: Estevan Barber PhD, Phone: [phone] Start: 02-15-2025 Rubella IgG measurement No Primary Care Physician Comment on above: Antibody Result: Int erpretationNon-Reactive: Non- ImmuneReactive: ImmuneThe following results were obtained with the [employer] Rubella IgG assay. Results from assays of other manufacturers cannot be used interchangeably. Start: 02-15-2025 Serologic test for syphilis No Primary Care Physician Start: 10-27-2022 Ultrasonography of breast CNAmador De LeónYasmeenchidi Rodriguez Work Phone: Complex reconstructi on of wrist and hand ERIN ANDREWS MD Tonsillectomy and adenoidectomy ERIN ANDREWS MD Plan of Treatment Date Care Activity Detail Author Start: 07-12-2025 End: 10-11-2025 Thyrotropin [Units/volume] in Serum or Plasma THYROID STIMULATING HORMONE Lab Routine Acquired hypothyroidism Expected: 07/12/2025, Expires: 10/11/2025 [facility] Work Phone: Comment on above: Expected: 07/12/2025, Expires: Start: 07-12-2025 End: 10-11-2025 Thyroxine (T4) free [Mass/volume] in Serum or Plasma T4 FREE/FREE THYROXINE Lab Routine Acquired hypothyroidism Expected: 07/12/2025, Expires: 10/11/2025 [facility] Comment on above: Expected: 07/12/2025, Expires: Start: 07-12-2025 End: 07-12-2025 Patient encounter procedure 07/12/2025 8:40 AM EST Office Visit Endocrinology [address] [place] [address] Lashonda Thomas MD [address] [place] [id number] 6 MO OV Endocrinology Comment on above: 6 MO OV Start: 05-10-2025 End: 05-10-2025 Patient encounter procedure -Lab [facility] Start: 04-25-2025 Thyroid stimulating hormone measurement [facility] Start: 04-12-2025 [facility] Start: 03-05-2025 Influenza vaccination [facility] Start: 02-15-2025 CBC W Auto Differential panel - Blood [facility] Start: 02-15-2025 Hepatitis C antibody measurement [facility] Start: 02-15-2025 Procedure [facility] Start: 02-15-2025 Rubella IgG measurement [facility] Start: 02-15-2025 Serologic test for syphilis [facility] Start: 02-15-2025 T4 free measurement [facility] Start: 02-15-2025 Thyroid stimulating hormone measurement [facility] Start: 08-14-[address] [place] [address] Start: 01-08-2025 End: 01-08-2025 Patient encounter procedure 01/08/2025 4:20 PM EDT Office Visit Endocrinology [address] [place] [address] Lashonda Thomas MD [address] [place] [address] One month follow up - THYROID Endocrinology Comment on above: One month follow up - THYROID Start: 12-15-2024 End: 12-15-[address] [facility] Comment on above: ACTH 2ND Start: 12-07-2024 End: 03-08-2025 ACTH STIMULATION,2 TIME POINTS ACTH STIMULATION,2 TIME POINTS Lab Routine Irregular periods/menstrual cycles Expected: 12/07/2024, Expires: 03/08/2025 [facility] Work Phone: Comment on above: Expected: 12/07/2024, Expires: Start: 12-07-2024 End: 12-07-2024 Patient encounter procedure 12/07/2024 11:40 AM EDT Office Visit Endocrinology [address] [place] [address] Lashonda Thomas MD [address] [place] [address] 2 MTH F/U THYROID Endocrinology Comment on above: 2 MTH F/U THYROID Start: 12-02-2024 End: 03-03-2025 Thyrotropin [Units/volume] in Serum or Plasma THYROID STIMULATING HORMONE Lab Routine Acquired hypothyroidism Subclinical hypothyroidism Hyperthyroidism Expected: 12/02/2024, Expires: 03/03/2025 [facility] Comment on above: Expected: 12/02/2024, Expires: Start: 12-02-2024 End: 03-03-2025 Thyroxine (T4) free [Mass/volume] in Serum or Plasma T4 FREE/FREE THYROXINE Lab Routine Acquired hypothyroidism Subclinical hypothyroidism Hyperthyroidism Expected: 12/02/2024, Expires: 03/03/2025 [facility] Work Phone: Comment on above: Expected: 12/02/2024, Expires: Start: 10-06-2024 End: 01-05-2025 17-Hydroxyprogesterone [Mass/volume] in Serum or Plasma HYDROXYPROGESTERONE-17 Lab Routine Other acne Expected: 10/06/2024, Expires: 01/05/2025 [facility] Comment on above: Expected: 10/06/2024, Expires: Start: 10-06-2024 End: 01-05-2025 DHEA-S BLD DHEA-S BLD Lab Routine Other acne Expected: 10/06/2024, Expires: 01/05/2025 [facility] Work Phone: Comment on above: Expected: 10/06/2024, Expires: Start: 10-06-2024 End: 10-06-2024 Patient encounter procedure 10/06/2024 2:00 PM EDT Office Visit Endocrinology [address] [place], [place] [id number] Lashonda Thomas MD [address] [place] [place], [place] [id number] 2 MTH F/U Endocrinology Comment on above: 2 MTH F/U Start: 10-06-2024 End: 01-05-2025 Prolactin [Mass/volume] in Serum or Plasma PROLACTIN Lab Routine Other acne Expected: 10/06/2024, Expires: 01/05/2025 [facility] Comment on above: Expected: 10/06/2024, Expires: Start: 10-06-2024 End: 01-05-2025 TESTOSTERONE, BIOAVAILABLE AND TOTAL BY MS (ADULT FEMALES, CHILDREN, OR INDIVIDUALS ON TESTOSTERONE-SUPPRESSING THERAPY) TESTOSTERONE, BIOAVAILABLE AND TOTAL BY MS (ADULT FEMALES, CHILDREN, OR INDIVIDUALS ON TESTOSTERONE-SUPPRESSIN G THERAPY) Lab Routine Other acne Expected: 10/06/2024, Expires: 01/05/2025 [facility] Comment on above: Expected: 10/06/2024, Expires: Start: 08-07-2024 End: 11-06-2024 Thyrotropin [Units/volume] in Serum or Plasma THYROID STIMULATING HORMONE Lab Routine Acquired hypothyroidism Expected: 08/07/2024, Expires: 11/06/2024 [facility] Work Phone: Comment on above: Expected: 08/07/2024, Expires: Start: 08-07-2024 End: 11-06-2024 Thyroxine (T4) free [Mass/volume] in Serum or Plasma T4 FREE/FREE THYROXINE Lab Routine Acquired hypothyroidism Expected: 08/07/2024, Expires: 11/06/2024 [facility] Comment on above: Expected: 08/07/2024, Expires: Start: 08-07-2024 End: 08-07-2024 Patient encounter procedure 08/07/2024 9:40 AM EST Office Visit Endocrinology [address] [place] [address] Lashonda Thomas MD [address] [place] [id number] 3 month f/u Endocrinology Comment on above: 3 month f/u Start: 05-05-2024 End: 08-04-2024 THYROID STIMULATING IMMUNOGLOBULIN BLOOD THYROID STIMULATING IMMUNOGLOBULIN BLOOD Lab Routine Abnormal results of thyroid function studies Expected: 05/05/2024, Expires: 08/04/2024 [facility] Comment on above: Expected: 05/05/2024, Expires: Start: 05-05-2024 End: 08-04-2024 Thyrotropin [Units/volume] in Serum or Plasma THYROID STIMULATING HORMONE Lab Routine Abnormal results of thyroid function studies Expected: 05/05/2024, Expires: 08/04/2024 [facility] Work Phone: Comment on above: Expected: 05/05/2024, Expires: Start: 05-05-2024 End: 08-04-2024 Thyroxine (T4) free [Mass/volume] in Serum or Plasma T4 FREE/FREE THYROXINE Lab Routine Abnormal results of thyroid function studies Expected: 05/05/2024, Expires: 08/04/2024 [facility] Comment on above: Expected: 05/05/2024, Expires: Start: 05-05-2024 End: 08-04-2024 Triiodothyronine (T3) [Mass/volume] in Serum or Plasma T3 Lab Routine Abnormal results of thyroid function studies Expected: 05/05/2024, Expires: 08/04/2024 [facility] Comment on above: Expected: 05/05/2024, Expires: Start: 04-16-2024 End: 07-16-2024 Thyrotropin [Units/volume] in Serum or Plasma THYROID STIMULATING HORMONE Lab Routine Subclinical hypothyroidism Expected: 04/16/2024, Expires: 07/16/2024 [facility] Work Phone: Comment on above: Expected: 04/16/2024, Expires: Start: 04-16-2024 End: 07-16-2024 Thyroxine (T4) free [Mass/volume] in Serum or Plasma T4 FREE/FREE THYROXINE Lab Routine Subclinical hypothyroidism Expected: 04/16/2024, Expires: 07/16/2024 [facility] Comment on above: Expected: 04/16/2024, Expires: Start: 03-07-2024 End: 03-07-2024 Patient encounter procedure 03/07/2024 11:40 AM EDT Office Visit Endocrinology [address] [place] [id number] Lashonda Thomas MD [address] [place] [id number] 14 WK F/U Endocrinology Comment on above: 14 WK F/U Start: 03-05-2024 Covid-19 Vaccine () Covid-19 Vaccine () [facility] Start: 03-05-2024 Covid-19 Vaccine () Covid-19 Vaccine () [facility] Start: 03-05-2024 Influenza vaccination [facility] Start: 02-23-2024 End: 05-24-2024 THYROGLOBULIN ANTIBODY THYROGLOBULIN ANTIBODY Lab Routine Subclinical hypothyroidism Expected: 02/23/2024, Expires: 05/24/2024 [facility] Comment on above: Expected: 02/23/2024, Expires: Start: 02-23-2024 End: 05-24-2024 Thyrotropin [Units/volume] in Serum or Plasma THYROID STIMULATING HORMONE Lab Routine Subclinical hypothyroidism Expected: 02/23/2024, Expires: 05/24/2024 [facility] Work Phone: Comment on above: Expected: 02/23/2024, Expires: Start: 02-23-2024 End: 05-24-2024 Thyroxine (T4) free [Mass/volume] in Serum or Plasma T4 FREE/FREE THYROXINE Lab Routine Subclinical hypothyroidism Expected: 02/23/2024, Expires: 05/24/2024 [facility] Comment on above: Expected: 02/23/2024, Expires: Start: 02-23-2024 End: 05-24-2024 Triiodothyronine (T3) Free [Mass/volume] in Serum or Plasma T3, FREE Lab Routine Subclinical hypothyroidism Expected: 02/23/2024, Expires: 05/24/2024 [facility] Comment on above: Expected: 02/23/2024, Expires: Start: 07-05-2023 Behavioral Health Screening Behavioral Health Screening [facility] Start: 03-05-2023 Covid-19 Vaccine ( season) Covid-19 Vaccine () [facility] Start: 02-18-2020 Urine microalbumin profile DTaP,Tdap,Td Vaccine (7 - Tdap) [facility] Start: 2018 Screening for malignant neoplasm of cervix [facility] Start: 10-19-2015 Annual PCP Team Chronic Disease Visit Annual PCP Team Chronic Disease Visit [facility] Start: 10-19-2015 Anxiety Screening Anxiety Screening [facility] Start: 10-19-2015 Depression Screening Depression Screening [facility] Start: 10-19-2015 Hepatitis C screening Hepatitis C Screening [facility] Start: 10-19-2015 HIV screening HIV Screening [facility] Start: 2012 HPV Vaccine (1 - 3-dose series) HPV Vaccine (1 - 3-dose series) [facility] Start: 10-19-2011 Peds To Adult Transition Annual Assessment Peds To Adult Transition Annual Assessment [facility] Start: 2009 Peds To Adult Transition Initial Discussion Peds To Adult Transition Initial Discussion [facility] End: 12-07-2025 17-Hydroxyprogesterone [Mass/volume] in Serum or Plasma HYDROXYPROGESTERONE-17 Lab Routine Irregular periods/menstrual cycles 2 Occurrences starting 12/07/2024 until 12/07/2025 [facility] Comment on above: 2 Occurrences starting 12/07/2024 until 12/07/2025 Chlamydia deoxyribonucleic acid detection [facility] Erythrocyte mean corpuscular volume determination [facility] Hematocrit [Volume Fraction] of Blood [facility] Hemoglobin [Mass/vol ume] in Blood [facility] Hepatitis B virus lindsey rface Ag [Presence] in Serum [facility] Leukocytes [#/volume ] in Blood [facility] Mean corpuscular hemoglobin concentration determination [facility] Mean corpuscular hemoglobin determination [facility] Neutrophil count [facility] Neutrophil percent differential count [facility] Platelets [#/volume] in Blood [facility] Red blood cell count [facility] Red cell distributio n width determination [facility] US Breast limited [facility] End: 06-14-2025 US Thyroid gland US THYROID/PARATHYROID Radiology Routine Hyperthyroidism 1 Occurrences starting 05/15/2024 until 06/14/2025 [facility] Work Phone: Comment on above: 1 Occurrences starting 05/15/2024 until 06/14/2025 US Thyroid gland US THYROID/PARA THYROID Radiology Routine Hyperthyroidism 05/19/2024 8:31 AM EST [facility] Work Phone: Immunizations Immunization Date Immunization Notes Care Provider Amanda mccarthy 04-30-2020 influenza virus vaccine, unspecified formulation Lashonda Thomas MD Work Phone: [facility] 11-27-2015 meningococcal polysaccharide (groups A, C, Y and W-135) diphtheria toxoid conjugate vaccine (MCV4P) ERIN ANDREWS MD [facility] 10-10-2014 hepatitis A vaccine, pediatric dosage, unspecified formulation ERIN ANDREWS MD [facility] 10-10-2014 typhoid vaccine, reena e, oral ERIN ANDREWS MD [facility] 10-10-2014 varicella virus vaccine TAL ANDREWS MD [facility] 02-17-2010 tetanus and diphther ia toxoids, adsorbed, preservative free, for adult use (5 Lf of tetanus toxoid and 2 Lf of diphtheria toxoid) ERIN ANDREWS MD [facility] 11-16-2002 diphtheria, tetanus toxoids and acellular pertussis vaccine ERIN ANDREWS MD [facility] 11-16-2002 measles/mumps/rubell a virus vaccine ERIN ANDREWS MD [facility] 04-11-1999 haemophilus influenz ae type b vaccine, PRP-T conjugate ERIN ANDREWS MD [facility] 04-07-1999 diphtheria, tetanus toxoids and acellular pertussis vaccine ERIN ANDREWS MD [facility] 01-09-1999 measles/mumps/rubell a virus vaccine ERIN ANDREWS MD [facility] 01-09-1999 varicella virus vaccine TAL ANDREWS MD [facility] 10-10-1998 hepatitis B vaccine, unspecified formulation ERIN ANDREWS MD [facility] 10-10-1998 poliovirus vaccine, inactivated ERIN ANDREWS MD [facility] 05-02-1998 haemophilus influenz ae type b vaccine, PRP-T conjugate ERIN ANDREWS MD [facility] 05-02-1998 hepatitis B vaccine, unspecified formulation ERIN ANDREWS MD [facility] 05-02-1998 poliovirus vaccine, inactivated ERIN ANDREWS MD [facility] 05-01-1998 diphtheria, tetanus toxoids and acellular pertussis vaccine ERIN ANDREWS MD [facility] 03-01-1998 diphtheria, tetanus toxoids and acellular pertussis vaccine ERIN ANDREWS MD [facility] 03-01-1998 haemophilus influenz ae type b vaccine, PRP-T conjugate ERIN ANDREWS MD [facility] 03-01-1998 poliovirus vaccine, inactivated ERIN ANDREWS MD [facility] 1997 diphtheria, tetanus toxoids and acellular pertussis vaccine ERIN ANDREWS MD [facility] 1997 haemophilus influenz ae type b vaccine, PRP-T conjugate ERIN ANDREWS MD [facility] 1997 poliovirus vaccine, inactivated ERIN ANDREWS MD [facility] 1997 hepatitis B vaccine, unspecified formulation ERIN ANDREWS MD [facility] Payers Date Payer Category Payer Private Health Insurance 20f [id number] 2024 Self-pay 2023 [facility] PPO Member Subscriber Plan / Payer (Effective 2023-Present) Name: Erwin Coles Relation to Subscriber: Self Name: Erwin Coles Payer ID: [id number] (NAIC) Type: PPO Address: [facility] [id number] [place] [id number] 2023 Unknown .[id number]. [id number] 2023 Unknown [id number] 1997 Unknown [id number] 2.16.840.1.376743.3.579. 2.627 1997 Unknown [id number] 2.16.840.1.263439.3.579. 2.62 1997 Unknown [id number] 2.16.840.1.350597.3.579. 2.627 1997 Unknown [id number] 2.16.840.1.956278.3.579. 2.62 1997 Unknown [id number] 2.16.840.1.740772.3.579. 2.62 1997 Unknown [id number] 2.16.840.1.658083.3.579. 2.62 1997 Unknown [id number] 2.16.840.1.913494.3.579. 2.62 1997 Unknown [id number] 2.16.840.1.524683.3.579. 2.62 1997 Unknown [id number] 2.16.840.1.151709.3.579. 2.627 1997 Unknown [id number] 2.16.840.1.752026.3.579. 2.479 1997 Unknown [id number] 2.16.840.1.696223.3.579. 2479 1997 Unknown [id number] 2.16.840.1.236932.3.579. 2479 Unknown [id number] Unknown [id number] Unknown [id number] Unknown [id number] 2.16.840.1.779106.3.579. 2.462 Unknown [id number] 2.16.840.1.753294.3.579. 2.462 Unknown [id number] 2.16.840.1.203980.3.579. 2.462 Unknown [id number] 2.16.840.1.921705.3.579. 2.462 Unknown [id number] 2.16.840.1.852801.3.579. 2.462 Unknown [id number] 2.16.840.1.417493.3.579. 2.462 Unknown [id number] 2.16.840.1.875813.3.579. 2.462 Unknown [id number] 2.16.840.1.748597.3.579. 2.462 Unknown [id number] 2.16.840.1.675427.3.579. 2.462 Unknown [id number] 2.16.840.1.650860.3.579. 2.462 Social History Date Type Detail Facility Start: 01-06-2019 End: 01-30-2025 Never smoked tobacco (finding) [facility] Start: 1995 Sex Assigned At Female A [facility] Start: 10-12-2022 [facility] ever [facility] Start: 11-30-2023 End: 08-07-2024 Tobacco use and exposure Smokeless tobacco non-user [facility] Start: 11-30-2023 End: 01-08-2025 Alcohol intake Current drinker of alcohol (finding) [facility] Start: 11-30-2023 End: 05-05-2024 History of Social function [facility] Start: 11-30-2023 End: 05-05-2024 Tobacco use panel [facility] National Score (1-100), lower number is lower risk 35 [facility] Start: 11-30-2023 [facility] Start: 1995 Sex Assigned At Not on file [facility] Sexual Orientation Dontaealbert Chahal Start: 07-06-2019 Sex Female (finding) [facility] NEGATED: Highlighted rowStart: NINF History of tobacco use Passive smoker [facility] Clinical Notes 10-12-2022 to 04-25-2025 Note Date & Type Note Facility 04-25-2025 Progress note [facility] 04-25-2025 Progress note Note Date/Time April 25, 2025 4:29pm [facility]'s [address], [address] [place] [address] OFFICE VISIT Date of Service: 04/25/25 MR#: [id number] Acct: [id number] Name: ERWIN COLES Rep #: [id number] : 1995 Provider: Dr. Alf Shah MD Age/Sex: 29/F [place] [facility] [place]: Signed Intake Vital Signs 04/12/25 09:18 04/25/25 15:07 Height 5 ft 6 in 5 ft 6 in Weight: 150 lb 9 oz BMI 24.3 BP 135/76 H Intake Visit Reasons: OB, Heartbeat check Sap Bw Consultant Required: No Is patient in pain?: No Allergies amoxicillin (From Augmentin) Allergy (Mild, Verified 04/25/25 15:09) Abd cramps/diarrhea clavulanic acid (From Augmentin) Allergy (Mild, Verified 04/25/25 15:09) Abd cramps/diarrhea Medications ?Medication ?Instructions ?Recorded ?Confirmed ?Type PNV-iron 29 mg-folic acid 1 pkg PO 01/30/25 04/25/25 H istory [id number]-dha 200 mg oral combo pack levothyroxine 50 mcg tablet 75 mcg PO DAILY 01/30/25 1 History (Synthroid) Last Menstrual Period: 12/13/24 Zika: Zika virus screening: Negative : No Have you fallen in the past year?: No PFSH PFS Medical History Hypothyroidism Surgical History Status post myringotomy with tube placement of both ears S/P wisdom tooth extraction S/P wrist surgery S/P tonsillectomy and adenoidectomy Family History Grandmother Breast cancer Paternal Cancer Paternal Skin cancer Hypertension Mother Hypertension Father Heart disease Artificial valve CVA (cerebral vascular accident) Grandfather Cross disease Paternal Social History adopted: No household [...] 3-4 times per week duration: 45-60 minutes/day channing/restorationism: Orthodoxy seatbelt use: always do you feel safe at home: Yes additional social history: - Haris-Counselor Aide Wally History 1 Elective abortions Hx Para 0 Spontaneous abortions Hx # Term Pregnancies Ectopic pregnancies Hx # Pregnancies Multiple births # of living children HPI OB, Heartbeat check Details: ERWIN COLES is a 29 year old who presents for routine OB visit. OB Visit KATE Calculator Estimated Delivery Date Method Current WG Current Estimate 09/19/25 LMP (Certain) 19w 0d Other Estimates 09/21/25 Ultrasound #1 18w 5d Expected Delivery Route/Plan Labor Preferences- CB/BF classes: [...] dates. Declines NIPT. [facility] managing thyroid meds. 03/16/25 -?-?-?-?-?-?-?-?-?-?-?-?- 13w 2d 146 lb 4 oz (+1 lb 4 oz) 121/72 -?-?--?-?-?-?-?-?-?-?-?-?- 160 -?-?-?-?-?-?-?-?-?-?-?-?- SM- no vb crmapi ng 04/12/25 -?-?-?-?-?-?-?-?-?-?-?-?- 17w 1d 151 lb (+6 lb) 116/71 Negative -?-?-?-?-?-?-?-?-?-?-?-?- Negative 159 -?-?-?-?-?-?-?-?-?-?-?-?- JV- no lof, vagi nal bleeding, or cramping. has intermittent right lower quadrant pain. no fevers, diarrhea, chills. has anatomy scan coming up. possible cyst or musculoskeletal as it does get better after her chiropractic visits. due for tsh next office visit. 04/25/25 -?-?-?-?-?-?-?-?-?-?-?-?- 19w 0d 150 lb 9 oz (+5 lb 9 oz) 135/76 Negative -?-?-?-?-?-?-?-?-?-?-?-?- Negative 150 -?-?-?-?-?-?-?-?-?-?-?-?- SM- fell on her hip yesterday had some pelvic pressure no abnormalities seen no vb ACOG First Trimester First Trimester: Desire for , Alcohol, Tobacco Cessation, Illicit/Recreational Drug/Substance Use, Intimate Partner Violence, Barriers to care, Unstable Housing, Communication Barriers, Environmental/Work Hazards, Anticipated Course of Care, Toxoplasmosis Precations, Use of Any medications, Sexual activity, Dental Care, Sauna/Hot tub use, Seat Belt use, Childbirth classes/Hospital facilities, Travel, Indications for Ultrasound and Screening for Aneuploidy; Discussed Exercise and Discussed Second Trimester Second Trimester: Signs and Symptoms of Labor, Selecting a care provider, Reproductive Life Planning & Contreception, Care Planning, Depression/Anxiety and Intimate Partner Violence; Discussed Tobacco Cessation Third Trimester Third Trimester: Pain Management Plans, Labor support person(s), Immediate Larc, Signs and Symptoms of Preeclampsia, Feeding No , Education and Family Medical Leave or Disability Forms ROS Const Denies fever(s) GI Reports as per HPI and Denies abdominal pain Reports as per HPI, Denies abnormal vaginal bleeding, Denies dysuria and Denies vaginal discharge Exam Const General: healthy appearing, comfortable and no acute distress GI Inspection: normal to inspection Palpation: soft and nontender Results POC Urinalysis 2 Dip (Clinic) Office Urine Glucose Negative Last Edit by Adia Lopez on 04/25/25 15:16 Office Urine Protein Negative Last Edit by Adia Lopez on 04/25/25 15:16 Coding Level of Care Code OB Routine Diagnoses Single umbilical artery Q27.0 Supervision of high risk in first trimester O09.91 Trimester: first trimester 19 weeks gestation of Z3A.19 Weeks of gestation: 19 weeks FH: breast cancer 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 (4) FH: breast cancer: Status: Acute Comment: Paternal Grandmother age of onset unknown (5) David's disease: Status: Acute Comment: see [facility], we will check tsh and free t4 qtrimester. negative trab. Orders: Orders Thyroid Stim Hormone (TSH) Today Z3A.17 - 17 weeks gestation of POC Urinalysis 2 Dip (Clinic) Today Clinical Quality Measures Falls Risk Screening/Assistive Devices Have you fallen in the past year?: No 04/25/25 1529 <Electronically signed by Marva lassiter MD> Date _ Marva Shah MD [facility] Signature: Date (if applicable) CC: ~ [facility] Work Phone: 1(388) 719-819110-09-2025 [facility] [place] [facility] [address] [place] [address], [address] [place] [address] OFFICE VISIT Date of Service: 04/12/25 MR#: [id number] Acct: [id number] Name: ERWIN COLES Rep #: [id number] : 1995 Provider: Dr. Kristal Dooley DO Age/Sex: 29/F [place] [facility] [place]: Signed Intake Vital Signs 02/15/25 08:29 03/16/25 13:52 04/12/25 09:17 04/12/25 09:18 Height 5 ft 6 in 5 ft 6 in 5 ft 6 in 5 ft 6 in Weight: 151 lb BMI 24.3 BP 116/71 Intake Visit Reasons: 17 wk ob Sap Bw Consultant Required: No Is patient in pain?: No Allergies amoxicillin (From Augmentin) Allergy (Mild, Verified 04/12/25 09:17) Abd cramps/diarrhea clavulanic acid (From Augmentin) Allergy (Mild, Verified 04/12/25 09:17) Abd cramps/diarrhea Medications ?Medication ?Instructions ?Recorded ?Confirmed ?Type PNV-iron 29 mg-folic acid 1 pkg PO 01/30/25 04/12/25 H istory [id number]-wzmhp-6-dha 200 mg oral combo pack levothyroxine 50 mcg tablet 75 mcg PO DAILY 01/30/25 1 History (Synthroid) Last Menstrual Period: 12/13/24 Zika: Zika virus screening: Negative : No PFSH PFSH Medical History Hypothyroidism Surgical History Status post myringotomy with tube placement of both ears S/P wisdom tooth extraction S/P wrist surgery S/P tonsillectomy and adenoidectomy Family History Grandmother Breast cancer Paternal Cancer Paternal Skin cancer Hypertension Mother Hypertension Father Heart disease Artificial valve CVA (cerebral vascular accident) Grandfather Cross disease Paternal Social History adopted: No household [...] 3-4 times per week duration: 45-60 minutes/day channing/restorationism: Orthodoxy seatbelt use: always do you feel safe at home: Yes additional social history: - Haris-Counselor Aide Wally History 1 Elective abortions Hx Para 0 Spontaneous abortions Hx # Term Pregnancies Ectopic pregnancies Hx # Pregnancies Multiple births # of living children HPI 17 wk ob Details: ERWIN COLES is a 29 year old who presents for routine OB visit. OB Visit KATE Calculator Estimated Delivery Date Method Current WG Current Estimate 09/19/25 LMP (Certain) 17w 1d Other Estimates 09/21/25 Ultrasound #1 16w 6d Expected Delivery Route/Plan Labor Preferences- CB/BF classes: [...] current plan of care details and appropriate ordersplaced. Relevant counseling for the gestational age provided. [...] dates. Declines NIPT. [facility] managing thyroid meds. 03/16/25 -?-?-?-?-?-?-?-?-?-?-?-?- 13w 2d 146 lb 4 oz (+1 lb 4 oz) 121/72 -?-?-?-?-?-?-?-?-?-?-?-?- 160 -?-?-?-?-?-?-?-?-?-?-?-?- SM- no vb crmapi ng 04/12/25 -?-?-?-?-?-?-?-?-?-?-?-?- 17w 1d 151 lb (+6 lb) 116/71 -?-?-?-?-?-?-?-?-?-?-?-?- 159 -?-?-?-?-?-?-?-?-?-?-?-?- JV- no lof, vagi nal bleeding, or cramping. has intermittent right lower quadrant pain. no fevers, diarrhea, chills. has anatomy scan coming up. possible cyst or musculoskeletal as it does get better after her chiropractic visits. due for tsh next office visit. ACOG First Trimester First Trimester: Desire for , Alcohol, Tobacco Cessation, Illicit/Recreational Drug/Substance Use, Intimate Partner Violence, Barriers to care, Unstable Housing, Communication Barriers, Environmental/Work Hazards, Anticipated Course of Care, Toxoplasmosis Precations, Use of Any med ications, Sexual activity, Dental Care, Sauna/Hot tub use, Seat Belt use, Childbirth classes/Hospital facilities, Travel, Indications for Ultrasound and Screening for Aneuploidy; Discussed Exercise and Discussed Second Trimester Second Trimester: Signs and Symptoms of Labor, Selecting a care provider, Reproductive Life Planning & Contreception, Care Planning, Depression/Anxiety and Intimate Partner Violence; Discussed Tobacco Cessation Third Trimester Third Trimester: Pain Management Plans, Labor support person(s), Immediate Larc, Signs and Symptoms of Preeclampsia, Feeding No , [place] Education and Family Medical Leave or Disability Forms Coding Level of Care Code OB Routine Diagnoses Supervision of high risk in first trimester O09. 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 (3) FH: breast cancer: Status: Acute Comment: Paternal Grandmother age of onset unknown (4) David's disease: Status: Acute Comment: see [facility], we will check tsh and free t4 qtrimester. negative trab. Orders: Orders POC Urinalysis 2 Dip (Clinic) Today 04/12/25 0945 e Velde DO> Date _ [facility]oley [facility] Signature: Date (if applicable) CC: ~ [id number] [facility] [place] [facility] [address] [place] [address], [address] [place] [address] OFFICE VISIT Date of Service: 03/16/25 MR#: [id number] Acct: [id number] Name: ERWIN COLES Rep #: [id number] : 1995 Provider: Dr. Alf Shah MD Age/Sex: 29/F Location: [facility] Status: Signed Intake Vital Signs 11/14/24 09:41 02/15/25 08:29 03/16/25 13:52 Height 5 ft 6 in 5 ft 6 in 5 ft 6 in Weight: 146 lb 4 oz BMI 23.6 BP 121/72 H Intake Visit Reasons: 13 wk ob Sap Bw Consultant Required: No Is patient in pain?: No Allergies amoxicillin (From Augmentin) Allergy (Mild, Verified 03/16/25 13:50) Abd cramps/diarrhea clavulanic acid (From Augmentin) Allergy (Mild, Verified 03/16/25 13:50) Abd cramps/diarrhea Last Menstrual Period: 12/13/24 Zika: Zika virus screening: Negative : No PFSH PFSH Medical History (Updated 03/16/25 @ 14:[address] Marva Shah MD) Hypothyroidism Surgical History Status post myringotomy with tube placement of both ears S/P wisdom tooth extraction S/P wrist surgery S/P tonsillectomy and adenoidectomy Family History Grandmother Breast cancer Paternal Cancer Paternal Skin cancer Hypertension Mother Hypertension Father Heart disease Artificial valve CVA (cerebral vascular accident) Grandfather Marcello disease Paternal Social History adopted: No household [...] 3-4 times per week duration: 45-60 minutes/day channing/restorationism: Orthodoxy seatbelt use: always do you feel safe at home: Yes additional social history: - Haris-Counselor Aide Wally History 1 Elective abortions Hx Para 0 Spontaneous abortions Hx # Term Pregnancies Ectopic pregnancies Hx # Pregnancies Multiple births # of living children HPI 13 wk ob Details: ERWIN COLES is a 29 year old who presents for routine OB visit. OB Visit KATE Calculator Estimated Delivery Date Method Current WG Current Estimate 09/19/25 LMP (Certain) 13w 2d Other Estimates 09/21/25 Ultrasound #1 13w 0d Expected Delivery Route/Plan Labor Preferences- CB/BF classes: [...] current plan of care details and appropriate ordersplaced. Relevant counseling for the gestational age provided. [...] dates. Declines NIPT. [facility] managing thyroid meds. 03/16/25 -?-?-?-?-?-?-?-?-?-?-?-?- 13w 2d 146 lb 4 oz (+1 lb 4 oz) 121/72 -?-?-?-?-?-?-?-?-?-?-?-?- 160 -?-?-?-?-?-?-?-?-?-?-?-?- SM- no vb crmapi ng ACOG First Trimester First Trimester: Desire for , Alcohol, Tobacco Cessation, Illicit/Recreational Drug/Substance Use, Intimate Partner Violence, Barriers to care, Unstable Housing, Communication Barriers, Environmental/Work Hazards, Anticipated Course of Care, Toxoplasmosis Precations, Use of Any med ications, Sexual activity, Dental Care, Sauna/Hot tub use, Seat Belt use, Childbirth classes/Hospital facilities, Travel, Indications for Ultrasound and Screening for Aneuploidy; Discussed Exercise and Discussed Second Trimester Second Trimester: Signs and Symptoms of Labor, Selecting a care provider, Reproductive Life Planning & Contreception, Care Planning, Depression/Anxiety and Intimate Partner Violence; Discussed Tobacco Cessation Third Trimester Third Trimester: Pain Management Plans, Labor support person(s), Immediate Larc, Signs and Symptoms of Preeclampsia, Infant Feeding No , [place] Education and Family Medical Leave or Disability Forms Coding Level of Care Code OB Routine Diagnoses Supervision of high risk in first trimester O09.91 Trimester: first trimester 13 weeks gestation of Z3A.13 Weeks of gestation: 13 weeks FH: breast cancer 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 (3) FH: breast cancer: Status: Acute Comment: Paternal Grandmother age of onset unknown (4) David's disease: Status: Acute Comment: see [facility], we will check tsh and free t4 qtrimester. negative trab. 03/16/25 1426 sravani HOWELL> Date _ Marva Shah MD Cosign Signature: Date (if applicable) CC: ~ [id number] Progress note Author Marva Shah [facility] Note Date/Time March 16, 2025 2:26pm [facility]alt [facility] [address] [place] [address], [address] [place] [address] OFFICE VISIT Date of Service: 03/16/25 MR#: [id number] Acct: [id number] Name: ERWIN COLES Rep #: [id number] : 1995 Provider: Dr. Alf Shah MD Age/Sex: 29/F [place] [facility]: Signed Intake Vital Signs 11/14/24 09:41 02/15/25 08:29 03/16/25 13:52 Height 5 ft 6 in 5 ft 6 in 5 ft 6 in Weight: 146 lb 4 oz BMI 23.6 BP 121/72 H Intake Visit Reasons: 13 wk ob Sap Bw Consultant Required: No Is patient in pain?: No Allergies amoxicillin (From Augmentin) Allergy (Mild, Verified 03/16/25 13:50) Abd cramps/diarrhea clavulanic acid (From Augmentin) Allergy (Mild, Verified 03/16/25 13:50) Abd cramps/diarrhea Last Menstrual Period: 12/13/24 Zika: Zika virus screening: Negative : No PFSH PFSH Medical History (Updated 03/16/25 @ 14:[address] Marva Shah MD) Hypothyroidism Surgical History Status post myringotomy with tube placement of both ears S/P wisdom tooth extraction S/P wrist surgery S/P tonsillectomy and adenoidectomy Family History Grandmother Breast cancer Paternal Cancer Paternal Skin cancer Hypertension Mother Hypertension Father Heart disease Artificial valve CVA (cerebral vascular accident) Grandfather Cross disease Paternal Social History adopted: No household [...] 3-4 times per week duration: 45-60 minutes/day channing/restorationism: Orthodoxy seatbelt use: always do you feel safe at home: Yes additional social history: - Haris-Counselor Aide [facility] History 1 Elective abortions Hx Para 0 Spontaneous abortions Hx # Term Pregnancies Ectopic pregnancies Hx # Pregnancies Multiple births # of living children HPI 13 wk ob Details: ERWIN COLES is a 29 year old who presents for routine OB visit. OB Visit KATE Calculator Estimated Delivery Date Method Current WG Current Estimate 09/19/25 LMP (Certain) 13w 2d Other Estimates 09/21/25 Ultrasound #1 13w 0d Expected Delivery Route/Plan Labor Preferences- CB/BF classes: [...] dates. Declines NIPT. [facility] managing thyroid meds. 03/16/25 -?-?-?-?-?-?-?-?-?-?-?-?- 13w 2d 146 lb 4 oz (+1 lb 4 oz) 121/72 -?-?-?-?-?-?-?-?-?-?-?-?- 160 -?-?-?-?-?-?-?-?-?-?-?-?- SM- no vb crmapi ng ACOG First Trimester First Trimester: Desire for , Alcohol, Tobacco Cessation, Illicit/Recreational Drug/Substance Use, Intimate Partner Violence, Barriers to care, Unstable Housing, Communication Barriers, Environmental/Work Hazards, Anticipated Course of Care, Toxoplasmosis Precations, Use of Any medications, Sexual activity, Dental Care, Sauna/Hot tub use, Seat Belt use, Childbirth classes/Hospital facilities, Travel, Indications for Ultrasound and Screening for Aneuploidy; Discussed Exercise and Discussed Second Trimester Second Trimester: Signs and Symptoms of Labor, Selecting a care provider, Reproductive Life Planning & Contreception, Care Planning, Depression/Anxiety and Intimate Partner Violence; Discussed Tobacco Cessation Third Trimester Third Trimester: Pain Management Plans, Labor support person(s), Immediate Larc, Signs and Symptoms of Preeclampsia, Infant Feeding No , [place] Education and Family Medical Leave or Disability Forms Coding Level of Care Code OB Routine Diagnoses Supervision of high risk in first trimester O09.91 Trimester: first trimester 13 weeks gestation of Z3A.13 Weeks of gestation: 13 weeks FH: breast cancer 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 (3) FH: breast cancer: Status: Acute Comment: Paternal Grandmother age of onset unknown (4) David's disease: Status: Acute Comment: see [facility], we will check tsh and free t4 qtrimester. negative trab. 03/16/25 1426 <Electronically signed by Marva lassiter MD> Date _ Marva Shah MD [facility] Signature: Date (if applicable) CC: ~ [facility] Work Phone: 1(253) 256-359508-14-2025 Progress [facility] [address] [place] [address], [address] [place], [place] [id number] OFFICE VISIT Date of Service: 02/15/25 MR#: [id number] Acct: [id number] Name: ERWIN COLES Rep #: [id number] : 1995 Provider: VIRGINIA Peters Age/Sex: 29/F [place] [facility]: Signed Intake Vital Signs 11/14/24 09:41 01/30/25 10:15 02/15/25 08:29 Height 5 ft 6 in 5 ft 6 in 5 ft 6 in Weight: 145 lb 7 oz BMI 23.4 BP 111/72 Intake Visit Reasons: *EST* NOB LMP 12/13, KATE 09/19 *ppu Chief Complaint: New OB Sap Bw Consultant Required: No Is patient in pain?: No Allergies amoxicillin (From Augmentin) Allergy (Mild, Verified 02/15/25 08:27) Abd cramps/diarrhea clavulanic acid (From Augmentin) Allergy (Mild, Verified 02/15/25 08:27) Abd cramps/diarrhea Medications ?Medication ?Instructions ?Recorded ?Confirmed ?Type PNV-iron 29 mg-folic acid 1 pkg PO 01/30/25 02/15/25 H istory [id number] 200 mg oral combo pack levothyroxine 50 [...] Artificial valve CVA (cerebral vascular accident) Grandfather Cross disease Paternal Social History adopted: No household [...] 3-4 times per week duration: 45-60 minutes/day channing/restorationism: Orthodoxy seatbelt use: always do you feel safe at home: Yes additional social history: - Haris-Counselor Aide [employer] History 1 Elective abortions Hx Para 0 Spontaneous abortions Hx # Term Pregnancies Ectopic pregnancies Hx # Pregnancies Multiple births # of living children HPI *EST* NOB LMP 12/13, KATE 09/19 *ppu Details: ERWIN COLES is a 29 year old who presents for New OB visit. OB Visit KATE Calculator Estimated Delivery Date Method Current WG [...] current plan of care details and appropriate ordersplaced. Relevant counseling for the gestational age provided. [...] Patient (Father valve replacement at 14yo), Neural TubeDefect: Other, Hemoglobinopathy Or Carrier: Patient (MTHFR), Cystic [...] blood transfusions, D (Rh) Sensitized (0+), Pulmonary (e.g .,TB,Asthma), Seasonal allergies, Music Composition Teacher surgery, Anesthetic complications, History of abnormal pap, [...] Symptoms of Preeclampsia, Infant Feeding Yes , [place] Education and Family Medical Leave or Disability [...] additional complaints, except as documented, Denies abnormal vaginalbleeding, Denies difficulty voiding, Denies dyspareunia and Denies [...] Supervision of high risk in first trimester O09. Trimester: first trimester 9 weeks gestation of [...] - Supervision of high risk , unspecified, unspecifiedtrimester Hepatitis B Surface Antigen 01/30/25 O09.90 - [...] high risk , unspecified, unspecified trimester [facility] Misc. 01/30/25 E03.9 - Hypothyroidism, unspecified, E06.3 - [...] patient and patient chose: declines 02/15/25 0859 s OMARIM> Date _ Robina Peters CNM Cosigner Signature: Date (if applicable) CC: ~ [facility]07-29-2025 Chief complaint+Reason for visit Narrative* Chief Complaint Admit Date PNOB Vitals & Education January 30, 2025 8:05am *EST* NOB LMP 12/13, KATE 09/19 *ppu February 15, 2025 8:23am 13 wk ob March 16, 2025 1:45pm Reason for Visit Admit Date Supervision of high-risk January 30, 2025 8:05am FH: breast cancer February 15, 2025 8: 23am David's disease February 15, 2025 8: 23am February 15, 2025 8: 23am Supervision of high-risk Augus t 2024 8:23am Breast mass, right February 15, 2025 8: 23am Hypothyroidism February 15, 2025 8: 23am 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, 2025 8:23am Subcutaneous nodule of breast February 8:23am FH: breast cancer March 16, 2025 1:45pm David's disease March 16, 2025 1:45pm March 16, 2025 1:45pm Supervision of high-risk [facility] 2024 1:45pm [facility] Work Phone: 1(856) 660-160907-29-2025 Chief complaint+Reason for visit Narrative * Chief Complaint Admit Date PNOB Vitals & Education January 30, 2025 8:05am *EST* NOB LMP 12/13, KATE 09/19 *ppu February 15, 2025 8:23am 13 wk ob March 16, 2025 1:45pm 17 wk ob April 12, 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 Reason for Visit Admit Date Supervision of high-risk January 30, 2025 8:05am FH: breast cancer February 15, 2025 8: 23am David's disease February 15, 2025 8: 23am February 15, 2025 8: 23am Supervision of high-risk Augus t 2024 8:23am Breast mass, right February 15, 2025 8: 23am Hypothyroidism February 15, 2025 8: 23am 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, 2025 8:23am Subcutaneous nodule of breast February 8:23am FH: breast cancer March 16, 2025 1:45pm David's disease March 16, 2025 1:45pm March 16, 2025 1:45pm Supervision of high-risk Septe mb 2024 1:45pm FH: breast cancer April 12, 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, 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 April 12, 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 Supervision of high-risk Octob 2024 9:17am [facility] Work Phone: 1([phone]) 905-326207-29-2025 Chief complaint+Reason for visit Narrative * Chief Complaint Admit Date PNOB Vitals & Education January 30, 2025 8:05am *EST* NOB LMP 12/13, KATE 09/19 *ppu February 15, 2025 8:23am 13 wk ob March 16, 2025 1:45pm 17 wk ob April 12, 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 OB, Heartbeat check April 25, 2025 3 :05pm 21 WK OB May 10, 2025 3 :39pm Reason for Visit Admit Date Supervision of high-risk January 30, 2025 8:05am FH: breast cancer February 15, 2025 8: 23am David's disease February 15, 2025 8: 23am February 15, 2025 8: 23am Supervision of high-risk Augus t 2024 8:23am Breast mass, right February 15, 2025 8: 23am Hypothyroidism February 15, 2025 8: 23am 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, 2025 8:23am Subcutaneous nodule of breast February 8:23am FH: breast cancer March 16, 2025 1:45pm David's disease March 16, 2025 1:45pm March 16, 2025 1:45pm Supervision of high-risk Septe mber 2024 1:45pm FH: breast cancer April 12, 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, 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 April 12, 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 Supervision of high-risk Octob er 2024 9:17am FH: breast cancer April 25, 2025 3 :05pm David's disease April 25, 2025 3 :05pm April 25, 2025 3 :05pm Single umbilical artery April 25 3:05pm Supervision of high-risk Octob er 2024 3:05pm FH: breast cancer May 10, 2025 3 :39pm David's disease May 10, 2025 3 :39pm May 10, 2025 3 :39pm Single umbilical artery May 10 3:39pm Supervision of high-risk Novem 2024 3:39pm [facility] Work Phone: 1([phone]) 183-261907-29-2025 Evaluation note* Diagnosis Onset Date Resolution Status Admit Date Supervision of high-risk acute January 30, 2025 8:05am FH: breast cancer acute February 15, 2025 8:23am David's disease acute Augus 2024 8:23am acute February 15 8:23am Supervision of high-risk acute February 15 8:23am Breast mass, right resolved February 15, 2025 8:23am Hypothyroidism resolved February 8:23am MTHFR deficiency complicatin g resolved February 15 8:23am Subcutaneous nodule of breast resolv ed February 15, 2025 8:23am FH: breast cancer acute Septemb er 2024 1:45pm David's disease acute Septe mb2024 1:45pm acute March 1:45pm Supervision of high-risk acute March 16, 2025 1:45pm [facility] Work Phone: 1(112) 941-886407-29-2025 Evaluation note* Diagnosis Onset Date Resolution Status Admit Date Supervision of high-risk acute January 30, 2025 8:05am FH: breast cancer acute February 15, 2025 8:23am David's disease acute Aug2024 8:23am acute February 15 8:23am Supervision of high-risk acute February 15 8:23am Breast mass, right resolved February 15, 2025 8:23am Hypothyroidism resolved February 8:23am MTHFR deficiency complicatin g resolved February 15 8:23am Subcutaneous nodule of breast resolv ed February 15, 2025 8:23am FH: breast cancer acute Septemb er 2024 1:45pm David's disease acute Septe mber 2024 1:45pm acute March 1:45pm Supervision of high-risk acute March 16, 2025 1:45pm FH: breast cancer acute April 12, 2025 9:17am David's disease acute Octob er 2024 9:17am acute April 12, 2 025 9:17am Supervision of high-risk acute April 12 9:17am [facility] Work Phone: 1(200) 342-393007-29-2025 Evaluation note* Diagnosis Onset Date Resolution Status Admit Date Supervision of high-risk acute January 30, 2025 8:05am FH: breast cancer acute February 15, 2025 8:23am David's disease acute Augus t 2024 8:23am acute February 15, 8:23am Supervision of high-risk acute February 15 8:23am Breast mass, right resolved February 15, 2025 8:23am Hypothyroidism resolved February 8:23am MTHFR deficiency complicatin g resolved February 15 8:23am Subcutaneous nodule of breast resolv ed February 15, 2025 8:23am FH: breast cancer acute Septemb er 2024 1:45pm David's disease acute Septe mber 2024 1:45pm acute March 1:45pm Supervision of high-risk acute March 16, 2025 1:45pm FH: breast cancer acute April 12, 2025 9:17am David's disease acute Octob er 2024 9:17am acute April 12, 025 9:17am Supervision of high-risk acute April 12 9:17am FH: breast cancer acute April 25, 2025 3:05pm David's disease acute Octob er 2024 3:05pm acute April 25, 2025 3:05pm Single umbilical artery acute O ctober 2024 3:05pm Supervision of high-risk acute April 25 3:05pm FH: breast cancer acute Novembe r 2024 3:39pm David's disease acute Novem marcellus 2024 3:39pm acute May 10, 2025 3:39pm Single umbilical artery acute N ovember 2024 3:39pm Supervision of high-risk acute May 10 3:39pm [facility] Work Phone: 1(499) 433-991007-18-2025 Telephone encounter Note* Telephone Encounter - Kierra Cobb MA - 01/19/2025 3:17 PM EDT Phoned patient LVM. Patient was asked to confirm at OBGYN office. As per provider, the decision to change the medication dosage is based on this information. Kierra Cobb MA [facility]07-18-2025 Miscellaneous Notes* Telephone Encounter - Kierra Cobb MA - 01/19/2025 3:17 PM EDT Phoned patient LVM. Patient was asked to confirm at OBGYN office. As per provider, the decision to change the medication dosage is based on this information. Kierra Cobb MA documented in [facility] encounterM[facility]07-[facility]25 Instructions* Patient Instructions* Lashonda Thomas MD - 01/08/2025 4:32 PM EDT Please continue same dose of levothyroxine Repeat labs in 6 months documented in this encounterMorrow [facility]07-07-2025 NoteHNO ID: [id number] Author: LASHONDA THOMAS MD Service: ? Author Type: Physician Type: Progress Notes Filed: 01/28/2025 22:52 Note Text: [facility] Follow up visit note Subjective: Erwin Coles is a 29 year old female here follow up evaluation of thyroid problem. 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 Erin Andrews for subclinical hypothyroidism. 10/06/24 History in brief, She was having symptoms of hyperthyroidism in early 2020 and was found to have abnormal labs showing the same was started on MMI, propranolol by her agent contract clerk, Dr. Erin Andrews By late 2020, she [...] mcg daily Family history: Grand father had Cross's disease Interval history: 12/07/24 Hypothyroidism: - Taking [...] day. Thyro-care *under the supervision of a general supervisor -- compound formula* MEDICATION, NON-DATABASE Take 1 capsule by mouth once daily. Adrenal Assist *under the supervision of a general supervisor -- compound formula* No current facility-administered medications [...] outstretched arms Skin: no (more content not included)...[facility]07-07-2025 History of Present illness Narrative* Lashonda Thomas MD - 01/08/2025 4:23 PM EDT [facility] Follow up visit note Subjective: Erwin Coles is a 29 year old female here follow up evaluation of thyroid problem. 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 Erin Andrews for subclinical hypothyroidism. LV 10/06/24 History in brief, She was having symptoms of hyperthyroidism in early 2020 and was found to have abnormal labs showing the same was started on MMI, propranolol by her agent contract clerk, Dr. Erin Andrews By late 2020, she [...] due to exogenous thyroid hormone, and she iscurrently on levothyroxine 75 mcg daily Family history: Grand father had Cross's disease Interval history: 12/07/24 Hypothyroidism: - Taking [...] might be getting back to normal after thyroidhas been normalized She was seen by OBGYN, [...] day. Thyro-care *under the supervision of a general supervisor -- compound formula* MEDICATION, NON-DATABASE Take 1 capsule by mouth once daily. Adrenal Assist *under the supervision of a general supervisor -- compound formula* No current facility-administered medications [...] Moderate Lashonda Thomas MD Endocrinology Associate Staff [facility] Endocrinology and Metabolism [place] [phone] documented in this encounterMorrow [facility] Hospital06-05-2025 Instructions* Patient Instructions* Lashonda Thomas MD - 12/07/2024 12:05 PM EDT Please continue same dose of levothyroxine We shall do a stimulation test for irregular cycles as discussed- please fast before the test and best done with the initial lab drawn before 8.30 am Hold biotin supplements for about 3 days documented in this encounterMorrow [facility] Hospital06-05-2025 NoteHNO ID: [id number] Author: LASHONDA THOMAS MD Service: ? Author Type: Physician Type: Progress Notes Filed: 12/07/2024 17:49 Note Text: [facility] Follow up visit note Subjective: Erwin Coles is a 29 year old female here follow up evaluation of thyroid problem. 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 Erin Andrews for subclinical hypothyroidism. LV 10/06/24 History in brief, She was having symptoms of hyperthyroidism in early 2020 and was found to have abnormal labs showing the same was started on MMI, propranolol by her agent contract clerk, Dr. Erin Andrews By late 2020, she [...] mcg daily Family history: Grand father had Cross's disease Interval history: 12/07/24 Hypothyroidism: - Taking [...] day. Thyro-care *under the supervision of a general supervisor -- compound formula* MEDICATION, NON-DATABASE Take 1 capsule by mouth once daily. Adrenal Assist *under the supervision of a general supervisor -- compound formula* No current facility-administered medications [...] ng/dl 06/08/2023 TSH 2.62 (more content not included)...[facility]06-05-2025 History of Present illness Narrative* Lashonda Thomas MD - 12/07/2024 11:47 AM EDT [facility] Follow up visit note Subjective: Erwin Coles is a 29 year old female here follow up evaluation of thyroid problem. 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 Erin Andrews for subclinical hypothyroidism. LV 10/06/24 History in brief, She was having symptoms of hyperthyroidism in early 2020 and was found to have abnormal labs showing the same was started on MMI, propranolol by her agent contract clerk, Dr. Erin Andrews By late 2020, she [...] due to exogenous thyroid hormone, and she iscurrently on levothyroxine 75 mcg daily Family history: Grand father had Cross's disease Interval history: 12/07/24 Hypothyroidism: - Taking [...] might be getting back to normal after thyroidhas been normalized She was sen by OBGYN, [...] day. Thyro-care *under the supervision of a general supervisor -- compound formula* MEDICATION, NON-DATABASE Take 1 capsule by mouth once daily. Adrenal Assist *under the supervision of a general supervisor -- compound formula* No current facility-administered medications [...] BP Cuff Size: Regular Adult) Pulse 75 Temp37.2 C (98.9 F) (Temporal Artery) Wt 64.5 kg (142 lb 3.2 oz) LMP 10/19/2024 (Exact Date) [id number]% BMI 22.95 kg/m Unchanged from prior visit [...] Medical Decision Making Level: 4 - Moderate aLshonda Thomas MD Endocrinology Associate Staff [facility] Special[facility] & Surgery [facility] Endocrinology and Metabolism [place] [phone] documented in this encounterMorrow [facility] Hospital06-02-2025 Telephone encounter Note * Telephone Encounter - Mehnaz Mendez RN - 12/04/2024 9:48 AM EDT Lab orders faxed to [facility] for upcoming appt per Pt request. Fax confirmation received. Mehnaz Mendez RN December 04, 2024 9:50 AM [facility]06-02-2025 Miscellaneous Notes* Telephone Encounter - Mehnaz Mendez RN - 12/04/2024 9:48 AM EDT Lab orders faxed to [facility] for upcoming appt per Pt request. Fax confirmation received. Mehnaz Mendez RN December 04, 2024 9:50 AM documented in this encounterMorrow [facility] Hospital05-30-2025 Telephone encounter Note * Telephone Encounter - Norma Contreras RN - 12/01/2024 10:15 AM EDT TSH and T4 pended for visit 12/07/2024. Patient requests orders be faxed [facility] (fax # on Endo sticky note) From [facility] 10/06: started her on 75 mcg of LT4, labs improving with in 3 weeks advised to continue same dose for 4 weeks before repeating labs complained of palpitations within 1 week of starting LT4. changed levothyroxine formulation to levoxyl. Thank you! Vee Contreras RN [facility]05-30-2025 Miscellaneous Notes* Telephone Encounter - Norma Contreras RN - 12/01/2024 10:15 AM EDT TSH and T4 pended for visit 12/07/2024. Patient requests orders be faxed to [facility] (fax # on Endo sticky note) From [facility] 10/06: started her on 75 mcg of LT4, labs improving with in 3 weeks advised to continue same dose for 4 weeks before repeating labs complained of palpitations within 1 week of starting LT4. changed levothyroxine formulation to levoxyl. Thank you! Vee Contreras, RN documented in this encounterMorrow [facility] Hospital05-13-2025 Evaluation note* Diagnosis Onset Date Resolution Status Admit Date Subcutaneous nodule of breast acute November 14, 2024 9:36am Encounter for routine gynecological examination noneactive November 142024 9:36am [facility] Work Phone: 1(800) 309-139105-13-2025 Evaluation note* Diagnosis Onset Date Resolution Status Admit Date Subcutaneous nodule of breast acute November 14, 2024 9:36am Encounter for routine gynecological examination noneactive November 142024 9:36am Supervision of high-risk acute January 30, 2025 8:05am Breast mass, right acute February 15, 2025 8:23am FH: breast cancer acute February 15, 2025 8:23am 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 Kierra Cobb MA [facility]04-10-2025 Miscellaneous Notes* Telephone Encounter - Kierra [...] were drawn Thank you! documented in this encounterMorrow [facility] Hospital04-10-2025 Telephone encounter Note * Telephone Encounter - Lashonda Thomas MD - 10/12/2024 1:11 PM EDT Images from the original note were not included. Among the labs ordered recently, only two were drawn/resulted. Please make sure all labs were drawn Thank you! [facility]04-04-2025 Instructions* Patient Instructions* Lashonda Thomas MD - 10/06/2024 2:14 PM EDT Labs on fasting at 8 am, hold any supplements for 3 days before labs are drawn Continue same dose of levothyroxine - refills given documented in this encounterMorrow County Hospital04-04-2025 NoteHNO ID: [id number] Author: LASHONDA THOMAS MD Service: ? Author Type: Physician Type: Progress Notes Filed: 10/08/2024 23:43 Note Text: [facility] Follow up visit note Subjective: Erwin Coles is a 28 year old female here for evaluation of thyroid problem. 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 Erin Andrews for subclinical hypothyroidism. LV 08/07/24 History in brief, She was having symptoms of hyperthyroidism in early 2020 and was found to have abnormal labs showing the same was started on MMI, propranolol by her agent contract clerk, Dr. Erin Andrews By late 2020, she [...] thyroid hormone Family history: Grand father had Cross's disease Interval history:10/06/24 Reports acne which started [...] day. Thyro-care *under the supervision of a general supervisor -- compound formula* MEDICATION, NON-DATABASE Take 1 capsule by mouth once daily. Adrenal Assist *under the supervision of a general supervisor -- compound formula* No current facility-administered medications [...] High 04/24/24 TSH < (more content not included)...[facility]04-04-2025 History of Present illness Narrative* Lashonda Thomas MD - 10/06/2024 2:09 PM EDT [facility] Follow up visit note Subjective: Erwin Coles is a 28 year old female here for evaluation of thyroid problem. 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 Erin Andrews for subclinical hypothyroidism. LV 08/07/24 History in brief, She was having symptoms of hyperthyroidism in early 2020 and was found to have abnormal labs showing the same was started on MMI, propranolol by her agent contract clerk, Dr. Erin Andrews By late 2020, she [...] thyroid hormone Family history: Grand father had Cross's disease Interval history:10/06/24 Reports acne which started [...] day. Thyro-care *under the supervision of a general supervisor -- compound formula* MEDICATION, NON-DATABASE Take 1 capsule by mouth once daily. Adrenal Assist *under the supervision of a general supervisor -- compound formula* No current facility-administered medications [...] lb 9.6 oz) LMP 09/12/2024 (Exact Date) [id number]% BMI 23.02 kg/m Unchanged from prior visit [...] Moderate Lashonda Thomas MD Endocrinology Associate Staff [facility] Special[facility] Endocrinology and Metabolism [place] [phone] documented in this encounterMorrow County Hospital02-03-2025 Instructions* Patient Instructions* Lashonda Thmoas MD - 08/07/2024 10:19 AM EST Please continue same dose of levothyroxine- formulation chanhged to levoxyl Labs in 1 month documented in this encounterMorrow County Hospital02-03-2025 NoteHNO ID: [id number] Author: LASHONDA THOMAS MD Service: ? Author Type: Physician Type: Progress Notes Filed: 08/08/2024 09:07 Note Text: [facility] Follow up visit note Subjective: Erwin Coles is a 28 year old female here for evaluation of thyroid problem. 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 Erin Andrews for subclinical hypothyroidism. Follow up visit was in 03/2024 History in brief, She was having symptoms of hyperthyroidism in early 2020 and was found to have abnormal labs showing the same was started on MMI, propranolol by her agent contract clerk, Dr. Erin Andrews By late 2020, she [...] thyroid hormone Family history: Grand father had Marcello's disease Interval history:08/07/2024 She has stopped all [...] day. Thyro-care *under the supervision of a general supervisor -- compound formula* MEDICATION, NON-DATABASE Take 1 capsule by mouth once daily. Adrenal Assist *under the supervision of a general supervisor -- compound formula* No current facility-administered medications [...] cm; mildly heterogeneous echogenici (more content not included)...[facility]02-03-2025 History of Present illness Narrative* Lashonda Thomas MD - 08/07/2024 10:14 AM EST [facility] Follow up visit note Subjective: Erwin Coles is a 28 year old female here for evaluation of thyroid problem. 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 Erin Andrews for subclinical hypothyroidism. Follow up visit was in 03/2024 History in brief, She was having symptoms of hyperthyroidism in early 2020 and was found to have abnormal labs showing the same was started on MMI, propranolol by her agent contract clerk, Dr. Erin Andrews By late 2020, she [...] thyroid hormone Family history: Grand father had Marcello's disease Interval history:08/07/2024 She has stopped all [...] day. Thyro-care *under the supervision of a general supervisor -- compound formula* MEDICATION, NON-DATABASE Take 1 capsule by mouth once daily. Adrenal Assist *under the supervision of a general supervisor -- compound formula* No current facility-administered medications [...] Moderate Lashonda Thomas MD Endocrinology Associate Staff [facility] Endocrinology and Metabolism [place] [phone] documented in this encounterMorrow County Hospital01-24-2025 Telephone encounter Note * Telephone Encounter - Mehnaz Mendez RN - 07/28/2024 8:43 AM EST Lab orders faxed electronically through [employer] to [facility] at fax #: . Mehnaz Mendez RN July 28, 2024 8:43 AM [facility]01-24-2025 Miscellaneous Notes* Telephone Encounter - Mehnaz Mendez RN - 07/28/2024 8:43 AM EST Lab orders faxed electronically through [employer] to [facility] at fax #: . Mehnaz Mendez RN July 28, 2024 8:43 AM * Telephone Encounter - Sridevi Martínez - 07/28/2024 8:28 AM EST Patient is asking if her labs can be sent over to [facility]. Please review. Sridevi Martínez July 28, 2024 8:28 AM documented in this encounterMorrow County Hospital01-24-2025 Telephone encounter Note * Telephone Encounter - Carolina Martínezkulwinder White - 07/28/2024 8:28 AM EST Patient is asking if her labs can be sent over to [facility]. Please review. Sridevi Martínez July 28, 2024 8:28 AM [facility]12-17-2024 Telephone encounter Note* Telephone Encounter - Kierra Cobb MA - 06/20/2024 11:27 AM EST My chart message sent with below message. Kierra Cobb MA [facility]12-17-2024 Miscellaneous Notes* Telephone Encounter - Kierra [...] back the 10lbs that she had lost. [employer]inder message is fine. Please review and advise. Jayne Frank MA documented in this encounterMorrow County Hospital12-17-2024 Telephone encounter Note * Telephone Encounter - Lashonda Thomas MD - 06/20/2024 11:15 AM EST Reviewd thyroid US, no action needed at this time [facility]12-12-2024 Telephone encounter Note* Telephone Encounter - [...] back the 10lbs that she had lost. Ibottahart message is fine. Please review and advise. Jayne Frank MA [facility]11-15-2024 History of Present illness Narrative* Damaris [...] PATIENT PRESENTS WITH AN IMPLANTABLE OR ATTACHED VEST TAILOR: No RADIOLOGY DEPARTMENT: Ultrasound PERIPHERAL IV DATA: Not applicable SIGNED BY: Damaris Sanchez RDMS RVT May 19, 2024 10:54 AM documented in this encounterMorrow County Hospital11-15-2024 NoteHNO ID: [id number] Author: DAMARIS SANCHEZ RDMS Service: ? Author Type: Consumer Affairs Specialist Type: Progress Notes Filed: 05/19/2024 10:54 Note [...] PATIENT PRESENTS WITH AN IMPLANTABLE OR ATTACHED VEST TAILOR: No RADIOLOGY DEPARTMENT: Ultrasound PERIPHERAL IV DATA: Not applicable SIGNED BY: Damaris Sanchez RDMS RVDrake May 19, 2024 10:54 [facility]11-11-2024 Telephone encounter Note* Telephone Encounter - Mehnaz Mendez RN - 05/15/2024 4:08 PM EST Call placed to Pt - verified name & . Notified Pt of below notation per Dr. Thomas; she voices understanding. Prefers to have the thyroid US at [facility]. Will mail the US order to Pt's home address. Mehnaz Mendez RN May 15, 2024 4:10 PM [facility]11-11-2024 Miscellaneous Notes* Telephone Encounter - Mehnaz Mendez RN - 05/15/2024 4:08 PM EST Call placed to Pt - verified name & . Notified Pt of below notation per Dr. Thomas; she voices understanding. Prefers to have the thyroid US at [facility]. Will mail the US order to Pt's home address. Mehnaz Mendez RN May 15, 2024 4:10 PM * [...] orders placed * Telephone Encounter - Mehnaz Mendez RN - 05/15/2024 10:53 AM EST Call received from Pt - name & verified. Pt had labs drawn at [facility] on 05/05/2024 and 05/09/2024 (see scanned documents). Requesting results - please review and advise for further instruction. Mehnaz Mendez RN May 15, 2024 10:54 AM documented in this encounterMorrow County Hospital11-11-2024 Note* Addendum Note - Lashonda Thomas MD - 05/15/2024 2:38 PM ESTAddended by: LASHONDA THOMAS on: 05/15/2024 02:38 PM Modules accepted: Orders [facility]11-11-2024 Telephone encounter Note* Telephone Encounter - [...] time of visit Thyroid ultrasound orders placed [facility]11-11-2024 Telephone encounter Note* Telephone Encounter - Mehnaz Mendez RN - 05/15/2024 10:53 AM EST Call received from Pt - name & verified. Pt had labs drawn at [facility] on 05/05/2024 and 05/09/2024 (see scanned documents). Requesting results - please review and advise for further instruction. Mehnaz Mendez RN May 15, 2024 10:54 AM [facility]11-05-2024 Evaluation + Plan note Diagnostic Tests Pending * Thyroid Stim Immunoglobulin 05/09/24 [facility] 11-01-2024 Evaluation + Plan note Diagnostic Tests Pending * TgAb+Thyroglobulin,ASAF or LCMS 05/05/24 [facility] 11-01-2024 Instructions* Patient Instructions* Lashonda Thomas MD - 05/05/2024 11:40 AM EDT Please do labs today if possible might consider imaging studies based on lab results Propranolol 10 mg three times daily sent to pharmacy for symptom control documented in this encounterMorrow County Hospital11-01-2024 NoteHNO ID: [id number] Author: LASHONDA THOMAS MD Service: ? Author Type: Physician Type: Progress Notes Filed: 05/07/2024 21:49 Note Text: [facility] Follow up visit note Subjective: Erwin Coles is a 28 year old female here for evaluation of thyroid problem. 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 Erin Andrews for subclinical hypothyroidism. Follow up visit was in 03/2024 History in brief, She was having symptoms of hyperthyroidism in early 2020 and was found to have abnormal labs showing the same was started on MMI, propranolol by her agent contract clerk, Dr. Erin Andrews By late 2020, she was started on synthroid, was on 50 mcg daily as the latest She has seen naturopathy specialist, and started using supplements in Apr 2023, she feels she felt better with energy, hair texture etc She is on thyrocare- BID and adrenal supplement once daily Family history: Grand father had Cross's disease Interval history: 05/05/2024 She was taking [...] day. Thyro-care *under the supervision of a general supervisor -- compound formula* MEDICATION, NON-DATABASE Take 1 capsule by mouth once daily. Adrenal Assist *under the supervision of a general supervisor -- compound formula* No current facility-administered medications [...] of weight loss, l (more content not included)...[facility]11-01-2024 History of Present illness Narrative* Lashonda Thomas MD - 05/05/2024 11:23 AM EDT [facility] Follow up visit note Subjective: Erwin Coles is a 28 year old female here for evaluation of thyroid problem. 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 Erin Andrews for subclinical hypothyroidism. Follow up visit was in 03/2024 History in brief, She was having symptoms of hyperthyroidism in early 2020 and was found to have abnormal labs showing the same was started on MMI, propranolol by her agent contract clerk, Dr. Erin Andrews By late 2020, she was started on synthroid, was on 50 mcg daily as the latest She has seen naturopathy specialist, and started using supplements in Apr 2023, she feels she felt better with energy, hair texture etc She is on thyrocare- BID and adrenal supplement once daily Family history: Grand father had Cross's disease Interval history: 05/05/2024 She was taking [...] day. Thyro-care *under the supervision of a general supervisor -- compound formula* MEDICATION, NON-DATABASE Take 1 capsule by mouth once daily. Adrenal Assist *under the supervision of a general supervisor -- compound formula* No current facility-administered medications [...] Moderate Lashonda Thomas MD Endocrinology Associate Staff [facility] Endocrinology and Metabolism [place] [phone] documented in this encounterMorrow County Hospital10-14-2024 Telephone encounter Note * Telephone Encounter [...] she can follow up with the facility. [facility]10-14-2024 Miscellaneous Notes* Telephone Encounter - Lynn [...] up with the facility. documented in this encounterMorrow County Hospital10-14-2024 Telephone encounter Note * Telephone Encounter - Kierra Cobb MA - 04/17/2024 8:04 AM EDT My chart message sent Kierra Cobb MA [facility]10-14-2024 Miscellaneous Notes* Telephone Encounter - Kierra [...] have lab work done. documented in this encounterMorrow County Hospital10-13-2024 Telephone encounter Note * Telephone Encounter - Lashonda Thomas MD - 04/16/2024 2:12 PM EDT Required labs ordered. She must hold any supplements for atleast 3 days before doing labs Advise making an appointment if labs are abnormal [facility]10-09-2024 Telephone encounter Note* Telephone Encounter - Lucy Andrews MA - 04/12/2024 3:22 PM EDT Patient called and requesting lab work,. She is asking if she can have a full thyroid panel done? States she would like to get and was told to call in when she wanted to have lab work done. [facility]09-03-2024 Instructions* Patient Instructions* Lashonda Thomas MD - 03/07/2024 11:50 AM EDT You can repeat labs once a year or sooner if any new symptoms occur Also labs to be checked if planning or if conceived Follow up: As needed documented in this encounterMorrow County Hospital09-03-2024 NoteHNO ID: [id number] Author: LASHONDA THOMAS MD Service: ? Author [...] was started on MMI, propranolol by her agent contract clerk, Dr. Erin Andrews By late 2020, she was started on synthroid, was on 50 mcg daily as the latest She has seen naturopathy specialist, and started using supplements in Apr 2023, she feels she felt better with energy, hair texture etc She is on thyrocare- BID and adrenal supplement once daily Family history: Grand father had Cross's disease Interval history: 03/07/24: Subclinical hypothyroidism: Currently [...] day. Thyro-care *under the supervision of a general supervisor -- compound formula* MEDICATION, NON-DATABASE Take 1 capsule by mouth once daily. Adrenal Assist *under the supervision of a general supervisor -- compound formula* No current facility-administered medications [...] Intact PTH 36.2 pg/m (more content not included)...[facility] 03-07-2024 History of Present illness Narrative* Lashonda [...] was started on MMI, propranolol by her agent contract clerk, Dr. Erin Andrews By late 2020, she was started on synthroid, was on 50 mcg daily as the latest She has seen naturopathy specialist, and started using supplements in Apr 2023, she feels she felt better with energy, hair texture etc She is on thyrocare- BID and adrenal supplement once daily Family history: Grand father had Cross's disease Interval history: 03/07/24: Subclinical hypothyroidism: Currently [...] day. Thyro-care *under the supervision of a general supervisor -- compound formula* MEDICATION, NON-DATABASE Take 1 capsule by mouth once daily. Adrenal Assist *under the supervision of a general supervisor -- compound formula* No current facility-administered medications [...] same time she is on supplements from [employer], which on review do not seem to [...] Moderate Lashonda Thomas MD Endocrinology Associate Staff [facility] Endocrinology and Metabolism [place] [phone] documented in this encounterMorrow County Hospital05-28-2024 Instructions* Patient Instructions* Lashonda Thomas MD - 11/30/2023 9:04 AM EDT We shall monitor off of levothyroxine at this time Please do labs in 3 months from now documented in this encounterMorrow County Hospital05-28-2024 History of Present illness Narrative* Lashonda [...] was started on MMI, propranolol by her agent contract clerk, Dr. Erin Andrews By late 2020, she [...] intolerance: no Family history: Grand father had Cross's disease REVIEW OF SYSTEMS: GENERAL:No weight loss, [...] day. Thyro-care *under the supervision of a general supervisor -- compound formula* MEDICATION, NON-DATABASE Take 1 capsule by mouth once daily. Adrenal Assist *under the supervision of a general supervisor -- compound formula* No current facility-administered medications [...] same time she is on supplements from [employer], which on review do not seem do [...] Moderate Lashonda Thomas MD Endocrinology Associate Staff [facility] Endocrinology and Metabolism [place] [phone] documented in this encounterMorrow County Hospital03-30-2024 Evaluation + Plan note Future Scheduled Tests Laboratory* Thyroid Stimulating Hormone 10/02/23 * Free T4 10/02/23 * Free T3 10/02/23 * Complete Metabolic Panel 10/02/23 [facility] 04-10-2023 NotePap Smear Specimen AdequacyApril 2022 5:11pmComment.Satisfactory for evaluation. Endocervical and/or squamous metaplasticcells (endocervical component)are present.[facility] INTER[facility]ACED A#[id number] Regional Medical CenterComment on above:Satisfactory for evaluation. Endocervical and/or squamous metaplasticcells (endocervical component)are present.Evaluation + Plan note Future Appointments Appointment Date:06/12/2021 03:30:00 PM Scheduled Provider:ERIN ANDREWS MD Location:[place] Appointment Type:[facility] Evaluation + Plan note Future Appointments Appointment Date:12/11/2021 03:30:00 PM Scheduled Provider:ERIN ANDREWS MD Location:[place] Appointment Type:[facility] Evaluation + Plan note Future Appointments Appointment Date:12/02/2021 11:45:00 AM Scheduled Provider:ERIN ANDREWS MD Location:[place] Appointment Type:[facility] Evaluation + Plan note Future Appointments Appointment Date:09/24/2022 11:30:00 AM Scheduled Provider:ERIN ANDREWS MD Location:[place] Appointment Type:[facility] Evaluation + Plan note Future Appointments Appointment Date:10/01/2022 10:00:00 AM Scheduled Provider:ERIN ANDREWS MD Location:[place] Appointment Type:[facility] Evaluation + Plan note Future Appointments Appointment Date:11/02/2023 08:30:00 AM Scheduled Provider:ERIN ANDREWS MD Location:[place] Appointment Type:[facility] Future Scheduled Tests Laboratory* Thyroid Stimulating Hormone 10/29/23 * Thyroid Stimulating Hormone 10/02/23 * Free T4 10/29/23 * Free T4 10/02/23 * Complete Blood Count 10/29/23 * Free T3 10/29/23 * Free T3 10/02/23 * Complete Metabolic Panel 10/29/23 * Complete Metabolic Panel 10/02/23 [facility] evaluation + Plan note Future Appointments Appointment Date:11/02/2023 08:30:00 AM Scheduled Provider:ERIN ANDREWS MD Location[facility] Appointment Type:[facility] Future Scheduled Tests Laboratory* Thyroid Stimulating Hormone 10/02/23 * Free T4 10/02/23 * Free T3 10/02/23 * Complete Metabolic Panel 10/02/23 [facility] evaluation note* Diagnosis Onset Date Resolution Status Subcutaneous nodule of breast acute Encounter for routine gynecological examination noneactive [facility] Work Phone: Evaluation note* Diagnosis Subclinical hypothyroidism- Primary Other specified acquired hypothyroidism [facility] [place] [facility] Diagnosis Subclinical hypothyroidism- Primary Other specified acquired hypothyroidism [facility]* Diagnosis Subclinical hypothyroidism- Primary Other specified acquired hypothyroidism [facility]* Diagnosis Abnormal results of thyroid function studies- Primary Nonspecific abnormal results of thyroid function study documented [facility] [place] [facility]* Diagnosis Hyperthyroidism- Primary Thyrotoxicosis without mention of goiter or other cause, without mention of thyrotoxic crisis or storm [facility]* Diagnosis Hyperthyroidism Thyrotoxicosis without mention of goiter or other cause, without mention of thyrotoxic crisis or storm [facility]* Diagnosis Acquired hypothyroidism- Primary Unspecified hypothyroidism [facility]* Diagnosis Other acne- Primary Acquired hypothyroidism Unspecified hypothyroidism Irregular periods/menstrual cycles Irregular menstrual cycle [facility]* Diagnosis Onset Date Resolution Status Admit Date Encounter for routine gynecological examination noneactive November 142024 9:36am [facility] Work Phone: Evaluation note* Diagnosis Acquired hypothyroidism- Primary Unspecified hypothyroidism Subclinical hypothyroidism Other specified acquired hypothyroidism Hyperthyroidism Thyrotoxicosis without mention of goiter or other cause, without mention of thyrotoxic crisis or storm documented [facility] this encounter [facility] [place] [facility]* Diagnosis Irregular periods/menstrual cycles- Primary Irregular menstrual cycle [facility] [place] [facility] Diagnosis Irregular periods/menstrual cycles- Primary Irregular menstrual cycle documented [facility] this encounter [facility] [place] [facility]* Diagnosis Acquired hypothyroidism Unspecified hypothyroidism Other acne [facility] in [facility] Narrative No data available for this section [facility] Discharge instructions No data available for this section [facility] Progress note No data available for this section [facility] Proyncad note Author Robina Peters [facility] Note Date/Time February 15, 2025 8: 59am [facility] [address], [address] [place] [address] OFFICE VISIT Date of Service: 02/15/25 MR#: [id number] Acct: [id number] Name: ERWIN COLES Rep #: [id number] : 1995 Provider: VIRGINIA Peters Age/Sex: 29/F [place] [facility]: Signed Intake Vital Signs 11/14/24 09:41 01/30/25 10:15 02/15/25 08:29 Height 5 ft 6 in 5 ft 6 in 5 ft 6 in Weight: 145 lb 7 oz BMI 23.4 BP 111/72 Intake Visit Reasons: *EST* NOB LMP 12/13, KATE 09/19 *ppu Chief Complaint: New OB Sap Bw Consultant Required: No Is patient in pain?: No Allergies amoxicillin (From Augmentin) Allergy (Mild, Verified 02/15/25 08:27) Abd cramps/diarrhea clavulanic acid (From Augmentin) Allergy (Mild, Verified 02/15/25 08:27) Abd cramps/diarrhea Medications ?Medication ?Instructions ?Recorded ?Confirmed ?Type PNV-iron 29 mg-folic acid 1 pkg PO 01/30/25 02/15/25 H istory iz-yzpso-5-dha 200 mg oral combo pack levothyroxine 50 [...] Artificial valve CVA (cerebral vascular accident) Grandfather Cross disease Paternal Social History adopted: No household members: spouse housing: apartment number of children: 0 current occupational status: employed current occupation: [employer] current occupational exposures/hazards: No pets and animals: [...] 3-4 times per week duration: 45-60 minutes/day channing/restorationism: Orthodoxy seatbelt use: always do you feel safe at home: Yes additional social history: - Haris-Counselor Aide Wally History 1 Elective abortions Hx Para 0 Spontaneous abortions Hx # Term Pregnancies Ectopic pregnancies Hx # Pregnancies Multiple births # of living children HPI *EST* NOB LMP 12/13, KATE 09/19 *ppu Details: ERWIN COLES is a 29 year old who presents for New OB visit. OB Visit KATE Calculator Estimated Delivery Date Method Current WG [...] (Rh) Sensitized (0+), Pulmonary (e.g.,TB,Asthma), Seasonal allergies, Music Composition Teacher surgery, Anesthetic complications, History of abnormal pap, [...] Immediate Larc, Signs and Symptoms of Preeclampsia, Feeding Yes , [place] Education and Family Medical Leave or Disability [...] high risk , unspecified, unspecified trimester [facility] Misc. 01/30/25 E03.9 - Hypothyroidism, unspecified, E06.3 - [...] Cosigner Signature: Date (if applicable) CC: ~ [facility] Work Phone: Progress note Author Kierra Javed [facility] Note Date/Time April 12, 2025 9: 45am [facility] [address], [address] [place] [address] OFFICE VISIT Date of Service: 04/12/25 MR#: [id number] Acct: [id number] Name: ERWIN COLES Rep #: [id number] : 1995 Provider: Dr. Kristal Dooley DO Age/Sex: 29/F [place] [facility]: Signed Intake Vital Signs 02/15/25 08:29 03/16/25 13:52 04/12/25 09:17 04/12/25 09:18 Height 5 ft 6 in 5 ft 6 in 5 ft 6 in 5 ft 6 in Weight: 151 lb BMI 24.3 BP 116/71 Intake Visit Reasons: 17 wk ob Sap Bw Consultant Required: No Is patient in pain?: No Allergies amoxicillin (From Augmentin) Allergy (Mild, Verified 04/12/25 09:17) Abd cramps/diarrhea clavulanic acid (From Augmentin) Allergy (Mild, Verified 04/12/25 09:17) Abd cramps/diarrhea Medications ?Medication ?Instructions ?Recorded ?Confirmed ?Type PNV-iron 29 mg-folic acid 1 pkg PO 01/30/25 04/12/25 H istory ii-qgkka-9-dha 200 mg oral combo pack levothyroxine 50 mcg tablet 75 mcg PO DAILY 01/30/25 1 History (Synthroid) Last Menstrual Period: 12/13/24 Zika: Zika virus screening: Negative : No PFSH PFSH Medical History Hypothyroidism Surgical History Status post myringotomy with tube placement of both ears S/P wisdom tooth extraction S/P wrist surgery S/P tonsillectomy and adenoidectomy Family History Grandmother Breast cancer Paternal Cancer Paternal Skin cancer Hypertension Mother Hypertension Father Heart disease Artificial valve CVA (cerebral vascular accident) Grandfather Marcello disease Paternal Social History adopted: No household [...] 3-4 times per week duration: 45-60 minutes/day channing/restorationism: Orthodoxy seatbelt use: always do you feel safe at home: Yes additional social history: - Haris-Counselor Aide Wally History 1 Elective abortions Hx Para 0 Spontaneous abortions Hx # Term Pregnancies Ectopic pregnancies Hx # Pregnancies Multiple births # of living children HPI 17 wk ob Details: ERWIN COLES is a 29 year old who presents for routine OB visit. OB Visit KATE Calculator Estimated Delivery Date Method Current WG Current Estimate 09/19/25 LMP (Certain) 17w 1d Other Estimates 09/21/25 Ultrasound #1 16w 6d Expected Delivery Route/Plan Labor Preferences- CB/BF classes: [...] dates. Declines NIPT. [facility] managing thyroid meds. 03/16/25 -?-?-?-?-?-?-?-?-?-?-?-?- 13w 2d 146 lb 4 oz (+1 lb 4 oz) 121/72 -?-?-?-?-?-?-?-?-?-?-?-?- 160 -?-?-?-?-?-?-?-?-?-?-?-?- SM- no vb crmapi ng 04/12/25 -?-?-?-?-?-?-?-?-?-?-?-?- 17w 1d 151 lb (+6 lb) 116/71 -?-?-?-?-?-?-?-?-?-?-?-?- 159 -?-?-?-?-?-?-?-?-?-?-?-?- JV- no lof, vagi nal bleeding, or cramping. has intermittent right lower quadrant pain. no fevers, diarrhea, chills. has anatomy scan coming up. possible cyst or musculoskeletal as it does get better after her chiropractic visits. due for tsh next office visit. ACOG First Trimester First Trimester: Desire for , Alcohol, Tobacco Cessation, Illicit/Recreational Drug/Substance Use, Intimate Partner Violence, Barriers to care, Unstable Housing, Communication Barriers, Environmental/Work Hazards, Anticipated Course of Care, Toxoplasmosis Precations, Use of Any medications, Sexual activity, Dental Care, Sauna/Hot tub use, Seat Belt use, Childbirth classes/Hospital facilities, Travel, Indications for Ultrasound and Screening for Aneuploidy; Discussed Exercise and Discussed Second Trimester Second Trimester: Signs and Symptoms of Labor, Selecting a care provider, Reproductive Life Planning & Contreception, Care Planning, Depression/Anxiety and Intimate Partner Violence; Discussed Tobacco Cessation Third Trimester Third Trimester: Pain Management Plans, Labor support person(s), Immediate Larc, Signs and Symptoms of Preeclampsia, Feeding No , [place] Education and Family Medical Leave or Disability Forms Coding Level of Care Code OB Routine Diagnoses Supervision of high risk in first trimester O09.91 Trimester: first trimester 17 weeks gestation of Z3A.17 Weeks of gestation: 17 weeks FH: breast cancer 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 (3) FH: breast cancer: Status: Acute Comment: Paternal Grandmother age of onset unknown (4) David's disease: Status: Acute Comment: see [facility], we will check tsh and free t4 qtrimester. negative trab. Orders: Orders POC Urinalysis 2 Dip (Clinic) Today 04/12/25 0945 <Electronically signed by Kierra Dewitt DO> Date _ Kierra Dooley DO Cosigner Signature: Date (if applicable) CC: ~ [facility] Work Phone: Reason for referral (narrative)* Diagnostic Procedure Only (Routine) - New Request Specialty Diagnoses / Procedures Referred By Pam weaver Referred To Contact US IMAGING Diagnoses Hyperthyroidism Procedures US THYROID/PARATHYROID US SOFT TISSUE HEAD & NECK REAL TIME IMGE Lashonda Salas MD [address] [place] [address] [id number] [id number] Referral ID Status Reason Start Date Expiration Date Visits Requested Visits Authorized [id number] New Request Auto-Generat ed Referral 4 06/14/2025 1 1 [facility] for referral (narrative)No reason for referral [facility] Work Phone: Chief Complaint and Reason for Visit Chief Complaint 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 Reason for Visit Subcutaneous nodule of breast Encounter for routine gynecological examination Chief Complaint Admit Date 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) November 14, 2024 9:36a m Reason for Visit Admit Date Encounter for routine gynecological exam ination November 14, 2024 9:36am Chief Complaint Admit Date 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) November 14, 2024 9:36a m PNOB Vitals & Education January 30, 2025 8:05am Reason for Visit Admit Date Subcutaneous nodule of breast November 14, 2024 9:36am Encounter for routine gynecological exam ination November 14, 2024 9:36am Chief Complaint Admit Date 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) November 14, 2024 9:36a m PNOB Vitals [...] breast February 8:23am Supervision of high-risk Augus 2024 8:23am Family History Relationship Condition Age [...] disease Unknown Cerebrovascular accident (CVA) Unknown grandfather Marcello's disease Unknown Summary Purpose Advance Directives No [...] CNM Attending Provider, Referring Pr ovider Active Social Services Coordinator Relationship Specialty Start Date End Date Oren Rudd IV, DO [address] [place] [address] PCP - General Family Medicine 11/30/23 Social Services Coordinator Relationship Specialty Start Date End Date Oren Rudd IV, DO [address] [place] [address] PCP - General Family Medicine 11/30/23 Social Services Coordinator Relationship Specialty Start Date End Date Oren Rudd IV, DO [address] [place] [address] PCP - General Family Medicine 11/30/23 Social Services Coordinator Relationship Specialty Start Date End Date Oren Rudd IV, DO [address] [place] [address] PCP - General Family Medicine 11/30/23 Social Services Coordinator Relationship Specialty Start Date End Date Oren Rudd IV, DO [address] [place] [address] PCP - General Family Medicine 11/30/23 Social Services Coordinator Relationship Specialty Start Date End Date Oren Rudd IV, DO [address] [place] [address] PCP - General Family Medicine 11/30/23 Social Services Coordinator Relationship Specialty Start Date End Date Oren Rudd IV, DO [address] [place] [address] PCP - General Family Medicine 11/30/23 Social Services Coordinator Relationship Specialty Start Date End Date Oren Rudd IV, DO [address] [place] [address] PCP - General Family Medicine 11/30/23 Social Services Coordinator Relationship Specialty Start Date End Date Oren Rudd IV, DO [address] [place] [address] PCP - General Family Medicine 11/30/23 Social Services Coordinator Relationship Specialty Start Date End Date Oren Rudd IV, DO [address] [place] [address] PCP - General Family Medicine 11/30/23 Social Services Coordinator Relationship Specialty Start Date End Date Oren Rudd IV, DO [address] [place] [address] PCP - General Family Medicine 11/30/23 Team Status: Inactive Member Role Status Dates No Primary Care Physician Primary Care Provider Active Start: November 14, 2024 End: November 14, 2024 No Primary Care Physician Referring Provider Active Start: November 14, 2024 End: November 14, 2024 Yasmeen Rodriguez CNM Attending Provider Active Start: November 14, 2024 End: November 14, 2024 Social Services Coordinator Relationship Specialty Start Date End Date Oren Rudd IV, DO [address] [place] [address] PCP - General Family Medicine 11/30/23 Social Services Coordinator Relationship Specialty Start Date End Date Oren Rudd IV, DO [address] [place] [address] PCP - General Family Medicine 11/30/23 Social Services Coordinator Relationship Specialty Start Date End Date BrycethaOren IV, DO [address] [place] [address] PCP - General Family Medicine 11/30/23 Team [...] End: January 30, 2025 Ying Lamar NP, SMASH FIXER-C Attending Provider Active Start: January 30, 2025 [...] Provider Active S tart: February 15, 2025 Team Status: Inactive Member Role/Relationship Status Dates Robina Peters CNM Attending Provider Active S tart: February 15, 2025 End: February 15, 2025 Robina Peters CNM Referring Provider Active S tart: February 15, 2025 End: February 15, 2025 Team Status: Inactive Member Role/Relationship Status Dates No Primary Care Physician Referring Provider Active Start: January 30, 2025 End: January 30, 2025 Ying Lamar NP SMASH FIXER-C Attending Provider Active Start: January 30, 2025 End: January 30, 2025 Team Status: Inactive Member Role/Relationship Status Dates No Primary Care Physician Referring Provider Active Start: February 15, 2025 End: February 15, 2025 Robina Peters CNM Attending Provider Active S tart: February 15, 2025 End: February 15, 2025 Team Status: Inactive Member Role/Relationship Status Dates Robina Peters CNM Attending Provider Active S tart: February 15, 2025 End: February 15, 2025 Robina Peters CNM Referring Provider Active S tart: February 15, 2025 End: February 15, 2025 Team Status: Inactive Member Role/Relationship Status Dates Dr. Marva Shah MD Attending Provider Active Start: March 16, 2025 End: March 16, 2025 Team Status: Inactive Member Role/Relationship Status Dates No Primary Care Physician Referring Provider Active Start: January 30, 2025 End: January 30, 2025 Ying Lamar NP, SMASH FIXER-C Attending physician Active Start: January 30, 2025 End: January 30, 2025 Team Status: Inactive Member Role/Relationship Status Dates No Primary Care Physician Referring Provider Active Start: February 15, 2025 End: February 15, 2025 Robina Peters CNM Attending physician Active Start: February 15, 2025 End: February 15, 2025 Team Status: Inactive Member Role/Relationship Status Dates Robina Peters CNM Attending physician Active Start: February 15, 2025 End: February 15, 2025 Robina Peters CNM Referring Provider Active S tart: February 15, 2025 End: February 15, 2025 Team Status: Inactive Member Role/Relationship Status Dates Dr. Marva Shah MD Attending physician Active Start: March 16, 2025 End: March 16, 2025 Team Status: Inactive Member Role/Relationship Status Dates Dr. Kierra Dooley DO Attending physician Acti ve Start: April 12, 2025 End: April 12, 2025 Team Status: Active Member Role/Relationship Status Dates No Primary Care Physician Primary care physician Activ e Team Status: Inactive Member Role/Relationship Status Dates No Primary Care Physician Referring Provider Active Start: January 30, 2025 End: January 30, 2025 Ying Lamar NP, SMASH FIXER-C Attending physician Active Start: January 30, 2025 End: January 30, 2025 Team Status: Inactive Member Role/Relationship Status Dates No Primary Care Physician Referring Provider Active Start: February 15, 2025 End: February 15, 2025 Robina Peters CNM Attending physician Active Start: February 15, 2025 End: February 15, 2025 Team Status: Inactive Member Role/Relationship Status Dates Robina Peters CNM Attending physician Active Start: February 15, 2025 End: February 15, 2025 Robina Peters CNM Referring Provider Active S tart: February 15, 2025 End: February 15, 2025 Team Status: Inactive Member Role/Relationship Status Dates Dr. Marva Shah MD Attending physician Active Start: March 16, 2025 End: March 16, 2025 Team Status: Inactive Member Role/Relationship Status Dates Dr. Kierra Dooley DO Attending physician Acti ve Start: April 12, 2025 End: April 12, 2025 Team Status: Inactive Member Role/Relationship Status Dates No Primary Care Physician Primary care physician Activ e Start: April 23, 2025 End: April 23, 2025 Dr. Kierra Dooley DO Attending physician Acti ve Start: April 23, 2025 End: April 23, 2025 Dr. Kierra Dooley DO Referring Provider Activ e Start: April 23, 2025 End: April 23, 2025 Team Status: Inactive Member Role/Relationship Status Dates No Primary Care Physician Primary care physician Activ e Start: April 25, 2025 End: April 25, 2025 No Primary Care Physician Referring Provider Active Start: April 25, 2025 End: April 25, 2025 Dr. Marva Shah MD Attending physician Active Start: April 25, 2025 End: April 25, 2025 Team Status: Inactive Member Role/Relationship Status Dates Robina Peters CNM Attending physician Active Start: May 10, 2025 End: May 10, 2025 No Primary Care Physician Primary care physician Activ e Start: May 10, 2025 End: May 10, 2025 No Primary Care Physician Referring Provider Active Start: May 10, 2025 End: May 10, 2025 Team Status: Active Member Role/Relationship Status Dates No Primary Care Physician Primary care physician Activ e Start: May 10, 2025 Robina Peters CNM Attending physician Active Start: May 10, 2025 Care Team (unrecognized sect ion and content) Care Team Personnel Name: OREN RUDD DO Position: P4 Physician - Primary Care Member Role: Primary Care Physician Address: Address: [address] [place] [address] Care Team Related Persons Name: NONE, Name: HARIS COLES Address: Home [address] [place], [place] [id number] [place] Address: Temporary [address] [place], [place] [id number] Name: FRANCISCO WEIR Address: Home [address] [place], [place] [id number] [place] Address: Temporary [address] [place] [id number] Name: FRANCISCO WEIR Address: [address] [place], [place] [id number] Name: MARGE WEIR Goals (unrecognized section and content) Type Care Experience svdLabor Preferences -CB/BF classes: []labor support person: []labor intervention preferences: []pain management options preferred: []cut cord/dad catch: []: []PP control planned: []discussed possible routes of delivery and associated risks: []special requests: [] Goals may be documented in an alternate section INFORMATION SOURCE (unrecogn ized section and content) DATE CREATED AUTHOR 10/20/2023 [facility] ([place]) DATE CREATED AUTHOR AUTHOR'S ORGANIZ ATION 01/28/2025 [facility] DATE CREATED AUTHOR AUTHOR'S ORGANIZ ATION 05/10/2025 [facility] DATE CREATED AUTHOR AUTHOR'S ORGANIZ ATION 05/12/2025 [facility] DATE CREATED AUTHOR AUTHOR'S ORGANIZ ATION 05/16/2025 [facility] Source Comments (unrecognize d section and content) In the event this informatio n is protected by the Federal Confidentiality of Alcohol and Drug Abuse Patient Records regulations: The Federal rules restrict any use of the information to criminally investigate or prosecute any alcohol or drug abuse patient.[facility] the event this information is protected by the Federal Confidentiality of Alcohol and Drug Abuse Patient Records regulations: The Federal rules restrict any use of the information to criminally investigate or prosecute any alcohol or drug abuse patient.[facility] the event this information is protected by the Federal Confidentiality of Alcohol and Drug Abuse Patient Records regulations: The Federal rules restrict any use of the information to criminally investigate or prosecute any alcohol or drug abuse patient.[facility] the event this information is protected by the Federal Confidentiality of Alcohol and Drug Abuse Patient Records regulations: The Federal rules restrict any use of the information to criminally investigate or prosecute any alcohol or drug abuse patient.[facility] the event this information is protected by the Federal Confidentiality of Alcohol and Drug Abuse Patient Records regulations: The Federal rules restrict any use of the information to criminally investigate or prosecute any alcohol or drug abuse patient.[facility] the event this information is protected by the Federal Confidentiality of Alcohol and Drug Abuse Patient Records regulations: The Federal rules restrict any use of the information to criminally investigate or prosecute any alcohol or drug abuse patient.[facility] the event this information is protected by the Federal Confidentiality of Alcohol and Drug Abuse Patient Records regulations: The Federal rules restrict any use of the information to criminally investigate or prosecute any alcohol or drug abuse patient.[facility] the event this information is protected by the Federal Confidentiality of Alcohol and Drug Abuse Patient Records regulations: The Federal rules restrict any use of the information to criminally investigate or prosecute any alcohol or drug abuse patient.[facility] the event this information is protected by the Federal Confidentiality of Alcohol and Drug Abuse Patient Records regulations: The Federal rules restrict any use of the information to criminally investigate or prosecute any alcohol or drug abuse patient.[facility] the event this information is protected by the Federal Confidentiality of Alcohol and Drug Abuse Patient Records regulations: The Federal rules restrict any use of the information to criminally investigate or prosecute any alcohol or drug abuse patient.[facility] the event this information is protected by the Federal Confidentiality of Alcohol and Drug Abuse Patient Records regulations: The Federal rules restrict any use of the information to criminally investigate or prosecute any alcohol or drug abuse patient.[facility] the event this information is protected by the Federal Confidentiality of Alcohol and Drug Abuse Patient Records regulations: The Federal rules restrict any use of the information to criminally investigate or prosecute any alcohol or drug abuse patient.[facility] the event this information is protected by the Federal Confidentiality of Alcohol and Drug Abuse Patient Records regulations: The Federal rules restrict any use of the information to criminally investigate or prosecute any alcohol or drug abuse patient.[facility] the event this information is protected by the Federal Confidentiality of Alcohol and Drug Abuse Patient Records regulations: The Federal rules restrict any use of the information to criminally investigate or prosecute any alcohol or drug abuse patient.[facility] the event this information is protected by the Federal Confidentiality of Alcohol and Drug Abuse Patient Records regulations: The Federal rules restrict any use of the information to criminally investigate or prosecute any alcohol or drug abuse patient.[facility] Hospital[facility] the event this information is protected by the Federal Confidentiality of Alcohol and Drug Abuse Patient Records regulations: The Federal rules restrict any use of the information to criminally investigate or prosecute any alcohol or drug abuse patient.[facility] the event this information is protected by the Federal Confidentiality of Alcohol and Drug Abuse Patient Records regulations: The Federal rules restrict any use of the information to criminally investigate or prosecute any alcohol or drug abuse patient.[facility] HospitalIn the event this information is protected by the Federal Confidentiality of Alcohol and Drug Abuse Patient Records regulations: The Federal rules restrict any use of the information to criminally investigate or prosecute any alcohol or drug abuse patient.[facility] HospitalIn the event this information is protected by the Federal Confidentiality of Alcohol and Drug Abuse Patient Records regulations: The Federal rules restrict any use of the information to criminally investigate or prosecute any alcohol or drug abuse patient.[facility] Reason for Visit (unrecogniz ed section [...] Lashonda Salas MD [address] [place] [address] [place] [id number] Referral ID Status Reason Start Date Expiration Date V isits Requested Visits Authorized [id number] Closed Auto-Generate d Referral 05/15/2024 06/14/2025 1 [...] BE BASED ON THE PRIMARY CLINICAL RECORDS. [facility] [employer] [facility]. provides no warranty or guarantee of the accuracy or completeness of information in this document.
[2025-06-29 11:15] LABS: Hematocrit 37.3 % (37-47); Hemoglobin 13.0 g/dL (12.0-15.0); Immature Granulocytes Count 0.050 X10^3/uL (0.0-0.0); Mean Corp Hgb Conc 34.9 g/dL (32-36); Mean Corpuscular Volume 96.4 fL (81-99); Mean Platelet Vol. 10.7 fl (6.2-12.0); NRBC Flagged by Analyzer 0 % (0-5); Platelet Count 225 K/mm3 (150-450); RBC Distribution Width CV 12.2 % (11.6-14.6); RBC Distribution Width SD 42.5 fl (35.1-43.9); Red Blood Count 3.87 M/mm3 (4.2-5.4); White Blood Count 8.2 K/mm3 (4.4-11.0)
[2025-06-29 12:17] LABS: Glucose Challenge Gest 1H 50g 97 mg/dL (70-140); HIV Nonreactive (Nonreactive); Syphilis Antibodies Nonreactive (Nonreactive)
== END | disposition home or self-care (01) ==
LOC: LAB 09:51
PROVIDERS: Nurse Practitioner Women's Health; Referring Provider Obstetrics & Gynecology; Visit Provider Obstetrics & Gynecology
DX: O09.91 Supervision of high risk pregnancy, unspecified, first trimester (principal); Z3A.17 17 weeks gestation of pregnancy; E06.3 Autoimmune thyroiditis
CPT/HCPCS: 36415; 82950; 84439; 84443; 85025; 86703; 86780